=== PATIENT | male | born 1950 | race Caucasian/White ===

== ENCOUNTER → 2017-04-13 09:56 | Outpatient (RCR) | payer MEDICARE, SELFPAY | LOC: PT 09:56 | PROVIDERS: Visit Provider Physical Medicine & Rehabilitation | DX: S06.5X9A Traumatic subdural hemorrhage with loss of consciousness of unspecified duration, initial encounter (principal) ==

== ENCOUNTER 2017-07-02 12:56 | Emergency (ER) | payer MEDICARE, SELFPAY ==
[2017-07-02 13:03] VITALS: BP 144/87; PULSE 70; RESP 16; TEMP 36.6; O2SAT 96; BMI 21.1
--- NOTE | 2017-07-02 13:10 | CT_ITS ---
CT head/brain wo con Ordering Physician: Arnie Mcnally MD Patient Age: 67 years: Male HISTORY: ITS.REASON: FELL AND HIT HEAD ON ICE Hit on top of head. Headache previous brain bleed subdural hematoma TECHNIQUE: Axial CT head without contrast CT bone Windows centrally. COMPARISON : Previous CT head February 2017 FINDINGS On the previous February 2017 exam there is a large acute subdural hematoma overlying the right cerebral hemisphere. This is been surgically evacuated with 2 angelia hole evident at the right skull. The procedure evacuated majority of the subdural but there is a a small thin residual low-density subdural collection. 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 At the it is minimal measuring up to 6- 7-mm Becoming slightly more evident as we continue superiorly. There is no midline shift. No effacement of the right lateral ventricle. No mass effect. No hemorrhage. No acute findings otherwise seen. The posterior fossa appears normal. The ventricles appear satisfactory and basal cisterns clear. Mild atrophy is seen bilaterally. . Skull intact except to note the 2 angelia holes on right.. Mild opacification of a mid ethmoid air cell. Otherwise paranasal sinuses clear. Mastoid air cells middle ear IACs satisfactory. IMPRESSION======= No acute appearing intracranial findings The patient had a large acute subdural hematoma on February 2007 study which was surgically evacuated. The 2 angelia holes at the right skull reflects such. Today we see a small thin residual low-density subdural collection compatible with likely small residual chronic subdural hematoma or possibly residual subdural hygroma. There are no acute findings. No acute bleed. No remarkable mass effect or midline shift associated. However with the above residual findings I would encourage ongoing follow-up with neurosurgery as outpatient particular if any residual headache , to ensure stability
--- NOTE | 2017-07-02 13:23 | CT_ITS ---
CT cervical spine wo con Ordering Physician: Arnie Mcnally MD Patient Age: 67 years: Male HISTORY: ITS.REASON: fall with hit to head TECHNIQUE: Helical CT scanning performed through the cervical spine with sagittal and coronal reconstructions on CT workstation COMPARISON : February 2017 CT cervical spine FINDINGS No acute fracture nor subluxation of the cervical spine. No significant change is previous study the vertebral bodies appear intact and the disc spaces appear fairly well-maintained throughout. The facets intact with normal relationships. Spinous processes intact. Base of skull intact. Prevertebral soft tissues and alignment satisfactory. Nonspecific straightening could reflect muscle spasm or recent injury. But more likely positional. C1-C2 relationships appear normal. Apices the lungs appear clear. Upper normal thickness of proximal cervical esophagus. IMPRESSION: . 1.. No acute fracture nor subluxation C-spine. C-spine stable and intact.
--- NOTE | 2017-07-02 14:48 | HMH.EDFALL ---
ED Disposition Clinical Impression: Head contusion, Fall, History of subdural hematoma Disposition: Home, Self-Care Condition on Discharge: Fair Additional Instructions: 1- HOB 30 degree. 2- head inj instructions. 3- to retrun for any change to repeat the CT scan as we discussed. 4- follow up with the neurosurgeon on Tuesday. 5- always return if needed for any reason. Referrals: Shawn Araya MD [Primary Care Provider] - - Critical Care Critical Care Time: No Attestation: On 07/02/17, the high probability of a clinically significant, sudden or life threatening deterioration of the following system(s) required my full and direct attention, intervention and personal management. The time I documented below is in addition to time spent performing reported procedures but includes the following listed in this critical care notation. Medical Decision Making Vital Signs: 07/02/17 13:03 Temperature 98 F Temperature Source Oral Pulse Rate [Right Brachial] 70 Respiratory Rate 16 Blood Pressure [Right Arm] 144/87 Blood Pressure Mean [Right Arm] 106 Blood Pressure Source [Right Arm] Automatic Cuff Blood Pressure Position [Right Arm] Sitting 02 Sat by Pulse Oximetry 96 Oxygen Delivery Method Room Air - CT Data CT Scan: Head, C-Spine Time Received: 14:51 Preliminary Findings: Abnormal Findings Narrative: No new bleeding old blood from prior subdural hemorrhage. IMPRESSION======= No acute appearing intracranial findings The patient had a large acute subdural hematoma on February 2007 study which was surgically evacuated. The 2 angelia holes at the right skull reflects such. Today we see a small thin residual low-density subdural collection compatible with likely small residual chronic subdural hematoma or possibly residual subdural hygroma. There are no acute findings. No acute bleed. No remarkable mass effect or midline shift associated. However with the above residual findings I would encourage ongoing follow-up with neurosurgery as outpatient particular if any residual headache , to ensure stability IMPRESSION: . 1.. No acute fracture nor subluxation C-spine. C-spine stable and intact. - Negrito Inquiry Pt receiving controlled substance: No Negrito was queried for this patient: No Medical Decision Making Narrative: I discussed the CT scan with the patient I informed him that he will still need to be on the 24 hours observation. He was advised not to use any aspirin or nonsteroidal. to return to the ED for any change for repeat CT scan. He was given a copy of his CT scan for follow-up with his neurosurgeon at on Tuesday. Fall HPI - General Chief Complaint: Fall Stated Complaint: Fell on ice hit head Mode of Arrival: Ambulatory Limitations: No Limitations Description of Symptoms (Recalled from ER Triage Doc. by RN): ADVISES OF BRAIN SURGERY 03/20/17 AND FELL AND HIT HIS RT SIDE OF HIS HEAD ON ICE TODAY SO PT IS CONCERNED - History of Present Illness HPI Narrative: 67 years old white male with a history of subdural hemorrhage in 2017. He slipped and fell on ice and hit his head on the floor. No loss of consciousness no nausea novomiting, no neck pain . He wanted to have another CT scan to make sure everything is fine. MD complaint: fall Onset (ago): hour(s) (at noon 2 hours ago.) Fall witnessed: yes, by family Place fall occurred: home Loss of consciousness: none Prolonged down time: no Symptoms prior to fall: none Context: tripped/slipped Location of injury: head Severity: moderate Quality: dull Associated symptoms (after fall): denies - Related Data Allergies Allergy/AdvReac Type Severity Reaction Status Date / Time No Known Allergies Allergy Unverified 04/12/17 15:11 [facility] History I have reviewed the patient's past medical history: Yes Medical History: Denies:: Cancer, Diabetes Mellitus Type 1, Diabetes Mellitus Type 2, MRSA Amputation: No
--- NOTE | 2017-07-02 14:51 | ED_ITS ---
ED Disposition Clinical Impression: Head contusion, Fall, History of subdural hematoma Disposition: Home, Self-Care Condition on Discharge: Fair Additional Instructions: 1- HOB 30 degree. 2- head inj instructions. 3- to retrun for any change to repeat the CT scan as we discussed. 4- follow up with the neurosurgeon on Tuesday. 5- always return if needed for any reason. Referrals: Shawn Araya MD [Primary Care Provider] - - Critical Care Critical Care Time: No Attestation: On 07/02/17, the high probability of a clinically significant, sudden or life threatening deterioration of the following system(s) required my full and direct attention, intervention and personal management. The time I documented below is in addition to time spent performing reported procedures but includes the following listed in this critical care notation. Medical Decision Making Vital Signs: 07/02/17 13:03 Temperature 98 F Temperature Source Oral Pulse Rate [Right Brachial] 70 Respiratory Rate 16 Blood Pressure [Right Arm] 144/87 Blood Pressure Mean [Right Arm] 106 Blood Pressure Source [Right Arm] Automatic Cuff Blood Pressure Position [Right Arm] Sitting 02 Sat by Pulse Oximetry 96 Oxygen Delivery Method Room Air - CT Data CT Scan: Head, C-Spine Time Received: 14:51 Preliminary Findings: Abnormal Findings Narrative: No new bleeding old blood from prior subdural hemorrhage. IMPRESSION======= No acute appearing intracranial findings The patient had a large acute subdural hematoma on February 2007 study which was surgically evacuated. The 2 angelia holes at the right skull reflects such. Today we see a small thin residual low-density subdural collection compatible with likely small residual chronic subdural hematoma or possibly residual subdural hygroma. There are no acute findings. No acute bleed. No remarkable mass effect or midline shift associated. However with the above residual findings I would encourage ongoing follow-up with neurosurgery as outpatient particular if any residual headache , to ensure stability IMPRESSION: . 1.. No acute fracture nor subluxation C-spine. C-spine stable and intact. - Negrito Inquiry Pt receiving controlled substance: No Negrito was queried for this patient: No Medical Decision Making Narrative: I discussed the CT scan with the patient I informed him that he will still need to be on the 24 hours observation. He was advised not to use any aspirin or nonsteroidal. to return to the ED for any change for repeat CT scan. He was given a copy of his CT scan for follow-up with his neurosurgeon at on Tuesday. Fall HPI - General Chief Complaint: Fall Stated Complaint: Fell on ice hit head Mode of Arrival: Ambulatory Limitations: No Limitations Description of Symptoms (Recalled from ER Triage Doc. by RN): ADVISES OF BRAIN SURGERY 03/20/17 AND FELL AND HIT HIS RT SIDE OF HIS HEAD ON ICE TODAY SO PT IS CONCERNED - History of Present Illness HPI Narrative: 67 years old white male with a history of subdural hemorrhage in 2017. He slipped and fell on ice and hit his head on the floor. No loss of consciousness no nausea novomiting, no neck pain . He wanted to have another CT scan to make sure everything is fine. MD complaint: fall Onset (ago): hour(s) (at noon 2 hours ago.) Fall witnessed: yes, by family Place fall occurred
[2017-07-02 15:03] VITALS: BP 125/79; PULSE 81; RESP 16; TEMP 36.6; O2SAT 98
== END 2017-07-02 15:04 | disposition home or self-care (01) ==
PROVIDERS: Emergency Provider Emergency Medicine; Family Provider Internal Medicine Adolescent Medicine; PCP Internal Medicine Adolescent Medicine
DX: S00.93XA Contusion of unspecified part of head, initial encounter (principal); Z86.79 Personal history of other diseases of the circulatory system; W00.0XXA Fall on same level due to ice and snow, initial encounter; Y92.018 Other place in single-family (private) house as the place of occurrence of the external cause
CPT/HCPCS: 70450; 72125; 99282

== ENCOUNTER → 2018-09-15 09:49 | Outpatient (CLI) | payer MEDICARE, SELFPAY ==
[2018-09-15 10:35] LABS: Basophils # 0.1 K/mm3 (0-0.2); Basophils % 1.3 % (0.1-2.0); Eosinophils # 0.1 K/mm3 (0.0-0.4); Eosinophils % 1.4 % (0.1-12.0); Hematocrit 41.5 % (42.0-52.0); Hemoglobin 14.9 g/dL (14.1-18.0); Lymphocytes # 1.5 K/mm3 (0.7-4.5); Lymphocytes % 16.1 % (10-50); Mean Corpuscular HGB Conc 35.8 g/dL (31.8-35.4); Mean Corpuscular Hemoglobin 32.6 pg (27.0-31.2); Mean Platelet Volume 7.2 fl (7.4-10.4); Monocytes # 0.6 K/mm3 (0.1-1.0); Neutrophils # 6.8 K/mm3 (1.8-7.8); Neutrophils % 74.2 % (37.0-80.0); Platelet Count 348 K/mm3 (142-424); Red Blood Count 4.56 M/mm3 (4.60-6.20); Red Cell Distribution Width 13.1 % (11.5-17.5); White Blood Count 9.2 K/mm3 (4.8-10.8)
[2018-09-15 10:53] LABS: Alanine Aminotransferase 14 U/L (12-78); Albumin Level 3.5 gm/dL (3.4-5.0); Albumin/Globulin Ratio 1.2 (1.1-1.8); Alkaline Phosphatase 450 U/L (46-116); Anion Gap 14.8 mEq/L (5-15); Aspartate Amino Transferase 5 U/L (15-37); Bilirubin,Total 0.4 mg/dL (0.2-1.0); Blood Urea Nitrogen 16 mg/dL (7-18); Calcium 8.9 mg/dL (8.5-10.1); Carbon Dioxide 27 mmol/L (21.0-32.0); Chloride 106 mmol/L (98-107); Chol/HDL Ratio 6.3 (1-3.5); Cholesterol 176 mg/dL (140-200); Creatinine,Serum 1.32 mg/dL (0.70-1.30); Estimated Glomerular Filt Rate 54 ml/min (>60); GFR (African American) 65 ML/MIN (>60); Glucose 92 mg/dL (74-106); HDL Cholesterol 28 mg/dL (27-67); LDL Cholesterol 118 mg/dL (0-130); Potassium 4.8 mmoL/L (3.5-5.1); Sodium 143 mmol/L (136-145); Total Protein,Serum 6.5 gm/dL (6.4-8.2); Triglycerides 151 mg/dL (30-200); VLDL Cholesterol 30 mg/dL (0-40)
[2018-09-17 17:24] LABS: PSA, Free 0.18 ng/mL
== END ==
PROVIDERS: Visit Provider Internal Medicine Adolescent Medicine
DX: I10 Essential (primary) hypertension (principal)
CPT/HCPCS: 36415; 80053; 80061; 84153; 84154; 85025

== ENCOUNTER → 2019-04-02 16:21 | Outpatient (CLI) | payer MEDICARE, SELFPAY ==
--- NOTE | 2019-04-02 16:37 | ECG_ITS ---
APPROVED REPORT Exam: Resting ECG HR:56 bpm ECG Measurements Heart Rate 56 AXES IN 114 P 23 QRSd 80 QRS 24 QT 420 T 38 QTc 405 <Conclusion> Sinus bradycardia Otherwise normal ECG Electronically signed by : Kolby Solis, 04/03/2019 17:40:25
[2019-04-02 16:44] LABS: Basophils # 0.2 K/mm3 (0-0.2); Basophils % 1.7 % (0.1-2.0); Eosinophils # 0.3 K/mm3 (0.0-0.4); Eosinophils % 3.3 % (0.1-12.0); Hematocrit 47.9 % (42.0-52.0); Hemoglobin 15.8 g/dL (14.1-18.0); Lymphocytes # 2.2 K/mm3 (0.7-4.5); Lymphocytes % 22.4 % (10-50); Mean Corpuscular HGB Conc 32.9 g/dL (31.8-35.4); Mean Corpuscular Hemoglobin 31.1 pg (27.0-31.2); Mean Corpuscular Volume 94.5 fl (80-94); Mean Platelet Volume 7.5 fl (7.4-10.4); Monocytes # 0.7 K/mm3 (0.1-1.0); Monocytes % 6.7 % (1.7-9.3); Neutrophils # 6.5 K/mm3 (1.8-7.8); Neutrophils % 65.9 % (37.0-80.0); Platelet Count 390 K/mm3 (142-424); Red Blood Count 5.07 M/mm3 (4.60-6.20); Red Cell Distribution Width 13.3 % (11.5-17.5); White Blood Count 9.9 K/mm3 (4.8-10.8)
== END ==
PROVIDERS: Visit Provider Otolaryngology
DX: Z01.818 Encounter for other preprocedural examination (principal); C44.311 Basal cell carcinoma of skin of nose; J38.1 Polyp of vocal cord and larynx
CPT/HCPCS: 36415; 85025; 93005

== ENCOUNTER → 2023-01-06 23:42 | Outpatient (CLI) | payer MEDICARE, SELFPAY ==
[2023-01-06 18:47] LABS: Basophils # 0.1 K/mm3 (0-0.2); Basophils % 0.9 % (0.1-2.0); Eosinophils # 0.2 K/mm3 (0.0-0.4); Eosinophils % 2.4 % (0.1-12.0); Hematocrit 45.8 % (42.0-52.0); Hemoglobin 14.9 g/dL (14.1-18.0); Lymphocytes # 1.1 K/mm3 (0.7-4.5); Mean Corpuscular HGB Conc 32.6 g/dL (31.8-35.4); Mean Corpuscular Hemoglobin 30.7 pg (27.0-31.2); Mean Corpuscular Volume 94.3 fl (80-94); Monocytes # 0.7 K/mm3 (0.1-1.0); Monocytes % 8.1 % (1.7-9.3); Neutrophils # 6.1 K/mm3 (1.8-7.8); Neutrophils % 74.6 % (37.0-80.0); Platelet Count 314 K/mm3 (142-424); Red Blood Count 4.85 M/mm3 (4.60-6.20); Red Cell Distribution Width 13.8 % (11.5-17.5); White Blood Count 8.1 K/mm3 (4.8-10.8)
[2023-01-06 18:52] LABS: Alanine Aminotransferase 12 U/L (12-78); Albumin Level 4.1 g/dl (3.5-5.0); Albumin/Globulin Ratio 1.7 (1.1-1.8); Alkaline Phosphatase 498 U/L (38-126); Anion Gap 12.1 mEq/L (5-15); Aspartate Amino Transferase 20 U/L (17-59); Bilirubin,Total 0.8 mg/dl (0.2-1.3); Blood Urea Nitrogen 17 mg/dl (9-20); Calcium 9.2 mg/dl (8.4-10.2); Carbon Dioxide 29 mmol/L (22.0-30.0); Chloride 105 mmol/L (98-107); Chol/HDL Ratio 4.3 (1-3.5); Cholesterol 112 mg/dl (140-200); Estimated Glomerular Filt Rate 50 ml/min (>60); GFR (African American) 60 ML/MIN (>60); Globulin 2.4 g/dL (1.3-3.2); Glucose 107 mg/dl (74-100); HDL Cholesterol 26 mg/dl (40-60); Potassium 5.1 mmoL/L (3.5-5.1); Sodium 141 mmol/L (136-145); Total Protein,Serum 6.5 g/dl (6.3-8.2); Triglycerides 67 mg/dl (30-150); VLDL Cholesterol 13 mg/dL (0-40)
[2023-01-06 19:03] LABS: Direct LDL Cholesterol 73.82 mg/dL (100-129)
[2023-01-06 19:08] LABS: 25-OH Vitamin D, Total 28.9 ng/mL (30-100)
[2023-01-06 19:22] LABS: Thyroid Stimulating Hormone 0.53 uIU/mL (0.465-4.68)
== END ==
PROVIDERS: PCP Family Medicine; Visit Provider Student in an Organized Health Care Education/Training Program
DX: I10 Essential (primary) hypertension (principal); Z68.21 Body mass index [BMI] 21.0-21.9, adult; R51.9 Headache, unspecified; Z87.891 Personal history of nicotine dependence; Z86.79 Personal history of other diseases of the circulatory system; E55.9 Vitamin D deficiency, unspecified
CPT/HCPCS: 80053; 80061; 82306; 84443; 85025

== ENCOUNTER 2023-01-07 20:55 | Emergency (ER) | payer MEDICARE, SELFPAY ==
[2023-01-07 20:56] VITALS: BP 192/100; PULSE 67; RESP 18; TEMP 36.6; O2SAT 98; BMI 21.1
--- NOTE | 2023-01-07 21:01 | PC.NURSE ---
Family at bedside, pt denies any recent falls or blood thinners
--- NOTE | 2023-01-07 21:06 | ECG_ITS ---
APPROVED REPORT Exam: Resting ECG HR:63 bpm ECG Measurements Heart Rate 63 AXES GA 156 P 64 QRSd 77 QRS 54 QT 403 T 35 QTc 411 Conclusion SINUS RHYTHM NORMAL ECG UNCONFIRMED REPORT Electronically signed by : Shawn Araya MD 01/09/2023 15:07:50
--- NOTE | 2023-01-07 21:27 | CT_ITS ---
PROCEDURE INFORMATION: Exam: CT Head Without Contrast Exam date and time: 01/07/2023 9:54 PM Age: 72 years old Clinical indication: Stroke-like symptoms; RT upper extremity weakness; Additional info: R weakness x3days TECHNIQUE: Imaging protocol: Computed tomography of the head without contrast. Radiation optimization: All CT scans at this facility use at least one of these dose optimization techniques: automated exposure control; mA and/or kV adjustment per patient size (includes targeted exams where dose is matched to clinical indication); or iterative reconstruction. Other technique: STROKE PROTOCOL was implemented. REPORTING DATA: Count of CT and Cardiac NM exams in prior 12 months: This patient has received 0 known CTs and 0 known cardiac nuclear medicine studies in the 12 months prior to the current study. COMPARISON: [facility]WO CT head/brain wo con 07/02/2017 1:14 PM FINDINGS: Brain: Mild volume loss. There is left cerebral convexity mixed density subdural hemorrhage measuring up to 3.1 cm in thickness. Mass effect with midline shift to the right measuring 1.3 cm. There is subfalcine herniation. Cerebral ventricles: Partial effacement of the left lateral ventricle. No hydrocephalus. Paranasal sinuses: Visualized sinuses are unremarkable. No fluid levels. Mastoid air cells: Visualized mastoid air cells are well aerated. Bones/joints: Right-sided angelia holes. Soft tissues: Unremarkable. IMPRESSION: 1. Left cerebral convexity acute on chronic subdural hemorrhage measures up to 3.1 cm. 2. Mass effect with midline shift to the right measures 1.3 cm. ASSESSMENT: ASPECTS ([place] Stroke Program Early CT Score) is 10.
--- NOTE | 2023-01-07 21:27 | XR_ITS ---
PROCEDURE INFORMATION: Exam: XR Chest Exam date and time: 01/07/2023 10:03 PM Age: 72 years old Clinical indication: Other: Weakness TECHNIQUE: Imaging protocol: Radiologic exam of the chest. Views: 1 view. COM[facility] cervical spine wo con 07/02/2017 1:19 PM FINDINGS: Lungs: Unremarkable. No consolidation. Pleural spaces: Unremarkable. No pleural effusion. No pneumothorax. Heart/Mediastinum: Unremarkable. No cardiomegaly. Vasculature: Elongation of the thoracic aorta with calcification. Bones/joints: Osteopenia. IMPRESSION: No acute cardiopulmonary process.
[2023-01-07 21:31] VITALS: BP 135/76; PULSE 64; RESP 22; O2SAT 95
[2023-01-07 21:37] LABS: Chloride 106 mmol/L (98-107); Sodium 142 mmol/L (136-145)
[2023-01-07 21:38] LABS: Potassium 4.2 mmoL/L (3.5-5.1)
[2023-01-07 21:39] LABS: Basophils # 0.1 K/mm3 (0-0.2); Basophils % 0.9 % (0.1-2.0); Eosinophils # 0.2 K/mm3 (0.0-0.4); Eosinophils % 1.4 % (0.1-12.0); Hematocrit 45.1 % (42.0-52.0); Lymphocytes # 1.5 K/mm3 (0.7-4.5); Lymphocytes % 12.4 % (10-50); Mean Corpuscular HGB Conc 33.3 g/dL (31.8-35.4); Mean Corpuscular Hemoglobin 30.8 pg (27.0-31.2); Mean Corpuscular Volume 92.4 fl (80-94); Mean Platelet Volume 8.1 fl (7.4-10.4); Monocytes # 0.9 K/mm3 (0.1-1.0); Monocytes % 7.4 % (1.7-9.3); Neutrophils # 9.2 K/mm3 (1.8-7.8); Neutrophils % 77.9 % (37.0-80.0); Platelet Count 315 K/mm3 (142-424); Red Blood Count 4.88 M/mm3 (4.60-6.20); Red Cell Distribution Width 13.7 % (11.5-17.5); White Blood Count 11.8 K/mm3 (4.8-10.8)
[2023-01-07 21:40] LABS: Alanine Aminotransferase 15 U/L (12-78); Alkaline Phosphatase 474 U/L (38-126); Anion Gap 12.2 mEq/L (5-15); Aspartate Amino Transferase 23 U/L (17-59); Bilirubin,Total 0.8 mg/dl (0.2-1.3); Blood Urea Nitrogen 20 mg/dl (9-20); Carbon Dioxide 28 mmol/L (22.0-30.0); Creatinine Clearance Estimated 40 mL/min (50-200); Estimated Glomerular Filt Rate 50 ml/min (>60); GFR (African American) 60 ML/MIN (>60)
[2023-01-07 21:41] LABS: Albumin Level 3.9 g/dl (3.5-5.0); Albumin/Globulin Ratio 1.5 (1.1-1.8); Calcium 9.6 mg/dl (8.4-10.2); Globulin 2.6 g/dL (1.3-3.2); Glucose 125 mg/dl (74-100); Total Protein,Serum 6.5 g/dl (6.3-8.2)
[2023-01-07 21:44] LABS: Activated Partial Thrombo Time 28.8 seconds (22.8-30.6); INR 1.06 (0.9-1.1); Prothrombin Time 11.4 seconds (10.1-12.5)
--- NOTE | 2023-01-07 21:56 | HMH.EDGENADL ---
Discharge Plan Disposition Patient Disposition: Xfer Short-Term Hosp Condition: Fair Prescriptions Prescriptions: No Action amlodipine 5 mg tablet 5 mg PO DAILY Qty: 30 0RF cholecalciferol (vitamin D3) 50 mcg (2,000 unit) capsule 50 mcg PO DAILY Qty: 30 0RF lisinopril 20 MG tablet 20 mg PO BID Patient Comments: TAKE ONE TABLET BY MOUTH TWICE DAILY propranolol 20 MG tablet 20 mg PO BID Patient Comments: TAKE ONE TABLET BY MOUTH TWICE DAILY Referrals Follow up/Referrals: Jackelyn Kaur PA [Primary Care Provider] - See instructions Clinical Impressions Clinical Impression: Acute subdural hematoma, Midline shift of brain Stand Alone Forms Stand Alone Forms: Transfer Record - ED Discharge ED Provider: Daria Smallwood General Adult HPI General Chief complaint: Weakness Stated complaint: disoriented, RT hand numbness Time Seen by Provider: 01/07/23 21:19 Mode of Arrival: Wheelchair Source of Information: Patient and Relative Limitations: No Limitations Description of Symptoms (Recalled from ER Triage Doc. by RN): Pt presents with right sided weakness x 1 week associated with headache. Pt states he had a brain bleed 4 yrs ago. Pt is HTN at this time, states he was confused earlier and could not walk. History of Present Illness HPI narrative: This patient is a 72-year-old male with a history of frequent falls resulting in subdural hematomas (R) x2 in the past for which he had to have operative intervention hypertension, and renal insufficiency presenting to the emergency department for evaluation with concern for right-sided weakness, difficulty walking, and confusion that has been going on for at least 3 days but possibly a week. Patient reports that he has not felt normal for a while. He arrives today with family who brought him in because they state that he was unable to walk today. He does note that today, he feels very much worse than yesterday. He states that his right leg is extremely weak, and he has issues using his right hand and arm because he does not have good control over it. All of this is new, as he denies any retained neurologic deficits from his prior subdural hematomas. He denies any recent falls, traumas, fevers, cough, congestion, chest pain, shortness of breath, abdominal pain, nausea, vomiting, changes bowel movements, or other concerns. He is not on any anticoagulation. Related Data Home Medications Medication Instructions Recorded Confirmed lisinopril 20 mg tablet 20 mg PO BID Hypertension 03/13/19 01/06/23 propranolol 20 mg tablet 20 mg PO BID Hypertension 03/13/19 01/06/23 Previous Rx's Medication Instructions Recorded amlodipine 5 mg tablet 5 mg PO DAILY #30 tabs 01/06/23 cholecalciferol (vitamin D3) 50 50 mcg PO DAILY #30 caps 01/06/23 mcg (2,000 unit) capsule Allergies Allergy/AdvReac Type Severity Reaction Status Date / Time No Known Allergies Allergy Verified 01/06/23 09:30 [facility] Disclaimer: The information contained in this section may have been updated after the patient was seen, as this information can be updated by other users. Medical History Brain bleed Hypertension Surgical History No significant past surgical history Family History Other No significant family history Social History Smoking Status: Never smoker alcohol intake: never substance use type: denies use current occupational status: employed Travel in the last 8 weeks: Inside the [place] household members: none housing: house caffeine: Yes ROS Obtained: Yes All systems reviewed & no additional complaints except as documented Physical Exam General General appearance: alert and in no apparent distress Head Hea
--- NOTE | 2023-01-07 21:57 | PC.NURSE ---
[facility] calling [facility] about a transfer per Dr Smallwood. CR
[2023-01-07 21:58] VITALS: BP 218/109; PULSE 67; RESP 24; O2SAT 96
[2023-01-07 22:00] VITALS: BP 205/102; PULSE 63; RESP 22; O2SAT 97
--- NOTE | 2023-01-07 22:13 | PC.NURSE ---
on hold with [facility] at this time.
--- NOTE | 2023-01-07 22:20 | PC.NURSE ---
on hold for at this time.
--- NOTE | 2023-01-07 22:23 | PC.NURSE ---
o/p with at this time
--- NOTE | 2023-01-07 22:30 | PC.NURSE ---
accepted patient at this time.
--- NOTE | 2023-01-07 22:33 | PC.NURSE ---
o/p with [facility] at this time.
--- NOTE | 2023-01-07 22:38 | PC.NURSE ---
Contacted [facility]. Spoke to the call center. [facility] accepted the flight at [id number]. With a [address] Smallwood and ER staff notified. CR
--- NOTE | 2023-01-07 22:42 | PC.NURSE ---
Report called to [facility] ER given to Enrique ZAMORA
[2023-01-08 00:03] VITALS: BP 164/78; PULSE 88; RESP 20; TEMP 36.6; O2SAT 97
== END 2023-01-07 23:40 | disposition short-term general hospital (02) ==
PROVIDERS: Emergency Provider Emergency Medicine; PCP Student in an Organized Health Care Education/Training Program
DX: S06.5X0A Traumatic subdural hemorrhage without loss of consciousness, initial encounter (principal); R53.1 Weakness; R29.6 Repeated falls; I10 Essential (primary) hypertension; N28.9 Disorder of kidney and ureter, unspecified; W19.XXXA Unspecified fall, initial encounter
CPT/HCPCS: 70450; 71045; 80053; 85025; 85610; 85730; 93005; 96361; 96374; 99291

== ENCOUNTER → 2023-03-28 09:53 | Outpatient (CLI) | payer MEDICARE, SELFPAY ==
--- NOTE | 2023-03-28 09:58 | XR_ITS ---
FINAL REPORT CLINICAL HISTORY: cough, wheezing copd x smoker for 5 years now COMPARISON: 01/07/2023 FINDINGS: Two views of the chest were obtained. The heart size and pulmonary vascularity are within normal limits. The mediastinum is normal. Previously noted bibasilar opacities remain present, atelectasis versus scar. There is no pneumothorax. The bony thorax is intact. IMPRESSION: No active cardiopulmonary disease. Atelectasis versus scar lung bases, stable since the prior chest x-ray. Reviewed, Interpreted and Dictated by Jeffry Man III, MD Transcribed by Swetha Bhatti Authenticated and [facility]
== END ==
PROVIDERS: PCP Student in an Organized Health Care Education/Training Program; Visit Provider Student in an Organized Health Care Education/Training Program
DX: R05.9 Cough, unspecified (principal)
CPT/HCPCS: 71046; 87635

== ENCOUNTER → 2023-03-28 23:00 | Outpatient (CLI) | payer MEDICARE, SELFPAY | PROVIDERS: PCP Student in an Organized Health Care Education/Training Program; Visit Provider Student in an Organized Health Care Education/Training Program | DX: R05.9 Cough, unspecified (principal) ==

== ENCOUNTER 2023-05-10 18:55 | Outpatient (CLI) | payer MEDICARE, SELFPAY ==
[2023-05-10 19:01] LABS: Basophils # 0.1 K/mm3 (0-0.2); Basophils % 0.7 % (0.1-2.0); Eosinophils # 0.2 K/mm3 (0.0-0.4); Hematocrit 44.1 % (42.0-52.0); Hemoglobin 14.7 g/dL (14.1-18.0); Lymphocytes # 1.6 K/mm3 (0.7-4.5); Lymphocytes % 21.4 % (10-50); Mean Corpuscular HGB Conc 33.4 g/dL (31.8-35.4); Mean Corpuscular Volume 95.7 fl (80-94); Mean Platelet Volume 9.6 fl (7.4-10.4); Monocytes # 0.7 K/mm3 (0.1-1.0); Monocytes % 9.4 % (1.7-9.3); Neutrophils # 4.9 K/mm3 (1.8-7.8); Neutrophils % 66.4 % (37.0-80.0); Platelet Count 350 K/mm3 (142-424); Red Blood Count 4.61 M/mm3 (4.60-6.20); Red Cell Distribution Width 14.4 % (11.5-17.5); White Blood Count 7.4 K/mm3 (4.8-10.8)
[2023-05-10 19:08] LABS: Chloride 105 mmol/L (98-107); Potassium 4.6 mmoL/L (3.5-5.1); Sodium 142 mmol/L (136-145)
[2023-05-10 19:10] LABS: Blood Urea Nitrogen 19 mg/dl (9-20); Estimated Glomerular Filt Rate 49 ml/min (>60); GFR (African American) 60 ML/MIN (>60)
[2023-05-10 19:11] LABS: Alanine Aminotransferase 14 U/L (12-78); Albumin Level 4.2 g/dl (3.5-5.0); Albumin/Globulin Ratio 1.8 (1.1-1.8); Alkaline Phosphatase 450 U/L (38-126); Anion Gap 13.6 mEq/L (5-15); Aspartate Amino Transferase 22 U/L (17-59); Bilirubin,Total 0.7 mg/dl (0.2-1.3); Carbon Dioxide 28 mmol/L (22.0-30.0); Chol/HDL Ratio 7.4 (1-3.5); Cholesterol 193 mg/dl (140-200); Globulin 2.4 g/dL (1.3-3.2); Glucose 94 mg/dl (74-100); HDL Cholesterol 26 mg/dl (40-60); Total Protein,Serum 6.6 g/dl (6.3-8.2); Triglycerides 110 mg/dl (30-150); VLDL Cholesterol 22 mg/dL (0-40)
[2023-05-10 19:25] LABS: Direct LDL Cholesterol 137.31 mg/dL (100-129)
[2023-05-10 19:29] LABS: 25-OH Vitamin D, Total 30.6 ng/mL (30-100)
[2023-05-10 21:14] LABS: Hemoglobin A1C 5.2 % (4.0-6.0)
== END 2023-05-10 23:59 ==
LOC: LAB.DROPOF 18:55
PROVIDERS: PCP Student in an Organized Health Care Education/Training Program; Visit Provider Student in an Organized Health Care Education/Training Program
DX: I10 Essential (primary) hypertension (principal); R73.9 Hyperglycemia, unspecified; E55.9 Vitamin D deficiency, unspecified; Z68.21 Body mass index [BMI] 21.0-21.9, adult
CPT/HCPCS: 80053; 80061; 82306; 83036; 84443; 85025

== ENCOUNTER 2023-05-19 10:11 | Outpatient (CLI) | payer MEDICARE, SELFPAY ==
--- NOTE | 2023-05-19 10:11 | US_ITS ---
FINAL REPORT CLINICAL HISTORY: . COMPARISON: None FINDINGS: RENAL ULTRASOUND: The right kidney measures 7.8 cm in size. No evidence of hydronephrosis or perinephric fluid collections are seen. The left kidney measures 9.5 cm in length, and there is no evidence of hydronephrosis or perinephric fluid collections. IMPRESSION: Unremarkable renal ultrasound. Reviewed, Interpreted and Dictated by Darwin Ryan MD Transcribed by Swetha Bhatti Authenticated and [facility]
== END 2023-05-19 23:59 ==
LOC: RAD 10:11
PROVIDERS: PCP Student in an Organized Health Care Education/Training Program; Visit Provider Student in an Organized Health Care Education/Training Program
DX: R79.89 Other specified abnormal findings of blood chemistry (principal); I10 Essential (primary) hypertension
CPT/HCPCS: 76770

== ENCOUNTER 2024-08-06 10:57 | Outpatient (CLI) | payer MEDICARE, SELFPAY ==
[2024-08-06 18:24] LABS: Basophils # 0.1 K/mm3 (0-0.2); Basophils % 1.3 % (0.1-2.0); Eosinophils # 0.2 K/mm3 (0.0-0.4); Eosinophils % 2.2 % (0.1-12.0); Hematocrit 44.6 % (42.0-52.0); Hemoglobin 15.1 g/dL (14.1-18.0); Lymphocytes # 1.3 K/mm3 (0.7-4.5); Lymphocytes % 15.2 % (10-50); Mean Corpuscular HGB Conc 33.9 g/dL (31.8-35.4); Mean Corpuscular Hemoglobin 32.1 pg (27.0-31.2); Mean Corpuscular Volume 94.7 fl (80-94); Mean Platelet Volume 10.1 fl (7.4-10.4); Monocytes # 0.9 K/mm3 (0.1-1.0); Monocytes % 10.1 % (1.7-9.3); Neutrophils % 70.8 % (37.0-80.0); Nucleated Red Blood Cells # 0 10^3/uL; Nucleated Red Blood Cells % 0 %; Platelet Count 349 K/mm3 (142-424); Red Blood Count 4.71 M/mm3 (4.60-6.20); Red Cell Distribution Width 13.2 % (11.5-17.5); Red Cell Distribution Width-SD 45.9 fL; White Blood Count 8.5 K/mm3 (4.8-10.8)
[2024-08-06 19:48] LABS: Albumin Level 4.1 g/dl (3.5-5.0); Chloride 105 mmol/L (98-107); Sodium 140 mmol/L (136-145)
[2024-08-06 19:49] LABS: Potassium 5.2 mmoL/L (3.5-5.1)
[2024-08-06 19:51] LABS: Alanine Aminotransferase 10 U/L (12-78); Albumin/Globulin Ratio 1.5 (1.1-1.8); Alkaline Phosphatase 567 U/L (38-126); Anion Gap 15.2 mEq/L (5-15); Aspartate Amino Transferase 21 U/L (17-59); Bilirubin,Total 0.6 mg/dl (0.2-1.3); Blood Urea Nitrogen 18 mg/dl (9-20); Carbon Dioxide 25 mmol/L (22.0-30.0); Estimated Glomerular Filt Rate 59 ml/min (>60); GFR (African American) 71 ML/MIN (>60); Globulin 2.7 g/dL (1.3-3.2); Total Protein,Serum 6.8 g/dl (6.3-8.2)
[2024-08-06 19:52] LABS: Chol/HDL Ratio 6.3 (1-3.5); Cholesterol 169 mg/dl (140-200); Glucose 79 mg/dl (74-100); HDL Cholesterol 27 mg/dl (40-60); Triglycerides 112 mg/dl (30-150); VLDL Cholesterol 22 mg/dL (0-40)
[2024-08-06 20:03] LABS: Direct LDL Cholesterol 118.13 mg/dL (100-129)
[2024-08-06 20:14] LABS: 25-OH Vitamin D, Total 28.5 ng/mL (30-100)
== END 2024-08-06 23:59 | disposition home or self-care (01) ==
LOC: LAB.DROPOF 08-07 14:22
PROVIDERS: PCP Family Medicine; Visit Provider Family Medicine
DX: I10 Essential (primary) hypertension (principal); E55.9 Vitamin D deficiency, unspecified
CPT/HCPCS: 80053; 80061; 82306; 84443; 85025

== ENCOUNTER 2024-09-07 14:51 | Outpatient (CLI) | payer MEDICARE, SELFPAY ==
[2024-09-07 19:21] LABS: Alanine Aminotransferase 14 U/L (12-78); Albumin Level 4.2 g/dl (3.5-5.0); Albumin/Globulin Ratio 1.8 (1.1-1.8); Alkaline Phosphatase 521 U/L (38-126); Anion Gap 12.9 mEq/L (5-15); Aspartate Amino Transferase 19 U/L (17-59); Bilirubin,Total 0.6 mg/dl (0.2-1.3); Blood Urea Nitrogen 21 mg/dl (9-20); Calcium 9.2 mg/dl (8.4-10.2); Carbon Dioxide 25 mmol/L (22.0-30.0); Chloride 105 mmol/L (98-107); Estimated Glomerular Filt Rate 54 ml/min (>60); GFR (African American) 65 ML/MIN (>60); Globulin 2.3 g/dL (1.3-3.2); Glucose 81 mg/dl (74-100); Potassium 4.9 mmoL/L (3.5-5.1); Sodium 138 mmol/L (136-145); Total Protein,Serum 6.5 g/dl (6.3-8.2)
[2024-09-07 20:53] LABS: Triiodothryronine (T3) Uptake 35 % (23.5-40.5)
[2024-09-07 20:54] LABS: Free Thyroxine Index 2.8 ug/dL (5.93-13.13)
[2024-09-07 21:07] LABS: Thyroid Stimulating Hormone 0.32 uIU/mL (0.465-4.68)
[2024-09-10 14:55] LABS: Gamma Glutamyl Transpeptidase 21 U/L (15-73)
[2024-09-10 15:27] LABS: Prostate Specific Ag Screen 1.1 ng/ml (0.0-4.0)
== END 2024-09-07 23:59 | disposition home or self-care (01) ==
LOC: LAB.DROPOF 09-10 22:36
PROVIDERS: PCP Family Medicine; Visit Provider Family Medicine
DX: Z00.00 Encounter for general adult medical examination without abnormal findings (principal); Z12.5 Encounter for screening for malignant neoplasm of prostate; R79.0 Abnormal level of blood mineral; R79.89 Other specified abnormal findings of blood chemistry; R74.8 Abnormal levels of other serum enzymes
CPT/HCPCS: 80053; 82977; 84436; 84443; 84479; G0103

== ENCOUNTER 2024-10-08 10:13 | Outpatient (CLI) | payer MEDICARE, SELFPAY ==
--- OUTSIDE RECORDS SUMMARY | 2024-10-08 10:16 | XMS_ITS | Clinical Summary ---
Author Organization Healthcare Address [address] [place] [address] Care Team Providers Care Tattoo Technician Name Role Phone Jackelyn Kaur Primary Care Provider Unavailabl e Allergies No known active allergies Medications amLODIPine (Norvasc) 5 MG tablet Take 1 tablet (5 mg) by mouth 1 (one) time each day. 01/06/2023 Active atorvastatin (Lipitor) 40 MG tablet Take 1 tablet (40 mg) by mouth 1 (one) time each day. 01/04/2023 Active lisinopril 20 MG tablet Take 1 tablet (20 mg) by mouth 2 (two) times a day. 10/11/2022 Active propranolol (Inderal) 20 MG tablet Take 1 tablet (20 mg) by mouth 2 (two) times a day. 10/11/2022 Active levETIRAcetam (Keppra) 500 MG tablet Take 1 tablet (500 mg) by mouth 2 (two) times a day for 9 doses. 9 tablet 01/10/2023 Active Resolved Problems Problem Noted Date Diagnosed Date Resolved Date Subdural hematoma 01/08/2023 01/10/2023 Immunizations Immunization Administration Dates Next Due Influenza, high-dose, quadrivalent 03/01/2022, Influenza, injectable, MDCK, preservative free, quadrivalent 01/29/2020 Influenza, seasonal, injectable 02/18/2018 Moderna COVID-19 Vaccine (Re d Cap) 12+ years 03/23/2021,06/27/2020,05/30/2020 Pneumococcal Polysaccharide PPV23 11/21/2017 Family History Medical History Relation Name Comments Hypertension Other Relation Name Status Comments Other Social History Tobacco Use Types Packs/Day Years Used Date Smoking Tobacco: Former Cigarettes 1.5 50 1 2017 Smokeless Tobacco: Never Tobacco Cessation:Counseling Given: Not Answered Alcohol Use Standard Drinks/Week Comments Never 0 (1 standard drink = 0.6 oz pur e alcohol) Sex and Gender Information Value Date Recorded Sex Assigned at Male 01/08/2023 7:10 AM EDT Legal Sex Male 6:41 PM EDT Gender Identity Male 01/08/2023 7:10 AM EDT Sexual Orientation Not on file Last Filed Vital Signs Vital Sign Reading Time Taken Comments Blood Pressure 108/64 03/07/2023 8:03 AM EST Pulse 51 01/24/2023 10:09 AM EDT Temperature 36.6 C (97.9 F) 01/10/2023 11:09 AM EDT Respiratory Rate 16 01/10/2023 4:20 AM EDT Oxygen Saturation 94% 01/24/2023 10:09 AM EDT Inhaled Oxygen Concentration - - Weight 62.6 kg (138 lb) 03/07/2023 8:03 AM EST Height 170.2 cm (5' 7 ) 03/07/2023 8:03 AM EST Body Mass Index 21.61 03/07/2023 8:03 AM EST Plan of Treatment Health Maintenance Due Date Last Done Comments [facility]-Depression Screening 1950 [facility]-Medicare Annual Wellness (AWV) 1950 [facility]-/Child/Adol SDOH Screenings 1950 [facility]- SDOH Screenings 02/01/1966 [facility]-Adult SDOH Screenings 02/01/1966 [facility]-DTaP,Tdap,and Td Vaccines (1 - Tdap) 02/01/1967 [facility]-Lung Cancer Screening 02/01/1998 [facility]-Zoster Vaccines (1 of 2) 02/01/1998 [facility]-Pneumococcal Vaccine: 50+ Years (2 of 2 - PCV) 11/21/2018 11/21/2017 [facility]-RSV Vaccine: 60+ Years or (1 - 1-dose 75+ series) 02/01/2023 [id number] Vaccine ( - season) 2023 03/23/2021, 06/27/2020, 05/30/2020 [facility]-Influenza Vaccine (Season Ended) 2024 02/10/2023, 03/01/2022, 01/30/2021, Additional history exists [facility]-Hepatitis C Screening Completed 01/08/2023 HPV Vaccines Aged Out No longer eligi ble based on patient's age to complete this topic [facility]-HIB Vaccines Aged Out No longer e ligible based on patient's age to complete this topic [facility]-Hepatitis A Vaccines Aged Out No longer eligible based on patient's age to complete this topic [facility]-IPV Vaccines Aged Out No longer e ligible based on patient's age to complete this topic [facility]-Rotavirus Vaccines Aged Out No lo nger eligible based on patient's age to complete this topic Medical Devices Implanted Type Area Piledriver Carpenter Device Identifier Shelf Expiration Date Model / Serial / Lot [employer] 18 - [id number] Implanted:Qty: 1 on 01/09/2023 at [facility] [id number] 03/07/2025 105-71 00-06 0 / / [id number] Kal 18 - [id number] Implanted:Qty: 1 on 01/09/2023 at [facility] [id number] 03/07/2025 105-71 00-06 0 / / [id number] Procedures Procedure Name Priority Date/Time Associated Diagnosis Comments HEPATITIS C ANTIBODY - ED W/REFLEX TO HCV QUANT PCR STAT 01/08/2023 12:27 AM EDT from Last 3 Months or Most Recently Relevant to Health Maintenance Results * Hepatitis C Antibody - ED (01/08/2023 12:27 AM EDT) Hepatitis C Antibody Negative Negative 01/08/2023 1:44 AM EDT [facility] Blood Venous blood specimen / Unknown Venipuncture / Unknown 01/08/2023 12:27 AM EDT 01/08/2023 12:57 AM EDT us Efraín Vivar MD LAB BLOOD ORDERABLES Final Re sult [facility] [address] [place] [id number] from Last 3 Months or Most Recently Relevant to Health Maintenance Insurance MEDICARE Care Teams Tattoo Technician Relationship Specialty Start Date End Date Jackelyn Kaur PA [address] [place] [address] PCP - General 01/08/23
--- NOTE | 2024-10-08 10:30 | NM_ITS ---
FINAL REPORT CLINICAL HISTORY: elevated alkaline phospatase 10:20am 26.1 mci tc mdp COMPARISON: None FINDINGS: EXISTING RELEVANT IMAGING STUDIES: AP view of the pelvis TECHNIQUE: The patient was injected with 26.1 mCi of technetium 99-MDP. 3 hour delayed images were obtained. FINDINGS: There is marked increased activity in the right iliac wing, the right pubic rami, the sacrum, and the lower lumbar region. Plain film correlation suggests that this is compatible with Paget's disease. No other abnormal tracer activity is identified to suggest occult fracture or metastatic disease. IMPRESSION: Marked increased activity as described in the right side of the pelvis and the sacrum, with the overall appearance suggestive of Paget's disease. Reviewed, Interpreted and Dictated by Darwin Ryan MD Transcribed by Swetha Bhatti Authenticated and [facility]
[2024-10-08] MEDS: SODIUM CHLORIDE 0.9% 10ML SYR (RAD ONLY) 10 ML IV (11:07)
[2024-10-08] MEDS: ISOTOPE MDP (BONE);1 DOSE VIAL IV (11:07)
--- NOTE | 2024-10-08 13:57 | XR_ITS ---
FINAL REPORT CLINICAL HISTORY: ABN AREA SEEN ON NUC BONE SCAN, REQUESTED BY RADIOLOGIST COMPARISON: None FINDINGS: SINGLE VIEW PELVIS: A single view of the pelvis was obtained. There is extensive bony sclerosis in the right iliac wing and the pubic rami on the right side, with joint space narrowing of the right hip joint, typical of Paget's disease. This is significantly more prominent than the right than on the left. There is also involvement of the right side of the sacrum and the L5 vertebral body. IMPRESSION: Extensive bony sclerosis in the right iliac wing and the pubic rami on the right, as well as the right side of the sacrum and the L5 vertebral body. The overall findings are most typical of Paget's disease. Reviewed, Interpreted and Dictated by Darwin Ryan MD Transcribed by Swetha Bhatti Authenticated and [facility]
== END 2024-10-08 23:59 | disposition home or self-care (01) ==
LOC: RAD 10:14
PROVIDERS: PCP Family Medicine; Visit Provider Family Medicine
DX: M88.1 Osteitis deformans of vertebrae (principal); M88.88 Osteitis deformans of other bones; R74.8 Abnormal levels of other serum enzymes
CPT/HCPCS: 72170; 78306; A9503

== ENCOUNTER 2024-12-25 09:56 | Outpatient (CLI) | payer MEDICARE, SELFPAY ==
--- NOTE | 2024-12-25 10:00 | XR_ITS ---
FINAL REPORT TECHNIQUE: Chest PA & Lateral CLINICAL HISTORY: cough COMPARISON: 01/07/2023 FINDINGS: 2 views of the chest were performed. The heart size is normal. The mediastinum is within normal limits. There are 2 nodular opacities noted in the left lung. The first of these measures 2 cm in size and is in the left suprahilar region. The second nodule is in the lateral left mid thorax, also 2 cm in size. There are no pleural effusions. There is no pneumothorax. The bony thorax appears intact. IMPRESSION: 2 nodules are noted in the left lung field as described above, both measuring approximately 2 cm in size. These were not seen on the prior chest x-ray of 01/07/2023. Recommend contrast-enhanced CT of the chest for further evaluation. Reviewed, Interpreted and Dictated by Darwin Ryan MD Transcribed by Swetha Bhatti Authenticated and . [facility]
--- OUTSIDE RECORDS SUMMARY | 2024-12-25 10:29 | XMS_ITS | Clinical Summary ---
Author Organization Healthcare Address [address] [place] [address] Care Team Providers Care Stitch Bonding Machine Drawer In Name Role Phone Jackelyn Kaur Primary Care [...] or (1 - 1-dose 75+ series) 02/01/2023 [id number] Vaccine ( - season) 2023 03/23/2021, 06/27/2020, 05/30/2020 [facility]-Influenza Vaccine (#1) 12/24/202402/10, 03/01/2022, 01/30/2021, Additional history exists [facility]-Hepatitis C [...] this topic Medical Devices Implanted Type Area Biscuit Machine Operator Device Identifier Shelf Expiration Date Model / Serial / Lot [place] 18 - [id number] Implanted:Qty: 1 on 01/09/2023 at [facility] [id number] 03/07/2025 105-71 00-06 0 / / [id number] [place] 18 - [id number] Implanted:Qty: 1 on 01/09/2023 at [facility] [id number] 03/07/2025 105-71 00-06 0 / / [id number] Procedures Procedure Name Priority Date/Time Associated Diagnosis Comments HEPATITIS C ANTIBODY - ED W/REFLEX TO HCV QUANT PCR STAT 01/08/2023 12:27 AM EDT from Last 3 Months or Most Recently Relevant to Health Maintenance Results * Hepatitis C Antibody - ED (01/08/2023 12:27 AM EDT) Hepatitis C Antibody Negative Negative 01/08/2023 1:44 AM EDT [facility] Blood Venous blood specimen / Unknown Venipuncture / Unknown 01/08/2023 12:27 AM EDT 01/08/2023 12:57 AM EDT us Efraín Vivar MD LAB BLOOD ORDERABLES Final Re sult [facility] [address] [place] [phone] from Last 3 Months or Most Recently Relevant to Health Maintenance Insurance MEDICARE Care Teams Stitch Bonding Machine Drawer In Relationship Specialty Start Date End Date Jackelyn Kaur PA [address] [place] [address] PCP - General 01/08/23
[2024-12-25 10:34] LABS: Hematocrit 42.7 % (42.0-52.0); Hemoglobin 14.5 g/dL (14.1-18.0); Immature Granulocytes % 0.7 %; Mean Corpuscular HGB Conc 34.0 g/dL (31.8-35.4); Mean Corpuscular Hemoglobin 31.6 pg (27.0-31.2); Mean Corpuscular Volume 93.0 fl (80-94); Nucleated Red Blood Cells % 0 %; Platelet Count 360 K/mm3 (142-424); Red Blood Count 4.59 M/mm3 (4.60-6.20); Red Cell Distribution Width-SD 42.0 fL; White Blood Count 10.1 K/mm3 (4.8-10.8)
[2024-12-25 11:03] LABS: Albumin Level 4.3 g/dl (3.5-5.0); Chloride 105 mmol/L (98-107); Potassium 5.4 mmoL/L (3.5-5.1); Sodium 140 mmol/L (136-145)
[2024-12-25 11:05] LABS: Blood Urea Nitrogen 17 mg/dl (9-20); Creatinine,Serum 1.30 mg/dl (0.66-1.25); Estimated Glomerular Filt Rate 54 ml/min (>60); GFR (African American) 65 ML/MIN (>60)
[2024-12-25 11:06] LABS: Alanine Aminotransferase 11 U/L (12-78); Albumin/Globulin Ratio 1.7 (1.1-1.8); Alkaline Phosphatase 366 U/L (38-126); Anion Gap 12.4 mEq/L (5-15); Aspartate Amino Transferase 21 U/L (17-59); Bilirubin,Total 0.6 mg/dl (0.2-1.3); Calcium 9.5 mg/dl (8.4-10.2); Carbon Dioxide 28 mmol/L (22.0-30.0); Globulin 2.6 g/dL (1.3-3.2); Glucose 100 mg/dl (74-100); Total Protein,Serum 6.9 g/dl (6.3-8.2)
[2024-12-25 11:20] LABS: Troponin I < 0.01 ng/ml (0.00-0.034)
[2024-12-25 11:23] LABS: Free Thyroxine Index 2.8 ug/dL (5.93-13.13); T4 (Thyroxine) 8.5 ug/dl (5.53-11.0); Triiodothryronine (T3) Uptake 33 % (23.5-40.5)
[2024-12-25 11:37] LABS: Thyroid Stimulating Hormone 0.59 uIU/mL (0.465-4.68)
[2024-12-25 19:12] LABS: Coronavirus 19, PCR Not Detected (NotDetected); Influenza A, PCR Not Detected (NotDetected); Influenza B, PCR Not Detected (NotDetected)
== END 2024-12-25 23:59 | disposition home or self-care (01) ==
LOC: LAB 09:57
PROVIDERS: PCP Family Medicine; Visit Provider Family Medicine
DX: R91.8 Other nonspecific abnormal finding of lung field (principal); R05.9 Cough, unspecified; R07.89 Other chest pain; I10 Essential (primary) hypertension; R79.89 Other specified abnormal findings of blood chemistry; R50.9 Fever, unspecified
CPT/HCPCS: 36415; 71046; 80053; 84436; 84443; 84479; 84484; 85025; 87636

== ENCOUNTER 2025-01-02 09:32 | Outpatient (CLI) | payer MEDICARE, SELFPAY ==
--- NOTE | 2025-01-02 09:30 | CT_ITS ---
FINAL REPORT TECHNIQUE: Pre and postcontrast axial imaging of the chest was obtained. Reformatted images were also obtained and reviewed. This study was performed with techniques to keep radiation doses as low as reasonably achievable (ALARA). Individualized dose reduction techniques using automated exposure control or adjustment of mA and/or kV according to the patient's size were employed. CLINICAL HISTORY: dyspnea, coughing up blood, chest pain FINDINGS: There is no axillary lymphadenopathy. There is no mediastinal lymphadenopathy. There is a borderline right hilar lymph node measuring 14 mm. No pleural or pericardial effusion is seen. There is a spiculated, left upper lobe nodule measuring 25 mm on series 4, image 27. There is an adjacent, irregular opacity measuring 17 mm. A second, spiculated nodule is seen in the left lower lobe measuring 24 mm. A few patchy ground glass opacities are seen in the right upper lobe. There is underlying emphysema. Limited imaging of the upper abdomen demonstrates multiple subcentimeter hypodense liver lesions, favor cysts. No other acute abnormality is seen of the upper abdomen. No acute bony abnormality is identified. IMPRESSION: 1. Multiple spiculated and irregular left lung nodules concerning for malignancy. Recommend PET/CT for further evaluation. 2. Indeterminate, borderline right hilar lymph node. Reviewed, Interpreted and Dictated by Lizbeth Staton MD Transcribed by Arleen Nava Authenticated and [facility]
--- OUTSIDE RECORDS SUMMARY | 2025-01-02 09:42 | XMS_ITS | Clinical Summary ---
Author Organization Healthcare Address [address] [place] [address] Care Team Providers Care Parts Identification Technician Name Role Phone Jackelyn Kaur Primary [...] Screening 1950 [facility]-Medicare Annual Wellness (AWV) 1950 [facility]-Infant/Child/Adol SDOH Screenings 1950 [facility]- SDOH Screenings 02/01/1966 [facility]-Adult SDOH Screenings 02/01/1966 [facility]-DTaP,Tdap,and Td Vaccines (1 - Tdap) 02/01/1967 [facility]-Lung Cancer Screening 02/01/1998 [facility]-Zoster Vaccines (1 of 2) 02/01/1998 [facility]-Pneumococcal Vaccine: 50+ Years (2 of 2 - PCV) 11/21/2018 11/21/2017 [facility]-RSV Vaccine: 60+ Years or (1 - 1-dose 75+ series) 02/01/2023 [id number] Vaccine ( - season) 2024 03/23/2021, 06/27/2020, 05/30/2020 [facility]-Influenza Vaccine (#1) 12/24/202402/10, [...] this topic Medical Devices Implanted Type Area Lining Cutter Device Identifier Shelf Expiration Date Model / Serial / Lot [place] 18 - [id number] Implanted:Qty: 1 on 01/09/2023 at [facility] [id number] 03/07/2025 105-71 00-06 0 / / [id number] [place] 18 - [id number] Implanted:Qty: 1 on 01/09/2023 at [facility] [id number] 03/07/2025 105-71 00-06 0 / / [id number] Procedures Procedure Name Priority Date/Time Associated Diagnosis Comments HEPATITIS C ANTIBODY - ED W/REFLEX TO HCV QUANT PCR STAT 01/08/2023 12:27 AM EDT from Last 3 Months or Most Recently Relevant to Health Maintenance Results * Hepatitis C Antibody - ED (01/08/2023 12:27 AM EDT) Hepatitis C Antibody Negative Negative 01/08/2023 1:44 AM EDT [facility] Blood Venous blood specimen / Unknown Venipuncture / Unknown 01/08/2023 12:27 AM EDT 01/08/2023 12:57 AM EDT us Efraín Vivar MD LAB BLOOD ORDERABLES Final Re sult [facility] [address] [place] [phone] from Last 3 Months or Most Recently Relevant to Health Maintenance Insurance MEDICARE Care Teams Parts Identification Technician Relationship Specialty Start Date End Date Jackelyn Kaur PA [address] [place] [address] PCP - General 01/08/23
[2025-01-02 09:50] LABS: Hematocrit 45.2 % (42.0-52.0); Hemoglobin 15.4 g/dL (14.1-18.0); Immature Granulocytes % 5.7 %; Mean Corpuscular HGB Conc 34.1 g/dL (31.8-35.4); Mean Corpuscular Hemoglobin 31.8 pg (27.0-31.2); Mean Corpuscular Volume 93.2 fl (80-94); Nucleated Red Blood Cells % 0 %; Platelet Count 357 K/mm3 (142-424); Red Blood Count 4.85 M/mm3 (4.60-6.20); Red Cell Distribution Width-SD 44.3 fL; White Blood Count 22.0 K/mm3 (4.8-10.8)
[2025-01-02 10:02] LABS: Alanine Aminotransferase 40 U/L (12-78); Albumin Level 4.4 g/dl (3.5-5.0); Albumin/Globulin Ratio 1.6 (1.1-1.8); Alkaline Phosphatase 342 U/L (38-126); Anion Gap 13.3 mEq/L (5-15); Aspartate Amino Transferase 34 U/L (17-59); Bilirubin,Total 0.9 mg/dl (0.2-1.3); Blood Urea Nitrogen 22 mg/dl (9-20); Calcium 9.4 mg/dl (8.4-10.2); Carbon Dioxide 26 mmol/L (22.0-30.0); Chloride 103 mmol/L (98-107); Creatinine,Serum 1.30 mg/dl (0.66-1.25); Estimated Glomerular Filt Rate 54 ml/min (>60); GFR (African American) 65 ML/MIN (>60); Globulin 2.8 g/dL (1.3-3.2); Glucose 117 mg/dl (74-100); Potassium 5.3 mmoL/L (3.5-5.1); Sodium 137 mmol/L (136-145); Total Protein,Serum 7.2 g/dl (6.3-8.2)
[2025-01-02] MEDS: IOPAMIDOL-370 (76%);100ML BOTTLE 75 ML IV (10:30)
[2025-01-02] MEDS: SODIUM CHLORIDE 0.9% 10ML SYR (RAD ONLY) 10 ML IV (10:30)
--- NOTE | 2025-01-02 10:30 | ECG_ITS ---
APPROVED REPORT Exam: Resting ECG HR:82 bpm ECG Measurements Heart Rate 82 AXES IN 132 P 73 QRSd 77 QRS 70 QT 349 T 63 QTc 387 Conclusion SINUS RHYTHM NORMAL ECG UNCONFIRMED REPORT Electronically signed by : Shawn Araya MD 01/03/2025 09:09:37
[2025-01-02 10:54] LABS: RBC Morphology Normal; Total Cells Counted 100
== END 2025-01-02 23:59 | disposition home or self-care (01) ==
PROVIDERS: PCP Family Medicine; Visit Provider Family Medicine
DX: J44.0 Chronic obstructive pulmonary disease with (acute) lower respiratory infection (principal); J18.9 Pneumonia, unspecified organism; E87.5 Hyperkalemia; R91.8 Other nonspecific abnormal finding of lung field; R59.0 Localized enlarged lymph nodes
CPT/HCPCS: 36415; 71270; 80053; 83605; 85007; 85025; 93005; Q9967

== ENCOUNTER 2025-01-02 10:21 | Emergency (ER) | payer MEDICARE, SELFPAY ==
[2025-01-02] VITALS (8 sets, daily range): BP systolic 119–167; BP diastolic 68–83; PULSE 75–84; RESP 17–31; TEMP 36.8; O2SAT 93–95; BMI 20.1
--- NOTE | 2025-01-02 10:53 | HMH.EDGENADL ---
Discharge Plan Disposition Patient Disposition: Home, Self-Care Prescriptions Prescriptions: No Action amlodipine 5 mg tablet 5 mg PO DAILY Qty: 90 2RF propranolol 20 mg tablet 20 mg PO BID Qty: 180 2RF albuterol sulfate 90 mcg/actuation HFA aerosol inhaler inhalation Patient Comments: INHALE 1 PUFF BY MOUTH EVERY 4 TO 6 HOURS NEEDED FOR SHORTNESS OF BREATH levofloxacin 750 mg tablet 750 mg PO DAILY 10 Days Qty: 10 0RF lisinopril 20 mg tablet See Rx Instructions .ROUTE .COMPLEX Qty: 180 1RF Dose Instruction: TAKE ONE TABLET BY MOUTH TWICE DAILY FOR HIGH BLOOD PRESSURE Rx Instructions: TAKE ONE TABLET BY MOUTH TWICE DAILY FOR HIGH BLOOD PRESSURE ipratropium-albuterol 0.5 mg-3 mg(2.5 mg base)/3 mL solution for nebulization 3 ml inhalation Q8H 90 Days Qty: 540 3RF Referrals Follow up/Referrals: Kym Craig APRN [Primary Care Provider, Family Practice] - See instructions Sammi Mishra MD [Physician, Pulmonology] - See instructions Activity Restrictions/Add. Instructions Additional Instructions/Restrictions: You were found to left side could possibly be cancerous lesions. This likely explains your cough, shortness of breath and cough. Go to Dr. Mishra's clinic directly after discharge here for pulmonology follow up. Clinical Impressions Clinical Impression: Multiple lung nodules, Hemoptysis, Breath shortness Print Language Print Language: Puerto Rican Discharge ED Provider: Denzel Diop Adult HPI General Chief complaint: Shortness of Breath/Dyspnea Stated complaint: SOAb sent by Rafa Time Seen by Provider: 01/02/25 10:35 Mode of Arrival: Ambulatory Source of Information: Patient Description of Symptoms (Recalled from ER Triage Doc. by RN): Patient presents to ED from Kym Craig's office for cough, chest pain, and shortness of breath that has been going on for weeks . Patient reports one episode of coughing up blood that occurred night before last. Patient states pain is 5/10 at rest and 8/10 when coughing. History of Present Illness HPI narrative: Chad Tony is a 74, previous tobacco use, hypertension, previous hypertensive brain bleeds who presents to the emergency department for Kym Craig who has been following for concern for bronchitis. Patient states that he has had a cough over the last several months, starting in August. He states that recently has gotten worse. He states that his shortness of breath worsens when he lies down. He does report shortness of breath as chest, worsened with coughing. He states that he coughed up a blood clot yesterday. Patient was noted to have pulm nodules, x-ray and CT scan of the chest with and without contrast today for monitoring of this, however, given his significant shortness of breath and hemoptysis, wanted him evaluated here for possible pulmonary embolism. Patient states that he is not on any blood thinning medications he was told that he was to avoid blood thinning medications, aspirin or ibuprofen. Patient denies any abdominal pain, nausea, vomiting, diarrhea. Patient thinks he might have pneumonia. Patient does state that he received a short course of steroids that helped temporarily as well as antibiotics that did not seem to help. Related Data Home Medications ?Medication ?Instructions ?Recorded ?Confirmed albuterol sulfate 90 mcg/actuation inhalation 01/02/25 01/02/25 aerosol inhaler Previous Rx's ?Medication ?Instructions ?Recorded amlodipine 5 mg tablet 5 mg PO DAILY #90 tabs 08/06/24 propranolol 20 mg tablet 20 mg PO BID Hypertension #180 tabs 08/06/24 lisinopril 20 mg tablet See Rx Instructions .Route 09/26/24 .COMPLEX #180 tabs ipratropium 0.5 mg-albuterol 3 mg 3 ml inhalation Q8H 3 months #540 01/02/25 (2.5 mg base)/3 mL nebulization mL soln levofloxacin 750 mg tablet 750 mg PO DAILY 10 days #10 tabs 01/02/25 Allergies Allergy/AdvReac Type Severity Reaction Status Date / Time No Known Allergies Allergy Verified 01/02/25 13:29 [facility] Disclaimer: The information contained in this section may have been updated after the patient was seen, as this information can be updated by other users. Medical History (Updated 01/02/25 @ 14:40 by Sammi Mishra MD) Multiple lung nodules on CT Pulmonary emphysema History of smoking 30 or more pack years History of subdural hematoma Head contusion Acute subdural hematoma Fall Midline shift of brain Hypertensive urgency Brain bleed Hypertension Renal insufficiency Hypertension Surgical History No significant past surgical history Family History Other No significant family history Social History Smoking Status: Former smoker tobacco type: cigarettes how long ago did patient quit smokin years alcohol intake: never substance use type: denies use current occupational status: employed Travel in the last 8 weeks?: Inside the [place] household members: none housing: house caffeine: Yes Have you lived/traveled outside US in past 30 days?: No Contact w/someone who lives/traveled outside US past 30 days?: No Exposure to someone with infectious disease in past 14 days?: No Do you have a fever (greater than 100.4 F or 38 C)?: No Have you tested positive for COVID-19?: No Exposed to someone with COVID-19 in past 14 days?: No Do you have a sore throat?: No Do you have a cough?: No Do you have shortness of breath?: No Do you have a headache?: No Do you have any weakness?: No Are you experiencing any nausea/vomitting?: No Do you have any diarrhea?: No Are you experiencing any unusual bleeding?: No Do you have any muscle aches/pain?: No Do you have any abdominal pain?: No Are you experiencing loss of taste or smell?: No Other Medical History Have you received the Flu Vaccine for this season: Yes Have you received the Pneumonia Vaccine: Yes (is good for life time ) ROS Obtained: Yes Systems reviewed as appropriate & no additional complaints except as documented Physical Exam General General appearance: alert and in no apparent distress Head Head exam: atraumatic Eye Eye exam: Present normal appearance ENT ENT exam: Present normal external ear exam Neck Neck exam: Present full ROM Chest Chest inspection: Present symmetric chest wall rise Respiratory Respiratory exam: Present wheezes (end expiratory wheezing. Dry cough); Absent normal lung sounds bilaterally or respiratory distress Cardiovascular Cardiovascular exam: Present regular rate and normal rhythm Abdominal Exam Abdominal exam: Present soft; Absent tenderness or guarding exam: Present deferred Extremities Exam Extremities exam: Present normal inspection Back Exam Back exam: Present normal inspection Neurological Exam Neurological exam: Present alert and oriented X3 Psychiatric Psychiatric exam: Present normal affect Skin Skin exam: Present warm and dry Medical Decision Making Medical Records Screening: Per USPSTF and CDC recommendations, given the prevalence of disease in our region, it is our hospital?s policy to screen for HIV and viral Hepatitis for all patients aged 18 and over and those with ongoing risk factors. [place]grito Inquiry Pt receiving controlled substance: No Vital Signs: 01/02/25 10:30 01/02/25 10:30 01/02/25 10:31 Temperature 98.2 F 98.2 F Temperature Source Oral Pulse Rate 84 80 Pulse Rate [Right] 84 Respiratory Rate 22 22 17 Blood Pressure 167/83 H Blood Pressure [Right Arm] 167/83 H Blood Pressure Mean [Right Arm] 111 02 Sat by Pulse Oximetry 93 L 93 L 95 Oxygen Delivery Method Room Air 01/02/25 10:35 01/02/25 10:48 01/02/25 11:00 Temperature Temperature Source Pulse Rate 78 75 Pulse Rate [Right] Respiratory Rate 31 H Blood Pressure 119/68 119/68 Blood Pressure [Right Arm] Blood Pressure Mean [Right Arm] 02 Sat by Pulse Oximetry 94 L 93 L 94 L Oxygen Delivery Method Room Air Room Air 01/02/25 11:30 01/02/25 12:00 01/02/25 13:13 Temperature 98.2 F Temperature Source Pulse Rate 75 81 80 Pulse Rate [Right] Respiratory Rate 25 H 29 H 22 Blood Pressure 120/69 121/77 128/74 Blood Pressure [Right Arm] Blood Pressure Mean [Right Arm] 02 Sat by Pulse Oximetry 95 93 L Oxygen Delivery Method Room Air Room Air Lab Data Lab Results 01/02/25 10:57: SARS-CoV-2 (PCR) Not detected, Influenza A Untype (PCR) Not detected, Influenza Type B (PCR) Not detected 01/02/25 10:58: D-Dimer 1.06 H, Troponin I < 0.01, C-Reactive Protein 62.9 H, NT-Pro-B Natriuret Pep 117 Orders (Tests/Meds): ED MEDICATIONS Discontinued Medications Generic Name Dose Route Start Last Admin Trade Name Freq PRN Reason Stop Dose Admin Albuterol/Ipratropium 3 ml 01/02/25 11:19 01/02/25 11:29 Ipratropium/Albuterol 3 Ml Neb IH 01/02/25 11:20 3 ml ONCE ONE Administration ORDERS Category Date Time Status BNP [NT Pro Brain Natriuretic Pep.] Stat Lab 09/10/25 10:58 Completed CRP [C-Reactive Protein] Stat Lab 01/02/25 10:58 Completed D-Dimer Stat Lab 01/02/25 10:58 Completed Rapid PCR Covid and Flu A/B Stat Lab 01/02/25 10:57 Completed Troponin I Stat Lab 01/02/25 10:58 Completed ECG Data Tracing #1: I reviewed this ECG and interpreted as documented below: NSR. No ST elevation or depression. QTc normal at 387 Medical Decision Narrative: Chad Tony is a 74, previous tobacco use, hypertension, previous hypertensive brain bleeds who presents to the emergency department for Kym Craig who has been following for concern for bronchitis. Patient states that he has had a cough over the last several months, starting in August. He states that recently has gotten worse. He states that his shortness of breath worsens when he lies down. He does report shortness of breath as chest, worsened with coughing. He states that he coughed up a blood clot yesterday. Patient was noted to have pulm nodules, x-ray and CT scan of the chest with and without contrast today for monitoring of this, however, given his significant shortness of breath and hemoptysis, wanted him evaluated here for possible pulmonary embolism. Patient states that he is not on any blood thinning medications he was told that he was to avoid blood thinning medications, aspirin or ibuprofen. Patient denies any abdominal pain, nausea, vomiting, diarrhea. Patient thinks he might have pneumonia. Patient does state that he received a short course of steroids that helped temporarily as well as antibiotics that did not seem to help. On arrival, patient is hypertensive but HR within normal limits. Borderline hypoxic on room air at 93% SpO2. he has a dry cough but is not in any respriatory distress. He has end expiratory wheezing bilaterally but is moving good air. Cardiac exam is unremarkable. Differential diagnosis includes, but is not limited to: PE, cancer/metastatic disease, ACS, bronchitis, COPD exacerbation, viral respiratory illness, pneumonia, among others. The most morbid conditions were considered and workup was based on these. Patient had undergone CT of the chest with and without contrast this morning with radiology report pending. Patient also had a CBC and CMP completed that showed a leukocytosis of 22 without neutrophilia. CMP with mildly elevated K of 5.3 and Cr stable at 1.3. Will add D-dimer, CRP, BNP, troponin, EKG. EKG without evidence of ischemia. See interpretation above. CT imaging was interpreted by me personally prior to official radiology read. Contrast timing does not illuminate the pulmonary vessels well, but no obvious pulmonary embolism and no aortic dissection is appreciated. Patient does have two left lung nodules concerning for malignancy. Additional labs show mildly elevated D-dimer at 1.06, but when adjusted for age, low concern for VTE. Troponin is negative at <0.01. CRP elevated at 62.9. BNP normal at 117. Radiology report for CT imaging showed multiple spiculated and irregular left lung nodules concerning for malignancy. Recommend PET/CT for further evaluation. Indeterminate borderline right hilar lymph node. Given these findings, patient will need close follow up with dropper tank storage, Dr. Mishra. ED nursing staff called the pulmonology clinic to ensure close follow up, and they noted that they had a cancelation today and could get him into clinic as soon as he is discharged. I disucussed this with the patient and he is in agreement to go to the clinic as soon as he is discharged. I did explain that the findings are concerning for malignancy and answered all questions. He remained stable and was appropriate for admission at this time. Critical Care Critical Care Time Critical Care Time: No
--- OUTSIDE RECORDS SUMMARY | 2025-01-02 10:58 | XMS_ITS | Clinical Summary ---
Author Organization Healthcare Address [address] [place] [address] Care Team Prov[address] Care Court Operations Clerk Name Role Phone Jackelyn Kaur Primary Care [...] or (1 - 1-dose 75+ series) 02/01/2023 [id number] Vaccine ( - season) 2024 03/23/2021, 06/27/2020, [...] this topic Medical Devices Implanted Type Area Demographic Analyst Device Identifier Shelf Expiration Date Model / Serial / Lot [place] 18 - [id number] Implanted:Qty: 1 on 01/09/[address] [facility] [id number] 03/07/2025 105-71 00-06 0 / / [id number] [place] 18 - [id number] Implanted:Qty: 1 on 01/09/[address] [facility] [id number] 03/07/2025 105-71 00-06 0 / / [id number] Procedures Procedure Name Priority Date/Time Associated Diagnosis Comments HEPATITIS C ANTIBODY - ED W/REFLEX TO HCV QUANT PCR STAT 01/08/2023 12:27 AM EDT from Last 3 Months or Most Recently Relevant to Health Maintenance Results * Hepatitis C Antibody - ED (01/08/2023 12:27 AM EDT) Hepatitis C Antibody Negative Negative 01/08/2023 1:44 AM EDT [facility] Blood Venous blood specimen / Unknown Venipuncture / Unknown 01/08/2023 12:27 AM EDT 01/08/2023 12:57 AM EDT us Efraín Vivar MD LAB BLOOD ORDERABLES Final Re sult [facility] [address] [place] [phone] from Last 3 Months or Most Recently Relevant to Health Maintenance Insurance MEDICARE Care Teams Court Operations Clerk Relationship Specialty Start Date End Date Jackelyn Kaur PA [address] [place] [address] PCP - General 01/08/23
--- NOTE | 2025-01-02 10:59 | PC.NURSE ---
Covid/flu swab sent to lab
[2025-01-02 11:04] LABS: Coronavirus 19, PCR Not Detected (NotDetected); Influenza A, PCR Not Detected (NotDetected); Influenza B, PCR Not Detected (NotDetected)
[2025-01-02] MEDS: IPRATROPIUM/ALBUTEROL 3 ML NEB IH (11:29)
[2025-01-02 11:58] LABS: C-Reactive Protein 62.9 mg/L (0-4)
[2025-01-02 11:59] LABS: D-Dimer 1.06 ug/mL (0.0-0.5)
--- NOTE | 2025-01-02 12:01 | PC.NURSE ---
pt finished neb tx stated he can breathe deeper now and better.
[2025-01-02 12:06] LABS: NT Pro Brain Natriuretic Pep. 117 pg/mL (0-450)
[2025-01-02 12:09] LABS: Troponin I < 0.01 ng/ml (0.00-0.034)
== END 2025-01-02 13:20 | disposition home or self-care (01) ==
PROVIDERS: Emergency Provider Student in an Organized Health Care Education/Training Program; PCP Family Medicine
DX: R06.02 Shortness of breath (principal); R04.2 Hemoptysis; R91.8 Other nonspecific abnormal finding of lung field; Z87.891 Personal history of nicotine dependence; J44.0 Chronic obstructive pulmonary disease with (acute) lower respiratory infection; J18.9 Pneumonia, unspecified organism; E87.5 Hyperkalemia; R59.0 Localized enlarged lymph nodes
CPT/HCPCS: 83880; 84484; 85378; 86140; 87636; 99284; 99285

== ENCOUNTER 2025-01-11 14:53 | Inpatient (IN) | payer MEDICARE, SELFPAY ==
--- OUTSIDE RECORDS SUMMARY | 2025-01-06 21:16 | XMS_ITS | Encounter Summary ---
Author Organization [facility] Address [facility] [place] [id number] Care Team Providers Care Welfare Director Name Role Phone Jackelyn Kaur Primary Care Provider Unavailabl e Reason for Referral * Consultation (Urgent) - Authorized Specialty Diagnoses / Procedures Referred By Vaibhav dove Referred To Contact Medical Oncology / Hematology and Oncology Diagnoses Multiple nodules of lung Hepatic lesion Elevated alkaline phosphatase level Newton Deng APRN [address] [place] [address] Phone: tel: fax: [facility] [address] [facility], [address]nd [place] [address] Phone: tel: fax: Referral ID Status Reason Start Date Expiration Date Visits Requested Visits Authorized [id number] Authorized Specialty Services Required 01/07/2025 07/09/2026 1 1 Reason for Visit * Reason Comments Shortness of Breath Encounter Details Date Type Department Care Team ([facility] Contact Info) Description 01/06/2025 9:16 PM EDT - 01/07/2025 3:29 AM EDT Emergency PAV A Emergency Department [address] [place] [address] Gertrudis Levine MD [address] [place] [address] Efraín Vivar MD [address] [place] [address] Shortness of breath (Primary Dx); [...] this encounter Discharge Instructions * Discharge Instructions* Newton Deng, TILE LAYER DRAINAGE - 01/07/2025 3:[address] [...] here is available to you via the [employer] Internet portal. Please make sure that you [...] for 5 days. 15 tablet 01/07/2025 01/12/2025 propranolol (Inderal) 20 MG tablet Take 1 tablet (20 mg) by mouth 2 (two) times a day. 10/11/2022 documented as of this encounter Miscellaneous Notes * ED Triage Notes - Lynne Jarrett RN - 01/06/2025 8:44 PM EDT Presents with worsening SOA and cough, including hemoptysis. Has been seen at [facility] a few times since the beginning of December. Diagnosed with lung nodules, has bronchoscopy scheduled. SOA has been worsening and now with weakness and chest pain. Requesting CT PE. documented in this encounter Plan of Treatment Pending Results Name Type Priority Associated Diagnoses Date /Time Blood Culture (Aerobic/Anaerobet Set) Microbiology STAT 01/06/2025 10:01 PM EDT Blood Culture (Aerobic/Anaerobet Set) Microbiology STAT 01/06/2025 10:01 PM EDT Scheduled Orders Name Type Priority Associated Diagnoses Orde r Schedule Troponin T, High Sensitivity, 2 Hour, Plasma Lab Timed Once for 1 Occur rences starting 01/06/2025 until 01/06/2025 Scheduled Referrals Name Type Priority Associated Diagnoses [...] - 250 U/L 01/07/2025 3:46 AM EDT [facility] Blood Venous blood specimen / Unknown Venipuncture / Unknown 01/06/2025 11:21 PM EDT 01/06/2025 11:23 PM EDT us Newton Deng APRN LAB BLOOD ORDERABLES Fin al Result [facility] [address] [place] [address] * Troponin T, High Sensitivity, 0 Hour Plasma, Reflex to 2 Hour (01/06/2025 11:21 PM EDT) Troponin T, High Sensitivity, 0 Hour 7 <19 ng/L 01/06/2025 11:46 PM EDT [facility] Blood Venous blood specimen / Unknown Venipuncture / Unknown 01/06/2025 11:21 PM EDT 01/06/2025 11:23 PM EDT us Gertrudis Duarte LAB BLOOD ORDERABLES Final Resul t [facility] [address] [place] [address] * CT Angio Pulmonary Embolism (01/06/2025 11:06 [...] Shireen Carrillo MD on 01/07/2025 2:21 AM Alberta Bermudez MD IMG CT PROCEDURES Final Resul t * Type and screen (01/06/2025 10:01 PM EDT) ABO/Rh O Positive 01/06/2025 9:43 PM EDT BLO[facility] Antibody Screen Negative 01/06/2025 9:43 PM EDT BLO[facility] BANK Specimen Expiration 01/09/2025 23:59 01/06/2025 9:43 PM EDT BLOOD BANK Blood Venous blood specimen / Unknown Venipuncture / Unknown 01/06/2025 10:01 PM EDT 01/06/2025 10:09 PM EDT Newton Deng APRN LAB BLOOD BANK TEST ORDE RABLES Final Result Performing Organization Address City/[facility]/ZIP Co de Phone Number BLOOD BANK [address] [place] [address], * Nasopharyngeal Respiratory Panel (01/06/2025 10:01 PM EDT) [facility] Nasopharyngeal Respiratory PCR Interpretation Not Detected for all analytes Not Detected for all analytes 01/07/2025 12:15 AM EDT [facility] Swab Nasopharyngeal structure / Unknown Non-blood Collection / Unknown 01/06/2025 10:01 PM EDT 01/06/2025 10:27 PM EDT Narrative [facility] - 01/07/2025 12:15 AM EDT [...] Respiratory PCR Panel is performed using the [employer] ePlex instrument. This test is FDA approved for use with Nasopharyngeal swabs only. This test is used for clinical purposes. It should not be regarded as investigational or for research. The [facility] Clinical Microbiology Laboratory is certified under the Clinical Laboratory Improvement Amendments of 1988 (CLIA-88) as qualified to perform high complexity clinical laboratory testing. Newton Deng APRN LAB MICROBIOLOGY - GENER AL ORDERABLES Final Result Performing Organization Address City/[facility]/ZIP Co de Phone Number [facility] [address] [place] [address] * BNP (01/06/2025 9:15 PM EDT) [facility] N-Terminal, PROBNP, Plasma 203 0 - 1,799 pg/mL 01/06/2025 10:24 PM EDT [facility] Blood Venous blood specimen / Unknown Venipuncture / Unknown 01/06/2025 9:15 PM EDT 01/06/2025 9:54 PM EDT Newton Deng APRN LAB BLOOD ORDERABLES Fin al Result Performing Organization Address City/[facility]/ZIP Co de Phone Number [facility] [address] [place] [address] * ED HIV 1/2 Antibody/Antigen Screen w/Reflex to HIV 1/2 Differentiation (01/06/2025 9:15 PM EDT) [facility] HIV 1 & 2 Antibody/Antigen Screen Non Reactive Non Reactive 01/06/2025 10:15 PM EDT [facility] Comment:Screening for HIV 1 & 2 antibodies, and P24 antigen is NONREACTIVE. No confirmatory testing is required. Blood Venous blood specimen / Unknown Venipuncture / Unknown 01/06/2025 9:15 PM EDT 01/06/2025 9:21 PM EDT us Alberta Bermudez MD LAB BLOOD ORDERABLES Final Re sult Performing Organization Address [facility] Co de Phone Number [facility] [address] [place] [address] * Hepatitis C Antibody - ED (01/06/2025 9:15 PM EDT) [facility] Hepatitis C Antibody Negative Negative 01/06/2025 10:15 PM EDT [facility] Blood Venous blood specimen / Unknown Venipuncture / Unknown 01/06/2025 9:15 PM EDT 01/06/2025 9:21 PM EDT us Alberta Bermudez MD LAB BLOOD ORDERABLES Final Re sult Performing Organization Address City/[facility]/ZIP Co de Phone Number [facility] [address] [place] [address] * (ABNORMAL) Blood gas, venous (01/06/2025 9:15 PM EDT) pH, Venous 7.38 7.32 - 7.43 LAB HEMATOLOGY METHOD 01/06/2025 9:22 PM EDT [facility] pCO2, Venous 44 40 - 55 mmHg LAB HEMATOLOGY METHOD 01/06/2025 9:22 PM EDT [facility] pO2, Venous 20(L) 25 - 40 mmHg LAB HEMATOLOGY METHOD 01/06/2025 9:22 PM EDT [facility] SO2, Measured, Venous 26(L) 65 - 80 % LAB HEMATOLOGY METHOD 01/06/2025 9:22 PM EDT [facility] Base Excess, Venous 0.2 -2.0 - 3.0 mmol/L LAB HEMATOLOGY METHOD 01/06/2025 9:22 PM EDT [facility] Bicarbonate, Calculated, Venous 26 22 - 26 mmol/L LAB HEMATOLOGY METHOD 01/06/2025 9:22 PM EDT [facility] Hematocrit, Whole Blood 42.8 40.0 - 51.0 % LAB HEMATOLOGY METHOD 01/06/2025 9:22 PM EDT [facility] Sodium, Whole Blood 139 136 - 145 mmol/L LAB HEMATOLOGY METHOD 01/06/2025 9:22 PM EDT [facility] Potassium, Whole Blood 4.6 3.6 - 4.9 mmol/L LAB HEMATOLOGY METHOD 01/06/2025 9:22 PM EDT [facility] Chloride, Whole Blood 104 97 - 107 mmol/L LAB HEMATOLOGY METHOD 01/06/2025 9:22 PM EDT [facility] Glucose, Whole Blood 98 74 - 99 mg/dL LAB HEMATOLOGY METHOD 01/06/2025 9:22 PM EDT [facility] Lactate, Venous, Whole Blood 0.9 0.5 - 2.2 mmol/L LAB HEMATOLOGY METHOD 01/06/2025 9:22 PM EDT [facility] Ionized Calcium, Whole Blood 4.8 4.6 - 5.1 mg/dL LAB HEMATOLOGY METHOD 01/06/2025 9:22 PM EDT [facility] Blood Venous blood specimen / Unknown Venipuncture / Unknown 01/06/2025 9:15 PM EDT 01/06/2025 9:21 PM EDT Result Kahlil Bermudez MD LAB BLOOD ORDERABLES Final Re sult Performing Organization Address [facility] Co de Phone Number [facility] [address] [place] [address] * (ABNORMAL) Protime-INR (01/06/2025 9:15 PM EDT) Prothrombin Time 15.2(H) 12.0 - 14.3 sec 01/06/2025 9:38 PM EDT [facility] INR 1.2(H) 0.9 - 1.1 01/06/2025 9:38 PM EDT [facility] Blood Venous blood specimen / Unknown Venipuncture / Unknown 01/06/2025 9:15 PM EDT 01/06/2025 9:37 PM EDT Narrative [facility] - 01/06/2025 9:38 PM EDT OPTIMAL INR RANGES FOR PATIENT ON ORAL ANTICOAGULANT THERAPY Prevention of venous thromboembolism INR 2.0 to 3.0 In patients with heart disease: Atrial fibrillation INR 2.0 to 3.0 Valvular heart disease INR 2.0 to 3.0 Tissue heart valves INR 2.0 to 3.0 Mechanical prosthetic valves INR 2.5 to 3.5 Prevention of recurrent ID INR 2.5 to 3.5 Result Kahlil Bermudez MD LAB BLOOD ORDERABLES Final Re sult Performing Organization Address City/[facility] Co de Phone Number [facility] [address] [place] [address] * APTT (01/06/2025 9:15 PM EDT) aPTT 30 25 - 35 sec 01/06/2025 9:39 PM EDT [facility] Blood Venous blood specimen / Unknown Venipuncture / Unknown 01/06/2025 9:15 PM EDT 01/06/2025 9:37 PM EDT Result Kahlil Bermudez MD LAB BLOOD ORDERABLES Final Re sult [facility] [address] [place] [address] * Troponin T, High Sensitivity, 0 Hour Plasma, Reflex to 2 Hour (01/06/2025 9:15 PM EDT) Troponin T, High Sensitivity, 0 Hour 11 <19 ng/L 01/06/2025 9:54 PM EDT [facility] Blood Venous blood specimen / Unknown Venipuncture / Unknown 01/06/2025 9:15 PM EDT 01/06/2025 9:54 PM EDT us Alberta Bermudez MD LAB BLOOD ORDERABLES Final Re sult [facility] [address] [place] [address] * (ABNORMAL) CBC and Differential (01/06/2025 9:15 PM EDT) Pathologist [facility] WBC Count 16.65(H) 3.70 - 10.30 10*3/uL LAB HEMATOLOGY METHOD 01/06/2025 9:24 PM EDT [facility] RBC Count 4.22(L) 4.60 - 6.10 10*6/uL LAB HEMATOLOGY METHOD 01/06/2025 9:24 PM EDT [facility] HGB 13.3(L) 13.7 - 17.5 g/dL LAB HEMATOLOGY METHOD 01/06/2025 9:24 PM EDT [facility] HCT 38.7(L) 40.0 - 51.0 % LAB HEMATOLOGY METHOD 01/06/2025 9:24 PM EDT [facility] Platelet Count 292 155 - 369 10*3/uL LAB HEMATOLOGY METHOD 01/06/2025 9:24 PM EDT [facility] MCV 92 79 - 98 fL LAB HEMATOLOGY METHOD 01/06/2025 9:24 PM EDT [facility] MCH 31.5 26.0 - 32.0 pg LAB HEMATOLOGY METHOD 01/06/2025 9:24 PM EDT [facility] MCHC 34.4 30.7 - 35.5 g/dL LAB HEMATOLOGY METHOD 01/06/2025 9:24 PM EDT [facility] RDW 12.8 11.5 - 14.5 % LAB HEMATOLOGY METHOD 01/06/2025 9:24 PM EDT [facility] MPV 9.1 8.8 - 12.5 fL LAB HEMATOLOGY METHOD 01/06/2025 9:24 PM EDT [facility] nRBC 0.0 <=0.0 per 100 WBCs LAB HEMATOLOGY METHOD 01/06/2025 9:24 PM EDT [facility] Differential Type Automated LAB HEMATOLOGY METHOD 01/06/2025 9:24 PM EDT [facility] Neutrophils % 80 % LAB HEMATOLOGY METHOD 01/06/2025 9:24 PM EDT [facility] Lymphocytes % 7 % LAB HEMATOLOGY METHOD 01/06/2025 9:24 PM EDT [facility] Monocytes % 8 % LAB HEMATOLOGY METHOD 01/06/2025 9:24 PM EDT [facility] Eosinophils % 2 % LAB HEMATOLOGY METHOD 01/06/2025 9:24 PM EDT [facility] Basophils % 1 % LAB HEMATOLOGY METHOD 01/06/2025 9:24 PM EDT [facility] Immature Granulocytes % 2 % LAB HEMATOLOGY METHOD 01/06/2025 9:24 PM EDT [facility] Neutrophils Absolute 13.32(H) 1.60 - 6.10 10*3/uL LAB HEMATOLOGY METHOD 01/06/2025 9:24 PM EDT [facility] Lymphocytes Absolute 1.23 1.20 - 3.90 10*3/uL LAB HEMATOLOGY METHOD 01/06/2025 9:24 PM EDT [facility] Monocytes Absolute 1.34(H) 0.30 - 0.90 10*3/uL LAB HEMATOLOGY METHOD 01/06/2025 9:24 PM EDT [facility] Eosinophils Absolute 0.31 0.00 - 0.50 10*3/uL LAB HEMATOLOGY METHOD 01/06/2025 9:24 PM EDT [facility] Basophils Absolute 0.09 0.00 - 0.10 10*3/uL LAB HEMATOLOGY METHOD 01/06/2025 9:24 PM EDT [facility] Immature Granulocytes Absolute 0.36(H) 0.00 - 0.06 10*3/uL LAB HEMATOLOGY METHOD 01/06/2025 9:24 PM EDT [facility] Blood Venous blood specimen / Unknown Venipuncture / Unknown 01/06/2025 9:15 PM EDT 01/06/2025 9:24 PM EDT Narrative [facility] - 01/06/2025 9:24 PM EDT Therapeutic decision making should be based on absolute values, rather than percentages. us Alberta Bermuedz MD LAB BLOOD ORDERABLES Final Re sult [facility] [address] [place] [address] * (ABNORMAL) CMP (01/06/2025 9:15 PM EDT) Glucose, Plasma 101(H) 74 - 99 mg/dL 01/06/2025 9:54 PM EDT [facility] BUN, Plasma 25(H) 8 - 23 mg/dL 01/06/2025 9:54 PM EDT [facility] Creatinine, Plasma 1.71(H) 0.70 - 1.20 mg/dL 01/06/2025 9:54 PM EDT [facility] BUN/Creatinine Ratio 15 01/06/2025 9:54 PM EDT [facility] Sodium, Plasma 139 136 - 145 mmol/L 01/06/2025 9:54 PM EDT [facility] Potassium, Plasma 4.9 3.6 - 4.9 mmol/L 01/06/2025 9:54 PM EDT [facility] Chloride, Plasma 102 97 - 107 mmol/L 01/06/2025 9:54 PM EDT [facility] CO2, Plasma 22 22 - 29 mmol/L 01/06/2025 9:54 PM EDT [facility] Anion Gap 15 6 - 16 mmol/L 01/06/2025 9:54 PM EDT [facility] Total Calcium, Plasma 9.4 8.9 - 10.2 mg/dL 01/06/2025 9:54 PM EDT [facility] Total Protein 6.9 6.3 - 7.9 g/dL 01/06/2025 9:54 PM EDT [facility] Albumin, Plasma 3.5 3.5 - 5.2 g/dL 01/06/2025 9:54 PM EDT [facility] AST, Plasma 19 10 - 50 U/L 01/06/2025 9:54 PM EDT [facility] ALT, Plasma 23 10 - 50 U/L 01/06/2025 9:54 PM EDT [facility] Alkaline Phosphatase, Plasma 298(H) 40 - 115 U/L 01/06/2025 9:54 PM EDT [facility] Total Bilirubin, Plasma 0.4 0.2 - 1.1 mg/dL 01/06/2025 9:54 PM EDT [facility] eGFRcr 41.0 mL/min/1.7 3m*2 01/06/2025 9:54 PM EDT [facility] Comment:Reported eGFRcr in m L/min/1.73m2 is based the CKD-EPI 2020 equation that does not use a race coefficient. Blood Venous blood specimen / Unknown Venipuncture / Unknown 01/06/2025 9:15 PM EDT 01/06/2025 9:54 PM EDT us Alberta Bermudez MD LAB BLOOD ORDERABLES Final Re sult [facility] [address] [place] [address] * EKG now - STAT (adult) (01/06/2025 9:01 PM EDT) EKG DIAGNOSIS CLASS Normal MUSE ECG Ventricular Rate 79 BPM MUSE ECG Atrial Rate 79 BPM MUSE ECG AK Interval 112 ms MUSE ECG QRSD Interval 70 ms MUSE ECG QT Interval 362 ms MUSE ECG QTC Interval 415 ms MUSE ECG P Haines 61 degrees MUSE ECG R Haines 48 degrees MUSE ECG T Wave Haines 61 degrees MUSE ECG Diagnosis Normal sinus rhythm MUSE ECG Diagnosis Normal ECG MUSE ECG Diagnosis MUSE ECG Diagnosis Confirmed by Lalo Moreno ([id number]) on 01/06/2025 10:18:26 PM MUSE ECG 01/06/2025 9:01 PM EDT 01/06/2025 10:18 PM EDT us Gertrudis Reyes Julianna SWAIN ECG ORDERABLES Final Result MUSE ECG documented [...] dose, Starting on 01/06/25 at 2150, Until 01/06/25 at 2305, Routine, Imaging Protocol Orders Given [...] 1 dose, On 01/06/25 at 2215, Routine Given 01/06/2025 10:24 PM EDT 6 mL methylPREDNISolone sodium succinate (PF) (SOLU-Medrol) injection 125 mg 125 mg, Intravenous, Once, 1 dose, On 01/06/25 at 2215, STAT Given 01/06/2025 11:15 PM EDT 125 mg documented in this encounter Active and Recently Administered Medications Times are shown in EDT. Scheduled Medication Order 01/05/2025 01/06/2025 01/07/2025 iohexol (OMNIPaque) 350 MG/ML injection 100 mL (COMPLETED) 100 mL, Intravenous, Once in imaging, 1 dose, Starting on 01/06/25 at 2150, Until 01/06/25 at 2305, Routine, Imaging Protocol Orders 2305 [...] documented as of this encounter Care Teams Welfare Director Relationship Specialty Start Date End Date Jackelyn Kaur PA [address] [place] [address] PCP - General 01/08/23 documented as of this encounter
[2025-01-11] VITALS (28 sets, daily range): BP systolic 92–140; BP diastolic 52–70; PULSE 68–97; RESP 15–31; TEMP 36.3–36.7; O2SAT 92–99; BMI 20.1; BMI 21.4
--- OUTSIDE RECORDS SUMMARY | 2025-01-11 15:17 | XMS_ITS | Encounter Summary ---
Author Organization Healthcare Address [address] [place] [address] Care Team Providers Care Supply Chain Engineer Name Role Phone Jackelyn Kaur Primary Care Provider Unavailabl e Encounter Details Date Type Department Care Team (Latest Contact Info) Description 01/06/2025 Travel Social History Tobacco Use Types Packs/Day Years [...] on file documented as of this encounter Functional Status * Calculated C-SSRS [...] Adi Allred documented as of this encounter Plan of Treatment Not on file documented as of this encounter Visit Diagnoses Not on filedocumented in this encounter Additional Health Concerns Infection Onset Date Last Indicated Resolved Time Respiratory Rule-Out 01/06/2025 01/06/2025 025 12:15 AM EDT Assessment Noted Time A fall risk assessment has been complete d for the patient 03/07/2023 8:03 AM EST A Body Mass Index follow-up plan has been documented for the patient 03/08/2023 2:52 PM EST documented as of this encounter Care Teams Supply Chain Engineer Relationship Specialty Start Date End Date Jackelyn Kaur PA [address] [place] [id number] PCP - General 01/08/23 documented as of this encounter
--- OUTSIDE RECORDS SUMMARY | 2025-01-11 15:17 | XMS_ITS | Clinical Summary ---
Author Organization Healthcare Address [address] [place] [address] Care Team Providers Care Refrigeration Houseman Name Role Phone Jackelyn Kaur Primary Care [...] for 9 doses. 9 tablet 01/10/2023 Active predniSONE (Deltasone) 20 MG tablet Take 3 tablets by mouth daily for 5 days. 15 tablet 01/07/2025 5 Active Resolved Problems Problem Noted Date Diagnosed Date Resolved Date Subdural hematoma 01/08/2023 01/10/2023 Encounters Date Type Department Care Team Description 01/06/2025 9:16 PM EDT - 01/07/2025 3:29 AM EDT Emergency [facility] [address] [place] [address] Gertrudis Levine MD Prabhu, Efraín Jama MD Shortness of breath (Primary Dx); Multiple nodules of lung; Hepatic lesion; Hypoxia; Elevated alkaline phosphatase level; Leukocytosis, unspecified type; Elevated serum creatinine Discharge Disposition: Home or Self Care 01/06/2025 Travel from Last 3 Months Immunizations Immunization Administration Dates Next Due Influenza, [...] Smoking Tobacco: Former Cigarettes 1.5 50 1 [id number] Smokeless Tobacco: Never Tobacco Cessation:Counseling Given: Not [...] Mass Index 20.18 01/06/2025 8:52 PM EDT Plan of Treatment Health Maintenance Due Date Last Done Comments [facility]-Depression Screening 1950 [facility]-Medicare Annual Wellness (AWV) 1950 [facility]-Infant/Child/Adol SDOH Screenings 1950 [facility]- SDOH Screenings 02/01/1966 [facility]-Adult SDOH Screenings 02/01/1966 [facility]-Hepatitis A Vaccines (1 of 2 - Risk 2-dose series) 02/01/1967 [facility]-Zoster Vaccines (1 of 2) 02/01/1967 [facility]-Pneumococcal Vaccine: 50+ Years (2 of 2 - PCV) 11/21/2018 11/21/2017 [facility]-RSV Vaccine: 60+ Years or (1 - 1-dose 75+ series) 02/01/2023 [id number] Vaccine (4 - season) 2024 03/23/2021, 06/27/2020, 05/30/2020 [facility]-Influenza Vaccine (#1) 12/24/202402/08, 02/10/2023, 03/01/2022, Additional history exists [facility]-Lung Cancer Screening 01/06/2026 01/06/2025 [facility]-DTaP,Tdap,and Td Vaccines (2 - Td or Tdap) 02/08/2034 02/09/2024 [facility]-Hepatitis C Screening Completed 01/06/2025, HPV Vaccines Aged Out No longer eligi [...] this topic Medical Devices Implanted Type Area Machine Grainer Device Identifier Shelf Expiration Date Model / Serial / Lot Kal 18 - [id number] Implanted:Qty: 1 on 01/09/2023 at [facility] [id number] 03/07/2025- 00-06 0 / / [id number] [place] 18 - [id number] Implanted:Qty: 1 on 01/09/2023 at [facility] [id number] 03/07/2025- 00-06 0 / / [id number] Procedures Procedure Name Priority Date/Time Associated Diagnosis Comments LACTATE DEHYDROGENASE, PLASMA STAT Add-on 01/06/2025 11:21 PM EDT TROPONIN T, HIGH SENSITIVITY, 0 HOUR, PLASMA, REFLEX TO 2 HOUR STAT 01/06/2025 11:[address] ANGIO PULMONARY EMBOLISM STAT 01/06/2025 11:06 PM EDT TYPE AND SCREEN STAT 01/06/2025 10:01 PM EDT BLOOD CULTURE (AEROBIC/ANAEROBIC SET) STAT 01/06/2025 10:01 PM EDT BLOOD CULTURE (AEROBIC/ANAEROBIC SET) STAT 01/06/2025 10:01 PM EDT NASOPHARYNGEAL RESPIRATORY PANEL STAT 01/06/2025 10:01 PM EDT N-TERMINAL PROBNP, PLASMA STAT Add-on 01/06/2025 9:15 PM EDT ED HIV 1/2 ANTIBODY/ANTIGEN SCREEN WITH REFLEX TO HIV I/II DIFFERENTIATION STAT 01/06/2025 9:15 PM EDT ED PROTOCOL HIV 1/2 ANTIBODY/ANTIGEN SCREEN W/REFLEX TO HIV 1/2 ANTIBODY DIFFERENTIATION STAT 01/06/2025 9:15 PM EDT HEPATITIS C ANTIBODY - ED W/REFLEX TO HCV QUANT PCR STAT 01/06/2025 9:15 PM EDT BLOOD GAS PANEL, VENOUS STAT 01/07/20 9:15 PM EDT PROTHROMBIN TIME(PT) / INR STAT 01/06/2025 9:15 PM EDT APTT STAT 01/06/2025 9:15 PM EDT TROPONIN T, HIGH SENSITIVITY, 0 HOUR, PLASMA, REFLEX TO 2 HOUR STAT 01/06/2025 9:15 PM EDT CBC WITH AUTO DIFFERENTIAL STAT 01/06/2025 9:15 PM EDT COMPREHENSIVE METABOLIC PANEL, PLASMA STAT 01/06/2025 9:15 PM EDT ECG ADULT STAT 01/06/2025 9:01 PM EDT from Last 3 Months Results * Troponin T, High Sensitivity, 0 Hour Plasma, Reflex to 2 Hour (01/06/2025 11:21 PM EDT) Only the most recent of2 resultswithin the time period is included. Troponin T, High Sensitivity, 0 Hour 7 <19 ng/L 01/06/2025 11:46 PM EDT [facility] Blood Venous blood specimen / Unknown Venipuncture / Unknown 01/06/2025 11:21 PM EDT 01/06/2025 11:23 PM EDT us Gertrudis Duarte LAB BLOOD ORDERABLES Final Resul t Performing Organization Address City/[facility]/ZIP Co de Phone Number [facility] [address] [place] [address] * LDH, Lactate dehydrogenase (01/06/2025 11:21 PM EDT) LDH, Plasma 212 116 - 250 U/L 01/07/2025 3:46 AM EDT [facility] Blood Venous blood specimen / Unknown Venipuncture / Unknown 01/06/2025 11:21 PM EDT 01/06/2025 11:23 PM EDT us Newton Deng APRN LAB BLOOD ORDERABLES Fin al Result [facility] [address] [place] [address] * CT Angio Pulmonary Embolism (01/06/2025 11:06 [...] IMG CT PROCEDURES Final Resul t * Nasopharyngeal Respiratory Panel (01/06/2025 10:01 PM [...] Respiratory PCR Panel is performed using the [employer] e[employer] instrument. This test is FDA approved for use with Nasopharyngeal swabs only. This test is used for clinical purposes. It should not be regarded as investigational or for research. The [facility] is certified under the Clinical Laboratory Improvement Amendments of 1988 (CLIA-88) as qualified to perform high complexity clinical laboratory testing. us Newton Deng APRN LAB MICROBIOLOGY - GENER AL ORDERABLES Final Result [facility] [address] [place] [address] * Type and screen (01/06/2025 10:01 PM EDT) ABO/Rh O Positive 01/06/2025 9:43 PM EDT BLOOD BANK Antibody Screen Negative 01/06/2025 9:43 PM EDT BLOOD BANK Specimen Expiration 01/09/2025 23:59 01/06/2025 9:43 PM EDT BLOOD BANK Blood Venous blood specimen / Unknown Venipuncture / Unknown 01/06/2025 10:01 PM EDT 01/06/2025 10:09 PM EDT Newton Deng APRN LAB BLOOD BANK TEST ORDE JUAN Final Result Performing Organization Address [facility]/ZIP Co de Phone Number BLOOD BANK [address] [place] [address], * ED HIV 1/2 Antibody/Antigen Screen w/Reflex to HIV 1/2 Differentiation (01/06/2025 9:15 PM EDT) Pathologist [facility] HIV 1 & 2 Antibody/Antigen Screen Non Reactive Non Reactive 01/06/2025 10:15 PM EDT [facility] Comment:Screening for HIV 1 & 2 antibodies, and P24 antigen is NONREACTIVE. No confirmatory testing is required. Blood Venous blood specimen / Unknown Venipuncture / Unknown 01/06/2025 9:15 PM EDT 01/06/2025 9:21 PM EDT Alberta Bermudez MD LAB BLOOD ORDERABLES Final Re sult [facility] [address] [place] [address] * Hepatitis C Antibody - ED (01/06/2025 9:15 PM EDT) Pathologist [facility] Hepatitis C Antibody Negative Negative 01/06/2025 10:15 PM EDT [facility] Blood Venous blood specimen / Unknown Venipuncture / Unknown 01/06/2025 9:15 PM EDT 01/06/2025 9:21 PM EDT Alberta Bermudez MD LAB BLOOD ORDERABLES Final Re sult Performing Organization Address City/[facility]/ZIP Co de Phone Number [facility] [address] [place] [address] * BNP (01/06/2025 9:15 PM EDT) N-Terminal, PROBNP, Plasma 203 0 - 1,799 pg/mL 01/06/2025 10:24 PM EDT [facility] Blood Venous blood specimen / Unknown Venipuncture / Unknown 01/06/2025 9:15 PM EDT 01/06/2025 9:54 PM EDT Newton Deng APRN LAB BLOOD ORDERABLES Fin al Result Performing Organization Address City/[facility]/[place] [address] * APTT (01/06/2025 9:15 PM EDT) aPTT 30 25 - 35 sec 01/06/2025 9:39 PM EDT [facility] Blood Venous blood specimen / Unknown Venipuncture / Unknown 01/06/2025 9:15 PM EDT 01/06/2025 9:37 PM EDT Alberta Bermudez MD LAB BLOOD ORDERABLES Final Re sult Performing Organization Address City/[facility]/ZIP Co de Phone Number [facility] [address] [place] [address] * (ABNORMAL) Protime-INR (01/06/2025 9:15 PM EDT) [...] INR 2.5 to 3.5 Prevention of recurrent NC INR 2.5 to 3.5 us Alberta Bermudez MD LAB BLOOD ORDERABLES Final Re sult [facility] [address] [place] [address] * (ABNORMAL) CBC and Differential (01/06/2025 9:15 [...] absolute values, rather than percentages. us Alberta Bermudez MD LAB BLOOD ORDERABLES Final Re sult [facility] [address] [place] [address] * (ABNORMAL) Blood gas, venous (01/06/2025 9:15 [...] Re sult [facility] [address] [place] [address] * (ABNORMAL) CMP (01/06/2025 9:15 PM EDT) [...] Re sult [facility] [address] [place] [address] * EKG now - STAT (adult) (01/06/2025 9:01 PM EDT) EKG DIAGNOSIS CLASS Normal MUSE ECG Ventricular Rate 79 BPM MUSE ECG Atrial Rate 79 BPM MUSE ECG NC Interval 112 ms MUSE ECG QRSD Interval 70 ms MUSE ECG QT Interval 362 ms MUSE ECG QTC Interval 415 ms MUSE ECG P [place] 61 degrees MUSE ECG R [place] 48 degrees MUSE ECG T Wave [place] 61 degrees MUSE ECG Diagnosis Normal sinus rhythm MUSE ECG Diagnosis Normal ECG MUSE ECG Diagnosis MUSE ECG Diagnosis Confirmed by Lalo Moreno ([id number]) on 01/06/2025 10:18:26 PM MUSE ECG 01/06/2025 9:01 PM EDT 01/06/2025 10:18 PM EDT us Gertrudis Duarte ECG ORDERABLES Final Result MUSE ECG from Last 3 Months Insurance Care Teams Refrigeration Houseman Relationship Specialty Start Date End Date Jackelyn Kaur PA [address] [phone] PCP - General 01/08/23
--- NOTE | 2025-01-11 15:26 | ECG_ITS ---
APPROVED REPORT Exam: Resting ECG HR:76 bpm ECG Measurements Heart Rate 76 AXES OK 134 P 68 QRSd 75 QRS 73 QT 347 T 71 QTc 377 Conclusion SINUS RHYTHM NORMAL ECG UNCONFIRMED REPORT NSR. No ST elevation or depression Electronically signed by : MARTHA LOPEZ, 01/12/2025 15:47:23
[2025-01-11 15:35] LABS: Immature Granulocytes % 3.9 %; Mean Corpuscular HGB Conc 33.8 g/dL (31.8-35.4); Mean Corpuscular Hemoglobin 31.8 pg (27.0-31.2); Mean Corpuscular Volume 93.9 fl (80-94); Nucleated Red Blood Cells % 0 %; Platelet Count 302 K/mm3 (142-424); Red Blood Count 2.14 M/mm3 (4.60-6.20); Red Cell Distribution Width-SD 44.5 fL; White Blood Count 20.0 K/mm3 (4.8-10.8)
[2025-01-11 15:36] LABS: Hematocrit 20.1 % (42.0-52.0)
[2025-01-11 15:37] LABS: Hemoglobin 6.8 g/dL (14.1-18.0)
[2025-01-11 15:40] LABS: Albumin Level 2.5 g/dl (3.5-5.0); Chloride 104 mmol/L (98-107); Potassium 4.5 mmoL/L (3.5-5.1); Sodium 134 mmol/L (136-145)
[2025-01-11 15:43] LABS: Alanine Aminotransferase 16 U/L (12-78); Albumin/Globulin Ratio 1.2 (1.1-1.8); Alkaline Phosphatase 113 U/L (38-126); Anion Gap 12.5 mEq/L (5-15); Aspartate Amino Transferase 19 U/L (17-59); Bilirubin,Total 0.2 mg/dl (0.2-1.3); Blood Urea Nitrogen 63 mg/dl (9-20); Calcium 7.9 mg/dl (8.4-10.2); Carbon Dioxide 22 mmol/L (22.0-30.0); Creatinine Clearance Estimated 36 mL/min (50-200); Creatinine,Serum 1.40 mg/dl (0.66-1.25); Estimated Glomerular Filt Rate 49 ml/min (>60); GFR (African American) 60 ML/MIN (>60); Globulin 2.1 g/dL (1.3-3.2); Glucose 111 mg/dl (74-100); Lipase 44 U/L (23-300); Total Protein,Serum 4.6 g/dl (6.3-8.2)
[2025-01-11 15:44] LABS: Magnesium 1.9 mg/dl (1.6-2.3)
[2025-01-11 15:53] LABS: NT Pro Brain Natriuretic Pep. 183 pg/mL (0-450)
[2025-01-11 15:55] LABS: Troponin I < 0.01 ng/ml (0.00-0.034)
[2025-01-11] MEDS: IPRATROPIUM/ALBUTEROL 3 ML NEB 9 ML IH (16:00)
[2025-01-11] MEDS: MAGNESIUM SULFATE IN WATER 2 GM/50 ML PIGGYBACK IV (16:00)
[2025-01-11] MEDS: 0.9 % SODIUM CHLORIDE 1000ML 1,000 ML 999 ML IV (16:00)
[2025-01-11] MEDS: METHYLPREDNISOLONE SOD SUCC 125MG VIAL 125 MG IV (16:01)
[2025-01-11 16:04] LABS: Coronavirus 19, PCR Not Detected (NotDetected); Influenza A, PCR Not Detected (NotDetected); Influenza B, PCR Not Detected (NotDetected)
[2025-01-11 16:27] LABS: Occult Blood,Stool Positive (Negative)
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
--- NOTE | 2025-01-11 16:36 | P.HP_ITS ---
History of Present Illness *Admission Date: 01/11/25 *Reason for visit:: weakness, SOA, Black stools *History of present illness: Mr. Tony is a 74-year-old male with former history of tobacco use disorder, recently found to have multiple lung nodules. Undergoing evaluation by pulmono samreen. Has been having shortness of breath over the past few weeks. Was treated with a Medrol Dosepak by her PCP on 12/25. Was seen in our ER due to shortness of breath. Labs at that time showed hemoglobin level of 15 and hematocrit of 45 on 01/02. Was seen again this past weekend at due to persistent shortness of breath. Started on another course of prednisone. Also states in the past week he has taken 2 doses of Aleve. 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 Has history of COPD and hypertension. On arrival to the ER, complains of melenic stools, weakness, fatigue for the past 3 to 4 days. Also complaining of some mild chest discomfort. Workup in the ER with hemoglobin of 6.8, BUN 63 creatinine 1.4. Creatinine stable compared to labs 9 days ago but BUN has tripled. Findings most consistent with GI bleed. Fecal Hemoccult positive. Patient administered 1 L IV fluids. GI consulted who recommended admission and scope in the morning. Typed and crossed for 2 units of packed red blood cells. Medicine consulted for admission. On my evaluation, patient appears in mild distress. Vitals show improvement after IV fluid 1 L. Blood pressure stable at 117 systolic. Heart rate in the 80s. Still awaiting blood. Initiate on pantoprazole and sucralfate. [facility] Disclaimer: The information contained in this section may have been updated after the patient was seen, as this information can be updated by other users. Medical History Bloody sputum Hemoptysis Pneumonia Multiple lung nodules on CT Pulmonary emphysema History of smoking 30 or more pack years History of subdural hematoma Head contusion Acute subdural hematoma Fall Midline shift of brain Hypertensive urgency Brain bleed Hypertension Renal insufficiency Hypertension Surgical History No significant past surgical history Family History No significant family history Social History Smoking Status: Former smoker tobacco type: cigarettes how long ago did patient quit smokin years alcohol intake: never substance use type: denies use current occupational status: employed Travel in the last 8 weeks?: Inside the [place] household members: none housing: house caffeine: Yes Have you lived/traveled outside US in past 30 days?: No Contact w/someone who lives/traveled outside US past 30 days?: No Exposure to someone with infectious disease in past 14 days?: No Do you have a fever (greater than 100.4 F or 38 C)?: No Have you tested positive for COVID-19?: No Exposed to someone with COVID-19 in past 14 days?: No Do you have a sore throat?: No Do you have a cough?: No Do you have any weakness?: No Do you have any diarrhea?: No Are you experiencing any unusual bleeding?: No Do you have any muscle aches/pain?: No Do you have any abdominal pain?: No Are you experiencing loss of taste or smell?: No Other Medical History Have you received the Flu Vaccine for this season: Yes Have you received the Pneumonia Vaccine: Yes Review of Systems Review of Systems Review of systems (narrative): 14 point review of systems performed, pertinent positives and negatives as per HPI Meds Home Medications and Allergies Home Medications ?Medication ?Instructions ?Recorded ?Confirmed ?Type propranolol 20 mg tablet 20 mg PO BID Hypertension #1 80 tabs 08/06/24 01/09/25 Rx lisinopril 20 mg tablet See Rx Instructions .Route 0 09/26/24 01/09/25 Rx .COMPLEX #180 tabs albuterol sulfate 90 mcg/actuation inhalation 01/02/25 01/09/25 History aerosol inhaler ipratropium 0.5 mg-albuterol 3 mg 3 ml inhalation Q8H 3 months #540 01/02/25 01/09/25 Rx (2.5 mg base)/3 mL nebulization mL soln prednisone 20 mg tablet 20 mg PO 01/09/25 01/09/25 H istory New Prescriptions to Start Prescriptions: Allergies Allergy/AdvReac Type Severity Reaction Status Date / Time No Known Allergies Allergy Verified 01/09/25 14:32 Exam Data for Last 24 hours Vital signs and Labs for Last 24 Hours: Temp Pulse Resp BP Pulse Ox O2 Del Method O2 Flow Rate 97.9 F 83 24 96/63 L 97 Nasal Cannula 2 01/11/25 15:04 01/11/25 15:07 01/11/25 15:07 01/11/25 15:04 01/11/25 15:07 01/11/25 15:07 01/11/25 15:07 Laboratory Results - last 24 hr 01/11/25 15:04: WBC 20.0 H, RBC 2.14 L, Hgb 6.8 L*, Hct 20.1 L*, MCV 93.9, MCH 31.8 H, MCHC 33.8, RDW 13.0, Plt Count 302, MPV 9.4, Neut % (Auto) 82.9 H, Lymph % (Auto) 5.4 L, [place] % (Auto) 7.7, Eos % (Auto) 0.0 L, Baso % (Auto) 0.1, Neut # (Auto) 16.6 H, Lymph # (Auto) 1.1, [place] # (Auto) 1.6 H, Eos # (Auto) 0.0, Baso # (Auto) 0.0, Sodium 134 L, Potassium 4.5, Chloride 104, Carbon Dioxide 22, Anion Gap 12.5, BUN 63 H, Creatinine 1.40 H, Estimated Creat Clear 36, Estimated GFR 49 L, Est GFR ( Amer) 60, Glucose 111 H, Lactate 2.4 H, Calcium 7.9 L, Magnesium 1.9, Total Bilirubin 0.2, AST 19, ALT 16, Alkaline Phosphatase 113, Troponin I < 0.01, NT-Pro-B Natriuret Pep 183, Total Protein 4.6 L D, Albumin 2.5 L, Globulin 2.1, Albumin/Globulin Ratio 1.2, Lipase 44 01/11/25 15:55: Crossmatch ([facility]) See Detail 01/11/25 16:18: Stool Occult Blood Positive A I & O for Last 24 hours: Intake & Output 01/08/25 01/09/25 01/10/25 01/11/25 23:59 23:59 23:59 23:59 Weight 56.699 kg Constitutional Constitutional: mild distress, thin, chronically ill appearing and cooperative *Routine HEENT Exam Head: Present normocephalic Eye: Present EOMI and PERRL ENT: Present mucous membranes moist *Routine Neck Exam Neck: Present supple; Absent lymphadenopathy *Routine Respiratory Exam Respiratory: Present CTA bilaterally; Absent rhonchi *Routine Cardiovascular Exam Cardiovascular: Present RRR *Routine Abdominal Exam Abdominal: Present soft and normoactive bowel sounds; Absent tenderness *Routine Rectal Exam Rectal:: deferred *Routine Genitalia Exam Genitalia:: deferred *Routine Extremities Exam Extremities: Absent cyanosis, clubbing or edema *Routine Skin Exam Skin: Present pallor and warm; Absent rash *Routine Neurological Exam Neurological: Present alert, oriented X3 and moving all extremities; Absent altered mental status Assessment and Plan *Assessment and plan (1) Acute blood loss anemia: Status: Acute Category: Medical Code(s): D62 - Acute posthemorrhagic anemia (2) Acute upper GI bleed: Status: Acute Category: Medical Code(s): K92.2 - Gastrointestinal hemorrhage, unspecified (3) COPD (chronic obstructive pulmonary disease): Status: Acute Qualifiers: COPD type: emphysema Emphysema type: other Qualified Code(s): J43.8 - Other emphysema Category: Medical Code(s): J44.9 - Chronic obstructive pulmonary disease, unspecified (4) Leukocytosis: Status: Acute Category: Medical Code(s): D72.829 - Elevated white blood cell count, unspecified (5) CKD stage 3a, GFR 45-59 ml/min: Status: Chronic Category: Medical Code(s): N18.31 - Chronic kidney disease, stage 3a Plan 74-year-old male who presents with 3 to 4 days of melenic stool, weakness, fatigue. Found to have positive stool occult and severe anemia. Discussed case with ER, request admission for transfusion and EGD in the morning. I agreed to admit to stepdown for further care. Will initiate on Protonix and sucralfate. Transfusing 2 units. GI consulted to assist with care. Patient high risk for decompensation. Differential includes gastric cancer, peptic ulcer disease, gastritis, duodenal ulcer. Problems addressed as follows: Acute blood loss anemia secondary to upper GI bleed - Hemoglobin 6.8, down from 15 9 days ago. Iron levels low on evaluation. Platelets 302. White count of 20. - BUN 63, tripled in 9 days from 22 on 01/02. Creatinine stable at 1.4. - Iron level of 38, TIBC of 127, iron saturation 29%. - Type and cross for 2 units. Will transfuse 200 mg IV iron in the morning - GI consulted, plan for EGD in the morning - Patient NPO. Initiate 80 mg pantoprazole IV once. Continue 40 mg IV twice daily - Continue sucralfate every 6 hours p.o. 1 g - Holding steroids and NSAIDs. - If continues to have bleeding, will consider initiation of misoprostol - Repeat CBC, CMP, magnesium ordered for the morning. Lung lesions COPD - Given the spiculated nature, concerning for neoplastic process. Currently following with pulmonology. Defer management to pulmonology as an outpatient. Continue supplemental oxygen as needed for goal sats greater 90%. Currently on 2 L - Former smoker. Risk for lung cancer, gastric cancer, COPD - DuoNebs every 6 hours as needed - EKG obtained showing normal sinus rhythm. No ST elevations Per my review Blood pressure soft, hold lisinopril and propranolol at this time. Reevaluate tomorrow Full code Anticoagulation contraindicated due to bleeding. VTE with SCDs N.p.o.
[2025-01-11 16:47] LABS: Activated Partial Thrombo Time 23.0 seconds (22.8-30.6); INR 1.04 (0.9-1.1); Prothrombin Time 11.5 seconds (10.1-12.5)
[2025-01-11 17:01] LABS: Total Cells Counted 100
[2025-01-11 17:03] LABS: Polychromasia 1+
--- NOTE | 2025-01-11 17:12 | PC.NURSE ---
Patient report called to NOAH Rivera.
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
[2025-01-11 17:30] LABS: Iron 38 ug/dL (49-181)
--- NOTE | 2025-01-11 17:35 | ECG_ITS ---
APPROVED REPORT Exam: Resting ECG HR:90 bpm ECG Measurements Heart Rate 90 AXES AL 132 P 82 QRSd 80 QRS 83 QT 346 T 81 QTc 394 Conclusion SINUS RHYTHM NORMAL ECG UNCONFIRMED REPORT Electronically signed by : Shawn Araya MD 01/13/2025 20:23:35
[2025-01-11 17:40] LABS: Total Iron Binding Capacity 127 ug/dL (261-462)
[2025-01-11] MEDS: PANTOPRAZOLE SODIUM 80 MG in 0.9 % SODIUM CHLORIDE 100 ML 100 MG IV (17:43)
[2025-01-11 18:07] LABS: Ferritin 91.4 ng/ml (17.9-464)
--- NOTE | 2025-01-11 18:11 | PC.NURSE ---
PRBC unit one started at this time. Verified with NOAH Lea. Continuation of care plan.
[2025-01-11 18:33] LABS: Troponin I < 0.01 ng/ml (0.00-0.034)
--- NOTE | 2025-01-11 18:42 | PC.NURSE ---
Pt arrived from ER via stretcher [id number]
--- NOTE | 2025-01-11 19:30 | PC.NURSE ---
Primary RN passed along PRBC unit to night clerk RN going at this time. Continuation of care plan.
[2025-01-11 19:33] LABS: Reflex Lactic Add Lactic Reflex
[2025-01-11 20:24] LABS: Lactic Acid Follow Up (RFLX 1) 3.2 mmol/L (0.7-2.1)
[2025-01-11] MEDS: 0.9 % SODIUM CHLORIDE 250 ML 25 ML IV (21:22)
[2025-01-11] MEDS: PANTOPRAZOLE 40MG VIAL 40 MG IV (21:22)
[2025-01-11 22:00] LABS: Reflex Lactic (2 hrs) Add Lactic Reflex
--- NOTE | 2025-01-11 23:28 | PC.NURSE ---
Second unit of PRBC started at 2300, verified with Felicia Corral RN. No reactions noted at this time, VSS and afebrile, remains on 2L nc.
[2025-01-12] VITALS (71 sets, daily range): BP systolic 84–144; BP diastolic 45–86; PULSE 62–100; RESP 15–24; TEMP 36.3–36.6; O2SAT 90–100; BMI 21.2
--- NOTE | 2025-01-12 02:27 | PC.NURSE ---
2nd unit of PRBC completed, no reaction noted, patient tolerated well. VSS, afebrile and remains on 2L nc.
[2025-01-12 03:34] LABS: Hematocrit 28.2 % (42.0-52.0)
[2025-01-12 03:39] LABS: Hemoglobin 9.9 g/dL (14.1-18.0)
[2025-01-12 04:11] LABS: Lactic Acid Follow up (RFLX 2) 3.3 mmol/L (0.7-2.1)
[2025-01-12 04:16] LABS: Troponin I < 0.01 ng/ml (0.00-0.034)
[2025-01-12 07:20] LABS: Hematocrit 28.1 % (42.0-52.0); Hemoglobin 9.5 g/dL (14.1-18.0); Immature Granulocytes % 3.6 %; Mean Corpuscular HGB Conc 33.8 g/dL (31.8-35.4); Mean Corpuscular Hemoglobin 30.2 pg (27.0-31.2); Mean Corpuscular Volume 89.2 fl (80-94); Nucleated Red Blood Cells % 0.3 %; Platelet Count 232 K/mm3 (142-424); Red Blood Count 3.15 M/mm3 (4.60-6.20); Red Cell Distribution Width-SD 46.0 fL; White Blood Count 17.1 K/mm3 (4.8-10.8)
[2025-01-12 08:05] LABS: Albumin Level 2.6 g/dl (3.5-5.0); Chloride 107 mmol/L (98-107); Sodium 135 mmol/L (136-145)
[2025-01-12] MEDS: PANTOPRAZOLE 40MG VIAL 40 MG IV ×2 (08:05→20:03)
[2025-01-12 08:06] LABS: Potassium 4.8 mmoL/L (3.5-5.1)
[2025-01-12 08:08] LABS: Alanine Aminotransferase 18 U/L (12-78); Albumin/Globulin Ratio 1.3 (1.1-1.8); Alkaline Phosphatase 116 U/L (38-126); Anion Gap 13.8 mEq/L (5-15); Aspartate Amino Transferase 26 U/L (17-59); Bilirubin,Total 0.5 mg/dl (0.2-1.3); Blood Urea Nitrogen 59 mg/dl (9-20); Calcium 7.6 mg/dl (8.4-10.2); Carbon Dioxide 19 mmol/L (22.0-30.0); Creatinine Clearance Estimated 44 mL/min (50-200); Creatinine,Serum 1.20 mg/dl (0.66-1.25); Estimated Glomerular Filt Rate 59 ml/min (>60); GFR (African American) 71 ML/MIN (>60); Globulin 2.0 g/dL (1.3-3.2); Glucose 149 mg/dl (74-100); Magnesium 2.4 mg/dl (1.6-2.3); Total Protein,Serum 4.6 g/dl (6.3-8.2)
[2025-01-12 08:27] LABS: RBC Morphology Normal; Total Cells Counted 100
[2025-01-12] MEDS: IRON SUCROSE COMPLEX 200 MG in 0.9 % SODIUM CHLORIDE 100 ML 220 MG IV (08:27)
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
--- NOTE | 2025-01-12 09:50 | HMH.PHAINT1 ---
Pharmacy Intervention Comments: MEDICATION RECONCILIATION COMPLETED ON PATIENT USING EXTERNAL FILL HISTORY FROM PHARMACY AND LIST FROM PCP OFFICE. -NORAH KNAPP, MAYURID
--- NOTE | 2025-01-12 10:09 | PC.NURSE ---
Patient off unit to scheduled procedure.
--- NOTE | 2025-01-12 10:26 | P.PCN_ITS ---
[facility] Procedure Note Date: 01/12/25 Time: 10:44 Procedure Note:: Upper Endoscopy Procedure Report: Esophagogastroduodenoscopy with Endo Clip placement and cold biopsy Endoscopost: Myles Aburto II, MD Referring Physician: Jun Alvarez MD Date of Procedure: January 12, 2025 Equipment: Olympus GIF-1100 standard upper endoscope Sedation: MAC sedation Indications: Mr. Tony is a 74-year-old gentleman who is here this morning for diagnostic EGD. He presented to the ED with generalized weakness and malaise with black stools/melena. This has been going on for about 3 days. He had taken a couple of Aleve in the last week but has been told in the past not to take any aspirin or NSAIDs because of a prior cerebral hemorrhage. He is not on any anticoagulation but does take prednisone at home. He reports no abdominal pain but has had some nausea. He has noted hypotension by blood pressure check at home. The patient quit smoking tobacco 6 years ago. His hemoglobin hematocrit on arrival was 6.8 and 20.1. After transfusion this morning his hemoglobin and hematocrit were 9.5 and 28.1. Fecal Hemoccult was positive. The patient's baseline hemoglobin in June. On 01/02/2025 was 15.4 and 45.3. He was placed on pantoprazole IV and sucralfate. I was notified by the ED to assist with diagnostic EGD. Procedure: Prior to the procedure, a history and physical exam was performed, and patient's medications and allergies were reviewed. The risks, benefits and alternatives of the sedation and procedure were discussed with the patient. All questions were answered and informed consent was obtained. The patient was brought to the procedure room. Patient identification and proposed procedure were verified by the physician and the nurse. The patient was placed in a left lateral decubitus position and the scope was passed under direct vision. Throughout the proced ure, the patient's blood pressure, pulse, and oxygen saturations were monitored continuously. The upper GI endoscopy was accomplished without difficulty. The patient tolerated the procedure well. Findings: The scope was passed directly into the upper esophagus and advanced to the third portion of the duodenum. The 3rd and 2nd portion of the duodenum were normal. There was a normal ampulla. Within the first portion of the duodenum just distal to the duodenal bulb was a posterior lateral wall duodenal ulcer with a small visible vessel. A single Endo Clip was placed over the vessel and ulcer. Injection of epinephrine or forced coagulation was not performed. The duodenal bulb and pylorus were normal. The scope was withdrawn into the stomach. There was mild antral gastropathy but the body and fundus of the stomach were grossly normal. Upon retroflexion there was a small 2 cm hiatal hernia. Cold biopsies were taken from the antrum. The scope was then withdrawn into the esophagus. There was no evidence of reflux esophagitis and the remainder of the esophageal mucosa was normal. Impression: 1. Duodenal ulcer (first portion of duodenum (posterior lateral) with visible vessel status post Endo Clip placement Plan: I will follow-up the biopsy for H. pylori. The patient did take Aleve this past week and was on prednisone. I would add misoprostol and continue PPI therapy. If the patient does have any recurrent bleeding then I would consider vessel forced coagulation and/or Ovesco (over the scope bear claw ) clip placement.
--- NOTE | 2025-01-12 11:07 | PC.NURSE ---
Patient arrived back to ICU via bed with [facility] staff. Patients BP of 106/67(83), HR of 78, O2 94% on 1 L NC. Continuation of care plan.
--- NOTE | 2025-01-12 11:12 | SUR.PHASEII ---
1058- detailed report called to marc Sanford in ICU. Pt being transported to ICU at this time. 1105- Pt left in stable condition with marc sanford in pt room. VSS, family at bedside.
[2025-01-12] MEDS: SUCRALFATE 1GM/10ML SUSP UDC 1 GM PO ×3 (11:13→20:03)
--- NOTE | 2025-01-12 11:25 | EXP.ACUTE.PN ---
Subjective *Date: 01/12/25 *Time: 22:50 Interval history: No further melenic stools overnight. Hemodynamically stable. Continues with 2 L oxygen. Afebrile. Morning. Denies significant abdominal pain this morning Medical Exam Vital signs and Labs for Last 24 Hours: Vital Signs Temp Pulse Pulse Resp BP BP Pulse Ox 01/12/25 10:58 97.6 F 77 16 100/65 L 98 01/12/25 10:43 97.6 F 90 16 85/60 L 98 01/12/25 10:12 65 15 104/54 L 95 01/12/25 10:01 62 15 104/54 L 95 01/12/25 09:45 91 H 20 94 L 01/12/25 09:30 81 24 129/73 95 01/12/25 09:15 78 24 95 01/12/25 09:00 71 22 119/63 95 01/12/25 09:00 01/12/25 08:45 87 17 131/77 95 01/12/25 08:40 94 L 01/12/25 08:30 78 21 126/75 96 01/12/25 08:16 67 24 131/61 98 01/12/25 08:15 69 24 95 01/12/25 08:00 74 20 124/68 95 01/12/25 08:00 95 01/12/25 08:00 78 01/12/25 07:45 70 24 128/62 95 01/12/25 07:30 70 24 110/61 94 L 01/12/25 07:18 97.6 F 01/12/25 07:15 78 20 116/64 95 01/12/25 07:00 95 01/12/25 07:00 70 23 114/61 94 L 01/12/25 06:32 01/12/25 06:00 97.6 F 74 19 139/67 94 L 01/12/25 05:00 01/12/25 04:00 97.8 F 77 19 104/58 L 93 L 01/12/25 04:00 69 01/12/25 03:00 97.4 F L 63 18 102/63 L 95 01/12/25 02:47 01/12/25 02:30 65 112/62 92 L 01/12/25 02:00 97.4 F L 66 17 95/52 L 95 01/12/25 02:00 97.4 F L 66 17 95/52 L 95 01/12/25 01:15 85 100/54 L 96 01/12/25 01:00 01/12/25 01:00 97.4 F L 69 15 93/53 L 95 01/12/25 00:45 70 107/51 L 93 L 01/12/25 00:30 78 91/58 L 01/12/25 00:15 67 18 91/50 L 95 01/12/25 00:00 70 01/12/25 00:00 97.4 F L 71 16 84/45 L 95 01/11/25 23:45 97.4 F L 70 20 105/52 L 95 01/11/25 23:30 97.4 F L 75 20 100/70 L 95 01/11/25 23:15 97.4 F L 75 15 100/53 L 93 L 01/11/25 23:10 97.5 F L 75 16 92/57 L 92 L 01/11/25 23:05 97.5 F L 75 21 92 L 01/11/25 23:05 97.4 F L 76 22 92/54 L 92 L 01/11/25 23:00 01/11/25 23:00 97.4 F L 68 21 98/53 L 93 L 01/11/25 22:59 97.4 F L 75 19 96/54 L 94 L 01/11/25 22:30 97.5 F L 76 22 105/61 L 93 L 01/11/25 22:11 97.6 F 78 24 113/54 L 93 L 01/11/25 21:11 97.6 F 74 28 H 114/58 L 94 L 01/11/25 21:00 01/11/25 20:11 97.6 F 80 23 113/63 95 01/11/25 20:00 97.6 F 80 23 113/63 01/11/25 20:00 87 01/11/25 20:00 01/11/25 19:11 97.7 F 92 H 16 119/64 93 L 01/11/25 19:00 01/11/25 18:56 97.7 F 88 18 112/62 93 L 01/11/25 18:41 97.7 F 85 18 112/55 L 93 L 01/11/25 18:26 97.7 F 95 H 18 111/66 93 L 01/11/25 18:21 97.5 F L 97 H 18 140/70 93 L 01/11/25 18:16 97.7 F 92 H 18 122/61 93 L 01/11/25 18:11 97.5 F L 88 18 108/57 L 92 L 01/11/25 17:49 82 01/11/25 17:41 97.5 F L 82 18 111/59 L 99 01/11/25 17:41 97.5 F L 97 H 18 111/59 L 92 L 01/11/25 17:40 92 L 01/11/25 17:31 98.0 F 89 24 117/63 01/11/25 17:30 01/11/25 16:30 82 26 H 136/70 95 01/11/25 16:00 88 31 H 120/62 95 01/11/25 15:30 80 27 H 131/62 98 01/11/25 15:07 83 24 97 01/11/25 15:04 97.9 F 89 21 96/63 L 92 L O2 Del Method O2 Flow Rate 01/12/25 10:58 Room Air 01/12/25 10:43 Room Air 01/12/25 10:12 Nasal Cannula 1 01/12/25 10:01 Nasal Cannula 1 01/12/25 09:45 Nasal Cannula 1 01/12/25 09:30 Nasal Cannula 1 01/12/25 09:15 Nasal Cannula 1 01/12/25 09:00 Nasal Cannula 1 01/12/25 09:00 Nasal Cannula 1 01/12/25 08:45 Nasal Cannula 1 01/12/25 08:40 Nasal Cannula 1 01/12/25 08:30 Nasal Cannula 2 01/12/25 08:16 Nasal Cannula 2 01/12/25 08:15 Nasal Cannula 2 01/12/25 08:00 Nasal Cannula 2 01/12/25 08:00 Nasal Cannula 2 01/12/25 08:00 01/12/25 07:45 Nasal Cannula 2 01/12/25 07:30 Nasal Cannula 2 01/12/25 07:18 01/12/25 07:15 Nasal Cannula 2 01/12/25 07:00 Nasal Cannula 2 01/12/25 07:00 Nasal Cannula 2 01/12/25 06:32 Nasal Cannula 2 01/12/25 06:00 Room Air 2 01/12/25 05:00 Nasal Cannula 2 01/12/25 04:00 Nasal Cannula 2 01/12/25 04:00 01/12/25 03:00 01/12/25 02:47 Nasal Cannula 2 01/12/25 02:30 Nasal Cannula 2 01/12/25 02:00 Nasal Cannula 2 01/12/25 02:00 01/12/25 01:15 Nasal Cannula 2 01/12/25 01:00 Nasal Cannula 2 01/12/25 01:00 01/12/25 00:45 Nasal Cannula 01/12/25 00:30 01/12/25 00:15 Nasal Cannula 01/12/25 00:00 01/12/25 00:00 01/11/25 23:45 01/11/25 23:30 01/11/25 23:15 01/11/25 23:10 01/11/25 23:05 01/11/25 23:05 01/11/25 23:00 Nasal Cannula 2 01/11/25 23:00 01/11/25 22:59 01/11/25 22:30 01/11/25 22:11 01/11/25 21:11 01/11/25 21:00 Nasal Cannula 2 01/11/25 20:11 01/11/25 20:00 Nasal Cannula 2 01/11/25 20:00 01/11/25 20:00 Nasal Cannula 2 01/11/25 19:11 01/11/25 19:00 Nasal Cannula 2 01/11/25 18:56 01/11/25 18:41 01/11/25 18:26 01/11/25 18:21 01/11/25 18:16 01/11/25 18:11 01/11/25 17:49 01/11/25 17:41 Nasal Cannula 2 01/11/25 17:41 01/11/25 17:40 Nasal Cannula 2 01/11/25 17:31 Room Air 01/11/25 17:30 Nasal Cannula 2 01/11/25 16:30 01/11/25 16:00 01/11/25 15:30 01/11/25 15:07 Nasal Cannula 2 01/11/25 15:04 Room Air Intake and Output 01/11/25 01/12/25 01/12/25 23:59 07:59 15:59 Intake Total 1400 / 1450 419.583 / 519.583 100 / 519.583 Output Total 725 / 725 600 / 800 200 / 800 Balance 675 / 725 -180.417 / -280.417 -100 / -280.417 Intake: Intake, Total IV Amount 1150 / 1200 169.583 / 269.583 100 / 269.583 0.9 % Sodium Chloride 1000ML 1, 1000 / 1000 000 ml @ 999 mls/hr IV .Q1H1M ONE Rx#:[id number] 0.9 % Sodium Chloride 250 ml @ 169.583 / 169.583 25 mls/hr IV .Q10H JEF Rx#: [id number] Iron Sucrose Complex 200 mg In 100 / 100 0.9 % Sodium Chloride 100 ml @ 220 mls/hr IV ONCE ONE Rx#: [id number] Magnesium Sulfate in Water 2 gm 50 / 50 In 50 ml @ 50 mls/hr IV ONCE ONE Rx#:[id number] Pantoprazole Sodium 80 mg In 0. 100 / 100 9 % Sodium Chloride 100 ml @ 100 mls/hr IV ONCE ONE Rx#: [id number] Intake (Blood Product) Amt 250 / 250 250 / 250 Red Blood Cells Unit 250 / 250 [id number] Red Blood Cells Unit 0 / 0 250 / 250 [id number] Output: Output, Urine Amount 725 / 725 600 / 800 200 / 800 Other: Weight 60.328 kg 59.874 kg Patient Weight 01/12/25 23:59 Weight 59.874 kg Laboratory Results - last 24 hr 01/11/25 15:04: WBC 20.0 H, RBC 2.14 L, Hgb 6.8 L*, Hct 20.1 L*, MCV 93.9, MCH 31.8 H, MCHC 33.8, RDW 13.0, Plt Count 302, MPV 9.4, Neut % (Auto) 82.9 H, Lymph % (Auto) 5.4 L, Bureau % (Auto) 7.7, Eos % (Auto) 0.0 L, Baso % (Auto) 0.1, Neut # (Auto) 16.6 H, Lymph # (Auto) 1.1, Bureau # (Auto) 1.6 H, Eos # (Auto) 0.0, Baso # (Auto) 0.0, Total Counted 100, Neutrophils % (Manual) 88 H, Lymphocytes % (Manual) 11, Monocytes % (Manual) 1 L, Platelet Estimate Normal, Polychromasia 1+, PT 11.5, INR 1.04, APTT 23.0, Sodium 134 L, Potassium 4.5, Chloride 104, Carbon Dioxide 22, Anion Gap 12.5, BUN 63 H, Creatinine 1.40 H, Estimated Creat Clear 36, Estimated GFR 49 L, Est GFR ( Amer) 60, Glucose 111 H, Lactate 2.4 H, Calcium 7.9 L, Magnesium 1.9, Iron 38 L, TIBC 127 L, Iron Saturation 29.61215, Ferritin 91.4, Total Bilirubin 0.2, AST 19, ALT 16, Alkaline Phosphatase 113, Troponin I < 0.01, NT-Pro-B Natriuret Pep 183, Total Protein 4.6 L D, Albumin 2.5 L, Globulin 2.1, Albumin/Globulin Ratio 1.2, Lipase 44, Blood Type Confirm O Positive 01/11/25 15:55: Blood Type O Positive, Antibody Screen Negative, Crossmatch (AHG) See Detail 01/11/25 16:01: SARS-CoV-2 (PCR) Not detected, Influenza A Untype (PCR) Not detected, Influenza Type B (PCR) Not detected 01/11/25 16:18: Stool Occult Blood Positive A 01/11/25 17:45: Troponin I < 0.01 01/11/25 19:48: Lactate 3.2 H 01/12/25 03:16: Hgb 9.9 L D, Hct 28.2 L, Lactate 3.3 H, Troponin I < 0.01 01/12/25 06:40: WBC 17.1 H, RBC 3.15 L D, Hgb 9.5 L, Hct 28.1 L, MCV 89.2, MCH 30.2, MCHC 33.8, RDW 14.3, Plt Count 232, MPV 9.2, Neut % (Auto) 89.3 H, Lymph % (Auto) 3.9 L, Bureau % (Auto) 3.1, Eos % (Auto) 0.0 L, Baso % (Auto) 0.1, Neut # (Auto) 15.3 H, Lymph # (Auto) 0.7, Bureau # (Auto) 0.5, Eos # (Auto) 0.0, Baso # (Auto) 0.0, Total Counted 100, Neutrophils % (Manual) 90 H, Lymphocytes % (Manual) 6 L, Monocytes % (Manual) 4, Platelet Estimate Normal, RBC Morphology Normal, Sodium 135 L, Potassium 4.8, Chloride 107, Carbon Dioxide 19 L, Anion Gap 13.8, BUN 59 H, Creatinine 1.20, Estimated Creat Clear 44, Estimated GFR 59, Est GFR ( Amer) 71, Glucose 149 H D, Calcium 7.6 L, Magnesium 2.4 H D, Total Bilirubin 0.5, AST 26 D, ALT 18, Alkaline Phosphatase 116, Total Protein 4.6 L, Albumin 2.6 L, Globulin 2.0, Albumin/Globulin Ratio 1.3 I & O for Labs for Last 24 Hours: Intake & Output 01/09/25 01/10/25 01/11/25 01/12/25 23:59 23:59 23:59 23:59 Intake Total 1400 / 1450 519.583 / 519.583 Output Total 725 / 725 800 / 800 Balance 675 / 725 -280.417 / -280.417 Weight 60.328 kg 59.874 kg Constitutional: Present mild distress, thin, chronically ill appearing and cooperative Head: Present atraumatic ENT: Present normal exam Respiratory: Present normal respiratory effort; Absent rhonchi, wheezes or crackles Cardiac: Present Reg Rate and Rhythm GI: Present soft, tenderness (Mild epigastric) and normal bowel sounds; Absent distention Extremities: Present normal inspection and full ROM Skin: Present intact; Absent erythema Neuro: Present Grossly Intact, alert, awake, oriented x 3 and moves all extremities Assessment and Plan *Assessment and plan (1) Bleeding duodenal ulcer: Status: Acute Category: Medical Code(s): K26.4 - Chronic or unspecified duodenal ulcer with hemorrhage (2) Acute blood loss anemia: Status: Acute Category: Medical Code(s): D62 - Acute posthemorrhagic anemia (3) Acute upper GI bleed: Status: Acute Category: Medical Code(s): K92.2 - Gastrointestinal hemorrhage, unspecified (4) COPD (chronic obstructive pulmonary disease): Status: Acute Qualifiers: COPD type: emphysema Emphysema type: other Qualified Code(s): J43.8 - Other emphysema Category: Medical Code(s): J44.9 - Chronic obstructive pulmonary disease, unspecified (5) Leukocytosis: Status: Acute Category: Medical Code(s): D72.829 - Elevated white blood cell count, unspecified (6) CKD stage 3a, GFR 45-59 ml/min: Status: Chronic Category: Medical Code(s): N18.31 - Chronic kidney disease, stage 3a Plan 74-year-old male who presents with 3 to 4 days of melenic stool, weakness, fatigue. Found to have positive stool occult and severe anemia. Discussed case with ER, request admission for transfusion and EGD in the morning. I agreed to admit to stepdown for further care. Will initiate on Protonix and sucralfate. Transfusing 2 units. GI consulted to assist with care. Patient high risk for decompensation. Taken for EGD today. Found to have duodenal ulcer. Female Newton low but stable. Continues to require patient management. Problems addressed as follows: Acute blood loss anemia secondary to upper GI bleed Duodenal ulcer with visible vessel - Hemoglobin 6.8 on admission, down from 15 9 days ago. Hemoglobin improved to 9.8 after transfusion. 9.9 this morning. White count down to 17. Platelets 232. - BUN down to 59. Creatinine 1.2. Potassium 4.8 with magnesium 2.4. - Repeat H&H ordered for this evening, repeat CBC, CMP, magnesium ordered for the morning - Case discussed with GI, taken for scope. Found to have duodenal ulcer with vessel. Clip placed. Will monitor for 24 to 48 hours for further bleeding -Advance to clear liquid diet -Continue pantoprazole 40 mg IV twice daily. Initiate misoprostol 200 mg every 6 hours, continue sucralfate 1 g every 6 hours - Transfusion threshold hemoglobin less than 7. Lung lesions COPD - Given the spiculated nature, concerning for neoplastic process. Currently following with pulmonology. Defer management to pulmonology as an outpatient. Continue supplemental oxygen as needed for goal sats greater 90%. Currently on 2 L - Former smoker. Risk for lung cancer, gastric cancer, COPD - DuoNebs every 6 hours as needed - EKG obtained showing normal sinus rhythm. No ST elevations Per my review Blood pressure soft, hold lisinopril and propranolol at this time. Reevaluate tomorrow Full code Anticoagulation contraindicated due to bleeding. VTE with SCDs clear liquid diet
[2025-01-12] MEDS: IPRATROPIUM/ALBUTEROL 3 ML NEB IH ×2 (12:23→18:35)
--- NOTE | 2025-01-12 12:23 | PC.NURSE ---
Patient complains of being short of breath after ambulating with PT. Patients oxygen saturation of 89% on 1 L NC. Patients oxygen increased to 2 L NC at this time. Patients oxygen saturation of 95% on 2 L NC. Respiratory therapist called for PRN Albuterol treatment as ordered on JUN. Continuation of care plan.
--- NOTE | 2025-01-12 12:54 | HMH.PTEV ---
Physical Therapy Evaluation Rehab PT IP Evaluation Start: 01/11/25 18:56 Freq: ONCE Status: Active Protocol: Document 01/12/25 12:51 TOMAS (Rec: 01/12/25 12:54 [email or web address] [id number]) Subjective/History History History 74-year-old male with former history of tobacco use disorder, recently found to have multiple lung nodules. Undergoing evaluation by pulmonology. Has been having shortness of breath over the past few weeks. Was treated with a Medrol Dosepak by her PCP on 12/25. Was seen in our ER due to shortness of breath. Labs at that time showed hemoglobin level of 15 and hematocrit of 45 on 01/02. Was seen again this past weekend at due to persistent shortness of breath. Started on another course of prednisone. Also states in the past week he has taken 2 doses of Aleve. 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 Has history of COPD and hypertension. On arrival to the ER, complains of melenic stools, weakness, fatigue for the past 3 to 4 days. Also complaining of some mild chest discomfort. Workup in the ER with hemoglobin of 6.8, BUN 63 creatinine 1.4. Creatinine stable compared to labs 9 days ago but BUN has tripled. Findings most consistent with GI bleed. Fecal Hemoccult positive. Patient administered 1 L IV fluids. GI consulted who recommended admission and scope in the morning. Typed and crossed for 2 units of packed red blood cells. Medicine consulted for admission. Subjective Subjective Pt reports he feels better at this time even though he just returned from scope procedure. He reports he lives alone, no EARLINE the home, and he is generally independent without an AD with all mobility. [facility] How much help from another person do you currently need... Turning from your None back to your side while in a flat bed without using bedrails? Moving from lying on None back to sitting on the side of a flat bed without using bedrails? Moving to and from a None bed to a chair ( including a wheelchair)? Standing up from a None chair using your arms? (e.g., wheelchair, bedside chair) Walking in hospital None room? Climbing 3-5 steps None with a railing? Mobility Score 24 Mobility Level [facility] Mobility 8 Walk 250 feet or more Mobility Calculator Rehab PT IP Eval Objective Appearance Patient Behavior Appropriate Patient Orientation Person,Place,Time Speech Pattern Clear Ambulation Patient Able to Yes Ambulate Ambulation Observation IP General Gait No Deviations/Normal Pattern Observation Ambulation Distance 20 (feet) Ambulation Assistive None Device Ambulation Ability Independent Balance Ability to Arise Able, uses arms to help Sitting Balance Steady, safe Standing Balance Steady, wide stance Dynamic Sitting Good Balance Ability Dynamic Standing Good Balance Ability Transfers Bed Transfer Ability Independent Chair Transfer Independent Ability Sit to Stand Bed Independent Transfer Ability Sit to Stand Chair Independent Transfer Ability Rehab PT IP prob,goals,plan Problems Date of Evaluation: 01/12/25 Discharge Plan PT Discharge Plan Pt is currently appropriate to return home once medically stable for d/c. No current acute therapy needs. Recommend home health therapy after d/c to home as warranted. Eval Complexity Eval Charge Codes 82028 - High Complexity PHYSICIAN CERTIFICATION: I certify the specified therapy services for Chad Tony are required, authorized, and reviewed every 30 days.
[2025-01-12] MEDS: FLUTICASONE PROP 50MCG NASAL SPRAY 16GM 1 SPRAY NS (16:59)
[2025-01-12 18:13] LABS: Hematocrit 29.3 % (42.0-52.0); Hemoglobin 9.8 g/dL (14.1-18.0)
--- NOTE | 2025-01-12 18:35 | PC.NURSE ---
Patient standing up at bedside with Primary RN to use urinal. Patient states he is short of breath. Patients oxygen saturation of 90% on 2 L NC. Patient medicated per MAR. Continuation of care plan.
[2025-01-13] VITALS (40 sets, daily range): BP systolic 90–128; BP diastolic 44–75; PULSE 63–113; RESP 13–30; TEMP 36.7–37.2; O2SAT 89–98; BMI 21.9
[2025-01-13] MEDS: IPRATROPIUM/ALBUTEROL 3 ML NEB IH ×5 (04:59→23:55)
[2025-01-13] MEDS: SUCRALFATE 1GM/10ML SUSP UDC 1 GM PO ×4 (05:38→22:01)
[2025-01-13] MEDS: FLUTICASONE PROP 50MCG NASAL SPRAY 16GM 1 SPRAY NS ×3 (05:41→16:29)
[2025-01-13 05:57] LABS: Hematocrit 25.9 % (42.0-52.0); Immature Granulocytes % 4.1 %; Mean Corpuscular HGB Conc 34.0 g/dL (31.8-35.4); Mean Corpuscular Hemoglobin 30.6 pg (27.0-31.2); Mean Corpuscular Volume 89.9 fl (80-94); Nucleated Red Blood Cells % 0.3 %; Platelet Count 243 K/mm3 (142-424); Red Blood Count 2.88 M/mm3 (4.60-6.20); Red Cell Distribution Width-SD 46.3 fL; White Blood Count 19.0 K/mm3 (4.8-10.8)
[2025-01-13 05:58] LABS: Hemoglobin 8.9 g/dL (14.1-18.0)
[2025-01-13 06:00] LABS: Albumin Level 2.5 g/dl (3.5-5.0); Chloride 102 mmol/L (98-107); Potassium 4.5 mmoL/L (3.5-5.1); Sodium 129 mmol/L (136-145)
[2025-01-13 06:02] LABS: Anion Gap 8.5 mEq/L (5-15); Blood Urea Nitrogen 43 mg/dl (9-20); Carbon Dioxide 23 mmol/L (22.0-30.0); Creatinine Clearance Estimated 46 mL/min (50-200); Creatinine,Serum 1.20 mg/dl (0.66-1.25); Estimated Glomerular Filt Rate 59 ml/min (>60); GFR (African American) 71 ML/MIN (>60)
[2025-01-13 06:03] LABS: Alanine Aminotransferase 12 U/L (12-78); Albumin/Globulin Ratio 1.3 (1.1-1.8); Alkaline Phosphatase 115 U/L (38-126); Aspartate Amino Transferase 17 U/L (17-59); Bilirubin,Total 0.6 mg/dl (0.2-1.3); Calcium 7.5 mg/dl (8.4-10.2); Globulin 2.0 g/dL (1.3-3.2); Glucose 94 mg/dl (74-100); Magnesium 2.2 mg/dl (1.6-2.3); Total Protein,Serum 4.5 g/dl (6.3-8.2)
[2025-01-13 06:18] LABS: Total Cells Counted 100
[2025-01-13] MEDS: PANTOPRAZOLE 40MG VIAL 40 MG IV ×2 (09:05→22:01)
--- NOTE | 2025-01-13 10:12 | P.PN_ITS ---
Subjective *Date: 01/13/25 *Time: 16:10 Interval history: Patient has been stable overnight. No other signs of bleeding or melenic stools. Wearing 2 L oxygen. States he normally does not wear oxygen at home. Denies significant dyspnea. Afebrile. Tolerating clear liquid diet Medical Exam Vital signs and Labs for Last 24 Hours: Vital Signs Temp Pulse Pulse Resp BP BP Pulse Ox 01/13/25 10:00 77 22 125/75 90 L 01/13/25 09:00 90 L 01/13/25 09:00 01/13/25 08:10 94 L 01/13/25 08:03 88 01/13/25 08:00 98.9 F 76 13 105/59 L 91 L 01/13/25 06:53 01/13/25 06:01 78 24 115/56 L 90 L 01/13/25 05:30 76 15 102/54 L 89 L 01/13/25 05:01 73 21 102/52 L 96 01/13/25 05:00 01/13/25 05:00 75 01/13/25 05:00 80 01/13/25 05:00 93 L 01/13/25 04:30 70 23 112/59 L 93 L 01/13/25 04:00 70 01/13/25 04:00 69 24 119/57 L 93 L 01/13/25 03:30 82 20 91 L 01/13/25 03:30 99/61 L 01/13/25 03:00 69 21 94/52 L 92 L 01/13/25 03:00 01/13/25 02:30 72 20 90/51 L 91 L 01/13/25 02:00 75 26 H 113/60 93 L 01/13/25 01:00 120/57 L 01/13/25 01:00 01/13/25 00:31 66 21 95 01/13/25 00:31 90/44 L 01/13/25 00:00 98.6 F 63 18 93/48 L 93 L 01/13/25 00:00 70 01/12/25 22:58 01/12/25 22:00 77 18 117/70 94 L 01/12/25 21:00 01/12/25 20:00 70 01/12/25 20:00 81 94 L 01/12/25 20:00 97.9 F 72 21 117/65 92 L 01/12/25 18:53 01/12/25 18:45 71 24 95 01/12/25 18:34 72 22 136/68 98 01/12/25 18:30 100 H 24 90 L 01/12/25 18:15 72 24 94 L 01/12/25 18:06 95 01/12/25 18:00 73 22 117/60 94 L 01/12/25 17:45 75 24 94 L 01/12/25 17:30 77 22 125/64 94 L 01/12/25 17:15 72 24 93 L 01/12/25 17:01 77 22 144/64 H 95 01/12/25 17:00 84 17 93 L 01/12/25 17:00 01/12/25 16:45 79 24 93 L 01/12/25 16:30 80 22 121/65 92 L 01/12/25 16:07 93 L 01/12/25 16:00 84 01/12/25 16:00 85 16 122/80 93 L 01/12/25 15:45 86 21 93 L 01/12/25 15:30 69 16 99/48 L 93 L 01/12/25 15:15 70 17 93 L 01/12/25 15:00 86 21 115/60 94 L 01/12/25 15:00 01/12/25 14:45 73 17 93 L 01/12/25 14:30 75 16 116/61 93 L 01/12/25 14:15 74 16 95 01/12/25 14:00 70 22 134/60 97 01/12/25 13:45 86 15 96 01/12/25 13:30 67 16 116/59 L 96 01/12/25 13:30 97.7 F 01/12/25 13:15 70 18 95 01/12/25 13:00 80 24 131/65 93 L 01/12/25 13:00 01/12/25 13:00 94 L 01/12/25 12:45 98 H 21 115/86 90 L 01/12/25 12:30 75 21 121/67 94 L 01/12/25 12:24 74 01/12/25 12:24 75 01/12/25 12:24 95 01/12/25 12:15 89 22 125/83 94 L 01/12/25 12:01 82 22 136/66 94 L 01/12/25 12:00 83 01/12/25 11:46 97.5 F L 87 21 124/78 92 L 01/12/25 11:31 74 22 118/67 95 01/12/25 11:30 19 100 01/12/25 11:19 01/12/25 11:15 70 19 110/65 95 01/12/25 11:07 97.5 F L 77 15 106/67 L 94 L 01/12/25 11:06 70 18 93 L 01/12/25 10:58 97.6 F 77 16 100/65 L 98 01/12/25 10:43 97.6 F 90 16 85/60 L 98 O2 Del Method O2 Flow Rate 01/13/25 10:00 01/13/25 09:00 Room Air 01/13/25 09:00 Room Air 01/13/25 08:10 Nasal Cannula 2 01/13/25 08:03 01/13/25 08:00 Nasal Cannula 2 01/13/25 06:53 Nasal Cannula 2 01/13/25 06:01 01/13/25 05:30 01/13/25 05:01 01/13/25 05:00 Nasal Cannula 2 01/13/25 05:00 01/13/25 05:00 01/13/25 05:00 Nasal Cannula 1 01/13/25 04:30 01/13/25 04:00 01/13/25 04:00 01/13/25 03:30 01/13/25 03:30 01/13/25 03:00 01/13/25 03:00 Nasal Cannula 2 01/13/25 02:30 01/13/25 02:00 01/13/25 01:00 01/13/25 01:00 Nasal Cannula 2 01/13/25 00:31 01/13/25 00:31 01/13/25 00:00 Nasal Cannula 2 01/13/25 00:00 01/12/25 22:58 Nasal Cannula 2 01/12/25 22:00 Nasal Cannula 2 01/12/25 21:00 Nasal Cannula 2 01/12/25 20:00 01/12/25 20:00 Nasal Cannula 2 01/12/25 20:00 Nasal Cannula 2 01/12/25 18:53 Nasal Cannula 2 01/12/25 18:45 Nasal Cannula 2 01/12/25 18:34 Nasal Cannula 2 01/12/25 18:30 Nasal Cannula 2 01/12/25 18:15 Nasal Cannula 2 01/12/25 18:06 Nasal Cannula 1 01/12/25 18:00 Nasal Cannula 2 01/12/25 17:45 Nasal Cannula 2 01/12/25 17:30 Nasal Cannula 2 01/12/25 17:15 Nasal Cannula 2 01/12/25 17:01 Nasal Cannula 2 01/12/25 17:00 Nasal Cannula 2 01/12/25 17:00 Nasal Cannula 2 01/12/25 16:45 Nasal Cannula 2 01/12/25 16:30 Nasal Cannula 2 01/12/25 16:07 Nasal Cannula 2 01/12/25 16:00 01/12/25 16:00 Nasal Cannula 2 01/12/25 15:45 Nasal Cannula 2 01/12/25 15:30 Nasal Cannula 2 01/12/25 15:15 Nasal Cannula 2 01/12/25 15:00 Nasal Cannula 2 01/12/25 15:00 Nasal Cannula 2 01/12/25 14:45 Non-Rebreather 2 01/12/25 14:30 Nasal Cannula 2 01/12/25 14:15 Nasal Cannula 2 01/12/25 14:00 Nasal Cannula 2 01/12/25 13:45 Nasal Cannula 2 01/12/25 13:30 Nasal Cannula 2 01/12/25 13:30 01/12/25 13:15 Nasal Cannula 2 01/12/25 13:00 Nasal Cannula 2 01/12/25 13:00 Nasal Cannula 2 01/12/25 13:00 Nasal Cannula 2 01/12/25 12:45 Nasal Cannula 2 01/12/25 12:30 Nasal Cannula 2 01/12/25 12:24 01/12/25 12:24 01/12/25 12:24 Nasal Cannula 2 01/12/25 12:15 Nasal Cannula 1 01/12/25 12:01 Nasal Cannula 1 01/12/25 12:00 01/12/25 11:46 Nasal Cannula 1 01/12/25 11:31 Nasal Cannula 1 01/12/25 11:30 Nasal Cannula 1 01/12/25 11:19 Nasal Cannula 1 01/12/25 11:15 Nasal Cannula 1 01/12/25 11:07 Nasal Cannula 1 01/12/25 11:06 Nasal Cannula 1 01/12/25 10:58 Room Air 01/12/25 10:43 Room Air Intake and Output 01/12/25 01/13/25 01/13/25 23:59 07:59 15:59 Intake Total 540 / 1479.583 880 / 880 Output Total 525 / 1775 800 / 1000 200 / 1000 Balance 15 / -295.417 -800 / -120 680 / -120 Intake: Intake, Oral Amount 540 / 960 880 / 880 Output: Output, Urine Amount 525 / 1775 800 / 1000 200 / 1000 Other: Number of Unmeasured Voids 0 Weight 61.825 kg Patient Weight 01/13/25 23:59 Weight 61.825 kg Laboratory Results - last 24 hr 01/12/25 17:50: Hgb 9.8 L, Hct 29.3 L 01/13/25 05:45: WBC 19.0 H, RBC 2.88 L, Hgb 8.9 L, Hct 25.9 L, MCV 89.9, MCH 30.6, MCHC 34.0, RDW 14.5, Plt Count 243, MPV 9.2, Neut % (Auto) 80.3 H, Lymph % (Auto) 7.9 L, [place] % (Auto) 7.3, Eos % (Auto) 0.2, Baso % (Auto) 0.2, Neut # (Auto) 15.3 H, Lymph # (Auto) 1.5, [place] # (Auto) 1.4 H, Eos # (Auto) 0.0, Baso # (Auto) 0.0, Total Counted 100, Neutrophils % (Manual) 84 H, Lymphocytes % (Manual) 8 L, Monocytes % (Manual) 8, Platelet Estimate Not Reportable, RBC Morphology Not Reportable, Sodium 129 L, Potassium 4.5, Chloride 102, Carbon Dioxide 23, Anion Gap 8.5, BUN 43 H D, Creatinine 1.20, Estimated Creat Clear 46, Estimated GFR 59, Est GFR ( Amer) 71, Glucose 94 D, Calcium 7.5 L, Magnesium 2.2, Total Bilirubin 0.6, AST 17 D, ALT 12 D, Alkaline Phosphatase 115, Total Protein 4.5 L, Albumin 2.5 L, Globulin 2.0, Albumin/Globulin Ratio 1.3 I & O for Labs for Last 24 Hours: Intake & Output 01/10/25 01/11/25 01/12/25 01/13/25 23:59 23:59 23:59 23:59 Intake Total 1400 / 1450 1479.583 / 1479.583 880 / 880 Output Total 725 / 725 1775 / 1775 1000 / 1000 Balance 675 / 725 -295.417 / -295.417 -120 / -120 Weight 60.328 kg 59.874 kg 61.825 kg Constitutional: Present no acute distress, thin, chronically ill appearing and cooperative Head: Present atraumatic ENT: Present normal exam Respiratory: Present normal respiratory effort; Absent rhonchi, wheezes or crackles Cardiac: Present Reg Rate and Rhythm GI: Present soft and normal bowel sounds; Absent distention or tenderness Extremities: Present normal inspection and full ROM Skin: Present intact; Absent erythema Neuro: Present Grossly Intact, alert, awake, oriented x 3 and moves all extremities Assessment and Plan *Assessment and plan (1) Bleeding duodenal ulcer: Status: Acute Category: Medical Code(s): K26.4 - Chronic or unspecified duodenal ulcer with hemorrhage (2) Acute blood loss anemia: Status: Acute Category: Medical Code(s): D62 - Acute posthemorrhagic anemia (3) Acute upper GI bleed: Status: Acute Category: Medical Code(s): K92.2 - Gastrointestinal hemorrhage, unspecified (4) COPD (chronic obstructive pulmonary disease): Status: Acute Qualifiers: COPD type: emphysema Emphysema type: other Qualified Code(s): J43.8 - Other emphysema Category: Medical Code(s): J44.9 - Chronic obstructive pulmonary disease, unspecified (5) Leukocytosis: Status: Acute Category: Medical Code(s): D72.829 - Elevated white blood cell count, unspecified (6) CKD stage 3a, GFR 45-59 ml/min: Status: Chronic Category: Medical Code(s): N18.31 - Chronic kidney disease, stage 3a Plan 74-year-old male who presents with 3 to 4 days of melenic stool, weakness, fatigue. Found to have positive stool occult and severe anemia. Discussed case with ER, request admission for transfusion and EGD in the morning. I agreed to admit to stepdown for further care. Will initiate on Protonix and sucralfate. Transfusing 2 units. GI consulted to assist with care. Patient high risk for decompensation. Taken for EGD today. Found to have duodenal ulcer. Hemoglobin dropped by 1 point this morning. Will continue to monitor serial H&H. No overt signs of bleeding however with no further black stools, continues to require patient management. Problems addressed as follows: Acute blood loss anemia secondary to upper GI bleed Duodenal ulcer with visible vessel - Hemoglobin 6.8 on admission, down from 15 9 days ago. Hemoglobin 8.9 this morning, down from 9.9 yesterday. White count 19. Platelets 243. - Repeat chest x-ray obtained today showing no focal consolidation. Does have spiculated lesions that appear stable. - BUN improved to 43, creatinine 1.2. - Repeat H&H ordered for this evening, repeat CBC, CMP, magnesium ordered for the morning - Advance to regular diet -Continue pantoprazole 40 mg IV twice daily and misoprostol 200 mg every 6 hours, continue sucralfate 1 g every 6 hours - Transfusion threshold hemoglobin less than 7. Lung lesions COPD - Given the spiculated nature, concerning for neoplastic process. Currently following with pulmonology. Defer management to pulmonology as an outpatient. Continue supplemental oxygen as needed for goal sats greater 90%. Currently on 2 L - Former smoker. Risk for lung cancer, gastric cancer, COPD - DuoNebs every 6 hours as needed - EKG obtained showing normal sinus rhythm. No ST elevations Per my review Blood pressure soft, hold lisinopril and propranolol at this time. Reevaluate tomorrow Full code Anticoagulation contraindicated due to bleeding. VTE with SCDs Regular diet
--- NOTE | 2025-01-13 11:21 | PC.NURSE ---
Patient ambulated to chair at this time. Patients oxygen saturation dropped to 86% on room air. Patient placed on 2 L NC. Patients oxygen saturation of 93% on 2 L NC. notified. Continuation of care plan.
--- NOTE | 2025-01-13 11:25 | XR_ITS ---
PROCEDURE INFORMATION: Exam: XR Chest Exam date and time: 01/13/2025 11:46 AM Age: 74 years old Clinical indication: Other: New oxygen requirement TECHNIQUE: Imaging protocol: Radiologic exam of the chest. Views: 1 view. COMPARISON: CT CHEST WO/W CON 01/02/2025 10:06 AM and chest x-ray dated 12/25/2024. FINDINGS: Lungs: Previously-described small nodular densities within the left lung are not dramatically changed. These have been more optimally evaluated on recent CT chest dated 01/02/2025. Please reference that report for additional information. No focal areas of consolidation. Pleural spaces: No pleural effusions. Negative for pneumothorax. Heart/Mediastinum: Cardiac silhouette and pulmonary vasculature are within range of normal. Bones/joints: There is no evidence of acute fracture. IMPRESSION: Several unchanged nodules within the left lung which have been more optimally evaluated on recent CT chest dated 01/02/2025. Please reference that report for additional information. Malignancy should be excluded. No new findings.
--- NOTE | 2025-01-13 13:30 | PC.NURSE ---
Patient ambulated with standby assistance and walker to ICU doors and back to patients room. Patient tolerated well. Continuation of care plan.
--- NOTE | 2025-01-13 13:32 | PC.NURSE ---
Patient moved to edge of chair with standby assistance to urinate in urinal. Patients heart rate in 120's at this time. notified. New orders received. Continuation of care plan.
--- NOTE | 2025-01-13 13:32 | PC.NURSE ---
Patient moved to edge of chair with standby assistance to urinate in urinal. Patients heart rate in 120's at this time. notified. states he will add patients home medication to MAR. Continuation of care plan.
--- NOTE | 2025-01-13 13:35 | PC.NURSE ---
Patient ambulated with standby assistance and walker to ICU doors and back to patients room. Patient tolerated well. Continuation of care plan.
[2025-01-13 17:09] LABS: Hematocrit 30.0 % (42.0-52.0)
[2025-01-13 17:43] LABS: Hemoglobin 10.4 g/dL (14.1-18.0)
[2025-01-13 23:03] LABS: Microscopic, Urine URINE MICROSCOPIC (MICROSCOPIC)
[2025-01-13 23:08] LABS: Bilirubin,Urine Negative (Negative); Color,Urine YELLOW (Yellow); Glucose,Urine (UA) Negative (Negative); Ketones,Urine Negative (Negative); Leukocyte Esterase,Urine Negative (Negative); PH,Urine 6.0 (5.0-8.5); Protein,Urine Negative (Negative); Specific Gravity, Urine 1.015 (1.005-1.030); Urobilinogen,Urine 0.2 EU/dl (0.2)
[2025-01-13 23:14] LABS: RBC,Urine Occasional #/hpf (0-3); Squamous Epithelial Cell,Urine Occasional #/hpf (0-5)
[2025-01-14] VITALS (7 sets, daily range): BP systolic 95–106; BP diastolic 50–58; PULSE 75–92; RESP 18–29; TEMP 36.6–36.7; O2SAT 88–98
[2025-01-14] MEDS: SUCRALFATE 1GM/10ML SUSP UDC 1 GM PO ×2 (05:42→10:46)
[2025-01-14 05:59] LABS: Albumin Level 2.5 g/dl (3.5-5.0); Chloride 99 mmol/L (98-107); Sodium 128 mmol/L (136-145)
[2025-01-14 06:00] LABS: Hematocrit 23.5 % (42.0-52.0); Immature Granulocytes % 6.5 %; Mean Corpuscular HGB Conc 34.0 g/dL (31.8-35.4); Mean Corpuscular Hemoglobin 31.0 pg (27.0-31.2); Mean Corpuscular Volume 91.1 fl (80-94); Nucleated Red Blood Cells % 0.1 %; Platelet Count 227 K/mm3 (142-424); Potassium 4.2 mmoL/L (3.5-5.1); Red Blood Count 2.58 M/mm3 (4.60-6.20); Red Cell Distribution Width-SD 45.1 fL; White Blood Count 16.4 K/mm3 (4.8-10.8)
[2025-01-14 06:02] LABS: Alanine Aminotransferase 14 U/L (12-78); Anion Gap 8.2 mEq/L (5-15); Aspartate Amino Transferase 20 U/L (17-59); Blood Urea Nitrogen 32 mg/dl (9-20); Carbon Dioxide 25 mmol/L (22.0-30.0); Creatinine Clearance Estimated 39 mL/min (50-200); Creatinine,Serum 1.30 mg/dl (0.66-1.25); Estimated Glomerular Filt Rate 54 ml/min (>60); GFR (African American) 65 ML/MIN (>60)
[2025-01-14 06:03] LABS: Albumin/Globulin Ratio 1.3 (1.1-1.8); Alkaline Phosphatase 111 U/L (38-126); Bilirubin,Total 0.5 mg/dl (0.2-1.3); Calcium 7.4 mg/dl (8.4-10.2); Globulin 1.9 g/dL (1.3-3.2); Glucose 105 mg/dl (74-100); Total Protein,Serum 4.4 g/dl (6.3-8.2)
[2025-01-14 06:15] LABS: Hemoglobin 8.0 g/dL (14.1-18.0)
[2025-01-14 06:25] LABS: Total Cells Counted 100
[2025-01-14] MEDS: IPRATROPIUM/ALBUTEROL 3 ML NEB IH ×2 (06:32→12:03)
[2025-01-14] MEDS: PANTOPRAZOLE 40MG VIAL 40 MG IV (08:20)
--- NOTE | 2025-01-14 09:04 | PC.NURSE ---
Patient was taken off of O2, for trail of room air. Patients sat dropped to around 86% for around 2 minutes. Placed O2 back on patient 2/Liters.
[2025-01-14 11:01] LABS: Hematocrit 26.8 % (42.0-52.0)
[2025-01-14] MEDS: OXYMETAZOLINE NASAL SPRAY 0.05% 15ML NS (11:02)
[2025-01-14 11:19] LABS: Hemoglobin 9.0 g/dL (14.1-18.0)
--- NOTE | 2025-01-14 11:34 | P.DS_ITS ---
General Admission date:: 01/11/25 Discharge date: 01/14/25 HPI HPI HPI: Mr. Tony is a 74-year-old gentleman who presented to the ED with generalized weakness and malaise with black stools/melena. This has been going on for about 3 days. He had taken a couple of Aleve in the last week but has been told in the past not to take any aspirin or NSAIDs because of a prior cerebral hemorrhage. He is not on any anticoagulation but does take prednisone at home. He reports no abdominal pain but has had some nausea. He has noted hypotension by blood pressure check at home. The patient quit smoking tobacco 6 years ago. His hemoglobin hematocrit on arrival was 6.8 and 20.1. After transfusion this morning his hemoglobin and hematocrit were 9.5 and 28.1. Fecal Hemoccult was positive. The patient's baseline hemoglobin in June. On 01/02/2025 was 15.4 and 45.3. He was placed on pantoprazole IV and sucralfate. I was notified by the ED to assist with diagnostic EGD. Hospital Course Hospital Course Hospital Course: 74-year-old male who presents with 3 to 4 days of melenic stool, weakness, fatigue. Found to have positive stool occult and severe anemia. Discussed case with ER, request admission for transfusion and EGD in the morning. I agreed to admit to stepdown for further care. Will initiate on Protonix and sucralfate. Transfusing 2 units. GI consulted to assist with care. Patient high risk for decompensation. Taken for EGD today. Found to have duodenal ulcer. Hemoglobin dropped by 1 point this morning. Hemoglobin remained stable. Able to advance diet. No further signs of bleeding. Stable to discharge home with outpatient follow-up with GI. Problems addressed as follows: Acute blood loss anemia secondary to upper GI bleed Duodenal ulcer with visible vessel - Hemoglobin 6.8 on admission, down from 15 9 days ago. Hemoglobin 8.9 after transfusion. Fluctuated between 9 and 10 in the remainder of admission. Treated empirically for 48 hours with antibiotics due to unexplained leukocytosis but no overt signs of infection. Discontinued antibiotics at discharge. Chest imaging was negative for pneumonia. BUN showed improvement during admission. Down to 32 with creatinine 1.3 during admission. Continue pantoprazole 40 mg twice daily. Will continue misoprostol at 100 mg 4 times a day for 5 more days. Tolerating advancement of diet to regular diet. See EGD report for full details of scope findings. Found to have duodenal ulcer with visible vessel. Ulcer clipped. Follow-up with GI in 1 to 2 weeks for reevaluation. Lung lesions COPD - Given the spiculated nature, concerning for neoplastic process. Currently following with pulmonology. Defer management to pulmonology as an outpatient. Continue supplemental oxygen as needed for goal sats greater 90%. Currently on 2 L Former smoker. DuoNebs every 6 hours as needed. EKG obtained showing normal sinus rhythm. No ST elevations Per my review - Recently initiated on oxygen as an outpatient. During admission, required 2 L continuous. On day of discharge, patient's O2 sats dropped to 86% at rest on room air. Necessitates concentrator and portable oxygen at home. Blood pressure soft, hold lisinopril and propranolol at this time. Re-evaluate at follow-up with PCP Total time spent on discharge 32 minutes in counseling, documentation, chart review, and direct care with patient. Exam Data for Last 24 hours Vital signs and Labs for Last 24 Hours: Temp Pulse Resp BP Pulse Ox O2 Del Method O2 Flow Rate 97.8 F 89 29 H 100/50 L 88 L Nasal Cannula 2 01/14/25 08:00 01/14/25 08:00 01/14/25 08:00 01/14/25 08:00 01/14/25 08:00 01/14/25 10:50 01/14/25 10:50 FiO2 28 01/13/25 19:20 Laboratory Results - last 24 hr 01/13/25 17:00: Hgb 10.4 L D, Hct 30.0 L 01/13/25 20:28: Lactate 1.9 01/13/25 22:52: Urine Color Yellow, Urine Appearance Clear, Urine pH 6.0, Ur Specific [place] 1.015, Urine Protein Negative, Urine Glucose (UA) Negative, Urine Ketones Negative, Urine Blood Negative, Urine Nitrate Negative, Urine Bilirubin Negative, Urine Urobilinogen 0.2, Ur Leukocyte Esterase Negative, Urine RBC Occasional, Ur Squamous Epith Cells Occasional 01/14/25 05:40: WBC 16.4 H, RBC 2.58 L, Hgb 8.0 L D, Hct 23.5 L, MCV 91.1, MCH 31.0, MCHC 34.0, RDW 14.6, Plt Count 227, MPV 9.3, Neut % (Auto) 77.8, Lymph % (Auto) 7.5 L, [place] % (Auto) 7.5, Eos % (Auto) 0.5, Baso % (Auto) 0.2, Neut # (Auto) 12.7 H, Lymph # (Auto) 1.2, [place] # (Auto) 1.2 H, Eos # (Auto) 0.1, Baso # (Auto) 0.0, Total Counted 100, Neutrophils % (Manual) 77 H, Lymphocytes % (Manual) 15, Atypical Lymphs % 8, Platelet Estimate Not Reportable, RBC Morphology Not Reportable, Sodium 128 L, Potassium 4.2, Chloride 99, Carbon Dioxide 25, Anion Gap 8.2, BUN 32 H D, Creatinine 1.30 H, Estimated Creat Clear 39, Estimated GFR 54 L, Est GFR ( Amer) 65, Glucose 105 H, Calcium 7.4 L, Total Bilirubin 0.5, AST 20, ALT 14, Alkaline Phosphatase 111, Total Protein 4.4 L, Albumin 2.5 L, Globulin 1.9, Albumin/Globulin Ratio 1.3 01/14/25 10:55: Hgb 9.0 L D, Hct 26.8 L I & O for Last 24 hours: Intake & Output 01/11/25 01/12/25 01/13/25 01/14/25 23:59 23:59 23:59 23:59 Intake Total 1400 / 1450 1479.583 / 4281.591 1426 / 2001 0 / 0 Output Total 725 / 725 1775 / 1775 2150 / 2150 900 / 900 Balance 675 / 725 -295.417 / -295.417 -149 / -149 -900 / -900 Weight 60.328 kg 59.874 kg 61.825 kg 56.699 kg Constitutional Constitutional: no acute distress, thin and chronically ill appearing *Routine HEENT Exam Head: Present normocephalic Eye: Present EOMI and PERRL ENT: Present mucous membranes moist *Routine Neck Exam Neck: Present supple; Absent lymphadenopathy *Routine Respiratory Exam Respiratory: Present CTA bilaterally and prolonged expiratory phase; Absent rhonchi, wheezes or crackles *Routine Cardiovascular Exam Cardiovascular: Present RRR *Routine Abdominal Exam Abdominal: Present soft and normoactive bowel sounds; Absent tenderness *Routine Rectal Exam Patient deferred: visual exam *Routine Exam Patient deferred: penile exam *Routine Extremities Exam Extremities: Absent cyanosis, clubbing or edema *Routine Skin Exam Skin: Present pallor and warm; Absent rash *Routine Neurological Exam Neurological: Present alert, oriented X3 and moving all extremities; Absent altered mental status Results Data Completed and Pending Labs on day of discharge: Labs from last 24 hours 01/14/25 01/14/25 01/13/25 10:55 05:40 22:52 WBC 16.4 H RBC 2.58 L Hgb 9.0 L D 8.0 L D Hct 26.8 L 23.5 L MCV 91.1 MCH 31.0 MCHC 34.0 RDW 14.6 Plt Count 227 MPV 9.3 Neut % (Auto) 77.8 Lymph % (Auto) 7.5 L [place] % (Auto) 7.5 Eos % (Auto) 0.5 Baso % (Auto) 0.2 Neut # (Auto) 12.7 H Lymph # (Auto) 1.2 [place] # (Auto) 1.2 H Eos # (Auto) 0.1 Baso # (Auto) 0.0 Total Counted 100 Neutrophils % (Manual) 77 H Lymphocytes % (Manual) 15 Atypical Lymphs % 8 Platelet Estimate Not Reportable RBC Morphology Not Reportable Sodium 128 L Potassium 4.2 Chloride 99 Carbon Dioxide 25 Anion Gap 8.2 BUN 32 H D Creatinine 1.30 H Estimated Creat Clear 39 Estimated GFR 54 L Est GFR ( Amer) 65 Glucose 105 H Lactate Calcium 7.4 L Total Bilirubin 0.5 AST 20 ALT 14 Alkaline Phosphatase 111 Total Protein 4.4 L Albumin 2.5 L Globulin 1.9 Albumin/Globulin Ratio 1.3 Urine Color Yellow Urine Appearance Clear Urine pH 6.0 Ur Specific [place] 1.015 Urine Protein Negative Urine Glucose (UA) Negative Urine Ketones Negative Urine Blood Negative Urine Nitrate Negative Urine Bilirubin Negative Urine Urobilinogen 0.2 Ur Leukocyte Esterase Negative Urine RBC Occasional Ur Squamous Epith Cells Occasional 01/13/25 01/13/25 20:28 17:00 WBC RBC Hgb 10.4 L D Hct 30.0 L MCV MCH MCHC RDW Plt Count MPV Neut % (Auto) Lymph % (Auto) [place] % (Auto) Eos % (Auto) Baso % (Auto) Neut # (Auto) Lymph # (Auto) [place] # (Auto) Eos # (Auto) Baso # (Auto) Total Counted Neutrophils % (Manual) Lymphocytes % (Manual) Atypical Lymphs % Platelet Estimate RBC Morphology Sodium Potassium Chloride Carbon Dioxide Anion Gap BUN Creatinine Estimated Creat Clear Estimated GFR Est GFR ( Amer) Glucose Lactate 1.9 Calcium Total Bilirubin AST ALT Alkaline Phosphatase Total Protein Albumin Globulin Albumin/Globulin Ratio Urine Color Urine Appearance Urine pH Ur Specific [place] Urine Protein Urine Glucose (UA) Urine Ketones Urine Blood Urine Nitrate Urine Bilirubin Urine Urobilinogen Ur Leukocyte Esterase Urine RBC Ur Squamous Epith Cells DS: Diagnosis Discharge Diagnosis (1) Bleeding duodenal ulcer: Status: Acute Code(s): K26.4 - Chronic or unspecified duodenal ulcer with hemorrhage (2) Acute blood loss anemia: Status: Acute Code(s): D62 - Acute posthemorrhagic anemia (3) Acute upper GI bleed: Status: Acute Code(s): K92.2 - Gastrointestinal hemorrhage, unspecified (4) COPD (chronic obstructive pulmonary disease): Status: Acute Code(s): J44.9 - Chronic obstructive pulmonary disease, unspecified Qualifiers: COPD type: emphysema Emphysema type: other Qualified Code(s): J43.8 - Other emphysema (5) Leukocytosis: Status: Acute Code(s): D72.829 - Elevated white blood cell count, unspecified (6) CKD stage 3a, GFR 45-59 ml/min: Status: Chronic Code(s): N18.31 - Chronic kidney disease, stage 3a Meds Home Medications and Allergies Home Medications ?Medication ?Instructions ?Recorded ?Confirmed ?Type propranolol 20 mg tablet 20 mg PO BID Hypertension #1 80 tabs 08/06/24 01/12/25 Rx Held on 01/14/25. Instructions: pending follow-up with PCP and re-evaluation of BP albuterol sulfate 90 mcg/actuation 1 puff inhalation Q 4HP PRN 01/02/25 01/12/25 History aerosol inhaler Shortness Of Breath ipratropium 0.5 mg-albuterol 3 mg 3 ml inhalation Q8H 3 months #540 01/02/25 01/12/25 Rx (2.5 mg base)/3 mL nebulization mL soln lisinopril 20 mg tablet 20 mg PO BID 01/12/25 History Held on 01/14/25. Instructions: pending follow-up with PCP and re-evaluation of BP misoprostol 100 mcg tablet 100 mcg PO QID 5 days #20 t abs 01/14/25 Rx (Cytotec) pantoprazole 40 mg tablet,delayed 40 mg PO BID 30 days #60 tabs 01/14/25 Rx release New Prescriptions to Start Prescriptions: misoprostol [Cytotec] Jun Alvarez pantoprazole Jun Alvarez Allergies Allergy/AdvReac Type Severity Reaction Status Date / Time No Known Allergies Allergy Verified 01/09/25 14:32 Discharge Plan Disposition Patient Disposition: Home Health Service Condition: Fair Discharge Order Discharge Orders: Discharge Order (Routine); Ordered 01/14/25 Ordered By: Jun Alvarez Follow up Plan Follow up with: Kym Craig APRN [Nurse Practitioner, Family Practice] - 01/23/25 10:20 am Myles Abruto II, MD [Staff Physician, Gastroenterology] - 01/21/25 9:30 am Prescriptions/Medication Reconciliation: New pantoprazole 40 mg tablet,delayed release (DR/EC) 40 mg PO BID 30 Days Qty: 60 0RF misoprostol [Cytotec] 100 mcg tablet 100 mcg PO QID 5 Days Qty: 20 0RF Continued albuterol sulfate 90 mcg/actuation HFA aerosol inhaler 1 puff inhalation Q4HP PRN (Reason: Shortness Of Breath) Patient Comments: INHALE 1 PUFF BY MOUTH EVERY 4 TO 6 HOURS NEEDED FOR SHORTNESS OF BREATH ipratropium-albuterol 0.5 mg-3 mg(2.5 mg base)/3 mL solution for nebulization 3 ml inhalation Q8H 90 Days Qty: 540 3RF Held propranolol 20 mg tablet 20 mg PO BID Qty: 180 2RF Hold Instructions: pending follow-up with PCP and re-evaluation of BP lisinopril 20 mg tablet 20 mg PO BID Hold Instructions: pending follow-up with PCP and re-evaluation of BP Patient Comments: TAKE ONE TABLET BY MOUTH TWICE DAILY FOR HIGH BLOOD PRESSURE Problem Reconciliation Problems Reviewed?: Yes Patient Discharge Instructions ACTIVITY: Continue current activity DIET: continue same diet Print Language: Maltese Providers Primary Care Provider: Provider,Referral Admit Provider: Jun Alvarez Attending Provider: Jun Alvarez
--- NOTE | 2025-01-14 11:51 | SW/DCPLANNER ---
Addendum entered by Bella John 01/14/25 12:40: [facility] is able to accept patient. Cely Turpin Original Note: Spoke with patient regarding home health services once he is medically stable and ready for discharge. Patient stated that he is interested and that he does not have a preference in what agency i send his information to. I faxed patient's information to [facility] and will update once i hear back if they can accept patient or not. Cely Turpin
--- NOTE | 2025-01-14 12:33 | PC.NURSE ---
Patient denied going home on portable O2, states he [place] 5-10 minutes from the hospital and would be fine until he got home on his home O2. Patient was d/c with no portable O2.
--- NOTE | 2025-01-15 10:31 | SW/DCPLANNER ---
Spoke with patient on the phone. Patient stated that he is really weak. Patient stated that he is aware of his upcoming appointments. Patient stated that he was able to get his new medicine picked up from [facility]. Patient stated that he has no concerns or questions. Patient stated that home health is coming at 1:30 today. Cely Turpin
== END 2025-01-14 12:38 | disposition home health service (06) | DRG 378 ==
LOC: ER 16:28 → ICU 16:48
PROVIDERS: Internal Medicine; Internal Medicine Gastroenterology; Nurse Practitioner; Admitting Provider Internal Medicine Adolescent Medicine; Emergency Provider Student in an Organized Health Care Education/Training Program; Visit Provider Internal Medicine Adolescent Medicine
PROC: 0DJ08ZZ Inspection of Upper Intestinal Tract, Via Natural or Artificial Opening Endoscopic (ICD-10-PCS; principal; 2025-01-12 10:00)
DX: K26.4 Chronic or unspecified duodenal ulcer with hemorrhage (principal); D62 Acute posthemorrhagic anemia; I95.9 Hypotension, unspecified; I12.9 Hypertensive chronic kidney disease with stage 1 through stage 4 chronic kidney disease, or unspecified chronic kidney disease; J43.8 Other emphysema; N18.31 Chronic kidney disease, stage 3a; D72.829 Elevated white blood cell count, unspecified; R91.8 Other nonspecific abnormal finding of lung field; Z87.891 Personal history of nicotine dependence; Z79.52 Long term (current) use of systemic steroids; Z79.899 Other long term (current) drug therapy
CPT/HCPCS: 36415; 36430; 71045; 80053; 81001; 82272; 82728; 83540; 83550; 83605; 83690; 83735; 83880; 84484; 85007; 85014; 85018; 85025; 85610; 85730; 86850; 87040; 87636; 88305; 93005; 94640; 97163; 99285; G0328; J0696; J1756; J2003; J2470; J2704; J2919; J3475; J7030; J7050; P9016

== ENCOUNTER 2025-01-17 03:06 | Inpatient (IN) | payer MEDICARE, SELFPAY ==
--- OUTSIDE RECORDS SUMMARY | 2025-01-06 21:16 | XMS_ITS | Encounter Summary ---
Author Organization [facility] Address [facility] [place] [id number] Care Team Providers Care Weaving Machine Operator Name Role Phone Jackelyn Kaur Primary Care Provider Unavailabl e Reason for Referral * Consultation (Urgent) - Authorized Specialty Diagnoses / Procedures Referred By Vaibhav dove Referred To Contact Medical Oncology / Hematology and Oncology Diagnoses Multiple nodules of lung Hepatic lesion Elevated alkaline phosphatase level Ginny Olivier APRN [address] [place] [address] Phone: tel: fax: [facility] [address] [facility], [address] [place] [address] Phone: tel: fax: Referral ID Status Reason Start Date Expiration Date Visits Requested Visits Authorized [id number] Authorized Specialty Services Required 01/07/2025 07/09/2026 1 1 Reason for Visit * Reason Comments Shortness of Breath Encounter Details Date Type Department Care Team ([facility] Contact Info) Description 01/06/2025 9:16 PM EDT - 01/07/2025 3:29 AM EDT Emergency [facility] Emergency Department [address] [place] [address] Carlos Bhkata MD [address] [place] [address] Efraín Vivar MD [address] [place] [address] Shortness of breath (Primary Dx); Multiple nodules of lung; Hepatic lesion; Hypoxia; Elevated alkaline phosphatase level; Leukocytosis, unspecified type; Elevated serum creatinine Discharge Disposition: Home or Self Care Social History Tobacco Use Types Packs/Day Years Used Date Smoking Tobacco: Former Cigarettes 1.5 50 1 2017 Smokeless Tobacco: Never Alcohol Use Standard Drinks/Week Comments Never 0 (1 standard drink = 0.6 oz pur e alcohol) Sex and Gender Information Value Date Recorded Sex Assigned at Male 01/08/2023 7:10 AM EDT Legal Sex Male 6:41 PM EDT Gender Identity Male 01/08/2023 7:10 AM EDT Sexual Orientation Not on file documented as of this encounter Last Filed Vital Signs Vital Sign Reading Time Taken Comments Blood Pressure 103/63 01/07/2025 1:16 AM EDT Pulse 81 01/07/2025 3:26 AM EDT Temperature 36.4 C (97.5 F) 01/07/2025 3:26 AM EDT Respiratory Rate 26 01/07/2025 3:26 AM EDT Oxygen Saturation 93% 01/07/2025 3:26 AM EDT Inhaled Oxygen Concentration - - Weight 56.7 kg (125 lb) 01/06/2025 8:52 PM EDT Height 167.6 cm (5' 6 ) 01/06/2025 8:52 PM EDT Body Mass Index 20.18 01/06/2025 8:52 PM EDT documented in this encounter Functional Status * Calculated C-SSRS Risk Score (Lifetime/Recent) Answer Date of Assessment Author No Risk Indicated 01/06/2025 9:27 PM EDT Adi Allred * Question Answer Date of Assessment Author 1. Wish to be (Past 1 Month) No 025 9:27 PM EDT Adi Allred 2. Non-Specific Active Suici calos Thoughts (Past 1 Month) No 01/06/2025 9:27 PM EDT Lucinda Allred 6. Suicidal Behavior (Lifetime) No 9:27 PM EDT Adi Allred documented as of this encounter Discharge Instructions * Discharge Instructions* Ginny Olivier, BOARDING MOTHER - 01/07/2025 3:[address] study tonight was concerning for lung nodules and liver lesions. We do recommend further workup with CT/MRI to evaluate your head, abdomen, and pelvis regions. Please follow-up with your established pulmonary team at home to discuss further workup of your lung nodules as well as obtaining home oxygen therapy. Please increase your water intake. We have placed a referral to our Medical Oncology group, who may be able to assist you with furtheroutpatient workup. Please continue all other medications and treatments as currently prescribed to you. Of course, you may return to the emergency department any time for new or concerning symptoms. We are always open and available to you. All of your medical information here is available to you via the [employer] Internet portal. Please make sure that you are registered for access to this. documented in this encounter Medications at Time of Discharge amLODIPine (Norvasc) 5 MG tablet Take 1 tablet (5 mg) by mouth 1 (one) time each day. 01/06/2023 atorvastatin (Lipitor) 40 MG tablet Take 1 tablet (40 mg) by mouth 1 (one) time each day. 01/04/2023 lisinopril 20 MG tablet Take 1 tablet (20 mg) by mouth 2 (two) times a day. 10/11/2022 propranolol (Inderal) 20 MG tablet Take 1 tablet (20 mg) by mouth 2 (two) times a day. 10/11/2022 predniSONE (Deltasone) 20 MG tablet Take 3 tablets by mouth daily for 5 days. 15 tablet 01/07/2025 01/12/2025 documented as of this encounter Miscellaneous Notes * ED Provider Notes - Ginny Olivier APRN - 01/06/2025 8:44 PM EDT Images from the original note were not included. - HPI Chief Complaint Patient presents with Shortness of Breath PIT NOTE Chad Tony is a 74 y.o. male with a h/o COPD and HTN who presents to the ED with SOA. Pt c/o worsening SOA over the past few weeks. Pt c/o cough. Pt c/o coughing up blood for the past week. Pt reports visiting clinic Dec. with chest x-ray and rx abx for pneumonia. Pt states symptoms did not improve, so he visited OSH and dx leg nodules. Pt reports bronch scheduled in January. Pt rep orts symptoms have continued to worsen, prompting visit to ED. Pt c/o leg swelling. Pt denies fever. Pt denies chest pain, abdominal pain, nausea, vomiting, and diarrhea. Pt denies any other complaints at this time. Patient's HPI was personally reviewed and confirmed with the patient. This patient was further seenand evaluated in the ED in conjunction with Dr. Bhakta. History provided by: Patient vp lab used: No Patient History Past Medical History[1] Surgical History[2] Family History[3] Social History[4] Allergies: Allergies[5] Physical Exam ED Triage Vitals [01/06/252051] Temp Heart Rate Resp BP 36.4 ??C (97.6 ??F) 91 24 122/70 SpO2 Temp Source Heart Rate Source Patient Position 91 % Oral -- Sitting BP Location FiO2 (%) Right arm -- Physical Exam Constitutional: General: He is not in acute distress. HENT: Head: Normocephalic. Comments: No facial swelling Mouth/Throat: Mouth: Mucous membranes are moist. Pharynx: Oropharynx is clear. Cardiovascular: Rate and Rhythm: Normal rate and regular rhythm. Pulmonary: Effort: Pulmonary effort is normal. No respiratory distress. Breath sounds: Normal air entry. Examination of the right-upper field reveals wheezing and rhonchi.Examination of the left-upper field reveals wheezing. Examination of the right-middle field revealswheezing and rhonchi. Examination of the left-middle field reveals wheezing. Wheezing and rhonchi present. Comments: Speaking full sentences. Symmetric chest rise Abdominal: General: Bowel sounds are normal. There is no distension. Palpations: Abdomen is soft. Musculoskeletal: General: No deformity. Normal range of motion. Cervical back: Normal range of motion. Comments: Atraumatic, moves all extremities spontaneously Skin: General: Skin is warm and dry. Capillary Refill: Capillary refill takes less than 2 seconds. Neurological: General: No focal deficit present. Mental Status: He is alert and oriented to person, place, and time. Mental status is at baseline. Comments: Awake Psychiatric: Mood and Affect: Mood normal. Behavior: Behavior normal. EASI ?? Total Score: 0 No data recorded Mini Nutritional Screening Score : 12 TRST Assessment Total: 1 ED Course & MDM Date/Time: 01/06/2025/9:09 PM Scribe Attestation: This note was dictated to me, Lety Hackett, acting as a scribe for Dr. Alberta Schmidt MD. Attending Attestation: The documentation was recorded by Lety Hackett acting as scribe in my presence at the time of the encounter and accurately reflects the service I personally performed. - Differential Diagnosis: Can include, but is not limited to PE, neoplastic process, ACS/AMI, complication with COPD. In order to fully explore the differential diagnosis the following treatments and tests were ordered: A 12 lead EKG was conducted and reviewed by myself as well as by the ED attending. By my interpretation this EKG demonstrates a sinus rhythm with a ventricular rate of 79 beats per minute and QRS duration of 70 milliseconds. The axis does appear normal. There are no overt ST elevations or T-wave inversions which would be concerning for active ACS or acute GA. Complete laboratory workup as below was ordered reviewed by me. Of note, the CBC demonstrated a leukocytosis at 16.6k and chemistry profile reveals mild ETHAN with BUN at 25 in creatinine at 1.71. Alk Phos is elevated at 298. The patient is hypoxic on room air at 88-89%. Multiple DuoNebs were ordered and he was dosed with Solu-Medrol here in the ED. Given his chest pain, tachycardia, and reports of hemoptysis, we did order a CT PE study. These images were reviewed by the on-call radiologist, with findings as noted per their report. The patient was allowed to rest and recover in the ED for an extended period of time. He was given multiple DuoNebs while here. He remained slightly hypoxic on room air with SpO2 ranging from 87% to 90%. The patient's entire ED workup was reviewed with the patient and family member at bedside. CT images were pulled up and shown to the patient and family at bedside. Recommendations for admission to the hospital for further neoplastic workup were conveyed to the patient and family at bedside. The patient and family member were allowed privacy to discuss this. Ultimately, the patient indicated a desire for discharge home and would prefer to follow-up as an outpatient with his established Pulmonary team in [place], [place] at [facility]. The patient indicates that he has a nebulizer machine with ample supply of albuterol as well as an albuterol MDI athome. We did offer a short course prescription for prednisone, and this was sent to his preferred pharmacy in [place], [place]. We did also offer an Ambulatory Discharge referral to the Medical Oncology clinic for further outpatient evaluation and treatment recommendations. Of course, the patient may return to the emergency department any time for new or concerning symptoms. The patient and family both verbalized understanding and agreement with this plan at this time. 74 y.o. male presents to ED with complaint of SOB with Chest Pain. It should be noted that the chronic conditions likely includes undiagnosed COPD, which currently is not at goal therapy. This complicates the clinical picture because it Comorbidities: may be exacerbating symptoms, increases the amount and complexity of data to be reviewed, complicates the clinical workup, and increases the risk for morbidity ED Medication Administration from 01/06/20254 to 01/07/2025 0417 Date/Time Order Dose Route Action 01/06/20250 EDT ipratropium-albuterol (Duo-Neb) 0.5-2.5 mg/3 mL nebulizer solution 3 mL 3 mL Nebulization Given 01/06/20254 EDT ipratropium-albuterol (Duo-Neb) 0.5-2.5 mg/3 mL nebulizer solution 6 mL 6 mL Nebulization Given 01/06/2025 2305 EDT iohexol (OMNIPaque) 350 MG/ML injection 100 mL 80 mL Intravenous Given 01/06/2025 2315 EDT methylPREDNISolone sodium succinate (PF) (SOLU-Medrol) injection 125 mg 125 mg Intravenous Given 01/07/2025 0248 EDT ipratropium-albuterol (Duo-Neb) 0.5-2.5 mg/3 mL nebulizer solution 3 mL 3 mL Nebulization Given All Other Orders Ordered Status Ordering Provider 01/06/25 2143 Oxygen Therapy - Device: Nasal Cannula Continuous Order ID Start Status Ordering Provider [id number] 01/07/25 0800 Acknowledged GINNY OLIVIER [id number] 01/07/251999 Acknowledged CHARLINE, GINNY P 01/08/25 0800 Scheduled CHARLINE, GINNY P 01/08/251999 Scheduled CHARLINE, GINNY P 01/09/25 0800 Scheduled CHARLINE, GINNY P 01/09/251999 Scheduled CHARLINE, GINNY P 01/10/25 0800 Scheduled CHARLINE, GINNY P 01/10/251999 Scheduled CHARLINE, GINNY P 01/11/25 0800 Scheduled CHARLINE, GINNY P 01/11/251999 Scheduled CHARLINE, GINNY P Acknowledged CHARLINE, GINNY P 01/07/25 0314 LDH, Lactate dehydrogenase STAT Final result CHARLINEÁLVAROGINNY P 01/06/25 2346 Troponin T, High Sensitivity, 2 Hour, Plasma PROCEDURE ONCE Ordered THE, CARLOS S 01/07/25 0314 Discharge Ambulatory referral to Hematology/Medical Oncology Ordered CHARLINE, GINNY P 01/06/25 2233 Troponin T, High Sensitivity, 0 Hour Plasma, Reflex to 2 Hour STAT Final result THE, CARLOS S 01/06/25 2154 Troponin T, High Sensitivity, 2 Hour, Plasma PROCEDURE ONCE Collected ALBERTA SCHMIDT 01/06/252235 Initiate contact isolation Continuous Comments: Added via Instant Order OPA Acknowledged BPA, INSTANT ORDERS 01/06/252235 Initiate droplet isolation Continuous Comments: Added via Instant Order OPA Acknowledged BPA, INSTANT ORDERS 01/06/252142 cardiac monitor Until discontinued Acknowledged CHARLINEÁLVAROGINNY P 01/06/25 214 Continuous pulse oximetry Until discontinued Acknowledged CHARLINE, GINNY P 01/06/25 214 Blood Culture (Aerobic/Anaerobet Set) STAT Preliminary result CHARLINE, GINNY P 01/06/25 214 Blood Culture (Aerobic/Anaerobet Set) STAT Preliminary result CHARLINE, GINNY P 01/06/25 214 BNP STAT Final result CHARLINE, GINNY P 01/06/25 214 Nasopharyngeal Respiratory Panel Once Final result CHARLINEÁLVAROGINNY P 01/06/25 214 Type and screen Start now Final result CHARLINEÁLVAROGINNY P 01/06/25 2108 Blood gas, venous STAT Final result ALBERTA SCHMIDT 01/06/252107 Hepatitis C Antibody - ED Once Final result ALBERTA SCHMIDT 01/06/252107 ED Protocol - HIV 1/2 Antibody/Antigen Screen Once Final result ALBERTA SCHMIDT 01/06/252107 ED HIV 1/2 Antibody/Antigen Screen w/Reflex to HIV 1/2 Differentiation PROCEDURE ONCE Final result ALBERTA SCHMIDT 01/06/252107 CT Angio Pulmonary Embolism Once Final result ALBERTA SCHMIDT 01/06/252107 Troponin T, High Sensitivity, 0 Hour Plasma, Reflex to 2 Hour STAT Final result ALBERTA SCHMIDT 01/06/252107 APTT STAT Final result ALBERTA SCHMIDT 01/06/252107 Protime-INR Once Final result ALBERTA SCHMIDT 01/06/252107 CMP STAT Final result ALBERTA SCHMIDT 01/06/252107 CBC and Differential STAT Final result ALBERTA SCHMIDT 01/06/252107 Saline lock IV Continuous Acknowledged ALBERTA SCHMIDT 01/06/252053 EKG now - STAT (adult) Once Final result CARLOS BHAKTA Assessment: Clinical Impressions as of 01/07/25 0417 Shortness of breath Multiple nodules of lung Hepatic lesion Hypoxia Elevated alkaline phosphatase level Leukocytosis, unspecified type Elevated serum creatinine Social Determinates of Health Risks (including Economic Stability, Education and level of understanding, Healthcare access and quality and concerning social factors): Poor health literacy, Chronic tobacco use, and Lives far away Ultimately, this patient was Was discharged Home (Discharge) The primary encounter diagnosis was Shortness of breath. Diagnoses of Multiple nodules of lung, Hepatic lesion, Hypoxia, Elevated alkaline phosphatase level, Leukocytosis, unspecified type, and Elevated serum creatinine were also pertinent to this visit. . Patient was counseled on the diagnoses. Discharge medications if any are listed below. Listed medications are thought be either curative for listed diagnoses or will help control ongoing symptoms. Patient is requested to follow upwith Patient's Primary Care Provider and Hematology/Oncology in order to obtain routine follow-up and specialty care. Instructions on follow up as well as precautions to return to the ER provided verbally by the EM provider, as well as written in patients discharge education packet. ED Prescriptions Medication Sig Dispense Start Date End Date Auth. Provider predniSONE (Deltasone) 20 MG tablet Take 3 tablets by mouth daily for 5 days. 15 tablet 01/07/2025 01/12/2025 Ginny Olivier APRN Discharge Instructions Your CT study tonight was concerning for lung nodules and liver lesions. We do recommend further workup with CT/MRI to evaluate your head, abdomen, and pelvis regions. Please follow-up with your established pulmonary team at home to discuss further workup of your lung nodules as well as obtaining home oxygen therapy. Please increase your water intake. We have placed a referral to our Medical Oncology group, who may be able to assist you with furtheroutpatient workup. Please continue all other medications and treatments as currently prescribed to you. Of course, you may return to the emergency department any time for new or concerning symptoms. We are always open and available to you. All of your medical information here is available to you via the [employer] Internet portal. Please make sure that you are registered for access to this. Disposition Discharge AVS (Yoruba Snapshot) - Printed 01/07/2025 Follow-Ups: Follow up with [facility] (Hematology and Oncology) Discharge Orders Discharge Ambulatory referral to Hematology/Medical Oncology Authorized - [1] Past Medical History: Diagnosis Date COPD (chronic obstructive pulmonary disease) (CMS/HCC) Hypertension [2] Past Surgical History: Procedure Laterality Date BRAIN SURGERY Right 03/20/[address] Shawn Boyer at [facility] Left 01/08/2023 angelia holes for SDH by Dr. Mathis at [facility] Vocal Cordectomy [3] Family History Problem Relation Name Age of Onset Hypertension Other [4] Tobacco Use Smoking status: Former Current packs/day: 0.00 Average packs/day: 1.5 packs/day for 50.0 years (75.0 ttl pk-yrs) Types: Cigarettes Start date: 1967 Quit date: 2018 Years since quittin.7 Smokeless tobacco: Never Substance Use Topics Alcohol use: Never Drug use: Never [5] No Known Allergies Ginny Olivier APRN 01/07/25 0417 Cosigned by The, Carlos Reyes MD at 01/11/2025 9:56 PM EDT Associated attestation - Julianna, Carols Reyes MD - 01/11/2025 9:56 PM EDT I attest to being involved in providing substantive part of the medical decision making in patient care. * ED Triage Notes - Lynne Jarrett RN - 01/06/2025 8:44 PM EDT Presents with worsening SOA and cough, including hemoptysis. Has been seen at [facility] a few times since the beginning of December. Diagnosed with lung nodules, has bronchoscopy scheduled. SOA has been worsening and now with weakness and chest pain. Requesting CT PE. documented in this encounter Plan of Treatment Scheduled Referrals Name Type Priority Associated Diagnoses Orde r Schedule Discharge Ambulatory referral to Hematology/Medical Oncology Outpatient Referral Routine Multiple nodules of lung Hepatic lesion Elevated alkaline phosphatase level Expected: 01/07/2025 (Approximate), Expires: 07/11/2026 documented as of this encounter Procedures Procedure Name Priority Date/Time Associated Diagnosis Comments TROPONIN T, HIGH SENSITIVITY, 0 HOUR, PLASMA, REFLEX TO 2 HOUR STAT 01/06/2025 11:21 PM EDT LACTATE DEHYDROGENASE, PLASMA STAT Add-on 01/06/2025 11:[address] ANGIO PULMONARY EMBOLISM STAT 01/06/2025 11:06 PM EDT NASOPHARYNGEAL RESPIRATORY PANEL STAT 01/06/2025 10:01 PM EDT BLOOD CULTURE (AEROBIC/ANAEROBIC SET) STAT 01/06/2025 10:01 PM EDT BLOOD CULTURE (AEROBIC/ANAEROBIC SET) STAT 01/06/2025 10:01 PM EDT TYPE AND SCREEN STAT 01/06/2025 10:01 PM EDT ED HIV 1/2 ANTIBODY/ANTIGEN SCREEN WITH REFLEX TO HIV I/II DIFFERENTIATION STAT 01/06/2025 9:15 PM EDT ED PROTOCOL HIV 1/2 ANTIBODY/ANTIGEN SCREEN W/REFLEX TO HIV 1/2 ANTIBODY DIFFERENTIATION STAT 01/06/2025 9:15 PM EDT TROPONIN T, HIGH SENSITIVITY, 0 HOUR, PLASMA, REFLEX TO 2 HOUR STAT 01/06/2025 9:15 PM EDT HEPATITIS C ANTIBODY - ED W/REFLEX TO HCV QUANT PCR STAT 01/06/2025 9:15 PM EDT N-TERMINAL PROBNP, PLASMA STAT Add-on 01/06/2025 9:15 PM EDT APTT STAT 01/06/2025 9:15 PM EDT PROTHROMBIN TIME(PT) / INR STAT 01/06/2025 9:15 PM EDT CBC WITH AUTO DIFFERENTIAL STAT 01/06/2025 9:15 PM EDT BLOOD GAS PANEL, VENOUS STAT 01/07/20 9:15 PM EDT COMPREHENSIVE METABOLIC PANEL, PLASMA STAT 01/06/2025 9:15 PM EDT ECG ADULT STAT 01/06/2025 9:01 PM EDT documented in this encounter Results * LDH, Lactate dehydrogenase (01/06/2025 11:21 PM EDT) LDH, Plasma 212 116 - 250 U/L 01/07/2025 3:46 AM EDT [facility] Blood Venous blood specimen / Unknown Venipuncture / Unknown 01/06/2025 11:21 PM EDT 01/06/2025 11:23 PM EDT us Ginny Olivier APRN LAB BLOOD ORDERABLES Fin al Result Performing Organization Address City/[facility]/ZIP Co de Phone Number [facility] [address] [place] [address] * Troponin T, High Sensitivity, 0 Hour Plasma, Reflex to 2 Hour (01/06/2025 11:21 PM EDT) Troponin T, High Sensitivity, 0 Hour 7 <19 ng/L 01/06/2025 11:46 PM EDT [facility] Blood Venous blood specimen / Unknown Venipuncture / Unknown 01/06/2025 11:21 PM EDT 01/06/2025 11:23 PM EDT us Carlos Duarte LAB BLOOD ORDERABLES Final Resul t Performing Organization Address [facility] Co de Phone Number [facility] [address] [place] [address] * CT Angio Pulmonary Embolism (01/06/2025 11:06 PM EDT) Anatomical Region Laterality Modality Chest Computed Tomogra phy Impressions 01/07/2025 2:21 AM EDT No pulmonary embolism. There are at least 3 spiculated masses within the left upper and lower lobes with the largest measuring 2.1 x 1.6 cm as described above. In addition, there are innumerable hypodensities within the incompletely visualized liver. These findings are concerning for metastatic disease. There is debris within the left mainstem bronchus as well as multifocal groundglass opacities. In addition, there is endobronchial debris within the right lower lobe. These findings may suggest aspiration pneumonitis. The bronchus intermedius there is a near complete opacification with severe stenosis and opacification of several areas more distal to this presence may represent mucous plugging. [ Rounded nodular focus in the right lower lobe adjacent to the right lower lobe bronchus image #377 series 6 is masslike and could represent neoplasm there is somewhat peripheral fingerlike protrusions which could be mucous plugging. For example image 76 series 7 and image 73 series 7. Additional nodularity posterior right hilum image 277 series 6. Numerous tiny low-attenuation lesions in the liver. Further evaluation of MRI. CRITICAL RESULT: No. COMMUNICATION: Per this written report. Preliminary report signed by Bernardo Sotelo MD on 01/07/2025 2:08 AM By electronically signing this report, I, the attending physician, attest that I have personally reviewed the images/data for the above examination(s) and agree with the final edited report. Drafted by Bernardo oStelo MD on 01/07/2025 1:53 AM Final report signed by Shireen Carrillo MD on 01/07/2025 2:21 AM Narrative 01/07/2025 2:21 AM EDT CLINICAL INDICATION: Pulmonary embolism (PE) suspected, high prob TECHNIQUE: Imaging of the chest was performed from thoracic inlet through upper abdomen, using spiral technique, following administration of IV contrast, Omnipaque 350, 80 mL per the pulmonary angiogram protocol. In addition, 3D images were created and reviewed. TOTAL DLP (Dose-Length Product): 231.08 mGy.cm. Please note: The reported value represents the total of one or more individual components during the CT acquisition on this date and at this time, and as such, the same value may appear in more than one CT report depending on the interpreting/reporting physicians. COMPARISON: None. FINDINGS: Pulmonary Arteries/Vessels: No pulmonary embolism. Mild calcification of the aortic arch. Moderate multivessel coronary artery calcification. Separate origin of the splenic artery from the aorta. Right Heart Strain: No evidence of right heart strain. Pleural/Pericardial space: No pneumothorax. No pleural effusions. No pericardial effusion. Lymph Nodes: No lymphadenopathy within the chest. Lungs: Small amount of debris within the left mainstem bronchus. There is a focal soft tissue density within the bronchus intermedius (series 6 image 383) with near complete stenosis. There is distal this are opacified. This may represent mucous plugging or mass. Multifocal groundglass opacities at the bilateral lungs. There is mild centrilobular emphysema changes. There is a 1.9 x 1.5 cm spiculated mass within the left upper lobe (series 6 image 204). Additional mass within the left lower lobe measuring 2.1 x 1.6 cm (series 6 image 327). Additional smaller masses noted adjacent to the larger mass in the left upper lobe. Bibasilar atelectasis. Bronchial wall thickening. Mild patchy opacities in both lungs, somewhat groundglass opacities, nonspecific. Mediastinum: Otherwise unremarkable. Chest wall: No chest wall hematoma or contusion. Bones: No acute osseous abnormality. Mild degenerative changes of the thoracic spine. Upper Abdomen: Innumerable too small to characterize hypodensity throughout the liver. Mild gastric wall thickening may be secondary to proton pump inhibitors. Smaller punctate left renal calculi. Procedure Note Shireen Carrillo MD - 01/07/2025 CLINICAL INDICATION: Pulmonary embolism (PE) suspected, high prob TECHNIQUE: Imaging of the chest was performed from thoracic inlet through upperabdomen, using spiral technique, following administration of IV contrast,Omnipaque 350, 80 mL per the pulmonary angiogram protocol. In addition, 3Dimages were created and reviewed. TOTAL DLP (Dose-Length Product): 231.08 mGy.cm. Please note: The reportedvalue represents the total of one or more individual components during theCT acquisition on this date and at this time, and as such, the same valuemay appear in more than one CT report depending on theinterpreting/reporting physicians. COMPARISON: None. FINDINGS: Pulmonary Arteries/Vessels: No pulmonary embolism. Mild calcification ofthe aortic arch. Moderate multivessel coronary artery calcification.Separate origin of the splenic artery from the aorta. Right Heart Strain: No evidence of right heart strain. Pleural/Pericardial space: No pneumothorax. No pleural effusions. Nopericardial effusion. Lymph Nodes: No lymphadenopathy within the chest. Lungs: Small amount of debris within the left mainstem bronchus. There patel focal soft tissue density within the bronchus intermedius (series 6image 383) with near complete stenosis. There is distal this areopacified. This may represent mucous plugging or mass. Multifocalgroundglass opacities at the bilateral lungs. There is mild centrilobularemphysema changes. There is a 1.9 x 1.5 cm spiculated mass within the leftupper lobe (series 6 image 204). Additional mass within the left lowerlobe measuring 2.1 x 1.6 cm (series 6 image 327). Additional smallermasses noted adjacent to the larger mass in the left upper lobe. Bibasilaratelectasis. Bronchial wall thickening. Mild patchy opacities in bothlungs, somewhat groundglass opacities, nonspecific. Mediastinum: Otherwise unremarkable. Chest wall: No chest wall hematoma or contusion. Bones: No acute osseous abnormality. Mild degenerative changes of thethoracic spine. Upper Abdomen: Innumerable too small to characterize hypodensitythroughout the liver. Mild gastric wall thickening may be secondary toproton pump inhibitors. Smaller punctate left renal calculi. IMPRESSION: No pulmonary embolism. There are at least 3 spiculated masses within the left upper and lowerlobes with the largest measuring 2.1 x 1.6 cm as described above. Inaddition, there are innumerable hypodensities within the incompletelyvisualized liver. These findings are concerning for metastatic disease. There is debris within the left mainstem bronchus as well as multifocalgroundglass opacities. In addition, there is endobronchial debris withinthe right lower lobe. These findings may suggest aspiration pneumonitis. The bronchus intermedius there is a near complete opacification withsevere stenosis and opacification of several areas more distal to thispresence may represent mucous plugging. [ Rounded nodular focus in the right lower lobe adjacent to the right lowerlobe bronchus image #377 series 6 is masslike and could represent neoplasmthere is somewhat peripheral fingerlike protrusions which could be mucousplugging. For example image 76 series 7 and image 73 series 7. Additional nodularity posterior right hilum image 277 series 6. Numerous tiny low-attenuation lesions in the liver. Further evaluation ofMRI. CRITICAL RESULT: No. COMMUNICATION: Per this written report. Preliminary report signed by Bernardo Sotelo MD on 01/07/2025 2:08 AM By electronically signing this report, I, the attending physician, attestthat I have personally reviewed the images/data for the aboveexamination(s) and agree with the final edited report. Drafted by Bernardo Sotelo MD on 01/07/2025 1:53 AM Final report signed by Shireen Carrillo MD on 01/07/2025 2:21 AM us Alberta Schmidt MD IMG CT PROCEDURES Final Resul t * Blood Culture (Aerobic/Anaerobet Set) (01/06/2025 10:01 PM EDT) Culture No growth at day 5 01/11/2025 11:01 PM EDT [facility] Blood Venous blood specimen / Unknown Venipuncture / Unknown 01/06/2025 10:01 PM EDT 01/06/2025 10:28 PM EDT [facility] - 01/11/2025 11:01 PM EDT Low blood volume submitted, results may be compromised [facility] - GENER AL ORDERABLES Final Result Performing Organization Address City/[facility]/[place] [address] * Blood Culture (Aerobic/Anaerobet Set) (01/06/2025 10:01 PM EDT) Culture No growth at day 5 01/11/2025 11:01 PM EDT [facility] Blood Venous blood specimen / Unknown Venipuncture / Unknown 01/06/2025 10:01 PM EDT 01/06/2025 10:29 PM EDT [facility] - 01/11/2025 11:01 PM EDT Low blood volume submitted, results may be compromised [facility] - GENER AL ORDERABLES Final Result Performing Organization Address City/[facility]/[place] [address] * Type and screen (01/06/2025 10:01 PM EDT) ABO/Rh O Positive 01/06/2025 9:43 PM EDT [facility] Antibody Screen Negative 01/06/2025 9:43 PM EDT [facility] Specimen Expiration 01/09/2025 23:59 01/06/2025 9:43 PM EDT [facility] Blood Venous blood specimen / Unknown Venipuncture / Unknown 01/06/2025 10:01 PM EDT 01/06/2025 10:09 PM EDT Ginny Olivier APRN LAB BLOOD BANK TEST ORDE RABLES Final Result BLOOD BANK [address] [place] [address], * Nasopharyngeal Respiratory Panel (01/06/2025 10:01 PM EDT) Nasopharyngeal Respiratory PCR Interpretation Not Detected for all analytes Not Detected for all analytes 01/07/2025 12:15 AM EDT [facility] Swab Nasopharyngeal structure / Unknown Non-blood Collection / Unknown 01/06/2025 10:01 PM EDT 01/06/2025 10:27 PM EDT Narrative [facility] - 01/07/2025 12:15 AM EDT This assay can detect Adenovirus, Coronavirus, Human Metapneumovirus, Human Rhino/Enterovirus, Influenza A, Influenza A H1, Influenza A H1 2009, Influenza A H3, Influenza B, Parainfluenza Virus 1, Parainfluenza Virus 2, Parainfluenza Virus 3, Parainfluenza Virus 4, Respiratory Syncytial Virus A, Respiratory Syncytial Virus B, Chlamydia pneumoniae, and Mycoplasma pneumoniae. Note: This assay does NOT detect SARS/CoV, novel Coronavirus 2019-nCoV, Bordetella pertussis or Bordetella parapertussis. Nasopharyngeal Respiratory PCR Panel is performed using the [employer] ePlex instrument. This test is FDA approved for use with Nasopharyngeal swabs only. This test is used for clinical purposes. It should not be regarded as investigational or for research. The [facility] Clinical Microbiology Laboratory is certified under the Clinical Laboratory Improvement Amendments of 1988 (CLIA-88) as qualified to perform high complexity clinical laboratory testing. Ginny Olivier APRN LAB MICROBIOLOGY - GENER AL ORDERABLES Final Result Performing Organization Address City/[facility]/ZIP Co de Phone Number [facility] [address] [place] [address] * BNP (01/06/2025 9:15 PM EDT) N-Terminal, PROBNP, Plasma 203 0 - 1,799 pg/mL 01/06/2025 10:24 PM EDT [facility] Blood Venous blood specimen / Unknown Venipuncture / Unknown 01/06/2025 9:15 PM EDT 01/06/2025 9:54 PM EDT Ginny Olivier APRN LAB BLOOD ORDERABLES Fin al Result Performing Organization Address City/[facility]/ZIP Co de Phone Number [facility] [address] [place] [address] * ED HIV 1/2 Antibody/Antigen Screen w/Reflex to HIV 1/2 Differentiation (01/06/2025 9:15 PM EDT) [facility] HIV 1 & 2 Antibody/Antigen Screen Non Reactive Non Reactive 01/06/2025 10:15 PM EDT [facility] Comment:Screening for HIV 1 & 2 antibodies, and P24 antigen is NONREACTIVE. No confirmatory testing is required. Blood Venous blood specimen / Unknown Venipuncture / Unknown 01/06/2025 9:15 PM EDT 01/06/2025 9:21 PM EDT Alberta Schmidt MD LAB BLOOD ORDERABLES Final Re sult Performing Organization Address [facility] Co de Phone Number [facility] [address] [place] [address] * Hepatitis C Antibody - ED (01/06/2025 9:15 PM EDT) [facility] Hepatitis C Antibody Negative Negative 01/06/2025 10:15 PM EDT [facility] Blood Venous blood specimen / Unknown Venipuncture / Unknown 01/06/2025 9:15 PM EDT 01/06/2025 9:21 PM EDT us Alberta Schmidt MD LAB BLOOD ORDERABLES Final Re sult Performing Organization Address City/[facility]/ZIP Co de Phone Number [facility] [address] [place] [address] * (ABNORMAL) Blood gas, venous (01/06/2025 9:15 PM EDT) pH, Venous 7.38 7.32 - 7.43 LAB HEMATOLOGY METHOD 01/06/2025 9:22 PM EDT [facility] pCO2, Venous 44 40 - 55 mmHg LAB HEMATOLOGY METHOD 01/06/2025 9:22 PM EDT [facility] pO2, Venous 20(L) 25 - 40 mmHg LAB HEMATOLOGY METHOD 01/06/2025 9:22 PM EDT [facility] SO2, Measured, Venous 26(L) 65 - 80 % LAB HEMATOLOGY METHOD 01/06/2025 9:22 PM EDT [facility] Base Excess, Venous 0.2 -2.0 - 3.0 mmol/L LAB HEMATOLOGY METHOD 01/06/2025 9:22 PM EDT [facility] Bicarbonate, Calculated, Venous 26 22 - 26 mmol/L LAB HEMATOLOGY METHOD 01/06/2025 9:22 PM EDT [facility] Hematocrit, Whole Blood 42.8 40.0 - 51.0 % LAB HEMATOLOGY METHOD 01/06/2025 9:22 PM EDT [facility] Sodium, Whole Blood 139 136 - 145 mmol/L LAB HEMATOLOGY METHOD 01/06/2025 9:22 PM EDT [facility] Potassium, Whole Blood 4.6 3.6 - 4.9 mmol/L LAB HEMATOLOGY METHOD 01/06/2025 9:22 PM EDT [facility] Chloride, Whole Blood 104 97 - 107 mmol/L LAB HEMATOLOGY METHOD 01/06/2025 9:22 PM EDT [facility] Glucose, Whole Blood 98 74 - 99 mg/dL LAB HEMATOLOGY METHOD 01/06/2025 9:22 PM EDT [facility] Lactate, Venous, Whole Blood 0.9 0.5 - 2.2 mmol/L LAB HEMATOLOGY METHOD 01/06/2025 9:22 PM EDT [facility] Ionized Calcium, Whole Blood 4.8 4.6 - 5.1 mg/dL LAB HEMATOLOGY METHOD 01/06/2025 9:22 PM EDT [facility] Blood Venous blood specimen / Unknown Venipuncture / Unknown 01/06/2025 9:15 PM EDT 01/06/2025 9:21 PM EDT us Alberta Schmidt MD LAB BLOOD ORDERABLES Final Re sult Performing Organization Address City/[facility]/ZIP Co de Phone Number [facility] [address] [place] [address] * (ABNORMAL) Protime-INR (01/06/2025 9:15 PM EDT) Prothrombin Time 15.2(H) 12.0 - 14.3 sec 01/06/2025 9:38 PM EDT [facility] INR 1.2(H) 0.9 - 1.1 01/06/2025 9:38 PM EDT [facility] Blood Venous blood specimen / Unknown Venipuncture / Unknown 01/06/2025 9:15 PM EDT 01/06/2025 9:37 PM EDT Narrative [facility] - 01/06/2025 9:38 PM EDT OPTIMAL INR RANGES FOR PATIENT ON ORAL ANTICOAGULANT THERAPY Prevention of venous thromboembolism INR 2.0 to 3.0 In patients with heart disease: Atrial fibrillation INR 2.0 to 3.0 Valvular heart disease INR 2.0 to 3.0 Tissue heart valves INR 2.0 to 3.0 Mechanical prosthetic valves INR 2.5 to 3.5 Prevention of recurrent GA INR 2.5 to 3.5 Result Kahlil Schmidt MD LAB BLOOD ORDERABLES Final Re sult Performing Organization Address City/[facility]/ZIP Co de Phone Number [facility] [address] [place] [address] * APTT (01/06/2025 9:15 PM EDT) aPTT 30 25 - 35 sec 01/06/2025 9:39 PM EDT [facility] Blood Venous blood specimen / Unknown Venipuncture / Unknown 01/06/2025 9:15 PM EDT 01/06/2025 9:37 PM EDT Result Kahlil Schmidt MD LAB BLOOD ORDERABLES Final Re sult [facility] [address] [place] [address] * Troponin T, High Sensitivity, 0 Hour Plasma, Reflex to 2 Hour (01/06/2025 9:15 PM EDT) Troponin T, High Sensitivity, 0 Hour 11 <19 ng/L 01/06/2025 9:54 PM EDT [facility] Blood Venous blood specimen / Unknown Venipuncture / Unknown 01/06/2025 9:15 PM EDT 01/06/2025 9:54 PM EDT us Alberta Schmidt MD LAB BLOOD ORDERABLES Final Re sult [facility] [address] [place] [address] * (ABNORMAL) CBC and Differential (01/06/2025 9:15 PM EDT) WBC Count 16.65(H) 3.70 - 10.30 10*3/uL LAB HEMATOLOGY METHOD 01/06/2025 9:24 PM EDT [facility] RBC Count 4.22(L) 4.60 - 6.10 10*6/uL LAB HEMATOLOGY METHOD 01/06/2025 9:24 PM EDT [facility] HGB 13.3(L) 13.7 - 17.5 g/dL LAB HEMATOLOGY METHOD 01/06/2025 9:24 PM EDT [facility] HCT 38.7(L) 40.0 - 51.0 % LAB HEMATOLOGY METHOD 01/06/2025 9:24 PM EDT [facility] Platelet Count 292 155 - 369 10*3/uL LAB HEMATOLOGY METHOD 01/06/2025 9:24 PM EDT [facility] MCV 92 79 - 98 fL LAB HEMATOLOGY METHOD 01/06/2025 9:24 PM EDT [facility] MCH 31.5 26.0 - 32.0 pg LAB HEMATOLOGY METHOD 01/06/2025 9:24 PM EDT [facility] MCHC 34.4 30.7 - 35.5 g/dL LAB HEMATOLOGY METHOD 01/06/2025 9:24 PM EDT [facility] RDW 12.8 11.5 - 14.5 % LAB HEMATOLOGY METHOD 01/06/2025 9:24 PM EDT [facility] MPV 9.1 8.8 - 12.5 fL LAB HEMATOLOGY METHOD 01/06/2025 9:24 PM EDT [facility] nRBC 0.0 <=0.0 per 100 WBCs LAB HEMATOLOGY METHOD 01/06/2025 9:24 PM EDT [facility] Differential Type Automated LAB HEMATOLOGY METHOD 01/06/2025 9:24 PM EDT [facility] Neutrophils % 80 % LAB HEMATOLOGY METHOD 01/06/2025 9:24 PM EDT [facility] Lymphocytes % 7 % LAB HEMATOLOGY METHOD 01/06/2025 9:24 PM EDT [facility] Monocytes % 8 % LAB HEMATOLOGY METHOD 01/06/2025 9:24 PM EDT [facility] Eosinophils % 2 % LAB HEMATOLOGY METHOD 01/06/2025 9:24 PM EDT [facility] Basophils % 1 % LAB HEMATOLOGY METHOD 01/06/2025 9:24 PM EDT [facility] Immature Granulocytes % 2 % LAB HEMATOLOGY METHOD 01/06/2025 9:24 PM EDT [facility] Neutrophils Absolute 13.32(H) 1.60 - 6.10 10*3/uL LAB HEMATOLOGY METHOD 01/06/2025 9:24 PM EDT [facility] Lymphocytes Absolute 1.23 1.20 - 3.90 10*3/uL LAB HEMATOLOGY METHOD 01/06/2025 9:24 PM EDT [facility] Monocytes Absolute 1.34(H) 0.30 - 0.90 10*3/uL LAB HEMATOLOGY METHOD 01/06/2025 9:24 PM EDT [facility] Eosinophils Absolute 0.31 0.00 - 0.50 10*3/uL LAB HEMATOLOGY METHOD 01/06/2025 9:24 PM EDT [facility] Basophils Absolute 0.09 0.00 - 0.10 10*3/uL LAB HEMATOLOGY METHOD 01/06/2025 9:24 PM EDT [facility] Immature Granulocytes Absolute 0.36(H) 0.00 - 0.06 10*3/uL LAB HEMATOLOGY METHOD 01/06/2025 9:24 PM EDT [facility] Blood Venous blood specimen / Unknown Venipuncture / Unknown 01/06/2025 9:15 PM EDT 01/06/2025 9:24 PM EDT Narrative [facility] - 01/06/2025 9:24 PM EDT Therapeutic decision making should be based on absolute values, rather than percentages. us Alberta Schmidt MD LAB BLOOD ORDERABLES Final Re sult [facility] [address] [place] [address] * (ABNORMAL) CMP (01/06/2025 9:15 PM EDT) Glucose, Plasma 101(H) 74 - 99 mg/dL 01/06/2025 9:54 PM EDT [facility] BUN, Plasma 25(H) 8 - 23 mg/dL 01/06/2025 9:54 PM EDT [facility] Creatinine, Plasma 1.71(H) 0.70 - 1.20 mg/dL 01/06/2025 9:54 PM EDT [facility] BUN/Creatinine Ratio 15 01/06/2025 9:54 PM EDT [facility] Sodium, Plasma 139 136 - 145 mmol/L 01/06/2025 9:54 PM EDT [facility] Potassium, Plasma 4.9 3.6 - 4.9 mmol/L 01/06/2025 9:54 PM EDT [facility] Chloride, Plasma 102 97 - 107 mmol/L 01/06/2025 9:54 PM EDT [facility] CO2, Plasma 22 22 - 29 mmol/L 01/06/2025 9:54 PM EDT [facility] Anion Gap 15 6 - 16 mmol/L 01/06/2025 9:54 PM EDT [facility] Total Calcium, Plasma 9.4 8.9 - 10.2 mg/dL 01/06/2025 9:54 PM EDT [facility] Total Protein 6.9 6.3 - 7.9 g/dL 01/06/2025 9:54 PM EDT [facility] Albumin, Plasma 3.5 3.5 - 5.2 g/dL 01/06/2025 9:54 PM EDT [facility] AST, Plasma 19 10 - 50 U/L 01/06/2025 9:54 PM EDT [facility] ALT, Plasma 23 10 - 50 U/L 01/06/2025 9:54 PM EDT [facility] Alkaline Phosphatase, Plasma 298(H) 40 - 115 U/L 01/06/2025 9:54 PM EDT [facility] Total Bilirubin, Plasma 0.4 0.2 - 1.1 mg/dL 01/06/2025 9:54 PM EDT [facility] eGFRcr 41.0 mL/min/1.7 3m*2 01/06/2025 9:54 PM EDT [facility] Comment:Reported eGFRcr in m L/min/1.73m2 is based the CKD-EPI 2020 equation that does not use a race coefficient. Blood Venous blood specimen / Unknown Venipuncture / Unknown 01/06/2025 9:15 PM EDT 01/06/2025 9:54 PM EDT us Alberta Schmidt MD LAB BLOOD ORDERABLES Final Re sult [facility] [address] [place] [address] * EKG now - STAT (adult) (01/06/2025 9:01 PM EDT) EKG DIAGNOSIS CLASS Normal MUSE ECG Ventricular Rate 79 BPM MUSE ECG Atrial Rate 79 BPM MUSE ECG MT Interval 112 ms MUSE ECG QRSD Interval 70 ms MUSE ECG QT Interval 362 ms MUSE ECG QTC Interval 415 ms MUSE ECG P Newton 61 degrees MUSE ECG R Newton 48 degrees MUSE ECG T Wave Newton 61 degrees MUSE ECG Diagnosis Normal sinus rhythm MUSE ECG Diagnosis Normal ECG MUSE ECG Diagnosis MUSE ECG Diagnosis Confirmed by Lalo Moreno ([id number]) on 01/06/2025 10:18:26 PM MUSE ECG 01/06/2025 9:01 PM EDT 01/06/2025 10:18 PM EDT us Carlos Duarte ECG ORDERABLES Final Result MUSE ECG documented in this encounter Visit Diagnoses Diagnosis Shortness of breath- Primary Multiple nodules of lung Hepatic lesion Hypoxia Hypoxemia Elevated alkaline phosphatase level Leukocytosis, unspecified type Elevated serum creatinine Other nonspecific findings on examination of blood documented in this encounter Administered Medications Inactive Administered Medications - up to 3 most recent administrations Medication Order MAR Action Action Date Dose Rate Site iohexol (OMNIPaque) 350 MG/ML injection 100 mL 100 mL, Intravenous, Once in imaging, 1 dose, Starting on 01/06/25 at 2150, Until Tue01/06/25 at 2305, Routine, Imaging Protocol Orders Given 01/06/2025 11:05 PM EDT 80 mL ipratropium-albuterol (Duo-Neb) 0.5-2.5 mg/3 mL nebulizer solution 3 mL 3 mL, Nebulization, Once, 1 dose, On 01/06/25 at 2110, STAT Given 01/06/2025 9:20 PM EDT 3 mL ipratropium-albuterol (Duo-Neb) 0.5-2.5 mg/3 mL nebulizer solution 3 mL 3 mL, Nebulization, Once, 1 dose, On 01/07/25 at 0245, STAT Given 01/07/2025 2:48 AM EDT 3 mL ipratropium-albuterol (Duo-Neb) 0.5-2.5 mg/3 mL nebulizer solution 6 mL 6 mL, Nebulization, Once, 1 dose, On Tue01/06/25 at 2215, Routine Given 01/06/2025 10:24 PM EDT 6 mL methylPREDNISolone sodium succinate (PF) (SOLU-Medrol) injection 125 mg 125 mg, Intravenous, Once, 1 dose, On Tue01/06/25 at 2215, STAT Given 01/06/2025 11:15 PM EDT 125 mg documented in this encounter Active and Recently Administered Medications Times are shown in EDT. Scheduled Medication Order 01/05/2025 01/06/2025 01/07/2025 iohexol (OMNIPaque) 350 MG/ML injection 100 mL (COMPLETED) 100 mL, Intravenous, Once in imaging, 1 dose, Starting on Tue01/06/25 at 2150, Until Tue01/06/25 at 2305, Routine, Imaging Protocol Orders 2305 (Given - Provider: Alyson Cevallos) ipratropium-albuterol (Duo-Neb) 0.5-2.5 mg/3 mL nebulizer solution 3 mL (COMPLETED) 3 mL, Nebulization, Once, 1 dose, On 01/06/25 at 2110, STAT 2120 (Given - Provider: Sahara Ayoub) ipratropium-albuterol (Duo-Neb) 0.5-2.5 mg/3 mL nebulizer solution 3 mL (COMPLETED) 3 mL, Nebulization, Once, 1 dose, On 01/07/25 at 0245, STAT 0248 (Given - Provid er: Lety Deluca) ipratropium-albuterol (Duo-Neb) 0.5-2.5 mg/3 mL nebulizer solution 6 mL (COMPLETED) 6 mL, Nebulization, Once, 1 dose, On 01/06/25 at 2215, Routine 2224 (Given - Provider: Lety Deluca) methylPREDNISolone sodium succinate (PF) (SOLU-Medrol) injection 125 mg (COMPLETED) 125 mg, Intravenous, Once, 1 dose, On 01/06/25 at 2215, STAT 2315 (Given - Provider: Adi Allred - Comment: in CT) documented in this encounter Additional Health Concerns Infection Onset Date Last Indicated Resolved Time Respiratory Rule-Out 01/06/2025 01/06/2025 025 12:15 AM EDT Assessment Noted Time A fall risk assessment has been complete d for the patient 03/07/2023 8:03 AM EST A Body Mass Index follow-up plan has been documented for the patient 03/08/2023 2:52 PM EST documented as of this encounter 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
--- OUTSIDE RECORDS SUMMARY | 2025-01-06 21:16 | XMS_ITS | Encounter Summary ---
Author Organization [facility] Address [facility] [place] [id number] Care Team Providers Care Labour Market Economist Name Role Phone Jackelyn Kaur Primary Care Provider Unavailabl e Reason for Referral * Consultation (Urgent) - Authorized Specialty Diagnoses / Procedures Referred By Vaibhav dove Referred To Contact Medical Oncology / Hematology and Oncology Diagnoses Multiple nodules of lung Hepatic lesion Elevated alkaline phosphatase level Ginny Olivier APRN [address] [place] [address] Phone: tel: fax: [facility] [address] [facility], [address] [place] [address] Phone: tel: fax: Referral ID Status Reason Start Date Expiration Date Visits Requested Visits Authorized [id number] Authorized Specialty Services Required 01/07/2025 07/09/2026 1 1 Reason for Visit * Reason Comments Shortness of Breath Encounter Details Date Type Department Care Team ([facility] Contact Info) Description 01/06/2025 9:16 PM EDT - 01/07/2025 3:29 AM EDT Emergency [facility] Emergency Department [address] [place] [address] Carlos Bhakta MD [address] [place] [address] Erfaín Vivar MD [address] [place] [address] Shortness of breath (Primary Dx); [...] Discharge Instructions * Discharge Instructions* Ginny Olivier, PC TECHNICIAN - 01/07/2025 3:[address] [...] here is available to you via the [employer] Internet portal. Please make sure that you [...] with Dr. Bhakta. 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 Complete laboratory workup as below was ordered [...] outpatient with his established Pulmonary team in [place], [place] at [facility]. The patient indicates that he has a nebulizer machine with ample supply of albuterol as well as an albuterol MDI athome. We did offer a short course prescription for prednisone, and this was sent to his preferred pharmacy in [place], [place]. 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 Please make sure that you are registered for access to this. Disposition Discharge AVS (Slovak Snapshot) - Printed 01/07/2025 Follow-Ups: Follow up with [facility] (Hematology and Oncology) Discharge Orders Discharge Ambulatory referral to Hematology/Medical Oncology Authorized - [1] Past Medical History: Diagnosis Date COPD (chronic obstructive pulmonary disease) (CMS/HCC) Hypertension [2] Past Surgical History: Procedure Laterality Date BRAIN SURGERY Right 03/20/2017 [place] [address] Shawn Boyer at [facility] [...] 9:56 PM EDT Associated attestation - Julianna, Carlos Reyes MD - 01/11/2025 9:56 PM EDT I attest to being involved in providing substantive part of the medical decision making in patient care. * ED Triage Notes - Lynne Jarrett RN - 01/06/2025 8:44 PM EDT Presents with worsening SOA and cough, including hemoptysis. Has been seen at [facility] a few times since the [...] - 250 U/L 01/07/2025 3:46 AM EDT [facility] Blood Venous blood specimen / Unknown Venipuncture / Unknown 01/06/2025 11:21 PM EDT 01/06/2025 11:23 PM EDT us Ginny Olivier APRN LAB BLOOD ORDERABLES Fin al Result Performing Organization Address City/[facility]/ZIP Co de Phone Number [facility] [address] [place] [address] * Troponin T, High Sensitivity, 0 Hour Plasma, Reflex to 2 Hour (01/06/2025 11:21 PM EDT) Troponin T, High Sensitivity, 0 Hour 7 <19 ng/L 01/06/2025 11:46 PM EDT [facility] Blood Venous blood specimen / Unknown Venipuncture / Unknown 01/06/2025 11:21 PM EDT 01/06/2025 11:23 PM EDT us Carlos Duarte LAB BLOOD ORDERABLES Final Resul t Performing Organization Address [facility] Co de Phone Number [facility] [address] [place] [address] * CT Angio Pulmonary Embolism (01/06/2025 11:06 [...] at day 5 01/11/2025 11:01 PM EDT [facility] Blood Venous blood specimen / Unknown Venipuncture / Unknown 01/06/2025 10:01 PM EDT 01/06/2025 10:[address] [facility] - 01/11/2025 11:01 PM EDT Low blood volume submitted, results may be compromised [facility] MICROBIOLOGY - GENER AL ORDERABLES Final Result Performing Organization Address City/[facility]/[place] [address] * Blood Culture (Aerobic/Anaerobet Set) (01/06/2025 10:01 PM EDT) Culture No growth at day 5 01/11/2025 11:01 PM EDT [facility] Blood Venous blood specimen / Unknown Venipuncture / Unknown 01/06/2025 10:01 PM EDT 01/06/2025 10:[address] [facility] - 01/11/2025 11:01 PM EDT Low blood volume submitted, results may be compromised [facility] LAB MICROBIOLOGY - GENER AL ORDERABLES Final Result Performing Organization Address City/[facility]/[place] [address] * Type and screen (01/06/2025 10:01 PM [...] ORDE RABLES Final Result BLOOD BANK [address] [place] [address], * Nasopharyngeal Respiratory Panel (01/06/2025 10:01 PM EDT) Nasopharyngeal Respiratory PCR Interpretation Not Detected for all analytes Not Detected for all analytes 01/07/2025 12:15 AM EDT [facility] Swab Nasopharyngeal structure / Unknown Non-blood Collection / Unknown 01/06/2025 10:01 PM EDT 01/06/2025 10:27 PM EDT Narrative [facility] - 01/07/2025 12:15 AM EDT [...] Respiratory PCR Panel is performed using the [facility] ePlex instrument. This test is FDA approved for use with Nasopharyngeal swabs only. This test is used for clinical purposes. It should not be regarded as investigational or for research. [facility] Clinical Microbiology Laboratory is certified under the Clinical Laboratory Improvement Amendments of 1988 (CLIA-88) as qualified to perform high complexity clinical laboratory testing. Ginny Olivier APRN LAB MICROBIOLOGY - GENER AL ORDERABLES Final Result Performing Organization Address City/[facility]/ZIP Co de Phone Number [facility] [address] [place] [address] * BNP (01/06/2025 9:15 PM EDT) N-Terminal, PROBNP, Plasma 203 0 - 1,799 pg/mL 01/06/2025 10:24 PM EDT [facility] Blood Venous blood specimen / Unknown Venipuncture / Unknown 01/06/2025 9:15 PM EDT 01/06/2025 9:54 PM EDT Ginny Olivier APRN LAB BLOOD ORDERABLES Fin al Result Performing Organization Address City/[facility]/ZIP Co de Phone Number [facility] [address] [place] [address] * ED HIV 1/2 Antibody/Antigen Screen w/Reflex to HIV 1/2 Differentiation (01/06/2025 9:15 PM EDT) [facility] HIV 1 & 2 Antibody/Antigen Screen Non Reactive Non Reactive 01/06/2025 10:15 PM EDT [facility] Comment:Screening for HIV 1 & 2 antibodies, and P24 antigen is NONREACTIVE. No confirmatory testing is required. Blood Venous blood specimen / Unknown Venipuncture / Unknown 01/06/2025 9:15 PM EDT 01/06/2025 9:21 PM EDT Alberta Schmidt MD LAB BLOOD ORDERABLES Final Re sult Performing Organization Address [facility] Co de Phone Number [facility] [address] [place] [address] * Hepatitis C Antibody - ED (01/06/2025 9:15 PM EDT) [facility] Hepatitis C Antibody Negative Negative 01/06/2025 10:15 PM EDT [facility] Blood Venous blood specimen / Unknown Venipuncture / Unknown 01/06/2025 9:15 PM EDT 01/06/2025 9:21 PM EDT us Alberta Schmidt MD LAB BLOOD ORDERABLES Final Re sult Performing Organization Address City/[facility]/ZIP Co de Phone Number [facility] [address] [place] [address] * (ABNORMAL) Blood gas, venous (01/06/2025 9:15 PM EDT) pH, Venous 7.38 7.32 - 7.43 LAB HEMATOLOGY METHOD 01/06/2025 9:22 PM EDT [facility] pCO2, Venous 44 40 - 55 mmHg LAB HEMATOLOGY METHOD 01/06/2025 9:22 PM EDT [facility] pO2, Venous 20(L) 25 - 40 mmHg LAB HEMATOLOGY METHOD 01/06/2025 9:22 PM EDT [facility] SO2, Measured, Venous 26(L) 65 - 80 % LAB HEMATOLOGY METHOD 01/06/2025 9:22 PM EDT [facility] Base Excess, Venous 0.2 -2.0 - 3.0 mmol/L LAB HEMATOLOGY METHOD 01/06/2025 9:22 PM EDT [facility] Bicarbonate, Calculated, Venous 26 22 - 26 mmol/L LAB HEMATOLOGY METHOD 01/06/2025 9:22 PM EDT [facility] Hematocrit, Whole Blood 42.8 40.0 - 51.0 % LAB HEMATOLOGY METHOD 01/06/2025 9:22 PM EDT [facility] Sodium, Whole Blood 139 136 - 145 mmol/L LAB HEMATOLOGY METHOD 01/06/2025 9:22 PM EDT [facility] Potassium, Whole Blood 4.6 3.6 - 4.9 mmol/L LAB HEMATOLOGY METHOD 01/06/2025 9:22 PM EDT [facility] Chloride, Whole Blood 104 97 - 107 mmol/L LAB HEMATOLOGY METHOD 01/06/2025 9:22 PM EDT [facility] Glucose, Whole Blood 98 74 - 99 mg/dL LAB HEMATOLOGY METHOD 01/06/2025 9:22 PM EDT [facility] Lactate, Venous, Whole Blood 0.9 0.5 - 2.2 mmol/L LAB HEMATOLOGY METHOD 01/06/2025 9:22 PM EDT [facility] Ionized Calcium, Whole Blood 4.8 4.6 - 5.1 mg/dL LAB HEMATOLOGY METHOD 01/06/2025 9:22 PM EDT [facility] Blood Venous blood specimen / Unknown Venipuncture / Unknown 01/06/2025 9:15 PM EDT 01/06/2025 9:21 PM EDT us Alberta Schmidt MD LAB BLOOD ORDERABLES Final Re sult Performing Organization Address City/[facility]/ZIP Co de Phone Number [facility] [address] [place] [address] * (ABNORMAL) Protime-INR (01/06/2025 9:15 PM EDT) Prothrombin Time 15.2(H) 12.0 - 14.3 sec 01/06/2025 9:38 PM EDT [facility] INR 1.2(H) 0.9 - 1.1 01/06/2025 9:38 PM EDT [facility] Blood Venous blood specimen / Unknown Venipuncture / Unknown 01/06/2025 9:15 PM EDT 01/06/2025 9:37 PM EDT Narrative [facility] - 01/06/2025 9:38 PM EDT OPTIMAL INR RANGES FOR PATIENT ON ORAL ANTICOAGULANT THERAPY Prevention of venous thromboembolism INR 2.0 to 3.0 In patients with heart disease: Atrial fibrillation INR 2.0 to 3.0 Valvular heart disease INR 2.0 to 3.0 Tissue heart valves INR 2.0 to 3.0 Mechanical prosthetic valves INR 2.5 to 3.5 Prevention of recurrent WI INR 2.5 to 3.5 Result Kahlil Schmidt MD LAB BLOOD ORDERABLES Final Re sult Performing Organization Address City/[facility]/ZIP Co de Phone Number [facility] [address] [place] [address] * APTT (01/06/2025 9:15 PM EDT) aPTT 30 25 - 35 sec 01/06/2025 9:39 PM EDT [facility] Blood Venous blood specimen / Unknown Venipuncture / Unknown 01/06/2025 9:15 PM EDT 01/06/2025 9:37 PM EDT Result Kahlil Schmidt MD LAB BLOOD ORDERABLES Final Re sult [facility] [address] [place] [address] * Troponin T, High Sensitivity, 0 Hour Plasma, Reflex to 2 Hour (01/06/2025 9:15 PM EDT) Troponin T, High Sensitivity, 0 Hour 11 <19 ng/L 01/06/2025 9:54 PM EDT [facility] Blood Venous blood specimen / Unknown Venipuncture / Unknown 01/06/2025 9:15 PM EDT 01/06/2025 9:54 PM EDT us Alberta Schmidt MD LAB BLOOD ORDERABLES Final Re sult [facility] [address] [place] [address] * (ABNORMAL) CBC and Differential (01/06/2025 9:15 PM EDT) WBC Count 16.65(H) 3.70 - 10.30 10*3/uL LAB HEMATOLOGY METHOD 01/06/2025 9:24 PM EDT [facility] RBC Count 4.22(L) 4.60 - 6.10 10*6/uL LAB HEMATOLOGY METHOD 01/06/2025 9:24 PM EDT [facility] HGB 13.3(L) 13.7 - 17.5 g/dL LAB HEMATOLOGY METHOD 01/06/2025 9:24 PM EDT [facility] HCT 38.7(L) 40.0 - 51.0 % LAB HEMATOLOGY METHOD 01/06/2025 9:24 PM EDT [facility] Platelet Count 292 155 - 369 10*3/uL LAB HEMATOLOGY METHOD 01/06/2025 9:24 PM EDT [facility] MCV 92 79 - 98 fL LAB HEMATOLOGY METHOD 01/06/2025 9:24 PM EDT [facility] MCH 31.5 26.0 - 32.0 pg LAB HEMATOLOGY METHOD 01/06/2025 9:24 PM EDT [facility] MCHC 34.4 30.7 - 35.5 g/dL LAB HEMATOLOGY METHOD 01/06/2025 9:24 PM EDT [facility] RDW 12.8 11.5 - 14.5 % LAB HEMATOLOGY METHOD 01/06/2025 9:24 PM EDT [facility] MPV 9.1 8.8 - 12.5 fL LAB HEMATOLOGY METHOD 01/06/2025 9:24 PM EDT [facility] nRBC 0.0 <=0.0 per 100 WBCs LAB HEMATOLOGY METHOD 01/06/2025 9:24 PM EDT [facility] Differential Type Automated LAB HEMATOLOGY METHOD 01/06/2025 9:24 PM EDT [facility] Neutrophils % 80 % LAB HEMATOLOGY METHOD 01/06/2025 9:24 PM EDT [facility] Lymphocytes % 7 % LAB HEMATOLOGY METHOD 01/06/2025 9:24 PM EDT [facility] Monocytes % 8 % LAB HEMATOLOGY METHOD 01/06/2025 9:24 PM EDT [facility] Eosinophils % 2 % LAB HEMATOLOGY METHOD 01/06/2025 9:24 PM EDT [facility] Basophils % 1 % LAB HEMATOLOGY METHOD 01/06/2025 9:24 PM EDT [facility] Immature Granulocytes % 2 % LAB HEMATOLOGY METHOD 01/06/2025 9:24 PM EDT [facility] Neutrophils Absolute 13.32(H) 1.60 - 6.10 10*3/uL LAB HEMATOLOGY METHOD 01/06/2025 9:24 PM EDT [facility] Lymphocytes Absolute 1.23 1.20 - 3.90 10*3/uL LAB HEMATOLOGY METHOD 01/06/2025 9:24 PM EDT [facility] Monocytes Absolute 1.34(H) 0.30 - 0.90 10*3/uL LAB HEMATOLOGY METHOD 01/06/2025 9:24 PM EDT [facility] Eosinophils Absolute 0.31 0.00 - 0.50 10*3/uL LAB HEMATOLOGY METHOD 01/06/2025 9:24 PM EDT [facility] Basophils Absolute 0.09 0.00 - 0.10 10*3/uL LAB HEMATOLOGY METHOD 01/06/2025 9:24 PM EDT [facility] Immature Granulocytes Absolute 0.36(H) 0.00 - 0.06 10*3/uL LAB HEMATOLOGY METHOD 01/06/2025 9:24 PM EDT [facility] Blood Venous blood specimen / Unknown Venipuncture / Unknown 01/06/2025 9:15 PM EDT 01/06/2025 9:24 PM EDT Narrative [facility] - 01/06/2025 9:24 PM EDT Therapeutic decision making should be based on absolute values, rather than percentages. us Alberta Schmidt MD LAB BLOOD ORDERABLES Final Re sult [facility] [address] [place] [address] * (ABNORMAL) CMP (01/06/2025 9:15 PM EDT) Glucose, Plasma 101(H) 74 - 99 mg/dL 01/06/2025 9:54 PM EDT [facility] BUN, Plasma 25(H) 8 - 23 mg/dL 01/06/2025 9:54 PM EDT [facility] Creatinine, Plasma 1.71(H) 0.70 - 1.20 mg/dL 01/06/2025 9:54 PM EDT [facility] BUN/Creatinine Ratio 15 01/06/2025 9:54 PM EDT [facility] Sodium, Plasma 139 136 - 145 mmol/L 01/06/2025 9:54 PM EDT [facility] Potassium, Plasma 4.9 3.6 - 4.9 mmol/L 01/06/2025 9:54 PM EDT [facility] Chloride, Plasma 102 97 - 107 mmol/L 01/06/2025 9:54 PM EDT [facility] CO2, Plasma 22 22 - 29 mmol/L 01/06/2025 9:54 PM EDT [facility] Anion Gap 15 6 - 16 mmol/L 01/06/2025 9:54 PM EDT [facility] Total Calcium, Plasma 9.4 8.9 - 10.2 mg/dL 01/06/2025 9:54 PM EDT [facility] Total Protein 6.9 6.3 - 7.9 g/dL 01/06/2025 9:54 PM EDT [facility] Albumin, Plasma 3.5 3.5 - 5.2 g/dL 01/06/2025 9:54 PM EDT [facility] AST, Plasma 19 10 - 50 U/L 01/06/2025 9:54 PM EDT [facility] ALT, Plasma 23 10 - 50 U/L 01/06/2025 9:54 PM EDT [facility] Alkaline Phosphatase, Plasma 298(H) 40 - 115 U/L 01/06/2025 9:54 PM EDT [facility] Total Bilirubin, Plasma 0.4 0.2 - 1.1 mg/dL 01/06/2025 9:54 PM EDT [facility] eGFRcr 41.0 mL/min/1.7 3m*2 01/06/2025 9:54 PM EDT [facility] Comment:Reported eGFRcr in m L/min/1.73m2 is based the CKD-EPI 2020 equation that does not use a race coefficient. Blood Venous blood specimen / Unknown Venipuncture / Unknown 01/06/2025 9:15 PM EDT 01/06/2025 9:54 PM EDT us Alberta Schmidt MD LAB BLOOD ORDERABLES Final Re sult [facility] [address] [place] [address] * EKG now - STAT (adult) (01/06/2025 9:01 PM EDT) EKG DIAGNOSIS CLASS Normal MUSE ECG Ventricular Rate 79 BPM MUSE ECG Atrial Rate 79 BPM MUSE ECG IL Interval 112 ms MUSE ECG QRSD Interval 70 ms MUSE ECG QT Interval 362 ms MUSE ECG QTC Interval 415 ms MUSE ECG P [place] 61 degrees MUSE ECG R [place] 48 degrees MUSE ECG T Wave [place] 61 degrees MUSE ECG Diagnosis Normal sinus rhythm MUSE ECG Diagnosis Normal ECG MUSE ECG Diagnosis MUSE ECG Diagnosis Confirmed by Lalo Moreno ([id number]) on 01/06/2025 10:18:26 PM MUSE ECG 01/06/2025 [...] documented as of this encounter Care Teams Labour Market Economist Relationship Specialty Start Date End Date Jackelyn Kaur PA [address] [place] [address] PCP - General 01/08/23 documented as of this encounter
[2025-01-17] VITALS (67 sets, daily range): BP systolic 80–126; BP diastolic 38–67; PULSE 15–106; RESP 14–99; TEMP 36.1–37.4; O2SAT 8–99; BMI 20.1
[2025-01-17] MEDS: PANTOPRAZOLE SODIUM 80 MG in 0.9 % SODIUM CHLORIDE 100 ML 100 MG IV (03:19)
[2025-01-17] MEDS: ONDANSETRON 4MG/2ML VIAL 4 MG IV (03:20)
[2025-01-17 03:38] LABS: Immature Granulocytes % 5.4 %; Mean Corpuscular HGB Conc 32.5 g/dL (31.8-35.4); Mean Corpuscular Hemoglobin 31.1 pg (27.0-31.2); Mean Corpuscular Volume 95.6 fl (80-94); Nucleated Red Blood Cells % 0 %; Platelet Count 330 K/mm3 (142-424); Red Blood Count 2.06 M/mm3 (4.60-6.20); Red Cell Distribution Width-SD 49.4 fL; White Blood Count 24.2 K/mm3 (4.8-10.8)
[2025-01-17 03:40] LABS: Hematocrit 19.7 % (42.0-52.0); Hemoglobin 6.4 g/dL (14.1-18.0)
--- NOTE | 2025-01-17 03:40 | PC.NURSE ---
critical called from lab. notified
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
[2025-01-17 03:46] LABS: Albumin Level 2.6 g/dl (3.5-5.0); Chloride 97 mmol/L (98-107); Potassium 4.7 mmoL/L (3.5-5.1); Sodium 127 mmol/L (136-145)
[2025-01-17 03:49] LABS: Alanine Aminotransferase 15 U/L (12-78); Albumin/Globulin Ratio 1.1 (1.1-1.8); Alkaline Phosphatase 118 U/L (38-126); Anion Gap 12.7 mEq/L (5-15); Aspartate Amino Transferase 22 U/L (17-59); Bilirubin,Total 0.6 mg/dl (0.2-1.3); Blood Urea Nitrogen 26 mg/dl (9-20); Carbon Dioxide 22 mmol/L (22.0-30.0); Creatinine Clearance Estimated 36 mL/min (50-200); Creatinine,Serum 1.40 mg/dl (0.66-1.25); Estimated Glomerular Filt Rate 49 ml/min (>60); GFR (African American) 60 ML/MIN (>60); Globulin 2.4 g/dL (1.3-3.2); Total Protein,Serum 5.0 g/dl (6.3-8.2)
[2025-01-17 03:50] LABS: Calcium 7.8 mg/dl (8.4-10.2); Glucose 162 mg/dl (74-100); Magnesium 1.8 mg/dl (1.6-2.3); Phosphorous 3.7 mg/dl (2.5-4.5)
[2025-01-17 03:51] LABS: INR 1.07 (0.9-1.1); Prothrombin Time 11.8 seconds (10.1-12.5)
--- OUTSIDE RECORDS SUMMARY | 2025-01-17 03:56 | XMS_ITS | Clinical Summary ---
Author Organization Healthcare Address [address] [place] [address] Care Team Providers Care Bowl Attendant Name Role Phone Jackelyn Kaur Primary Care [...] daily for 5 days. 15 tablet 01/07/2025 01/13/20 25 Resolved Problems Problem Noted Date Diagnosed Date Resolved Date Subdural hematoma 01/08/2023 01/10/2023 Encounters Date Type Department Care Team Description 01/06/2025 9:16 PM EDT - 01/07/2025 3:29 AM EDT Emergency [facility] Emergency Department [address] [place] [address] Gertrudis Levine MD Prabhu, Efraín Jama MD [...] series) 02/01/1967 [facility]-Zoster Vaccines (1 of 2) 02/01/1998 [facility]-Pneumococcal Vaccine: 50+ Years (2 of 2 - PCV) 11/21/2018 11/21/2017 [facility]Y-RSV Vaccine: 60+ Years or (1 - 1-dose 75+ series) 02/01/2023 [id number] Vaccine (4 - season) 2024 03/23/2021, 06/27/2020, [...] this topic Medical Devices Implanted Type Area Conveyor Weigher Operator Device Identifier Shelf Expiration Date Model / Serial / Lot [place] 18 - [id number] Implanted:Qty: 1 on 01/09/2023 at [facility] [id number] 03/07/2025- 00-06 0 / / [id number] Kal 18 - [id number] Implanted:Qty: 1 on 01/09/2023 at [facility] [id number] 03/07/2025- 00-06 0 / / [id number] Procedures Procedure Name Priority Date/Time Associated Diagnosis [...] 7 <19 ng/L 01/06/2025 11:46 PM EDT [facility] Blood Venous blood specimen / Unknown Venipuncture / Unknown 01/06/2025 11:21 PM EDT 01/06/2025 11:23 PM EDT us Gertrudis Duarte LAB BLOOD ORDERABLES Final Resul t [facility] [address] [place] [address] * LDH, Lactate dehydrogenase (01/06/2025 11:21 PM EDT) LDH, Plasma 212 116 - 250 U/L 01/07/2025 3:46 AM EDT [facility] Blood Venous blood specimen / Unknown Venipuncture / Unknown 01/06/2025 11:21 PM EDT 01/06/2025 11:23 PM EDT us Newton Deng APRN LAB BLOOD ORDERABLES Fin al Result [facility] [address] [place] [address] * CT Angio Pulmonary Embolism (01/06/2025 11:06 [...] for all analytes 01/07/2025 12:15 AM EDT [facility] Swab Nasopharyngeal structure / Unknown Non-blood Collection / Unknown 01/06/2025 10:01 PM EDT 01/06/2025 10:27 PM EDT Narrative [facility] - 01/07/2025 12:15 AM EDT This [...] Respiratory PCR Panel is performed using the HobbyTalklex instrument. This test is FDA approved for use with Nasopharyngeal swabs only. This test is used for clinical purposes. It should not be regarded as investigational or for research. The [facility] is certified under the Clinical Laboratory Improvement Amendments of 1988 (CLIA-88) as qualified to perform high complexity clinical laboratory testing. us Newton Deng APRN LAB MICROBIOLOGY - [facility] AL ORDERABLES Final Result Performing Organization Address City/[facility]/ZIP Co de Phone Number [facility] [address] [place] [address] * Blood Culture (Aerobic/Anaerobet Set) (01/06/2025 10:01 PM EDT) Only the most recent of2 resultswithin the time period is included. Culture No growth at day 5 01/11/2025 11:01 PM EDT [facility] Blood Venous blood specimen / Unknown Venipuncture / Unknown 01/06/2025 10:01 PM EDT 01/06/2025 10:28 PM EDT Narrative [facility] - 01/11/2025 11:01 PM EDT Low blood volume submitted, results may be compromised Newton Deng APRN LAB MICROBIOLOGY - GENER AL ORDERABLES Final Result Performing Organization Address [facility] Co de Phone Number [facility] [address] [place] [address] * Type and screen (01/06/2025 10:01 PM [...] ORDE RABLES Final Result Performing Organization Address [facility]/ZIP Co de Phone Number BLOOD BANK [address] [place] [address], * ED HIV 1/2 Antibody/Antigen Screen w/Reflex to HIV 1/2 Differentiation (01/06/2025 9:15 PM EDT) HIV 1 & 2 Antibody/Antigen Screen Non Reactive Non Reactive 01/06/2025 10:15 PM EDT [facility] Comment:Screening for HIV 1 & 2 antibodies, and P24 antigen is NONREACTIVE. No confirmatory testing is required. Blood Venous blood specimen / Unknown Venipuncture / Unknown 01/06/2025 9:15 PM EDT 01/06/2025 9:21 PM EDT Alberta Bermudez MD LAB BLOOD ORDERABLES Final Re sult Performing Organization Address City/[facility]/ZIP Co de Phone Number [facility] [address] [place] [address] * Hepatitis C Antibody - ED (01/06/2025 9:15 PM EDT) Hepatitis C Antibody Negative Negative 01/06/2025 10:15 PM EDT [facility] Blood Venous blood specimen / Unknown Venipuncture / Unknown 01/06/2025 9:15 PM EDT 01/06/2025 9:21 PM EDT Alberta Bermudez MD LAB BLOOD ORDERABLES Final Re sult Performing Organization Address [facility] Co de Phone Number [facility] [address] [place] [address] * BNP (01/06/2025 9:15 PM EDT) N-Terminal, PROBNP, Plasma 203 0 - 1,799 pg/mL 01/06/2025 10:24 PM EDT [facility] Blood Venous blood specimen / Unknown Venipuncture / Unknown 01/06/2025 9:15 PM EDT 01/06/2025 9:54 PM EDT Newton Deng APRN LAB BLOOD ORDERABLES Fin al Result Performing Organization Address City/[facility] Co de Phone Number [facility] [address] [place] [address] * APTT (01/06/2025 9:15 PM EDT) aPTT 30 25 - 35 sec 01/06/2025 9:39 PM EDT [facility] Blood Venous blood specimen / Unknown Venipuncture / Unknown 01/06/2025 9:15 PM EDT 01/06/2025 9:37 PM EDT Result [facility] us Alberta Bermudez MD LAB BLOOD ORDERABLES Final Re sult Performing Organization Address [facility] Co de Phone Number [facility] [address] [place] [address] * (ABNORMAL) Protime-INR (01/06/2025 9:15 PM EDT) Prothrombin Time 15.2(H) 12.0 - 14.3 sec 01/06/2025 9:38 PM EDT [facility] INR 1.2(H) 0.9 - 1.1 01/06/2025 9:38 PM EDT [facility] Blood Venous blood specimen / Unknown Venipuncture / Unknown 01/06/2025 9:15 PM EDT 01/06/2025 9:37 PM EDT Narrative [facility] - 01/06/2025 9:38 PM EDT OPTIMAL INR RANGES FOR PATIENT ON ORAL ANTICOAGULANT THERAPY Prevention of venous thromboembolism INR 2.0 to 3.0 In patients with heart disease: Atrial fibrillation INR 2.0 to 3.0 Valvular heart disease INR 2.0 to 3.0 Tissue heart valves INR 2.0 to 3.0 Mechanical prosthetic valves INR 2.5 to 3.5 Prevention of recurrent SC INR 2.5 to 3.5 us Alberta Bermudez MD LAB BLOOD ORDERABLES Final Re sult Performing Organization Address [facility]/ZIP Co de Phone Number [facility] [address] [place] [address] * (ABNORMAL) CBC and Differential (01/06/2025 9:15 PM EDT) WBC Count 16.65(H) 3.70 - 10.30 10*3/uL LAB HEMATOLOGY METHOD 01/06/2025 9:24 PM EDT [facility] RBC Count 4.22(L) 4.60 - 6.10 10*6/uL LAB HEMATOLOGY METHOD 01/06/2025 9:24 PM EDT [facility] HGB 13.3(L) 13.7 - 17.5 g/dL LAB HEMATOLOGY METHOD 01/06/2025 9:24 PM EDT [facility] HCT 38.7(L) 40.0 - 51.0 % LAB HEMATOLOGY METHOD 01/06/2025 9:24 PM EDT [facility] Platelet Count 292 155 - 369 10*3/uL LAB HEMATOLOGY METHOD 01/06/2025 9:24 PM EDT [facility] MCV 92 79 - 98 fL LAB HEMATOLOGY METHOD 01/06/2025 9:24 PM EDT [facility] MCH 31.5 26.0 - 32.0 pg LAB HEMATOLOGY METHOD 01/06/2025 9:24 PM EDT [facility] MCHC 34.4 30.7 - 35.5 g/dL LAB HEMATOLOGY METHOD 01/06/2025 9:24 PM EDT [facility] RDW 12.8 11.5 - 14.5 % LAB HEMATOLOGY METHOD 01/06/2025 9:24 PM EDT [facility] MPV 9.1 8.8 - 12.5 fL LAB HEMATOLOGY METHOD 01/06/2025 9:24 PM EDT [facility] nRBC 0.0 <=0.0 per 100 WBCs LAB HEMATOLOGY METHOD 01/06/2025 9:24 PM EDT [facility] Differential Type Automated LAB HEMATOLOGY METHOD 01/06/2025 9:24 PM EDT [facility] Neutrophils % 80 % LAB HEMATOLOGY METHOD 01/06/2025 9:24 PM EDT [facility] Lymphocytes % 7 % LAB HEMATOLOGY METHOD 01/06/2025 9:24 PM EDT [facility] Monocytes % 8 % LAB HEMATOLOGY METHOD 01/06/2025 9:24 PM EDT [facility] Eosinophils % 2 % LAB HEMATOLOGY METHOD 01/06/2025 9:24 PM EDT [facility] Basophils % 1 % LAB HEMATOLOGY METHOD 01/06/2025 9:24 PM EDT [facility] Immature Granulocytes % 2 % LAB HEMATOLOGY METHOD 01/06/2025 9:24 PM EDT [facility] Neutrophils Absolute 13.32(H) 1.60 - 6.10 10*3/uL LAB HEMATOLOGY METHOD 01/06/2025 9:24 PM EDT [facility] Lymphocytes Absolute 1.23 1.20 - 3.90 10*3/uL LAB HEMATOLOGY METHOD 01/06/2025 9:24 PM EDT [facility] Monocytes Absolute 1.34(H) 0.30 - 0.90 10*3/uL LAB HEMATOLOGY METHOD 01/06/2025 9:24 PM EDT [facility] Eosinophils Absolute 0.31 0.00 - 0.50 10*3/uL LAB HEMATOLOGY METHOD 01/06/2025 9:24 PM EDT [facility] Basophils Absolute 0.09 0.00 - 0.10 10*3/uL LAB HEMATOLOGY METHOD 01/06/2025 9:24 PM EDT [facility] Immature Granulocytes Absolute 0.36(H) 0.00 - 0.06 10*3/uL LAB HEMATOLOGY METHOD 01/06/2025 9:24 PM EDT [facility] Blood Venous blood specimen / Unknown Venipuncture / Unknown 01/06/2025 9:15 PM EDT 01/06/2025 9:24 PM EDT Narrative [facility] - 01/06/2025 9:24 PM EDT Therapeutic decision making should be based on absolute values, rather than percentages. us Alberta Bermudez MD LAB BLOOD ORDERABLES Final Re sult [facility] [address] [place] [address] * (ABNORMAL) Blood gas, venous (01/06/2025 9:15 PM EDT) pH, Venous 7.38 7.32 - 7.43 LAB HEMATOLOGY METHOD 01/06/2025 9:22 PM EDT [facility] pCO2, Venous 44 40 - 55 mmHg LAB HEMATOLOGY METHOD 01/06/2025 9:22 PM EDT [facility] pO2, Venous 20(L) 25 - 40 mmHg LAB HEMATOLOGY METHOD 01/06/2025 9:22 PM EDT [facility] SO2, Measured, Venous 26(L) 65 - 80 % LAB HEMATOLOGY METHOD 01/06/2025 9:22 PM EDT [facility] Base Excess, Venous 0.2 -2.0 - 3.0 mmol/L LAB HEMATOLOGY METHOD 01/06/2025 9:22 PM EDT [facility] Bicarbonate, Calculated, Venous 26 22 - 26 mmol/L LAB HEMATOLOGY METHOD 01/06/2025 9:22 PM EDT [facility] Hematocrit, Whole Blood 42.8 40.0 - 51.0 % LAB HEMATOLOGY METHOD 01/06/2025 9:22 PM EDT [facility] Sodium, Whole Blood 139 136 - 145 mmol/L LAB HEMATOLOGY METHOD 01/06/2025 9:22 PM EDT [facility] Potassium, Whole Blood 4.6 3.6 - 4.9 mmol/L LAB HEMATOLOGY METHOD 01/06/2025 9:22 PM EDT [facility] Chloride, Whole Blood 104 97 - 107 mmol/L LAB HEMATOLOGY METHOD 01/06/2025 9:22 PM EDT [facility] Glucose, Whole Blood 98 74 - 99 mg/dL LAB HEMATOLOGY METHOD 01/06/2025 9:22 PM EDT [facility] Lactate, Venous, Whole Blood 0.9 0.5 - 2.2 mmol/L LAB HEMATOLOGY METHOD 01/06/2025 9:22 PM EDT [facility] Ionized Calcium, Whole Blood 4.8 4.6 - 5.1 mg/dL LAB HEMATOLOGY METHOD 01/06/2025 9:22 PM EDT [facility] Blood Venous blood specimen / Unknown Venipuncture / Unknown 01/06/2025 9:15 PM EDT 01/06/2025 9:21 PM EDT us Alberta Bermudez MD LAB BLOOD ORDERABLES Final Re sult [facility] [address] [place] [address] * (ABNORMAL) CMP (01/06/2025 9:15 PM EDT) Glucose, Plasma 101(H) 74 - 99 mg/dL 01/06/2025 9:54 PM EDT [facility] BUN, Plasma 25(H) 8 - 23 mg/dL 01/06/2025 9:54 PM EDT [facility] Creatinine, Plasma 1.71(H) 0.70 - 1.20 mg/dL 01/06/2025 9:54 PM EDT [facility] BUN/Creatinine Ratio 15 01/06/2025 9:54 PM EDT [facility] Sodium, Plasma 139 136 - 145 mmol/L 01/06/2025 9:54 PM EDT [facility] Potassium, Plasma 4.9 3.6 - 4.9 mmol/L 01/06/2025 9:54 PM EDT [facility] Chloride, Plasma 102 97 - 107 mmol/L 01/06/2025 9:54 PM EDT [facility] CO2, Plasma 22 22 - 29 mmol/L 01/06/2025 9:54 PM EDT [facility] Anion Gap 15 6 - 16 mmol/L 01/06/2025 9:54 PM EDT [facility] Total Calcium, Plasma 9.4 8.9 - 10.2 mg/dL 01/06/2025 9:54 PM EDT [facility] Total Protein 6.9 6.3 - 7.9 g/dL 01/06/2025 9:54 PM EDT [facility] Albumin, Plasma 3.5 3.5 - 5.2 g/dL 01/06/2025 9:54 PM EDT [facility] AST, Plasma 19 10 - 50 U/L 01/06/2025 9:54 PM EDT [facility] ALT, Plasma 23 10 - 50 U/L 01/06/2025 9:54 PM EDT [facility] Alkaline Phosphatase, Plasma 298(H) 40 - 115 U/L 01/06/2025 9:54 PM EDT [facility] Total Bilirubin, Plasma 0.4 0.2 - 1.1 mg/dL 01/06/2025 9:54 PM EDT [facility] eGFRcr 41.0 mL/min/1.7 3m*2 01/06/2025 9:54 PM EDT [facility] Comment:Reported eGFRcr in m L/min/1.73m2 is based the CKD-EPI 2020 equation that does not use a race coefficient. Blood Venous blood specimen / Unknown Venipuncture / Unknown 01/06/2025 9:15 PM EDT 01/06/2025 9:54 PM EDT us Alberta Bermudez MD LAB BLOOD ORDERABLES Final Re sult [facility] [address] [place] [address] * EKG now - STAT (adult) (01/06/2025 9:01 PM EDT) EKG DIAGNOSIS CLASS Normal MUSE ECG Ventricular Rate 79 BPM MUSE ECG Atrial Rate 79 BPM MUSE ECG ME Interval 112 ms MUSE ECG QRSD Interval 70 ms MUSE ECG QT Interval 362 ms MUSE ECG QTC Interval 415 ms MUSE ECG P [place] 61 degrees MUSE ECG R [place] 48 degrees MUSE ECG T Wave [place] 61 degrees MUSE ECG Diagnosis Normal sinus rhythm MUSE ECG Diagnosis Normal ECG MUSE ECG Diagnosis MUSE ECG Diagnosis Confirmed by Lalo Moreno ([id number]) on 01/06/2025 10:18:26 PM MUSE ECG 01/06/2025 9:01 PM EDT 01/06/2025 10:18 PM EDT us Gertrudis Duarte ECG ORDERABLES Final Result Performing Organization Address City/State/[facility] Co de Phone Number MUSE ECG from Last 3 Months Insurance MEDICARE Care Teams Bowl Attendant Relationship Specialty Start Date End Date Jackelyn Kaur PA [address] [place] [address] PCP - General 01/08/23
--- OUTSIDE RECORDS SUMMARY | 2025-01-17 03:56 | XMS_ITS | Encounter Summary ---
Author Organization Healthcare Address [address] [place] [address] Care Team Providers Care [place] Utility Worker Name Role Phone Jackelyn Kaur Primary Care [...] documented as of this encounter Care Teams [place] Utility Worker Relationship Specialty Start Date End Date Jackelyn Kaur PA [address] [place] [id number] PCP - General 01/08/23 documented as of this encounter
--- NOTE | 2025-01-17 04:09 | PC.NURSE ---
Report called to NOAH Duarte
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
--- NOTE | 2025-01-17 04:38 | PC.NURSE ---
Pt arrived to unit @ [id number]
[2025-01-17] MEDS: PANTOPRAZOLE SODIUM 80 MG in 0.9 % SODIUM CHLORIDE 100 ML 10 MG IV (04:54)
--- NOTE | 2025-01-17 05:11 | PC.NURSE ---
Pt. came to the ICU with glasses and cell phone wearing a brown tshirt and a pair of boxer shorts. He is currently wearing his boxers his brown tshirt is in a garment bag in the closet in his room and his cell phone and glasses are in his lap on the bed with him.
[2025-01-17] MEDS: 0.9 % SODIUM CHLORIDE 250 ML 25 ML IV ×2 (05:15→09:24)
[2025-01-17 05:58] LABS: Total Cells Counted 100
[2025-01-17 05:59] LABS: RBC Morphology Normal
[2025-01-17] MEDS: CALCIUM GLUC IN NACL, ISO-OSM 1 GM/50 ML BAG IV (06:24)
[2025-01-17 06:56] LABS: Procalcitonin 0.579 ng/mL (0.0-2.0)
--- NOTE | 2025-01-17 08:03 | XR_ITS ---
FINAL REPORT CLINICAL HISTORY: sepsis workup COMPARISON: 01/13/2025 FINDINGS: A single PA view of the chest was obtained. The cardiac and mediastinal silhouettes are within normal limits. There is a left upper lobe irregular nodule, which is stable when compared to the prior exam. There is a patchy left base opacity, worrisome for pneumonia. There is no effusion or pneumothorax. IMPRESSION: Patchy left base opacity, new since the prior exam, worrisome for pneumonia. Recommend follow-up to resolution. Reviewed, Interpreted and Dictated by Lizbeth Staton MD Transcribed by Swetha Bhatti Authenticated and [facility]
--- NOTE | 2025-01-17 08:40 | PC.NURSE ---
[id number] called and notified md that pt 1st unit of blood was complete, asked md if he wanted a 1hr or 2 hr post h/h. notified md that pt bp is 97/57. per md order a 2nd unit of blood for pt to transfuse. [id number] notified md that scope room was able to take patient for EGD earlier than planned. does md want to see pt prior to going down for scope. md states since pt is egd is scheduled earlier than thought, hold unit of blood at this time.
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
--- NOTE | 2025-01-17 09:00 | HMH.PHAINT1 ---
Pharmacy Intervention Comments: MEDICATION RECONCILIATION COMPLETED ON PATIENT USING EXTERNAL FILL HISTORY FROM PHARMACY AND DISCHARGE SUMMARY FROM PREVIOUS ADMISSION. -NORAH KNAPP, MAYURID
--- NOTE | 2025-01-17 09:11 | P.PCN_ITS ---
[facility] Procedure Note Date: 01/17/25 Time: : Procedure Note:: Upper Endoscopy Procedure Report: Esophagogastroduodenoscopy with 1-10,000 submucosal epinephrine injection, heater probe ablation and Mantis clip closure of duodenal ulcer Endoscopost: Myles Aburto II, MD Referring Physician: RK Diaz Date of Procedure: January 17, 2025 Equipment: Olympus GIF-1100 standard upper endoscope Sedation: MAC sedation Indications: Mr. Tony is a 74-year-old gentleman who was recently hospitalized with GI bleed and had endoscopy on 01/12/2025 showing a duodenal ulcer in the first portion of the duodenum with visible vessel. This was a posterior lateral wall duodenal ulcer with a small visible vessel and an Endo Clip was placed. There was no active heme identified at that time. The patient had been on prednisone and had taken Aleve. He was placed on misoprostol and PPI therapy and did well and went home. The biopsy of his stomach did not show evidence of H. pylori. The patient RE-presented with melena and presented to the ED yesterday evening with hemoglobin hematocrit of 6.4 and 19.7. He had received 1 unit of PRBCs. EGD is performed for therapeutic purposes. Procedure: Prior to the procedure, a history and physical exam was performed, and patient's medications and allergies were reviewed. The risks, benefits and alternatives of the sedation and procedure were discussed with the patient. All questions were answered and informed consent was obtained. The patient was brought to the procedure room. Patient identification and proposed procedure were verified by the physician and the nurse. The patient was placed in a left lateral decubitus position and the scope was passed under direct vision. Throughout the procedure, the patient's blood pressure, pulse, and oxygen saturations were monitored continuously. The upper GI endoscopy was accomplished without difficulty. The patient tolerated the procedure well. Findings: The scope was passed directly into the upper esophagus and advanced to the third portion of the duodenum. Once again, the duodenal ulcer was identified with some active heme in the duodenum and clot. The ulcer was on the posterior lateral wall and because of location was difficult to easily visualize en face without pulling the folds away from the ulcer. A visible vessel was seen on the ulcer and the prior Endo Clip was not present or had slipped off. Initially, 1-10,000 epinephrine was injected in the ulcer base adjacent to the visible vessel. After injection of epinephrine, the heater probe was utilized to compress the vessel and apply ablation for 5 to 6 seconds with excellent ablative effect. Lastly, a larger Mantis clip was utilized this time with closure of the ulcer. The bear claw was not utilized. There was no heme identified and site of therapeutic ulcer clip appeared to be secure. The scope was withdrawn to a normal pylorus and of the stomach. The antrum body and fundus of the stomach were normal. The esophagus was normal. Impression: 1. Posterior lateral duodenal ulcer with visible vessel (in first portion of duodenum) status post epinephrine injection, heater probe ablation and larger Mantis clip closure Plan: I do feel the patient now is stable. I would transfuse to hematocrit greater than 24. I will check iron studies. I will discuss the case with patient and family.
[2025-01-17] MEDS: EPINEPHrine 0.1 MG/ML 10ML SYRINGE (CRASH CART) 0.5 MG IJ (09:24)
--- OUTSIDE RECORDS SUMMARY | 2025-01-17 10:21 | XMS_ITS | Encounter Summary ---
Author Organization Healthcare Address [address] [place] [address] Care Team Providers Care Sample Cutter Name Role Phone Jackelyn Kaur Primary Care [...] documented as of this encounter Care Teams Sample Cutter Relationship Specialty Start Date End Date Jackelyn Kaur PA [address] [place] [id number] PCP - General 01/08/23 documented as of this encounter
--- OUTSIDE RECORDS SUMMARY | 2025-01-17 10:22 | XMS_ITS | Clinical Summary ---
Author Organization Healthcare Address [address] [place] [address] Care Team Providers Care Professor Of Poultry Science Name Role Phone Jackelyn Kaur Primary Care [...] EDT Emergency [facility] A Emergency Department [address] [place] [address] Gertrudis Levine MD Prabhu, Efraín Jama MD [...] or (1 - 1-dose 75+ series) 02/01/2023 [id number] Vaccine (4 - season) 2024 03/23/2021, 06/27/2020, [...] this topic Medical Devices Implanted Type Area Hvac Service Tech Device Identifier Shelf Expiration Date Model / Serial / Lot [place] 18 - [id number] Implanted:Qty: 1 on 01/09/2023 at [facility] [id number] 03/07/2025- 00-06 0 / / [id number] [place] 18 - [id number] Implanted:Qty: 1 on 01/09/2023 at [facility] [id number] 03/07/2025- 00-06 0 / / [id number] Procedures Procedure Name Priority Date/Time Associated Diagnosis [...] 7 <19 ng/L 01/06/2025 11:46 PM EDT [facility] Blood Venous blood specimen / Unknown Venipuncture / Unknown 01/06/2025 11:21 PM EDT 01/06/2025 11:23 PM EDT us Gertrudis Duarte LAB BLOOD ORDERABLES Final Resul t [facility] [address] [place] [address] * LDH, Lactate dehydrogenase (01/06/2025 11:21 PM EDT) LDH, Plasma 212 116 - 250 U/L 01/07/2025 3:46 AM EDT [facility] Blood Venous blood specimen / Unknown Venipuncture / Unknown 01/06/2025 11:21 PM EDT 01/06/2025 11:23 PM EDT us Newton Deng APRN LAB BLOOD ORDERABLES Fin al Result [facility] [address] [place] [address] * CT Angio Pulmonary Embolism (01/06/2025 11:06 [...] for all analytes 01/07/2025 12:15 AM EDT [facility] Swab Nasopharyngeal structure / Unknown Non-blood Collection / Unknown 01/06/2025 10:01 PM EDT 01/06/2025 10:27 PM EDT Narrative [facility] - 01/07/2025 12:15 AM [...] Respiratory PCR Panel is performed using the [email or web address] instrument. This test is FDA approved for use with Nasopharyngeal swabs only. This test is used for clinical purposes. It should not be regarded as investigational or for research. The [facility] Clinical Microbiology Laboratory is certified under the Clinical Laboratory Improvement Amendments of 1988 (CLIA-88) as qualified to perform high complexity clinical laboratory testing. us Newton Deng APRN LAB MICROBIOLOGY - [facility] AL ORDERABLES Final Result Performing Organization Address City/[facility]/ZIP Co de Phone Number [facility] [address] [place] [address] * Blood Culture (Aerobic/Anaerobet Set) (01/06/2025 10:01 PM EDT) Only the most recent of2 resultswithin the time period is included. Culture No growth at day 5 01/11/2025 11:01 PM EDT [facility] Blood Venous blood specimen / Unknown Venipuncture / Unknown 01/06/2025 10:01 PM EDT 01/06/2025 10:28 PM EDT Narrative [facility] - 01/11/2025 11:01 PM EDT Low blood volume submitted, results may be compromised Newton Deng APRN LAB MICROBIOLOGY - GENER AL ORDERABLES Final Result Performing Organization Address [facility] Co de Phone Number [facility] [address] [place] [address] * Type and screen (01/06/2025 10:01 PM [...] ORDE RABLES Final Result Performing Organization Address [facility]/ZIP Co de Phone Number BLOOD BANK [address] [place] [address], * ED HIV 1/2 Antibody/Antigen Screen w/Reflex to HIV 1/2 Differentiation (01/06/2025 9:15 PM EDT) HIV 1 & 2 Antibody/Antigen Screen Non Reactive Non Reactive 01/06/2025 10:15 PM EDT [facility] Comment:Screening for HIV 1 & 2 antibodies, and P24 antigen is NONREACTIVE. No confirmatory testing is required. Blood Venous blood specimen / Unknown Venipuncture / Unknown 01/06/2025 9:15 PM EDT 01/06/2025 9:21 PM EDT Alberta Bermudez MD LAB BLOOD ORDERABLES Final Re sult Performing Organization Address City/[facility]/ZIP Co de Phone Number [facility] [address] [place] [address] * Hepatitis C Antibody - ED (01/06/2025 9:15 PM EDT) Hepatitis C Antibody Negative Negative 01/06/2025 10:15 PM EDT [facility] Blood Venous blood specimen / Unknown Venipuncture / Unknown 01/06/2025 9:15 PM EDT 01/06/2025 9:21 PM EDT Alberta Bermudez MD LAB BLOOD ORDERABLES Final Re sult Performing Organization Address [facility] Co de Phone Number [facility] [address] [place] [address] * BNP (01/06/2025 9:15 PM EDT) N-Terminal, PROBNP, Plasma 203 0 - 1,799 pg/mL 01/06/2025 10:24 PM EDT [facility] Blood Venous blood specimen / Unknown Venipuncture / Unknown 01/06/2025 9:15 PM EDT 01/06/2025 9:54 PM EDT Newton Deng APRN LAB BLOOD ORDERABLES Fin al Result Performing Organization Address City/[facility] Co de Phone Number [facility] [address] [place] [address] * APTT (01/06/2025 9:15 PM EDT) aPTT 30 25 - 35 sec 01/06/2025 9:39 PM EDT [facility] Blood Venous blood specimen / Unknown Venipuncture / Unknown 01/06/2025 9:15 PM EDT 01/06/2025 9:37 PM EDT Result [facility] us Alberta Bermudez MD LAB BLOOD ORDERABLES Final Re sult Performing Organization Address [facility] Co de Phone Number [facility] [address] [place] [address] * (ABNORMAL) Protime-INR (01/06/2025 9:15 PM EDT) Prothrombin Time 15.2(H) 12.0 - 14.3 sec 01/06/2025 9:38 PM EDT [facility] INR 1.2(H) 0.9 - 1.1 01/06/2025 9:38 PM EDT [facility] Blood Venous blood specimen / Unknown Venipuncture / Unknown 01/06/2025 9:15 PM EDT 01/06/2025 9:37 PM EDT Narrative [facility] - 01/06/2025 9:38 PM EDT OPTIMAL INR RANGES FOR PATIENT ON ORAL ANTICOAGULANT THERAPY Prevention of venous thromboembolism INR 2.0 to 3.0 In patients with heart disease: Atrial fibrillation INR 2.0 to 3.0 Valvular heart disease INR 2.0 to 3.0 Tissue heart valves INR 2.0 to 3.0 Mechanical prosthetic valves INR 2.5 to 3.5 Prevention of recurrent PR INR 2.5 to 3.5 us Alberta Bermudez MD LAB BLOOD ORDERABLES Final Re sult Performing Organization Address [facility]/ZIP Co de Phone Number [facility] [address] [place] [address] * (ABNORMAL) CBC and Differential (01/06/2025 9:15 PM EDT) WBC Count 16.65(H) 3.70 - 10.30 10*3/uL LAB HEMATOLOGY METHOD 01/06/2025 9:24 PM EDT [facility] RBC Count 4.22(L) 4.60 - 6.10 10*6/uL LAB HEMATOLOGY METHOD 01/06/2025 9:24 PM EDT [facility] HGB 13.3(L) 13.7 - 17.5 g/dL LAB HEMATOLOGY METHOD 01/06/2025 9:24 PM EDT [facility] HCT 38.7(L) 40.0 - 51.0 % LAB HEMATOLOGY METHOD 01/06/2025 9:24 PM EDT [facility] Platelet Count 292 155 - 369 10*3/uL LAB HEMATOLOGY METHOD 01/06/2025 9:24 PM EDT [facility] MCV 92 79 - 98 fL LAB HEMATOLOGY METHOD 01/06/2025 9:24 PM EDT [facility] MCH 31.5 26.0 - 32.0 pg LAB HEMATOLOGY METHOD 01/06/2025 9:24 PM EDT [facility] MCHC 34.4 30.7 - 35.5 g/dL LAB HEMATOLOGY METHOD 01/06/2025 9:24 PM EDT [facility] RDW 12.8 11.5 - 14.5 % LAB HEMATOLOGY METHOD 01/06/2025 9:24 PM EDT [facility] MPV 9.1 8.8 - 12.5 fL LAB HEMATOLOGY METHOD 01/06/2025 9:24 PM EDT [facility] nRBC 0.0 <=0.0 per 100 WBCs LAB HEMATOLOGY METHOD 01/06/2025 9:24 PM EDT [facility] Differential Type Automated LAB HEMATOLOGY METHOD 01/06/2025 9:24 PM EDT [facility] Neutrophils % 80 % LAB HEMATOLOGY METHOD 01/06/2025 9:24 PM EDT [facility] Lymphocytes % 7 % LAB HEMATOLOGY METHOD 01/06/2025 9:24 PM EDT [facility] Monocytes % 8 % LAB HEMATOLOGY METHOD 01/06/2025 9:24 PM EDT [facility] Eosinophils % 2 % LAB HEMATOLOGY METHOD 01/06/2025 9:24 PM EDT [facility] Basophils % 1 % LAB HEMATOLOGY METHOD 01/06/2025 9:24 PM EDT [facility] Immature Granulocytes % 2 % LAB HEMATOLOGY METHOD 01/06/2025 9:24 PM EDT [facility] Neutrophils Absolute 13.32(H) 1.60 - 6.10 10*3/uL LAB HEMATOLOGY METHOD 01/06/2025 9:24 PM EDT [facility] Lymphocytes Absolute 1.23 1.20 - 3.90 10*3/uL LAB HEMATOLOGY METHOD 01/06/2025 9:24 PM EDT [facility] Monocytes Absolute 1.34(H) 0.30 - 0.90 10*3/uL LAB HEMATOLOGY METHOD 01/06/2025 9:24 PM EDT [facility] Eosinophils Absolute 0.31 0.00 - 0.50 10*3/uL LAB HEMATOLOGY METHOD 01/06/2025 9:24 PM EDT [facility] Basophils Absolute 0.09 0.00 - 0.10 10*3/uL LAB HEMATOLOGY METHOD 01/06/2025 9:24 PM EDT [facility] Immature Granulocytes Absolute 0.36(H) 0.00 - 0.06 10*3/uL LAB HEMATOLOGY METHOD 01/06/2025 9:24 PM EDT [facility] Blood Venous blood specimen / Unknown Venipuncture / Unknown 01/06/2025 9:15 PM EDT 01/06/2025 9:24 PM EDT Narrative [facility] - 01/06/2025 9:24 PM EDT Therapeutic decision making should be based on absolute values, rather than percentages. us Alberta Bermudez MD LAB BLOOD ORDERABLES Final Re sult [facility] [address] [place] [address] * (ABNORMAL) Blood gas, venous (01/06/2025 9:15 PM EDT) pH, Venous 7.38 7.32 - 7.43 LAB HEMATOLOGY METHOD 01/06/2025 9:22 PM EDT [facility] pCO2, Venous 44 40 - 55 mmHg LAB HEMATOLOGY METHOD 01/06/2025 9:22 PM EDT [facility] pO2, Venous 20(L) 25 - 40 mmHg LAB HEMATOLOGY METHOD 01/06/2025 9:22 PM EDT [facility] SO2, Measured, Venous 26(L) 65 - 80 % LAB HEMATOLOGY METHOD 01/06/2025 9:22 PM EDT [facility] Base Excess, Venous 0.2 -2.0 - 3.0 mmol/L LAB HEMATOLOGY METHOD 01/06/2025 9:22 PM EDT [facility] Bicarbonate, Calculated, Venous 26 22 - 26 mmol/L LAB HEMATOLOGY METHOD 01/06/2025 9:22 PM EDT [facility] Hematocrit, Whole Blood 42.8 40.0 - 51.0 % LAB HEMATOLOGY METHOD 01/06/2025 9:22 PM EDT [facility] Sodium, Whole Blood 139 136 - 145 mmol/L LAB HEMATOLOGY METHOD 01/06/2025 9:22 PM EDT [facility] Potassium, Whole Blood 4.6 3.6 - 4.9 mmol/L LAB HEMATOLOGY METHOD 01/06/2025 9:22 PM EDT [facility] Chloride, Whole Blood 104 97 - 107 mmol/L LAB HEMATOLOGY METHOD 01/06/2025 9:22 PM EDT [facility] Glucose, Whole Blood 98 74 - 99 mg/dL LAB HEMATOLOGY METHOD 01/06/2025 9:22 PM EDT [facility] Lactate, Venous, Whole Blood 0.9 0.5 - 2.2 mmol/L LAB HEMATOLOGY METHOD 01/06/2025 9:22 PM EDT [facility] Ionized Calcium, Whole Blood 4.8 4.6 - 5.1 mg/dL LAB HEMATOLOGY METHOD 01/06/2025 9:22 PM EDT [facility] Blood Venous blood specimen / Unknown Venipuncture / Unknown 01/06/2025 9:15 PM EDT 01/06/2025 9:21 PM EDT us Alberta Bermudez MD LAB BLOOD ORDERABLES Final Re sult [facility] [address] [place] [address] * (ABNORMAL) CMP (01/06/2025 9:15 PM EDT) Glucose, Plasma 101(H) 74 - 99 mg/dL 01/06/2025 9:54 PM EDT [facility] BUN, Plasma 25(H) 8 - 23 mg/dL 01/06/2025 9:54 PM EDT [facility] Creatinine, Plasma 1.71(H) 0.70 - 1.20 mg/dL 01/06/2025 9:54 PM EDT [facility] BUN/Creatinine Ratio 15 01/06/2025 9:54 PM EDT [facility] Sodium, Plasma 139 136 - 145 mmol/L 01/06/2025 9:54 PM EDT [facility] Potassium, Plasma 4.9 3.6 - 4.9 mmol/L 01/06/2025 9:54 PM EDT [facility] Chloride, Plasma 102 97 - 107 mmol/L 01/06/2025 9:54 PM EDT [facility] CO2, Plasma 22 22 - 29 mmol/L 01/06/2025 9:54 PM EDT [facility] Anion Gap 15 6 - 16 mmol/L 01/06/2025 9:54 PM EDT [facility] Total Calcium, Plasma 9.4 8.9 - 10.2 mg/dL 01/06/2025 9:54 PM EDT [facility] Total Protein 6.9 6.3 - 7.9 g/dL 01/06/2025 9:54 PM EDT [facility] Albumin, Plasma 3.5 3.5 - 5.2 g/dL 01/06/2025 9:54 PM EDT [facility] AST, Plasma 19 10 - 50 U/L 01/06/2025 9:54 PM EDT [facility] ALT, Plasma 23 10 - 50 U/L 01/06/2025 9:54 PM EDT [facility] Alkaline Phosphatase, Plasma 298(H) 40 - 115 U/L 01/06/2025 9:54 PM EDT [facility] Total Bilirubin, Plasma 0.4 0.2 - 1.1 mg/dL 01/06/2025 9:54 PM EDT [facility] eGFRcr 41.0 mL/min/1.7 3m*2 01/06/2025 9:54 PM EDT [facility] Comment:Reported eGFRcr in m L/min/1.73m2 is based the CKD-EPI 2020 equation that does not use a race coefficient. Blood Venous blood specimen / Unknown Venipuncture / Unknown 01/06/2025 9:15 PM EDT 01/06/2025 9:54 PM EDT us Alberta Bermudez MD LAB BLOOD ORDERABLES Final Re sult [facility] [address] [place] [address] * EKG now - STAT (adult) (01/06/2025 9:01 PM EDT) EKG DIAGNOSIS CLASS Normal MUSE ECG Ventricular Rate 79 BPM MUSE ECG Atrial Rate 79 BPM MUSE ECG ME Interval 112 ms MUSE ECG QRSD Interval 70 ms MUSE ECG QT Interval 362 ms MUSE ECG QTC Interval 415 ms MUSE ECG P [place] 61 degrees MUSE ECG R [place] 48 degrees MUSE ECG T Wave [place] 61 degrees MUSE ECG Diagnosis Normal sinus rhythm MUSE ECG Diagnosis Normal ECG MUSE ECG Diagnosis MUSE ECG Diagnosis Confirmed by Lalo Moreno ([id number]) on 01/06/2025 10:18:26 PM MUSE ECG 01/06/2025 9:01 PM EDT 01/06/2025 10:18 PM EDT us Gertrudis Duarte ECG ORDERABLES Final Result Performing Organization Address City/State/[facility] Co de Phone Number MUSE ECG from Last 3 Months Insurance MEDICARE Care Teams Professor Of Poultry Science Relationship Specialty Start Date End Date Jackelyn Kaur [place] [address] [place] [address] PCP - General 01/08/23
[2025-01-17] MEDS: PIPERCILLIN/TAZO 3.375 GM in 0.9 % SODIUM CHLORIDE 50 ML IV ×2 (10:26→16:12)
[2025-01-17] MEDS: 0.9 % SODIUM CHLORIDE 1000ML 1,000 ML 100 ML IV (10:27)
[2025-01-17 10:49] LABS: Iron 29 ug/dL (49-181)
[2025-01-17 10:58] LABS: Total Iron Binding Capacity 220 ug/dL (261-462)
[2025-01-17 11:27] LABS: Ferritin 351 ng/ml (17.9-464)
[2025-01-17 11:28] LABS: Microscopic, Urine URINE MICROSCOPIC (MICROSCOPIC)
[2025-01-17 12:17] LABS: Hematocrit 23.5 % (42.0-52.0)
[2025-01-17 12:23] LABS: Hemoglobin 7.7 g/dL (14.1-18.0)
--- NOTE | 2025-01-17 12:38 | CA_ITS ---
APPROVED REPORT EXAM: Comprehensive 2D, Doppler, and color-flow Echocardiogram Fixer Supervisor: Michelle Forrest CRT Ht: 5 ft 6 in Wt: 124lbs BSA: 1.63 BP: 101/60 mmHg Indications: Chest Pain, Hypertension/HDD, GI bleed Hgb 6.4 Pt sitting up in bed lying on his back due to shortness of breath M-Mode Dimensions RVDd 3.07 cm (0.9-2.6) LA Diam 2.96 cm (1.9-4.0) LVDd 4.75 cm (3.5-5.7) LVDs 3.14 cm (3.5-5.7) IVSd 1.21 cm (0.6-1.1) PWd 0.57 cm (0.6-1.1) EF (Teich) 62.70% FS 33.90% EDV (Teich) 104.90 mL TAPSE 2.34 (<1.7) ESV (Teich) 39.10 mL LV Diastology E Decel Time 170 (160-240 msec) E/A Ratio 0.80 MED A' 16.10 cm/s LAT A' 14.00 cm/s Aortic Valve AO Peak GR. 4.30 mmHg Mitral Valve MV A Velocity 79.0 (40-130 cm/s) E/A Ratio 0.80 Pulmonary Valve PV Peak Velocity 87.0 (50-150 cm/s) Tricuspid Valve TR P. Velocity 325.00 cm/s RAP Estimate 10.00 mmHg RVSP 52.30 mmHg Left Ventricle The left ventricle is normal size. Left ventricular systolic function is normal. The left ventricular ejection fraction is within the normal range. There is increased left ventricular wall thickness. There is normal LV segmental wall motion. The left ventricular diastolic function is indeterminate. LVEF is 55% Right Ventricle The right ventricle is not well-visualized, but grossly appears to be at least mildly dilated with at least mild reduction in RV function. Atria The left atrium size is normal. The right atrium size is normal. There is no color Doppler evidence of interatrial shunt. Aortic Valve The aortic valve is mildly thickened. There is no hemodynamically significant aortic valvular stenosis. Trace aortic regurgitation is present. Mitral Valve The mitral valve is normal in structure. No evidence of mitral valve stenosis. Trace mitral regurgitation is present. Tricuspid Valve The tricuspid valve leaflets are thin and pliable. Trace tricuspid regurgitation. There is insufficient TR jet to estimate RVSP. Pulmonic Valve The pulmonary valve is grossly normal in structure. Trace pulmonic valve regurgitation is present. Great Vessels The aortic root is normal in size. IVC is normal in size and collapses >50% with inspiration. Pericardium Small sized, anterior pericardial effusion is present. No echo indications of tamponade. Other Information Study Quality: Technically Difficult Conclusion Normal LV systolic function. The right ventricle is not well-visualized, but grossly appears to be at least mildly dilated with at least mild reduction in RV function. No significant valvular stenosis or regurgitation. Small sized, anterior pericardial effusion is present. No echo indications of tamponade. Electronically signed by : Bridgett Guerrero MD 01/21/2025 11:29:27
[2025-01-17 13:00] LABS: Bilirubin,Urine Negative (Negative); Color,Urine YELLOW (Yellow); Glucose,Urine (UA) Negative (Negative); Ketones,Urine Negative (Negative); Leukocyte Esterase,Urine Negative (Negative); PH,Urine 7.0 (5.0-8.5); Protein,Urine Negative (Negative); Specific Gravity, Urine 1.010 (1.005-1.030); Urobilinogen,Urine 0.2 EU/dl (0.2)
[2025-01-17] MEDS: SODIUM CHLORIDE 3% 15ML NEB 3 ML IH (13:36)
[2025-01-17 13:38] LABS: Adenovirus,PCR Not Detected (NotDetected); Chlamydophila Pneumoniae, PCR Not Detected (NotDetected); Coronavirus 19, PCR Not Detected (NotDetected); Coronovirus HKU1,PCR Not Detected (NotDetected); Influenza A, PCR Not Detected (NotDetected); Influenza AH1, 2009 Not Detected (NotDetected); Influenza AH1, PCR Not Detected (NotDetected); Influenza AH3,PCR Not Detected (NotDetected); Influenza B, PCR Not Detected (NotDetected); Mycoplasma Pneumoniae, PCR Not Detected (NotDetected); Parainfluenza 1, PCR Not Detected (NotDetected); Parainfluenza 2, PCR Not Detected (NotDetected); Parainfluenza 3, PCR Not Detected (NotDetected); Parainfluenza 4, PCR Not Detected (NotDetected)
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
--- NOTE | 2025-01-17 14:33 | ECG_ITS ---
APPROVED REPORT Exam: Resting ECG HR:80 bpm ECG Measurements Heart Rate 80 AXES MN 121 P 77 QRSd 81 QRS 64 QT 360 T 70 QTc 396 Conclusion SINUS RHYTHM NORMAL ECG UNCONFIRMED REPORT Electronically signed by : Shawn Araya MD 01/18/2025 08:40:32
[2025-01-17 17:42] LABS: Vitamin B12 224 pg/mL (239-931)
[2025-01-17 18:26] LABS: Hematocrit 26.6 % (42.0-52.0)
[2025-01-17 18:35] LABS: Hemoglobin 8.7 g/dL (14.1-18.0)
[2025-01-17] MEDS: IPRATROPIUM/ALBUTEROL 3 ML NEB IH (18:55)
[2025-01-17] MEDS: VITAMIN B-12 1,000 MCG 1ML VIAL 1000 MCG IM (19:16)
[2025-01-17] MEDS: PANTOPRAZOLE 40MG TABLET 40 MG PO (20:11)
--- NOTE | 2025-01-17 21:00 | CT_ITS ---
PROCEDURE INFORMATION: Exam: CT Abdomen And Pelvis With Contrast Exam date and time: 01/17/2025 9:17 PM Age: 74 years old Clinical indication: Other: Sepsis workup TECHNIQUE: Imaging protocol: Computed tomography of the abdomen and pelvis with contrast. Radiation optimization: All CT scans at this facility use at least one of these dose optimization techniques: automated exposure control; mA and/or kV adjustment per patient size (includes targeted exams where dose is matched to clinical indication); or iterative reconstruction. Contrast material: ISOVUE; Contrast volume: 75 ml; Contrast route: IV; COMPARISON: CR XR PELVIS 1-2V 10/08/2024 2:01 PM FINDINGS: Tubes, catheters and devices: Pigtail clip appears at the descending duodenum. Lungs: Dependent bilateral lung base opacities favor atelectasis. Liver: Multiple hypoattenuating circumscribed structures of the liver compatible with simple hepatic cysts with the largest measuring 0.9 cm in diameter. Gallbladder and biliary ducts: Normal. No calcified stones. No ductal dilation. Pancreas: Normal. No ductal dilation. Spleen: Normal. No splenomegaly. Adrenal glands: Normal. No mass. Kidneys and ureters: Right distal ureteral calcific density compatible with ureterolith is related to mild right hydronephrosis and hydroureter and measures up to 9.0 mm. Stomach and bowel: Diverticula are scattered throughout the colon without inflammatory changes. Appendix: No evidence of appendicitis. Intraperitoneal space: Unremarkable. No free air. No significant fluid collection. Vasculature: Moderate mixed calcific and noncalcified atherosclerotic disease of the infrarenal abdominal aorta resulting in mild stenosis. Lymph nodes: Unremarkable. No enlarged lymph nodes. Urinary bladder: Unremarkable as visualized. Reproductive: Unremarkable as visualized. 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 Soft tissues: Normal. IMPRESSION: Mild right hydronephrosis and hydroureter related to right distal ureterolith as described above.
--- NOTE | 2025-01-17 21:01 | PC.NURSE ---
pt. went to Radiology at 9:02pm.
[2025-01-17] MEDS: SODIUM CHLORIDE 0.9% 10ML SYR (RAD ONLY) 10 ML IV (21:16)
[2025-01-17] MEDS: IOPAMIDOL-370 (76%);100ML BOTTLE 75 ML IV (21:16)
[2025-01-18] VITALS (17 sets, daily range): BP systolic 90–116; BP diastolic 48–84; PULSE 73–97; RESP 14–26; TEMP 36.8–37.1; O2SAT 90–94; BMI 19.9
[2025-01-18] MEDS: PIPERCILLIN/TAZO 3.375 GM in 0.9 % SODIUM CHLORIDE 50 ML IV ×3 (00:17→17:05)
[2025-01-18 00:37] LABS: Hematocrit 22.5 % (42.0-52.0)
[2025-01-18 00:59] LABS: Hemoglobin 7.5 g/dL (14.1-18.0)
[2025-01-18 05:49] LABS: Anion Gap 7.5 mEq/L (5-15); Blood Urea Nitrogen 20 mg/dl (9-20); Calcium 7.8 mg/dl (8.4-10.2); Carbon Dioxide 25 mmol/L (22.0-30.0); Chloride 100 mmol/L (98-107); Creatinine Clearance Estimated 33 mL/min (50-200); Creatinine,Serum 1.50 mg/dl (0.66-1.25); Estimated Glomerular Filt Rate 46 ml/min (>60); GFR (African American) 55 ML/MIN (>60); Glucose 81 mg/dl (74-100); Potassium 4.5 mmoL/L (3.5-5.1); Sodium 128 mmol/L (136-145)
[2025-01-18 06:11] LABS: Hematocrit 24.9 % (42.0-52.0); Hemoglobin 8.2 g/dL (14.1-18.0); Immature Granulocytes % 5.7 %; Mean Corpuscular HGB Conc 32.9 g/dL (31.8-35.4); Mean Corpuscular Hemoglobin 29.1 pg (27.0-31.2); Mean Corpuscular Volume 88.3 fl (80-94); Nucleated Red Blood Cells % 0 %; Platelet Count 295 K/mm3 (142-424); Red Blood Count 2.82 M/mm3 (4.60-6.20); Red Cell Distribution Width-SD 50.8 fL; White Blood Count 14.5 K/mm3 (4.8-10.8)
[2025-01-18 07:09] LABS: RBC Morphology Normal; Total Cells Counted 100
[2025-01-18 07:47] LABS: Folate 14.40 ng/mL
[2025-01-18] MEDS: PANTOPRAZOLE 40MG TABLET 40 MG PO ×2 (08:48→20:42)
[2025-01-18] MEDS: IRON SUCROSE COMPLEX 200 MG in 0.9 % SODIUM CHLORIDE 100 ML 220 MG IV (08:51)
--- NOTE | 2025-01-18 09:51 | PC.NURSE ---
CALLED REPORT TO ROBERTA ZAMORA
--- NOTE | 2025-01-18 10:10 | PC.NURSE ---
patient left the ICU via wheelchair @1010 to room 203 on medr
--- NOTE | 2025-01-18 10:17 | PC.NURSE ---
Pt. on the floor aox4 bed alarm active.
--- NOTE | 2025-01-18 11:22 | P.PN_ITS ---
Subjective *Date: 01/18/25 *Time: 11:24 Interval history: Still requiring supplemental oxygen today, currently on 3 L. Denies any fever. No nausea or vomiting. Had formed dark stool this morning. Tolerating full liquid diet Medical Exam Vital signs and Labs for Last 24 Hours: Vital Signs Temp Pulse Resp BP Pulse Ox O2 Del Method O2 Flow Rate 01/18/25 10:23 Nasal Cannula 3 01/18/25 09:10 Nasal Cannula 3 01/18/25 08:00 89 01/18/25 08:00 98.4 F 89 26 H 103/84 L 91 L Nasal Cannula 3 01/18/25 07:45 92 L Nasal Cannula 3 01/18/25 07:00 91 H 24 115/64 94 L Nasal Cannula 3 01/18/25 07:00 Nasal Cannula 3 01/18/25 06:30 81 22 94 L 01/18/25 06:00 79 22 99/54 L 93 L 01/18/25 05:00 80 21 107/48 L 94 L 01/18/25 05:00 Nasal Cannula 3 01/18/25 04:00 84 01/18/25 03:00 73 22 90/53 L 93 L 01/18/25 03:00 Nasal Cannula 3 01/18/25 02:00 74 20 101/57 L 93 L 01/18/25 01:00 96/50 L 01/18/25 01:00 79 22 94 L 01/18/25 01:00 Nasal Cannula 3 01/18/25 00:00 88 20 106/49 L 91 L 01/18/25 00:00 84 01/17/25 23:00 86 20 93/49 L 94 L 01/17/25 23:00 Nasal Cannula 3 01/17/25 22:06 67 27 H 105/62 L 93 L 01/17/25 21:36 101 H 20 82 L 01/17/25 21:00 87 24 93 L 01/17/25 21:00 80/38 L 01/17/25 21:00 Nasal Cannula 3 01/17/25 20:04 89 29 H 107/51 L 89 L 01/17/25 20:00 90 119/55 L 89 L 01/17/25 20:00 93 L Nasal Cannula 2 01/17/25 20:00 90 01/17/25 19:01 106/66 L 01/17/25 19:00 59 L 83 L 01/17/25 18:58 Nasal Cannula 2 01/17/25 18:55 87 01/17/25 18:55 84 01/17/25 18:50 Nasal Cannula 01/17/25 18:30 92 H 97 01/17/25 18:05 Nasal Cannula 96 01/17/25 18:01 84 97 01/17/25 18:00 104/58 L 01/17/25 17:59 83 96 01/17/25 17:30 85 94 L 01/17/25 17:29 Nasal Cannula 2 01/17/25 17:00 126/67 01/17/25 17:00 80 96 01/17/25 16:30 80 19 99 01/17/25 16:00 79 97 01/17/25 16:00 102/57 L 01/17/25 16:00 88 01/17/25 15:40 98.3 F 80 19 106/55 L 99 Nasal Cannula 2 01/17/25 15:39 106/55 L 01/17/25 15:39 81 98 01/17/25 15:30 83 98 01/17/25 15:09 Nasal Cannula 01/17/25 15:00 114/56 L 01/17/25 15:00 82 98 01/17/25 14:30 82 98 01/17/25 14:00 102/58 L 01/17/25 14:00 25 H 01/17/25 13:37 82 17 01/17/25 13:30 22 01/17/25 13:00 114/58 L 01/17/25 13:00 85 18 96 01/17/25 13:00 Nasal Cannula 01/17/25 12:39 98.1 F 01/17/25 12:30 83 20 95 01/17/25 12:00 82 24 101/49 L 94 L Nasal Cannula 2 01/17/25 12:00 74 01/17/25 11:30 98.2 F 74 20 92/48 L 94 L Intake and Output 01/17/25 01/18/25 01/18/25 23:59 07:59 15:59 Intake Total 440 / 1789.334 50 / 525 475 / 525 Output Total 650 / 1800 1100 / 1300 200 / 1300 Balance -210 / -10.666 -1050 / -775 275 / -775 Intake: Intake, Oral Amount 390 / 390 315 / 315 Intake, Total IV Amount 50 / 899.334 50 / 210 160 / 210 Iron Sucrose Complex 200 mg In 110 / 110 0.9 % Sodium Chloride 100 ml @ 220 mls/hr IV ONCE ONE Rx#: [id number] Pipercillin/Tazo 3.375 gm In 0. 50 / 100 50 / 100 50 / 100 9 % Sodium Chloride 50 ml @ 100 mls/hr IV Q8H [facility] Rx#:[id number] Output: Output, Urine Amount 650 / 1800 1100 / 1300 200 / 1300 Other: Number of Unmeasured Voids 0 0 Number of Bowel Movements 1 Weight 56.302 kg Patient Weight 01/18/25 23:59 Weight 56.302 kg Laboratory Results - last 24 hr 01/17/25 03:21: Crossmatch (AHG) See Detail 01/17/25 05:06: Ferritin 351 D, Vitamin B12 224 L 01/17/25 11:20: Urine Color Yellow, Urine Appearance Clear, Urine pH 7.0, Ur Specific [place] 1.010, Urine Protein Negative, Urine Glucose (UA) Negative, Urine Ketones Negative, Urine Blood Negative, Urine Nitrate Negative, Urine Bilirubin Negative, Urine Urobilinogen 0.2, Ur Leukocyte Esterase Negative, Urine RBC None, Urine WBC None, Ur Squamous Epith Cells None, Urine Bacteria None 01/17/25 12:10: Hgb 7.7 L D, Hct 23.5 L 01/17/25 13:31: Chlamy pneumoniae PCR Not detected, Adenovirus (PCR) Not detected, B. pertussis DNA (PCR) Not detected, Coronavirus OC43 (PCR) Not detected, Coronavirus HKU1 (PCR) Not detected, Coronavirus 229E (PCR) Not detected, SARS-CoV-2 (PCR) Not detected, Coronavirus NL63 (PCR) Not detected, Human Metapneumovir PCR Not detected, Influenza A (H1) PCR Not detected, Influ A (H1N1/09) PCR Not detected, Influenza A (H3) PCR Not detected, Influenza Type A (PCR) Not detected, Influenza Type B (PCR) Not detected, M. pneumoniae (PCR) Not detected, Parainfluenza 1 (PCR) Not detected, Parainfluenza 2 (PCR) Not detected, Parainfluenza 3 (PCR) Not detected, Parainfluenza 4 (PCR) Not detected, RSV (PCR) Not detected, Entero/Rhino (PCR) Not detected 01/17/25 18:11: Hgb 8.7 L D, Hct 26.6 L 01/18/25 00:28: Hgb 7.5 L D, Hct 22.5 L 01/18/25 04:19: WBC 14.5 H D, RBC 2.82 L D, Hgb 8.2 L, Hct 24.9 L, MCV 88.3, MCH 29.1, MCHC 32.9, RDW 16.3, Plt Count 295, MPV 9.7, Neut % (Auto) 74.0, Lymph % (Auto) 9.6 L, [place] % (Auto) 8.8, Eos % (Auto) 1.5, Baso % (Auto) 0.4, Neut # (Auto) 10.7 H, Lymph # (Auto) 1.4, [place] # (Auto) 1.3 H, Eos # (Auto) 0.2, Baso # (Auto) 0.1, Total Counted 100, Neutrophils % (Manual) 73, Band Neutrophils % 1.0, Lymphocytes % (Manual) 16, Monocytes % (Manual) 7, Eosinophils % (Manual) 3, Platelet Estimate Normal, RBC Morphology Normal, Sodium 128 L, Potassium 4.5, Chloride 100, Carbon Dioxide 25, Anion Gap 7.5, BUN 20, Creatinine 1.50 H, Estimated Creat Clear 33, Estimated GFR 46 L, Est GFR ( Amer) 55 L, Glucose 81, Calcium 7.8 L, Folate 14.40 I & O for Labs for Last 24 Hours: Intake & Output 01/15/25 01/16/25 01/17/25 01/18/25 23:59 23:59 23:59 23:59 Intake Total 1789.334 / 1789.334 525 / 525 Output Total 1450 / 1800 1300 / 1300 Balance 339.334 / -10.666 -775 / -775 Weight 56.302 kg 56.302 kg Microbiology Reports for the Last 24 Hours: Microbiology 01/17/25 05:06 Blood Blood Culture - Preliminary NO GROWTH AFTER 24 HOURS 01/17/25 05:06 Blood Blood Culture - Preliminary NO GROWTH AFTER 24 HOURS 01/17/25 21:49 Sputum - Expectorated Sputum Gram Stain - Final Constitutional: Present no acute distress, thin, chronically ill appearing and cooperative Head: Present atraumatic ENT: Present normal exam Respiratory: Present prolonged expiratory phase, rhonchi, crackles (Left lung base) and normal respiratory effort; Absent wheezes Cardiac: Present Reg Rate and Rhythm GI: Present soft and normal bowel sounds; Absent distention or tenderness Extremities: Present normal inspection and full ROM Skin: Present intact; Absent erythema Neuro: Present Grossly Intact, alert, awake, oriented x 3 and moves all extremities Assessment and Plan *Assessment and plan (1) Acute GI bleeding: Status: Acute Category: Medical Code(s): K92.2 - Gastrointestinal hemorrhage, unspecified (2) Duodenal ulcer: Status: Acute Category: Medical Code(s): K26.9 - Duodenal ulcer, unspecified as acute or chronic, without hemorrhage or perforation (3) Leukocytosis: Status: Acute Qualifiers: Leukocytosis type: unspecified Qualified Code(s): D72.829 - Elevated white blood cell count, unspecified Category: Medical Code(s): D72.829 - Elevated white blood cell count, unspecified (4) Hypocalcemia: Status: Acute Category: Medical Code(s): E83.51 - Hypocalcemia (5) CKD stage 3a, GFR 45-59 ml/min: Status: Chronic Category: Medical Code(s): N18.31 - Chronic kidney disease, stage 3a (6) Melanotic stools: Status: Acute Category: Medical Code(s): K92.1 - Melena (7) Hyponatremia: Status: Acute Category: Medical Code(s): E87.1 - Hypo-osmolality and hyponatremia (8) Pneumonia: Status: Acute Category: Medical Code(s): J18.9 - Pneumonia, unspecified organism Plan 74-year-old male who presents with worsening shortness of breath and recurrent black stools. Found to be more anemic. Was just discharged after having EGD performed identifying duodenal ulcer with visible vessel and clipping. Was monitored for 48 hours with stable hemoglobin at that time. Appears the clip has come off. GI evaluated, performed EGD yesterday. More aggressive clip placed this time. Will continue to monitor for at least 48 hours for any signs of active bleeding. Problems addressed as follows: Acute blood loss anemia secondary to upper GI bleed Duodenal ulcer with visible vessel - Hemoglobin stable this morning after transfusion and EGD. Level of 8.2. Receiving 200 mg IV Venofer today - Repeat x-ray on admission showed concern for new left lower lobe consolidation. - BUN 20, creatinine 1.5. - Repeat CBC, CMP, magnesium ordered for the morning. Transfusion threshold hemoglobin less than 7 - Continue pantoprazole 40 mg IV twice daily and misoprostol 200 mg every 6 hours Left lower lobe pneumonia Lung lesions COPD - Given the spiculated nature, concerning for neoplastic process. Currently following with pulmonology. Defer management to pulmonology as an outpatient. Continue supplemental oxygen as needed for goal sats greater 90%. Currently on 2 L -Concern for pneumonia this visit. White count showing improvement. Down to 14.5. -Continue Zosyn 3.375 g every 8 hours. - Former smoker. Risk for lung cancer, gastric cancer, COPD - DuoNebs every 6 hours as needed Blood pressure soft, hold lisinopril and propranolol at this time. Reevaluate tomorrow Hypocalcemia - Obtain PTH - Patient's low calcium started on last admission. Patient's hypocalcemia may be due to multiple transfusions of packed red blood cells. PRBCs has citrate and this product keeps blood products from coagulating. Citrate is known to bind to free calcium thus depleting serum levels of calcium -I suspect the patient may have continuation of hypocalcemia due to multiple transfusions in the future --Repeat calcium level ordered for the morning Hyponatremia - Sodium 128, chloride 100. Urine sodium pending. Repeat CBC, CMP, magnesium ordered for the morning Full code Anticoagulation contraindicated due to bleeding. VTE with SCDs Full liquid diet
--- NOTE | 2025-01-18 15:00 | SW/DCPLANNER ---
Addendum entered by Chantell Henry 01/18/25 15:06: Patient information/order has also been faxed to [facility] at family request for a bedside commode and small O2 (conserving device) tanks at home. Patient is currently established w/ [facility] for home oxygen. Original Note: Patient is currently established w/ [facility]. CM will fax updated patient information once medically stable for discharge. Per MD patient could possibly discharge home tomorrow 01/19. I have provided patient's family w/ [facility] [place] Private Sitter's list as well.
--- NOTE | 2025-01-18 15:15 | CARE MANAGER ---
Patient would benefit with a bedside commode r/t difficulty ambulating distance to bathroom safely.
[2025-01-19] VITALS (13 sets, daily range): BP systolic 104–121; BP diastolic 59–61; PULSE 82–101; RESP 14–18; TEMP 36.8–37.1; O2SAT 88–95; BMI 20.4
[2025-01-19] MEDS: PIPERCILLIN/TAZO 3.375 GM in 0.9 % SODIUM CHLORIDE 50 ML IV ×3 (00:16→16:14)
--- NOTE | 2025-01-19 06:51 | PC.NURSE ---
PT has slept over night. [place]c 3L o2, bed alarms on, scuds are on. No c/o pain or discomfort. CARLO ROMO RN
[2025-01-19 07:19] LABS: Nucleated Red Blood Cells % 0 %
[2025-01-19 07:27] LABS: Hematocrit 25.1 % (42.0-52.0); Hemoglobin 8.0 g/dL (14.1-18.0); Immature Granulocytes % 3.8 %; Mean Corpuscular HGB Conc 31.9 g/dL (31.8-35.4); Mean Corpuscular Hemoglobin 28.6 pg (27.0-31.2); Mean Corpuscular Volume 89.6 fl (80-94); Platelet Count 335 K/mm3 (142-424); Red Blood Count 2.80 M/mm3 (4.60-6.20); Red Cell Distribution Width-SD 49.1 fL; White Blood Count 15.4 K/mm3 (4.8-10.8)
[2025-01-19 07:39] LABS: Alanine Aminotransferase 13 U/L (12-78); Albumin Level 2.7 g/dl (3.5-5.0); Albumin/Globulin Ratio 1.2 (1.1-1.8); Alkaline Phosphatase 129 U/L (38-126); Anion Gap 9.1 mEq/L (5-15); Aspartate Amino Transferase 19 U/L (17-59); Bilirubin,Total 0.7 mg/dl (0.2-1.3); Blood Urea Nitrogen 16 mg/dl (9-20); Calcium 7.7 mg/dl (8.4-10.2); Carbon Dioxide 23 mmol/L (22.0-30.0); Chloride 100 mmol/L (98-107); Creatinine Clearance Estimated 37 mL/min (50-200); Creatinine,Serum 1.40 mg/dl (0.66-1.25); Estimated Glomerular Filt Rate 49 ml/min (>60); GFR (African American) 60 ML/MIN (>60); Globulin 2.3 g/dL (1.3-3.2); Glucose 82 mg/dl (74-100); Magnesium 1.9 mg/dl (1.6-2.3); Potassium 4.1 mmoL/L (3.5-5.1); Sodium 128 mmol/L (136-145); Total Protein,Serum 5.0 g/dl (6.3-8.2)
[2025-01-19 08:44] LABS: RBC Morphology Normal; Total Cells Counted 100
[2025-01-19] MEDS: CALCIUM GLUC IN NACL, ISO-OSM 2 GM/100 ML BAG IV (09:45)
[2025-01-19] MEDS: PANTOPRAZOLE 40MG TABLET 40 MG PO ×2 (09:45→20:24)
[2025-01-19] MEDS: IPRATROPIUM/ALBUTEROL 3 ML NEB IH ×3 (12:26→22:59)
--- NOTE | 2025-01-19 15:06 | P.PN_ITS ---
Subjective *Date: 01/19/25 *Time: 15:11 Interval history: Denies any further melenic stools. Stable on 3 L oxygen. No nausea or vomiting. Tolerating p.o. intake. Kidney function stable. Hemoglobin stable. States he is feeling somewhat better with the antibiotics over the past 48 hour s. Still having rhonchorous cough Medical Exam Vital signs and Labs for Last 24 Hours: Vital Signs Temp Pulse Pulse Resp BP Pulse Ox O2 Del Method 01/19/25 13:00 Nasal Cannula 01/19/25 12:27 87 01/19/25 12:27 90 01/19/25 12:27 90 L Nasal Cannula 01/19/25 12:00 90 01/19/25 11:49 98.2 F 91 H 16 104/61 L 94 L Nasal Cannula 01/19/25 11:00 Nasal Cannula 01/19/25 09:00 Nasal Cannula 01/19/25 08:00 Room Air 01/19/25 08:00 90 01/19/25 07:43 98.4 F 86 18 121/59 L 95 Nasal Cannula 01/19/25 05:00 Nasal Cannula 01/19/25 04:00 98.4 F 93 H 14 119/60 93 L Room Air 01/19/25 04:00 85 01/19/25 03:00 Nasal Cannula 01/19/25 00:00 90 01/18/25 23:50 98.4 F 95 H 16 108/66 L 94 L Nasal Cannula 01/18/25 21:00 Nasal Cannula 01/18/25 20:00 94 L Nasal Cannula 01/18/25 20:00 85 01/18/25 19:37 98.6 F 90 14 112/62 92 L Nasal Cannula 01/18/25 18:03 Nasal Cannula 01/18/25 16:13 Nasal Cannula 01/18/25 16:00 87 01/18/25 16:00 98.3 F 86 14 116/63 94 L Nasal Cannula O2 Flow Rate 01/19/25 13:00 3 01/19/25 12:27 01/19/25 12:27 01/19/25 12:27 3 01/19/25 12:00 01/19/25 11:49 3 01/19/25 11:00 3 01/19/25 09:00 3 01/19/25 08:00 3 01/19/25 08:00 01/19/25 07:43 3 01/19/25 05:00 3 01/19/25 04:00 01/19/25 04:00 01/19/25 03:00 3 01/19/25 00:00 01/18/25 23:50 3 01/18/25 21:00 3 01/18/25 20:00 3 01/18/25 20:00 01/18/25 19:37 3 01/18/25 18:03 3 01/18/25 16:13 3 01/18/25 16:00 01/18/25 16:00 3 Intake and Output 01/18/25 01/19/25 01/19/25 23:59 07:59 15:59 Intake Total 930 / 1715 290 / 1020 730 / 1020 Output Total 450 / 2100 450 / 800 350 / 800 Balance 480 / -385 -160 / 220 380 / 220 Intake: Intake, Oral Amount 880 / 1455 240 / 820 580 / 820 Intake, Total IV Amount 50 / 260 50 / 200 150 / 200 Calcium Gluc in NaCl, Iso-Osm 2 100 / 100 gm In 100 ml @ 50 mls/hr IV ONCE ONE Rx#:[id number] Pipercillin/Tazo 3.375 gm In 0. 50 / 150 50 / 100 50 / 100 9 % Sodium Chloride 50 ml @ 100 mls/hr IV Q8H [facility] Rx#:[id number] Output: Output, Urine Amount 450 / 2100 450 / 800 350 / 800 Other: Number of Unmeasured Voids 0 0 0 Weight 57.606 kg 57.606 kg Patient Weight 01/19/25 23:59 Weight 57.606 kg Laboratory Results - last 24 hr 01/19/25 06:20: WBC 15.4 H, RBC 2.80 L, Hgb 8.0 L, Hct 25.1 L, MCV 89.6, MCH 28.6, MCHC 31.9, RDW 15.6, Plt Count 335, MPV 9.5, Neut % (Auto) 80.2 H, Lymph % (Auto) 6.4 L, [place] % (Auto) 7.8, Eos % (Auto) 1.6, Baso % (Auto) 0.2, Neut # (Auto) 12.4 H, Lymph # (Auto) 1.0, [place] # (Auto) 1.2 H, Eos # (Auto) 0.3, Baso # (Auto) 0.0, Total Counted 100, Neutrophils % (Manual) 81 H, Lymphocytes % (Manual) 9 L, Monocytes % (Manual) 6, Eosinophils % (Manual) 3, Basophils % (Manual) 1.0, Platelet Estimate Normal, RBC Morphology Normal, Sodium 128 L, Potassium 4.1, Chloride 100, Carbon Dioxide 23, Anion Gap 9.1, BUN 16, Creatinine 1.40 H, Estimated Creat Clear 37, Estimated GFR 49 L, Est GFR ( Amer) 60, Glucose 82, Calcium 7.7 L, Magnesium 1.9, Total Bilirubin 0.7, AST 19, ALT 13, Alkaline Phosphatase 129 H, Total Protein 5.0 L, Albumin 2.7 L, Globulin 2.3, Albumin/Globulin Ratio 1.2 I & O for Labs for Last 24 Hours: Intake & Output 01/16/25 01/17/25 01/18/25 01/19/25 23:59 23:59 23:59 23:59 Intake Total 1789.334 / 7156.622 8326 / 1715 1020 / 1020 Output Total 1450 / 1800 2100 / 2100 800 / 800 Balance 339.334 / -10.666 -505 / -385 220 / 220 Weight 56.302 kg 56.302 kg 57.606 kg Microbiology Reports for the Last 24 Hours: Microbiology 01/17/25 21:49 Sputum - Expectorated Sputum Gram Stain - Final 01/17/25 21:49 Sputum - Expectorated Sputum Sputum Culture - Final 01/17/25 05:06 Blood Blood Culture - Preliminary NO GROWTH AFTER 48 HOURS 01/17/25 05:06 Blood Blood Culture - Preliminary NO GROWTH AFTER 48 HOURS Constitutional: Present no acute distress, thin, chronically ill appearing and cooperative Head: Present atraumatic ENT: Present normal exam Respiratory: Present prolonged expiratory phase, rhonchi, crackles (Left lung base) and normal respiratory effort; Absent wheezes Cardiac: Present Reg Rate and Rhythm GI: Present soft and normal bowel sounds; Absent distention or tenderness Extremities: Present normal inspection and full ROM Skin: Present intact; Absent erythema Neuro: Present Grossly Intact, alert, awake, oriented x 3 and moves all extremities Assessment and Plan *Assessment and plan (1) Acute GI bleeding: Status: Acute Category: Medical Code(s): K92.2 - Gastrointestinal hemorrhage, unspecified (2) Duodenal ulcer: Status: Acute Category: Medical Code(s): K26.9 - Duodenal ulcer, unspecified as acute or chronic, without hemorrhage or perforation (3) Leukocytosis: Status: Acute Qualifiers: Leukocytosis type: unspecified Qualified Code(s): D72.829 - Elevated white blood cell count, unspecified Category: Medical Code(s): D72.829 - Elevated white blood cell count, unspecified (4) Hypocalcemia: Status: Acute Category: Medical Code(s): E83.51 - Hypocalcemia (5) CKD stage 3a, GFR 45-59 ml/min: Status: Chronic Category: Medical Code(s): N18.31 - Chronic kidney disease, stage 3a (6) Melanotic stools: Status: Acute Category: Medical Code(s): K92.1 - Melena (7) Hyponatremia: Status: Acute Category: Medical Code(s): E87.1 - Hypo-osmolality and hyponatremia (8) Pneumonia: Status: Acute Category: Medical Code(s): J18.9 - Pneumonia, unspecified organism Plan 74-year-old male who presents with worsening shortness of breath and recurrent black stools. Found to be more anemic. Was just discharged after having EGD performed identifying duodenal ulcer with visible vessel and clipping. Was monitored for 48 hours with stable hemoglobin at that time. Appears the clip has come off. GI evaluated, performed EGD 01/17. More aggressive clip placed this time. Will continue to monitor for at least 48 hours for any signs of active bleeding. Problems addressed as follows: Acute blood loss anemia secondary to upper GI bleed Duodenal ulcer with visible vessel - Hemoglobin stable this morning after transfusion and EGD. Level of 8.0. - Repeat CBC, CMP, magnesium ordered for the morning. -Kidney function stable with BUN 16, creatinine 1.4. Continue pantoprazole 40 mg IV twice daily and misoprostol 200 mg every 6 hours - If hemoglobin remains stable tomorrow, will consider discharge home Left lower lobe pneumonia Lung lesions COPD - Given the spiculated nature, concerning for neoplastic process. Currently following with pulmonology. Defer management to pulmonology as an outpatient. -Concern for pneumonia this visit. White count flat at 15. Stable oxygen requirement of 2 to 3 L, wean as tolerated for goal sats greater 90%. Showing improvement. Down to 14.5. -Continue Zosyn 3.375 g every 8 hours. - Former smoker. Risk for lung cancer, gastric cancer, COPD - DuoNebs every 6 hours as needed Blood pressure soft at 104/61. Heart rate normal at 87. hold lisinopril and propranolol at this time. Reevaluate tomorrow Hypocalcemia - Patient's low calcium started on last admission. Patient's hypocalcemia may be due to multiple transfusions of packed red blood cells. PRBCs has citrate and this product keeps blood products from coagulating. Citrate is known to bind to free calcium thus depleting serum levels of calcium -Calcium 7.7, replaced 1 g calcium gluconate today IV. Hyponatremia - Sodium stable at 128, chloride 100. Potassium 4.1. Monitor for improvement with dietary supplementation Full code Anticoagulation contraindicated due to bleeding. VTE with SCDs Advance to regular diet
--- NOTE | 2025-01-19 18:43 | PC.NURSE ---
pt resting supine at this time. requiring 3LNC to maintain sats >90%. abx given per jun. no complaints of pain. no needs at this time. call light within reach.
--- NOTE | 2025-01-19 19:37 | EXP.EVENT.NO ---
pt with hypoxia on #L O2sat in low 80's pt O2 increased to 4-5L and ordered ALB PRN breathing Tx. low threshold to order ABG/pCXR if Resp status worsens.
--- NOTE | 2025-01-19 23:49 | XR_ITS ---
PROCEDURE INFORMATION: Exam: XR Chest Exam date and time: 01/20/2025 12:43 AM Age: 74 years old Clinical indication: Shortness of breath and other: Hypoxia; PT states he has 2 nodes on his left lung; Additional info: Sob/hypoxia TECHNIQUE: Imaging protocol: Radiologic exam of the chest. Views: 1 view. COMPARISON: CR XR CHEST PORTABLE 01/17/2025 8:02 AM FINDINGS: Lungs: Multiple stable left-sided pulmonary nodules, unchanged from recent chest CT 01/02/2025. No new process identified. Pleural spaces: Unremarkable. No pleural effusion. No pneumothorax. Heart/Mediastinum: Unremarkable. No cardiomegaly. Bones/joints: Unremarkable. IMPRESSION: Multiple stable left-sided pulmonary nodules. No new process identified.
--- NOTE | 2025-01-19 23:50 | PC.NURSE ---
Addendum entered by Karrie May RN 01/20/25 05:31: Respiratory is at bedside obtaining second ABG lab draw. Addendum entered by Karrie May RN 01/20/25 01:33: Callum Fernandez MD is aware of ABG results. Venturi mask 50% oxygen/15 L of oxygen flow was placed onto the patient by Brigid CAMERON at this time; oxygen saturations increased to 98% after placement. Patient verbalized an understanding of the Venturi mask placement, and he remains without any apparent distress at this time. Addendum entered by Karrie May RN 01/20/25 01:14: Respiratory is at bedside obtaining ABG lab draw. Addendum entered by Karrie May RN 01/20/25 00:43: Radiology is at bedside performing chest X-ray. Addendum entered by Karrie May RN 01/20/25 00:40: Patient's oxygen saturations are currently 93% on 6 L of oxygen via nasal cannula. Respiratory was previously notified about ABG lab draw. Original Note: Since 19:40 this shift, the patient has been maintaining oxygen saturations > 90% on 5 L of oxygen via nasal cannula (see provider notification at 19:33 for details prior to increasing oxygen flow). At around 23:38, the patient's oxygen saturations started to decrease again into the mid 80s (between 84% and 87%); oxygen flow was increased to 6 L. Oxygen saturations maintained between 87% and 88%. Patient denies symptoms of respiratory distress (no feelings of shortness of breath, difficulties inhaling/exhaling, no audible/auscultated wheezing, no labored respirations); he was observed to be resting in bed with eyes closed prior to taking his vital sign assessment (due for midnight). Callum Fernandez MD was paged at 23:50 about this. He stated that he will order a chest X-ray and ABG lab draw STAT.
[2025-01-20] VITALS (18 sets, daily range): BP systolic 97–117; BP diastolic 50–62; PULSE 80–100; RESP 14–20; TEMP 36.4–37.3; O2SAT 85–97; BMI 19.9
[2025-01-20] MEDS: PIPERCILLIN/TAZO 3.375 GM in 0.9 % SODIUM CHLORIDE 50 ML IV ×3 (00:07→15:30)
[2025-01-20 01:21] LABS: ABG HCO3 21.6 mmhg (22.0-26.0); ABG PCO2 27.9 mmhg (35.0-45.0); ABG PH 7.51 mmol/L (7.35-7.45); ABG PO2 52.4 mmhg (80-100); ABG TCO2 22.5 mmhg (23-27)
[2025-01-20 01:22] LABS: Source Right Radial
--- NOTE | 2025-01-20 04:00 | PC.NURSE ---
Patient is pleasantly alert and oriented x4. He was observed to be resting in bed with eyes closed, respirations even and unlabored, and no apparent distress throughout the majority of the night. He remains on a Venturi mask (50%/15 L) with oxygen saturations > 90% (98% to 99%). Additional interventions, chest X-ray and ABG lab collections, were performed this shift due to hypoxemia and decreased oxygen saturations. He has not had any complaints of shortness of breath, labored breathing, dizziness, lightheadedness, etc. this shift. Upon assessment, he stated that he feels much better. Lungs sounds were clear upon auscultation, does report a loose cough. On telemetry + continuous pulse ox. SCDs for VTE prophylaxis. Abdomen is soft and nontender upon palpation, active bowel sounds heard. He has tolerated a regular diet well; no complaints of nausea/vomiting or difficulties with chewing/swallowing. No bowel movement this shift. Urinal at bedside for voiding needs. Scheduled medications were administered as appropriately per MAR. Breathing treatments given by RTs. Soft blood pressures noted. At this time, the patient is resting in bed without any further complaints. No new needs thus far. Bed alarm on. Call light within reach.
[2025-01-20] MEDS: IPRATROPIUM/ALBUTEROL 3 ML NEB IH ×4 (05:33→23:50)
--- NOTE | 2025-01-20 05:33 | PC.NURSE ---
Found pt on room air, oxygen was 85%. Pt stated he did not want to wear the venturi mask anymore, applied 6L NC and oxygen recovered to 92%.
[2025-01-20 05:58] LABS: ABG HCO3 20.9 mmhg (22.0-26.0); ABG PCO2 25.6 mmhg (35.0-45.0); ABG PH 7.53 mmol/L (7.35-7.45); ABG PO2 68.3 mmhg (80-100); ABG TCO2 21.6 mmhg (23-27)
[2025-01-20 05:59] LABS: Source Left Radial
[2025-01-20 06:46] LABS: Hematocrit 24.6 % (42.0-52.0); Hemoglobin 8.0 g/dL (14.1-18.0); Immature Granulocytes % 3.4 %; Mean Corpuscular HGB Conc 32.5 g/dL (31.8-35.4); Mean Corpuscular Hemoglobin 29.4 pg (27.0-31.2); Mean Corpuscular Volume 90.4 fl (80-94); Nucleated Red Blood Cells % 0 %; Platelet Count 320 K/mm3 (142-424); Red Blood Count 2.72 M/mm3 (4.60-6.20); Red Cell Distribution Width-SD 50.4 fL; White Blood Count 12.8 K/mm3 (4.8-10.8)
[2025-01-20] MEDS: MAGNESIUM SULFATE IN WATER 2 GM/50 ML PIGGYBACK IV (06:50)
[2025-01-20 07:00] LABS: Alanine Aminotransferase 13 U/L (12-78); Albumin Level 2.6 g/dl (3.5-5.0); Albumin/Globulin Ratio 1.1 (1.1-1.8); Alkaline Phosphatase 121 U/L (38-126); Anion Gap 9.0 mEq/L (5-15); Aspartate Amino Transferase 18 U/L (17-59); Bilirubin,Total 0.6 mg/dl (0.2-1.3); Blood Urea Nitrogen 12 mg/dl (9-20); Calcium 7.8 mg/dl (8.4-10.2); Carbon Dioxide 25 mmol/L (22.0-30.0); Chloride 101 mmol/L (98-107); Creatinine Clearance Estimated 33 mL/min (50-200); Creatinine,Serum 1.50 mg/dl (0.66-1.25); Estimated Glomerular Filt Rate 46 ml/min (>60); GFR (African American) 55 ML/MIN (>60); Globulin 2.4 g/dL (1.3-3.2); Glucose 103 mg/dl (74-100); Potassium 4.0 mmoL/L (3.5-5.1); Sodium 131 mmol/L (136-145); Total Protein,Serum 5.0 g/dl (6.3-8.2)
[2025-01-20 07:11] LABS: Magnesium 1.8 mg/dl (1.6-2.3)
[2025-01-20] MEDS: PANTOPRAZOLE 40MG TABLET 40 MG PO ×2 (08:08→20:37)
--- NOTE | 2025-01-20 08:21 | PC.NURSE ---
pt requiring 6LNC overnight to maintain sats >90%. pt RA sat at rest 87% this morning. pt placed on 3LNC and sats 92-94%. pt ambulated halls 50 ft on 3LNC and sats dropped to 74%. pt O2 turned up to 6LNC while ambulating to maintain sats >90%. pt now on 4LNC at rest to maintain sats 90-92%.
--- NOTE | 2025-01-20 10:10 | CT_ITS ---
PROCEDURE INFORMATION: Exam: CTA Chest With Contrast Exam date and time: 01/20/2025 11:00 AM Age: 74 years old Clinical indication: Other: Worsening SOA, lung nodule, risk for clots TECHNIQUE: Imaging protocol: Computed tomographic angiography of the chest with contrast. Exam focused on the arteries. 3D rendering (Not supervised by radiologist): MIP and/or 3D reconstructed images were created by the technologist. Radiation optimization: All CT scans at this facility use at least one of these dose optimization techniques: automated exposure control; mA and/or kV adjustment per patient size (includes targeted exams where dose is matched to clinical indication); or iterative reconstruction. Contrast material: ISO 370; Contrast volume: 70 ml; Contrast route: INTRAVENOUS (IV); COMPARISON: CT CHEST WO/W CON 01/02/2025 10:06 AM FINDINGS: Pulmonary arteries: No evidence of pulmonary embolus to the segmental level. Aorta: No aneurysm of the aorta. No dissection of the aorta. Lungs: Stable spiculated mass in the left upper lobe . Stable spiculated mass in the superior segment of the left lower lobe. Stable additional spiculated density in the left upper lobe. Findings consistent with malignancy. Patchy bilateral ground-glass opacities may represent multifocal pneumonia.. Pleural spaces: New pleural based opacities in the left lower lobe (series 5, image 60 --72). May represent metastatic disease. . Heart: Unremarkable. No cardiomegaly. No pericardial effusion. Lymph nodes: Unremarkable. No enlarged lymph nodes. Liver: The liver is stable in appearance Kidneys: Inflammatory changes around the right kidney. Patchy attenuation of the right kidney. Findings could indicate infection/pyelonephritis. Bones/joints: Unremarkable. No acute fracture. Soft tissues: Unremarkable. IMPRESSION: 1. No evidence of pulmonary embolus to the segmental level. 2. Stable spiculated mass in the left upper lobe . Stable spiculated mass in the superior segment of the left lower lobe. Stable additional spiculated density in the left upper lobe. Findings consistent with malignancy. 3. New pleural based opacities in the left lower lobe (series 5, image 60 --72). May represent metastatic disease. . 4. Patchy bilateral ground-glass opacities may represent multifocal pneumonia.. 5. Inflammatory changes around the right kidney. Patchy attenuation of the right kidney. Findings could indicate infection/pyelonephritis.
--- NOTE | 2025-01-20 10:27 | P.PN_ITS ---
Subjective *Date: 01/20/25 *Time: 10:27 Medical Exam Vital signs and Labs for Last 24 Hours: Vital Signs Temp Pulse Pulse Resp BP Pulse Ox O2 Del Method 01/20/25 09:00 Nasal Cannula 01/20/25 08:10 87 L Room Air 01/20/25 08:00 100 H 01/20/25 08:00 Nasal Cannula 01/20/25 07:43 99.1 F 85 16 117/62 93 L Nasal Cannula 01/20/25 07:00 Nasal Cannula 01/20/25 05:35 83 01/20/25 05:35 81 01/20/25 05:35 92 L Nasal Cannula 01/20/25 05:00 Venturi Mask 01/20/25 04:00 90 01/20/25 04:00 97.7 F 80 14 104/54 L 97 Venturi Mask 01/20/25 03:00 Venturi Mask 01/20/25 01:00 Nasal Cannula 01/20/25 00:40 93 L Nasal Cannula 01/20/25 00:00 90 01/20/25 00:00 98.4 F 95 H 14 102/50 L 87 L Nasal Cannula 01/19/25 23:53 83 01/19/25 23:53 84 01/19/25 23:00 Nasal Cannula 01/19/25 21:00 Nasal Cannula 01/19/25 20:00 93 L Nasal Cannula 01/19/25 20:00 90 01/19/25 20:00 98.7 F 101 H 16 105/59 L 88 L Nasal Cannula 01/19/25 19:40 90 L Nasal Cannula 01/19/25 19:06 88 01/19/25 19:06 82 01/19/25 19:05 Nasal Cannula 01/19/25 18:33 Nasal Cannula 01/19/25 17:00 Nasal Cannula 01/19/25 16:00 93 H 01/19/25 16:00 95 Nasal Cannula 01/19/25 15:51 98.7 F 95 H 16 118/59 L 90 L Nasal Cannula 01/19/25 15:00 Nasal Cannula 01/19/25 13:00 Nasal Cannula 01/19/25 12:27 87 01/19/25 12:27 90 01/19/25 12:27 90 L Nasal Cannula 01/19/25 12:00 90 01/19/25 11:49 98.2 F 91 H 16 104/61 L 94 L Nasal Cannula 01/19/25 11:00 Nasal Cannula O2 Flow Rate FiO2 01/20/25 09:00 4 01/20/25 08:10 01/20/25 08:00 01/20/25 08:00 4 01/20/25 07:43 6 01/20/25 07:00 6 01/20/25 05:35 01/20/25 05:35 01/20/25 05:35 6 01/20/25 05:00 15 01/20/25 04:00 01/20/25 04:00 15 01/20/25 03:00 15 01/20/25 01:00 6 01/20/25 00:40 6 01/20/25 00:00 01/20/25 00:00 6 01/19/25 23:53 01/19/25 23:53 01/19/25 23:00 5 01/19/25 21:00 5 01/19/25 20:00 5 01/19/25 20:00 01/19/25 20:00 4 01/19/25 19:40 5 01/19/25 19:06 01/19/25 19:06 01/19/25 19:05 3 32 01/19/25 18:33 3 01/19/25 17:00 3 01/19/25 16:00 01/19/25 16:00 3 01/19/25 15:51 4 01/19/25 15:00 3 01/19/25 13:00 3 01/19/25 12:27 01/19/25 12:27 01/19/25 12:27 3 01/19/25 12:00 01/19/25 11:49 3 01/19/25 11:00 3 Intake and Output 01/19/25 01/20/25 01/20/25 23:59 07:59 15:59 Intake Total 560 / 1680 250 / 570 320 / 570 Output Total 350 / 350 Balance 560 / 880 -100 / 220 320 / 220 Intake: Intake, Oral Amount 510 / 1430 200 / 420 220 / 420 Intake, Total IV Amount 50 / 250 50 / 150 100 / 150 Magnesium Sulfate in Water 2 gm 50 / 50 In 50 ml @ 50 mls/hr IV ONCE ONE Rx#:[id number] Pipercillin/Tazo 3.375 gm In 0. 50 / 150 50 / 100 50 / 100 9 % Sodium Chloride 50 ml @ 100 mls/hr IV Q8H [facility] Rx#:[id number] Output: Output, Urine Amount 350 / 350 Other: Number of Unmeasured Voids 0 Weight 56.291 kg Patient Weight 01/20/25 23:59 Weight 56.291 kg Laboratory Results - last 24 hr 01/19/25 23:49: Specimen Source Right radial, O2 % 3, ABG pH 7.51 H, ABG pCO2 27.9 L, ABG pO2 52.4 L, ABG HCO3 21.6 L, ABG Total CO2 22.5 L, ABG O2 Saturation 88 L, ABG Base Excess -1.5, Bernabe Test Y 01/20/25 05:03: Specimen Source Left radial, O2 % 6l, ABG pH 7.53 H, ABG pCO2 25.6 L, ABG pO2 68.3 L, ABG HCO3 20.9 L, ABG Total CO2 21.6 L, ABG O2 Saturation 93, ABG Base Excess -1.8, Bernabe Test Acceptable 01/20/25 06:35: WBC 12.8 H, RBC 2.72 L, Hgb 8.0 L, Hct 24.6 L, MCV 90.4, MCH 29.4, MCHC 32.5, RDW 15.6, Plt Count 320, MPV 9.1, Neut % (Auto) 80.0, Lymph % (Auto) 6.9 L, [place] % (Auto) 8.3, Eos % (Auto) 1.2, Baso % (Auto) 0.2, Neut # (Auto) 10.2 H, Lymph # (Auto) 0.9, [place] # (Auto) 1.1 H, Eos # (Auto) 0.2, Baso # (Auto) 0.0, Sodium 131 L, Potassium 4.0, Chloride 101, Carbon Dioxide 25, Anion Gap 9.0, BUN 12, Creatinine 1.50 H, Estimated Creat Clear 33, Estimated GFR 46 L , Est GFR ( Amer) 55 L, Glucose 103 H, Calcium 7.8 L, Magnesium 1.8, Total Bilirubin 0.6, AST 18, ALT 13, Alkaline Phosphatase 121, Total Protein 5.0 L, Albumin 2.6 L, Globulin 2.4, Albumin/Globulin Ratio 1.1 I & O for Labs for Last 24 Hours: Intake & Output 01/17/25 01/18/25 01/19/25 01/20/25 23:59 23:59 23:59 23:59 Intake Total 1789.334 / 7201.349 9281 / 1715 1580 / 1680 570 / 570 Output Total 1450 / 1800 2100 / 2100 800 / 800 350 / 350 Balance 339.334 / -10.666 -505 / -385 780 / 880 220 / 220 Weight 56.302 kg 56.302 kg 57.606 kg 56.291 kg Microbiology Reports for the Last 24 Hours: Microbiology 01/17/25 21:49 Sputum - Expectorated Sputum Gram Stain - Final 01/17/25 21:49 Sputum - Expectorated Sputum Sputum Culture - Final The patient's infection will respond to the chosen ABx?: Yes Is the patient receiving the right drug, dose, and route?: Yes Could a more targeted ABx be ordered?: No (WBC DECREASED. NORMAL SOLANGE IN SPUTUM CX.)
[2025-01-20] MEDS: SODIUM CHLORIDE 0.9% 10ML SYR (RAD ONLY) 10 ML IV (10:59)
[2025-01-20] MEDS: IOPAMIDOL-370 (76%);100ML BOTTLE 70 ML IV (10:59)
[2025-01-20] MEDS: 0.9 % SODIUM CHLORIDE 50 ML VIAL IV (10:59)
--- NOTE | 2025-01-20 11:04 | PC.NURSE ---
patient left floor at 10:55 for radiology and returned at 11:04
[2025-01-20] MEDS: ACETAMINOPHEN 325MG TAB 650 MG PO (11:51)
[2025-01-20] MEDS: HYDROCODONE/APAP 5/325 MG TABLET 1 TAB PO ×2 (11:51→16:10)
--- NOTE | 2025-01-20 12:45 | P.PN_ITS ---
Subjective *Date: 01/20/25 *Time: 12:45 Interval history: Feeling more short of breath today and complaining of left chest wall pain. Necessitating 4 L oxygen today for sats in the mid 90s. No nausea or vomiting. No active signs of bleeding or black stool. Family bedside on rounds Medical Exam Vital signs and Labs for Last 24 Hours: Vital Signs Temp Pulse Pulse Resp BP Pulse Ox O2 Del Method 01/20/25 12:00 98.6 F 94 H 16 104/56 L 94 L Nasal Cannula 01/20/25 09:00 Nasal Cannula 01/20/25 08:10 87 L Room Air 01/20/25 08:00 100 H 01/20/25 08:00 Nasal Cannula 01/20/25 07:43 99.1 F 85 16 117/62 93 L Nasal Cannula 01/20/25 07:00 Nasal Cannula 01/20/25 05:35 83 01/20/25 05:35 81 01/20/25 05:35 92 L Nasal Cannula 01/20/25 05:00 Venturi Mask 01/20/25 04:00 90 01/20/25 04:00 97.7 F 80 14 104/54 L 97 Venturi Mask 01/20/25 03:00 Venturi Mask 01/20/25 01:00 Nasal Cannula 01/20/25 00:40 93 L Nasal Cannula 01/20/25 00:00 90 01/20/25 00:00 98.4 F 95 H 14 102/50 L 87 L Nasal Cannula 01/19/25 23:53 83 01/19/25 23:53 84 01/19/25 23:00 Nasal Cannula 01/19/25 21:00 Nasal Cannula 01/19/25 20:00 93 L Nasal Cannula 01/19/25 20:00 90 01/19/25 20:00 98.7 F 101 H 16 105/59 L 88 L Nasal Cannula 01/19/25 19:40 90 L Nasal Cannula 01/19/25 19:06 88 01/19/25 19:06 82 01/19/25 19:05 Nasal Cannula 01/19/25 18:33 Nasal Cannula 01/19/25 17:00 Nasal Cannula 01/19/25 16:00 93 H 01/19/25 16:00 95 Nasal Cannula 01/19/25 15:51 98.7 F 95 H 16 118/59 L 90 L Nasal Cannula 01/19/25 15:00 Nasal Cannula 01/19/25 13:00 Nasal Cannula O2 Flow Rate FiO2 01/20/25 12:00 4 01/20/25 09:00 4 01/20/25 08:10 01/20/25 08:00 01/20/25 08:00 4 01/20/25 07:43 6 01/20/25 07:00 6 01/20/25 05:35 01/20/25 05:35 01/20/25 05:35 6 01/20/25 05:00 15 01/20/25 04:00 01/20/25 04:00 15 01/20/25 03:00 15 01/20/25 01:00 6 01/20/25 00:40 6 01/20/25 00:00 01/20/25 00:00 6 01/19/25 23:53 01/19/25 23:53 01/19/25 23:00 5 01/19/25 21:00 5 01/19/25 20:00 5 01/19/25 20:00 01/19/25 20:00 4 01/19/25 19:40 5 01/19/25 19:06 01/19/25 19:06 01/19/25 19:05 3 32 01/19/25 18:33 3 01/19/25 17:00 3 01/19/25 16:00 01/19/25 16:00 3 01/19/25 15:51 4 01/19/25 15:00 3 01/19/25 13:00 3 Intake and Output 01/19/25 01/20/25 01/20/25 23:59 07:59 15:59 Intake Total 560 / 1680 250 / 570 320 / 570 Output Total 350 / 375 25 / 375 Balance 560 / 880 -100 / 195 295 / 195 Intake: Intake, Oral Amount 510 / 1430 200 / 420 220 / 420 Intake, Total IV Amount 50 / 250 50 / 150 100 / 150 Magnesium Sulfate in Water 2 gm 50 / 50 In 50 ml @ 50 mls/hr IV ONCE ONE Rx#:[id number] Pipercillin/Tazo 3.375 gm In 0. 50 / 150 50 / 100 50 / 100 9 % Sodium Chloride 50 ml @ 100 mls/hr IV Q8H FOR[facility]LY [facility], 1928–1983 Rx#:[id number] Output: Output, Urine Amount 350 / 375 25 / 375 Other: Number of Unmeasured Voids 0 1 Weight 56.291 kg Patient Weight 01/20/25 23:59 Weight 56.291 kg Laboratory Results - last 24 hr 01/19/25 23:49: Specimen Source Right radial, O2 % 3, ABG pH 7.51 H, ABG pCO2 27.9 L, ABG pO2 52.4 L, ABG HCO3 21.6 L, ABG Total CO2 22.5 L, ABG O2 Saturation 88 L, ABG Base Excess -1.5, Bernabe Test Y 01/20/25 05:03: Specimen Source Left radial, O2 % 6l, ABG pH 7.53 H, ABG pCO2 25.6 L, ABG pO2 68.3 L, ABG HCO3 20.9 L, ABG Total CO2 21.6 L, ABG O2 Saturation 93, ABG Base Excess -1.8, Bernabe Test Acceptable 01/20/25 06:35: WBC 12.8 H, RBC 2.72 L, Hgb 8.0 L, Hct 24.6 L, MCV 90.4, MCH 29.4, MCHC 32.5, RDW 15.6, Plt Count 320, MPV 9.1, Neut % (Auto) 80.0, Lymph % (Auto) 6.9 L, [place] % (Auto) 8.3, Eos % (Auto) 1.2, Baso % (Auto) 0.2, Neut # (Auto) 10.2 H, Lymph # (Auto) 0.9, [place] # (Auto) 1.1 H, Eos # (Auto) 0.2, Baso # (Auto) 0.0, Sodium 131 L, Potassium 4.0, Chloride 101, Carbon Dioxide 25, Anion Gap 9.0, BUN 12, Creatinine 1.50 H, Estimated Creat Clear 33, Estimated GFR 46 L , Est GFR ( Amer) 55 L, Glucose 103 H, Calcium 7.8 L, Magnesium 1.8, Total Bilirubin 0.6, AST 18, ALT 13, Alkaline Phosphatase 121, Total Protein 5.0 L, Albumin 2.6 L, Globulin 2.4, Albumin/Globulin Ratio 1.1 I & O for Labs for Last 24 Hours: Intake & Output 01/17/25 01/18/25 01/19/25 09/28/25 23:59 23:59 23:59 23:59 Intake Total 1789.334 / 7175.382 8609 / 1715 1580 / 1680 570 / 570 Output Total 1450 / 1800 2099 / 2099 800 / 800 375 / 375 Balance 339.334 / -10.666 -505 / -385 780 / 880 195 / 195 Weight 56.302 kg 56.302 kg 57.606 kg 56.291 kg Constitutional: Present moderate distress, thin, chronically ill appearing and cooperative Head: Present atraumatic ENT: Present normal exam Respiratory: Present prolonged expiratory phase, rhonchi and crackles (Left lung base, interval improvement); Absent wheezes Comment:: Left chest wall/pectoralis tender to palpation Cardiac: Present Reg Rate and Rhythm GI: Present soft and normal bowel sounds; Absent distention or tenderness Extremities: Present normal inspection and full ROM Skin: Present intact; Absent erythema Neuro: Present Grossly Intact, alert, awake, oriented x 3 and moves all extremities Assessment and Plan *Assessment and plan (1) Acute GI bleeding: Status: Acute Category: Medical Code(s): K92.2 - Gastrointestinal hemorrhage, unspecified (2) Duodenal ulcer: Status: Acute Category: Medical Code(s): K26.9 - Duodenal ulcer, unspecified as acute or chronic, without hemorrhage or perforation (3) Leukocytosis: Status: Acute Qualifiers: Leukocytosis type: unspecified Qualified Code(s): D72.829 - Elevated white blood cell count, unspecified Category: Medical Code(s): D72.829 - Elevated white blood cell count, unspecified (4) Hypocalcemia: Status: Acute Category: Medical Code(s): E83.51 - Hypocalcemia (5) CKD stage 3a, GFR 45-59 ml/min: Status: Chronic Category: Medical Code(s): N18.31 - Chronic kidney disease, stage 3a (6) Melanotic stools: Status: Acute Category: Medical Code(s): K92.1 - Melena (7) Hyponatremia: Status: Acute Category: Medical Code(s): E87.1 - Hypo-osmolality and hyponatremia (8) Pneumonia: Status: Acute Qualifiers: Pneumonia type: due to unspecified organism Laterality: left Lung location: lower lobe of lung Qualified Code(s): J18.9 - Pneumonia, unspecified organism Category: Medical Code(s): J18.9 - Pneumonia, unspecified organism Plan 74-year-old male who presents with worsening shortness of breath and recurrent black stools. Found to be more anemic. Was just discharged after having EGD performed identifying duodenal ulcer with visible vessel and clipping. Was monitored for 48 hours with stable hemoglobin at that time. Appears the clip has come off. GI evaluated, performed EGD 01/17. More aggressive clip placed this time. Bleeding appears to have stopped. Hemoglobin stable. Increased oxygen requirement overnight however. More dyspneic today. CTA of the chest ordered. Further management pending findings. Continues to necessitate inpatient care. Problems addressed as follows: Acute blood loss anemia secondary to upper GI bleed Duodenal ulcer with visible vessel - Hemoglobin stable this morning after transfusion and EGD. Level of 8.0. - Repeat CBC, CMP, magnesium ordered for the morning. - Kidney function stable with BUN 12, creatinine 1.5. - Continue pantoprazole 40 mg IV twice daily and misoprostol 200 mg every 6 hours Left lower lobe pneumonia Lung lesions COPD - Given the spiculated nature, concerning for neoplastic process. Currently following with pulmonology. Defer management to pulmonology as an outpatient. -Concern for pneumonia this visit. White count improved to 12.8. Oxygen requirement increased to 4 L overnight. Goal sats greater 90%. - Continue Zosyn 3.375 g every 8 hours. Add atypical coverage with azithromycin 500 mg IV for 3 days. - Former smoker. Risk for lung cancer, gastric cancer, COPD - DuoNebs every 6 hours scheduled - CTA of chest obtained, per my review has at least 3 spiculated lesions in left lung with 3 smaller spots concerning for inflammation/infection/neoplastic process. Does not have any significant PEs or occlusions. - Continue to hold on anticoagulation at this time. Blood pressure soft at 104/61. Heart rate normal at 87. hold lisinopril and propranolol at this time. Reevaluate tomorrow Hypocalcemia - Calcium stable at 7.8, reevaluate replacement tomorrow. Magnesium 1.8. Hyponatremia - Sodium improving at 131, chloride 101. Potassium 4.0. Monitor for improvement with dietary supplementation Full code Anticoagulation contraindicated due to bleeding. VTE with SCDs Advance to regular diet
[2025-01-20] MEDS: AZITHROMYCIN 500 MG in 0.9 % SODIUM CHLORIDE 250 ML 250 MG IV (14:23)
--- NOTE | 2025-01-20 17:22 | PC.NURSE ---
pt has ambulated the halls 2 times this shift and has been up to the chair for several hours. requiring 4LNC to maintain sats >90%. pt refusing to put nasal canula in nose due to pain, despite o2 being humidified. pt has canula in mouth at this time. abx given per jun. pt medicated with pain medications per jun. no needs at this time. call light within reach
--- NOTE | 2025-01-20 19:41 | PC.NURSE ---
Addendum entered by Karrie May RN 01/20/25 22:17: Breathing treatment (PRN) completed at this time. Shortness of breath symptoms improved, patient stated that it helped a lot. Oxygen saturations are 96% post-breathing treatment. Addendum entered by Karrie May RN 01/20/25 21:53: During ambulation to the bathroom (noted at 21:31), the patient's oxygen saturations dropped very quickly to 79% to 80% with oxygen device (6 L) in place. While settling into the bathroom (patient stationary), his oxygen saturations increased some, fluctuating between 88% and 92% (attempting to have a bowel movement). Upon ambulating back from the bathroom (noted at 21:44), oxygen saturations decreased to 82% to 83% (patient was successful with bowel movement). Once the patient settled back into bed to rest, his oxygen saturations gradually increased within a few minutes to 92% to 93% on 6 L (noted at 21:49). Patient exhibited labored breathing with minimal wheezing upon activity. He stated that he felt short of breath and requested to have a breathing treatment. He did not have any difficulties with ambulating (+ walker use), such as swaying, stumbling, shuffling, dizziness upon walking, etc. Respiratory was paged concerning breathing treatment request due to shortness of breath. Addendum entered by Karrie May RN 01/20/25 19:49: Respiratory is at the bedside evaluating the patient. After some time, the patient's oxygen saturations increased to 92% on 6 L of oxygen via nasal cannula. Patient's plan of care is ongoing. Will reevaluate if the patient's oxygen saturations decrease again. Continuous pulse ox remains in place with an accurate pleth. Original Note: At this time, the patient's oxygen saturations are continuing to maintain between 85% and 87% on 6 L of oxygen via nasal cannula. Oxygen flow was previously titrated from 4 L to 5 L, then to 6 L (current flow) during shift change due to oxygen saturations maintaining the mid/upper 80s. Patient is currently resting in bed with eyes closed, respirations are even/unlabored, snoring is heard, and he is in no apparent distress. Respiratory was paged at 19:39.
[2025-01-21] VITALS (13 sets, daily range): BP systolic 100–116; BP diastolic 55–64; PULSE 80–110; RESP 12–18; TEMP 36.6–37.1; O2SAT 91–98; BMI 19.8
[2025-01-21] MEDS: PIPERCILLIN/TAZO 3.375 GM in 0.9 % SODIUM CHLORIDE 50 ML IV ×3 (00:01→17:49)
[2025-01-21] MEDS: HYDROCODONE/APAP 5/325 MG TABLET 1 TAB PO (03:50)
--- NOTE | 2025-01-21 03:55 | PC.NURSE ---
Patient remains alert and oriented x4. He was observed to be resting in bed with eyes closed, respirations even and unlabored, and no apparent distress throughout the majority of the night. Upon assessment during this morning, he stated that he felt like he had slept better compared to the previous night. He remains on 6 L of oxygen via nasal cannula, oxygen saturations > 90%. He had one episode of shortness of breath after ambulating to/from the bathroom this shift; an as needed breathing treatment was given per MAR. Patient has not had any further reports of shortness of breath while at rest. Lung sounds remain clear but diminished upon auscultation, minimal coughing noted this shift. Remains on telemetry + continuous pulse ox. Patient had one bowel movement this shift. Urinal remains at bedside for voiding needs. Scheduled medications were administered as appropriately per MAR. One dose of [place] was administered this morning due to moderate ( level 4 ) lower left side/thorax pain during deep inhalation/exhalation and coughing. Breathing treatments given by RTs. At this time, the patient is resting in bed without any further complaints. No new needs thus far. Bed alarm on. Call light within reach.
[2025-01-21 06:33] LABS: Hematocrit 21.9 % (42.0-52.0); Immature Granulocytes % 2.0 %; Mean Corpuscular HGB Conc 32.4 g/dL (31.8-35.4); Mean Corpuscular Hemoglobin 29.3 pg (27.0-31.2); Mean Corpuscular Volume 90.5 fl (80-94); Nucleated Red Blood Cells % 0 %; Platelet Count 304 K/mm3 (142-424); Red Blood Count 2.42 M/mm3 (4.60-6.20); Red Cell Distribution Width-SD 49.6 fL; White Blood Count 12.5 K/mm3 (4.8-10.8)
[2025-01-21 06:45] LABS: Alanine Aminotransferase 10 U/L (12-78); Albumin Level 2.4 g/dl (3.5-5.0); Albumin/Globulin Ratio 1.0 (1.1-1.8); Alkaline Phosphatase 109 U/L (38-126); Anion Gap 9.1 mEq/L (5-15); Aspartate Amino Transferase 15 U/L (17-59); Bilirubin,Total 0.3 mg/dl (0.2-1.3); Blood Urea Nitrogen 13 mg/dl (9-20); Calcium 7.5 mg/dl (8.4-10.2); Carbon Dioxide 25 mmol/L (22.0-30.0); Chloride 102 mmol/L (98-107); Creatinine Clearance Estimated 38 mL/min (50-200); Creatinine,Serum 1.30 mg/dl (0.66-1.25); Estimated Glomerular Filt Rate 54 ml/min (>60); GFR (African American) 65 ML/MIN (>60); Globulin 2.5 g/dL (1.3-3.2); Glucose 106 mg/dl (74-100); Potassium 4.1 mmoL/L (3.5-5.1); Sodium 132 mmol/L (136-145); Total Protein,Serum 4.9 g/dl (6.3-8.2)
--- NOTE | 2025-01-21 07:53 | P.PN_ITS ---
Subjective *Date: 01/21/25 *Time: 07:53 Interval history: Patient reports no further melanotic stools or hematochezia. No abdominal complaints. Tolerating oral intake. Exam Data for Last 24 hours Vital signs and Labs for Last 24 Hours: Temp Pulse Resp BP Pulse Ox O2 Del Method O2 Flow Rate 97.8 F 83 17 105/58 L 98 Nasal Cannula 5.5 01/21/25 07:48 01/21/25 07:48 01/21/25 07:48 01/21/25 07:48 01/21/25 07:48 01/21/25 07:48 01/21/25 07:48 FiO2 32 01/19/25 19:05 Laboratory Results - last 24 hr 01/21/25 06:07: WBC 12.5 H, RBC 2.42 L, Hct 21.9 L, MCV 90.5, MCH 29.3, MCHC 32.4, RDW 15.4, Plt Count 304, MPV 9.1, Neut % (Auto) 81.8 H, Lymph % (Auto) 6.8 L, [place] % (Auto) 7.2, Eos % (Auto) 2.0, Baso % (Auto) 0.2, Neut # (Auto) 10.2 H, Lymph # (Auto) 0.9, [place] # (Auto) 0.9, Eos # (Auto) 0.3, Baso # (Auto) 0.0, Sodium 132 L, Potassium 4.1, Chloride 102, Carbon Dioxide 25, Anion Gap 9.1, BUN 13, Creatinine 1.30 H, Estimated Creat Clear 38, Estimated GFR 54 L, Est GFR ( Amer) 65, Glucose 106 H, Calcium 7.5 L, Total Bilirubin 0.3, AST 15 L, ALT 10 L, Alkaline Phosphatase 109, Total Protein 4.9 L, Albumin 2.4 L, Globulin 2.5, Albumin/Globulin Ratio 1.0 L I & O for Last 24 hours: Intake & Output 01/18/25 01/19/25 01/20/25 01/21/25 23:59 23:59 23:59 23:59 Intake Total 1595 / 1715 1580 / 1680 2030 / 0 100 / 100 Output Total 2099 / 2100 800 / 800 475 / 475 350 / 350 Balance -505 / -385 780 / 880 1555 / 1605 -250 / -250 Weight 124 lb 2 oz 127 lb 124 lb 1.6 oz 123 lb 8 oz Microbiology Reports for the Last 24 Hours: Microbiology 01/17/25 05:06 Blood Blood Culture - Preliminary NO GROWTH AFTER 4 DAYS 01/17/25 05:06 Blood Blood Culture - Preliminary NO GROWTH AFTER 4 DAYS *Routine Abdominal Exam Abdominal: Present soft Comments: Normoactive bowel sounds, soft, nontender, nondistended, benign abdomen Assessment and Plan *Assessment and plan (1) Acute upper GI bleed: Status: Acute Category: Medical Code(s): K92.2 - Gastrointestinal hemorrhage, unspecified (2) Bleeding duodenal ulcer: Status: Acute Category: Medical Code(s): K26.4 - Chronic or unspecified duodenal ulcer with hemorrhage Plan 1. Duodenal ulcer with visible vessel status post therapeutic EGD with epinephrine injection, heater probe ablation and [facility] End[facility] Clip placement. The patient appears hemodynamically stable. Hematocrit this morning did decline some to 21.9 but no evident signs of melena or hematochezia. Venofer/iron infusion administered.
[2025-01-21 08:15] LABS: Hemoglobin 7.1 g/dL (14.1-18.0)
[2025-01-21] MEDS: PANTOPRAZOLE 40MG TABLET 40 MG PO ×2 (09:04→22:01)
[2025-01-21 09:12] LABS: NT Pro Brain Natriuretic Pep. 323 pg/mL (0-450)
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
--- NOTE | 2025-01-21 11:05 | HMH.PTEV ---
Physical Therapy Evaluation Rehab PT IP Evaluation Start: 01/20/25 10:22 Freq: ONCE Status: Active Protocol: Document 01/21/25 10:31 YORDAN (Rec: 01/21/25 11:04 YORDAN [id number]) Subjective/History History History Per H&P: This is a 74-year-old male who is well-known to our service line and has a past medical history significant for emphysema, duodenal ulcer, hypertension, renal insufficiency, and COPD who presents with a chief complaint of dark stools. Patient was recently admitted to our facility for similar symptomology. He underwent EGD and was found to have a duodenal bleeding ulcer. This ulcer was clipped by GI specialist. Patient received multiple transfusions on prior admission. Prior to being discharged home patient did have a stable hemoglobin at around 9. He presented to the emergency room with a complaint of dark stools and his presenting hemoglobin was 6. As a result, hospital medicine was consulted for further management. Subjective Subjective I have good balance, I just get out of breath Pt reports he lives home alone and is usually IND with mobility using a RW. Pt reports he has a dog but she has been moved to his ex-'s house for now. Pt denies any falls in past 30 days. New diagnosis of No cancer in past 12 months? [facility] How much help from another person do you currently need... Turning from your None back to your side while in a flat bed without using bedrails? Moving from lying on None back to sitting on the side of a flat bed without using bedrails? Moving to and from a None bed to a chair ( including a wheelchair)? Standing up from a None chair using your arms? (e.g., wheelchair, bedside chair) Walking in hospital None room? Climbing 3-5 steps A little with a railing? Mobility Score 23 Mobility Level [facility] Mobility 7 Walk 25 feet or more Mobility Calculator Rehab PT IP Eval Objective Appearance Patient Behavior Appropriate,Cooperative Patient Orientation Person,Place Difficulty following none instructions Speech Pattern Clear Ambulation Patient Able to Yes Ambulate Ambulation Observation IP General Gait No Deviations/Normal Pattern Observation Ambulation Distance 10 (feet) Ambulation Assistive Rolling Walker Device Ambulation Ability Supervision/Stand by Balance Ability to Arise Able, uses arms to help Sitting Balance Steady, safe Standing Balance Steady, wide stance Dynamic Sitting Good Balance Ability Dynamic Standing Good Balance Ability Transfers Bed Transfer Ability Supervision/Stand by Sit to Stand Bed Supervision/Stand by Transfer Ability Rehab PT IP prob,goals,plan Problems Date of Evaluation: 01/21/25 PT IP Problems Gait,Self care,Other Other Pt Problem Endurance Rehab Potential Rehab Potential Good Plan PT Intervention Plan Transfers,Gait,Balance,Safety,Therapeutic Exercise Other Intervention 1-2 times Plan PT Plan Frequency Daily Duration LOS Discharge Goals Bed Transfer Ability Independent Sit to Stand Chair Independent Transfer Ability Ambulation Assistive Rolling Walker Device Ambulation Distance 100 (feet) Discharge Plan PT Discharge Plan Initial physical therapy evaluation performed. Patient presents below baseline at this time in functional mobility, transfers, gait, and strength. Pt would benefit from skilled PT while at [facility] to prevent further functional decline and improve endurance with mobility . Pt most appropriate to d/c home when deemed medically necessary d/t current level of mobility. PT recommending home health PT services to address deficits. PHYSICIAN CERTIFICATION: I certify the specified therapy services for Chad Tony are required, authorized, and reviewed every 30 days.
--- NOTE | 2025-01-21 11:08 | HMH.PTEV ---
Physical Therapy Evaluation Rehab PT IP Evaluation Start: 01/20/25 10:22 Freq: ONCE Status: Active Protocol: Document 01/21/25 10:31 YORDAN (Rec: 01/21/25 11:04 YORDAN [id number]) Subjective/History History History Per H&P: This is a 74-year-old male who is well-known to our service line and has a past medical history significant for emphysema, duodenal ulcer, hypertension, renal insufficiency, and COPD who presents with a chief complaint of dark stools. Patient was recently admitted to our facility for similar symptomology. He underwent EGD and was found to have a duodenal bleeding ulcer. This ulcer was clipped by GI specialist. Patient received multiple transfusions on prior admission. Prior to being discharged home patient did have a stable hemoglobin at around 9. He presented to the emergency room with a complaint of dark stools and his presenting hemoglobin was 6. As a result, hospital medicine was consulted for further management. Subjective Subjective I have good balance, I just get out of breath Pt reports he lives home alone and is usually IND with mobility using a RW. Pt reports he has a dog but she has been moved to his ex-'s house for now. Pt denies any falls in past 30 days. New diagnosis of No cancer in past 12 months? [facility] How much help from another person do you currently need... Turning from your None back to your side while in a flat bed without using bedrails? Moving from lying on None back to sitting on the side of a flat bed without using bedrails? Moving to and from a None bed to a chair ( including a wheelchair)? Standing up from a None chair using your arms? (e.g., wheelchair, bedside chair) Walking in hospital None room? Climbing 3-5 steps A little with a railing? Mobility Score 23 Mobility Level [facility] Mobility 7 Walk 25 feet or more Mobility Calculator Rehab PT IP Eval Objective Appearance Patient Behavior Appropriate,Cooperative Patient Orientation Person,Place Difficulty following none instructions Speech Pattern Clear Ambulation Patient Able to Yes Ambulate Ambulation Observation IP General Gait No Deviations/Normal Pattern Observation Ambulation Distance 10 (feet) Ambulation Assistive Rolling Walker Device Ambulation Ability Supervision/Stand by Balance Ability to Arise Able, uses arms to help Sitting Balance Steady, safe Standing Balance Steady, wide stance Dynamic Sitting Good Balance Ability Dynamic Standing Good Balance Ability Transfers Bed Transfer Ability Supervision/Stand by Sit to Stand Bed Supervision/Stand by Transfer Ability Rehab PT IP prob,goals,plan Problems Date of Evaluation: 01/21/25 PT IP Problems Gait,Self care,Other Other Pt Problem Endurance Rehab Potential Rehab Potential Good Plan PT Intervention Plan Transfers,Gait,Balance,Safety,Therapeutic Exercise Other Intervention 1-2 times Plan PT Plan Frequency Daily Duration LOS Discharge Goals Bed Transfer Ability Independent Sit to Stand Chair Independent Transfer Ability Ambulation Assistive Rolling Walker Device Ambulation Distance 100 (feet) Discharge Plan PT Discharge Plan Initial physical therapy evaluation performed. Patient presents below baseline at this time in functional mobility, transfers, gait, and strength. Pt would benefit from skilled PT while at [facility] to prevent further functional decline and improve endurance with mobility . Pt most appropriate to d/c home when deemed medically necessary d/t current level of mobility. PT recommending home health PT services to address deficits. PHYSICIAN CERTIFICATION: I certify the specified therapy services for Chad Tony are required, authorized, and reviewed every 30 days.
[2025-01-21] MEDS: IPRATROPIUM/ALBUTEROL 3 ML NEB IH ×3 (12:09→23:50)
[2025-01-21] MEDS: AZITHROMYCIN 500 MG in 0.9 % SODIUM CHLORIDE 250 ML 250 MG IV (13:02)
--- NOTE | 2025-01-21 13:43 | PC.NURSE ---
ordered walk test for pt. at 1130 yuko and I walked him down the carlos and had him on 4L NC. the lowest he dropped was 92%. results reported to
[2025-01-21 14:23] LABS: Hematocrit 23.4 % (42.0-52.0); Hemoglobin 7.4 g/dL (14.1-18.0)
[2025-01-21] MEDS: BUDESONIDE 0.5MG/2ML NEB 0.5 MG IH (18:15)
--- NOTE | 2025-01-21 18:17 | PC.NURSE ---
pt is A&Ox4. pts lab results are improving. he is receiving IV antibiotics. pt was wearing 6L NC this morning and we have been weaning him down during the shift. he is currently on 3 1/2 L. he has been up in the chair for a few hours and has walked with therapy and us as well down the carlos today. pt has no other concerns at this time. call light is within reach.
--- NOTE | 2025-01-21 21:17 | P.PN_ITS ---
Subjective *Date: 01/22/25 *Time: 00:05 Interval history: Patient continues to have moderate dyspnea on exertion even with 6 L. Patient seems to be a better mouth breather with a nose breather, started Flonase for nasal congestion. Requiring only 3.5 L with mouth breathing in the afternoon. Discussed with pulmonology, recommended continuing IV antibiotics pending clinical improvement. Exam Data for Last 24 hours Vital signs and Labs for Last 24 Hours: Temp Pulse Resp BP Pulse Ox O2 Del Method O2 Flow Rate 98.7 F 110 H 12 116/58 L 94 L Room Air 3.5 01/21/25 20:00 01/21/25 20:00 01/21/25 20:00 01/21/25 20:00 01/21/25 20:00 01/21/25 20:00 01/21/25 18:48 FiO2 32 01/19/25 19:05 Laboratory Results - last 24 hr 01/21/25 06:07: WBC 12.5 H, RBC 2.42 L, Hgb 7.1 L D, Hct 21.9 L, MCV 90.5, MCH 29.3, MCHC 32.4, RDW 15.4, Plt Count 304, MPV 9.1, Neut % (Auto) 81.8 H, Lymph % (Auto) 6.8 L, [place] % (Auto) 7.2, Eos % (Auto) 2.0, Baso % (Auto) 0.2, Neut # (Auto) 10.2 H, Lymph # (Auto) 0.9, [place] # (Auto) 0.9, Eos # (Auto) 0.3, Baso # (Auto) 0.0, Sodium 132 L, Potassium 4.1, Chloride 102, Carbon Dioxide 25, Anion Gap 9.1, BUN 13, Creatinine 1.30 H, Estimated Creat Clear 38, Estimated GFR 54 L , Est GFR ( Amer) 65, Glucose 106 H, Calcium 7.5 L, Total Bilirubin 0.3, AST 15 L, ALT 10 L, Alkaline Phosphatase 109, NT-Pro-B Natriuret Pep 323, Total Protein 4.9 L, Albumin 2.4 L, Globulin 2.5, Albumin/Globulin Ratio 1.0 L 01/21/25 14:17: Hgb 7.4 L, Hct 23.4 L I & O for Last 24 hours: Intake & Output 01/18/25 01/19/25 01/20/25 01/21/25 23:59 23:59 23:59 23:59 Intake Total 1595 / 1715 1580 / 1680 2029 / 2079 1530 / 1530 Output Total 2099 / 2099 800 / 800 475 / 475 550 / 550 Balance -505 / -385 780 / 880 1555 / 1605 980 / 980 Weight 56.302 kg 57.606 kg 56.291 kg 56.019 kg Microbiology Reports for the Last 24 Hours: Microbiology 01/17/25 05:06 Blood Blood Culture - Preliminary NO GROWTH AFTER 4 DAYS 01/17/25 05:06 Blood Blood Culture - Preliminary NO GROWTH AFTER 4 DAYS Constitutional Constitutional: mild distress and chronically ill appearing *Routine HEENT Exam Head: Present normocephalic Eye: Present EOMI and PERRL ENT: Present mucous membranes moist *Routine Neck Exam Neck: Present supple; Absent lymphadenopathy *Routine Respiratory Exam Respiratory: Present CTA bilaterally *Routine Cardiovascular Exam Cardiovascular: Present RRR *Routine Abdominal Exam Abdominal: Present soft and normoactive bowel sounds; Absent tenderness *Routine Extremities Exam Extremities: Absent cyanosis, clubbing or edema *Routine Skin Exam Skin: Present warm; Absent rash *Routine Neurological Exam Neurological: Present alert and oriented X3 Assessment and Plan *Assessment and plan (1) Acute GI bleeding: Status: Acute Category: Medical Code(s): K92.2 - Gastrointestinal hemorrhage, unspecified (2) Duodenal ulcer: Status: Acute Category: Medical Code(s): K26.9 - Duodenal ulcer, unspecified as acute or chronic, without hemorrhage or perforation (3) Leukocytosis: Status: Acute Qualifiers: Leukocytosis type: unspecified Qualified Code(s): D72.829 - Elevated white blood cell count, unspecified Category: Medical Code(s): D72.829 - Elevated white blood cell count, unspecified (4) Hypocalcemia: Status: Acute Category: Medical Code(s): E83.51 - Hypocalcemia (5) CKD stage 3a, GFR 45-59 ml/min: Status: Chronic Category: Medical Code(s): N18.31 - Chronic kidney disease, stage 3a (6) Melanotic stools: Status: Acute Category: Medical Code(s): K92.1 - Melena (7) Hyponatremia: Status: Acute Category: Medical Code(s): E87.1 - Hypo-osmolality and hyponatremia (8) Pneumonia: Status: Acute Qualifiers: Pneumonia type: due to unspecified organism Laterality: left Lung location: lower lobe of lung Qualified Code(s): J18.9 - Pneumonia, unspecified organism Category: Medical Code(s): J18.9 - Pneumonia, unspecified organism Plan Chad Gramajo is a 4-year-old male who presents with worsening shortness of breath and recurrent black stools. Found to be more anemic. Was just discharged after having EGD performed identifying duodenal ulcer with visible vessel and clipping. Was monitored for 48 hours with stable hemoglobin at that time. Appears the clip has come off. GI evaluated, performed EGD 01/17. More aggressive clip placed this time. #Bibasilar pneumonia Lung lesions, spiculated COPD ? Patient presented with shortness of breath, initial CXR found to have left lower lobe pneumonia. ? CTA chest 01/20/2025 revealed bibasilar opacities/pneumonia. Also shows known left upper lobe spiculated mass which pulmonology is following and planning for outpatient bronchoscopy. - Patient continues to have moderate dyspnea with exertion, even with 6 L. No desaturations however. Later in the afternoon, patient was requiring 3.5 L but nasal cannula was in mouth. Patient alludes to nasal congestion. Started Flonase. ? Discussed with pulmonology today, recommend continuing IV antibiotics pending clinical improvement. BNP normal 323. - Continue Zosyn 3.375 g every 8 hours, IV azithromycin 500 mg day. - Former smoker. Risk for lung cancer, gastric cancer, COPD. - DuoNebs every 6 hours, Pulmicort twice daily scheduled. - CTA of chest obtained, per review has at least 3 spiculated lesions in left lung with 3 smaller spots concerning for inflammation/infection/neoplastic process. Does not have any significant PEs or occlusions. Acute blood loss anemia secondary to upper GI bleed Duodenal ulcer with visible vessel ? GI consulted, s/p triple therapy with local epinephrine, ablation, Mantis clip on 01/17/2025. ? Hemoglobin slightly lower at 7.1 this morning, improved to 7.4 this afternoon. Patient does note a dark bowel movement this morning, likely clearance of previous bleeding. - Repeat CBC, CMP, magnesium ordered for the morning. - Continue pantoprazole 40 mg twice daily and misoprostol 200 mg every 6 hours #Hypertension ? Hold lisinopril and propranolol at this time. Blood pressure 116/58. Reevaluate tomorrow Hypocalcemia - Calcium 7.5, corrected calcium 8.4 with albumin of 2.4. Within acceptable limits. Hyponatremia - Sodium improving at 132, chloride 102. Potassium 4.1. Monitor for improvement with dietary supplementation #Severe protein calorie malnutrition, present on admission ? Nutrition consulted, provided counseling and recommendations. Full code Anticoagulation contraindicated due to bleeding. VTE with SCDs Advance to regular diet
[2025-01-22] VITALS (8 sets, daily range): BP systolic 106–124; BP diastolic 45–61; PULSE 77–120; RESP 12–18; TEMP 36.7–37; O2SAT 84–96; BMI 21.1
[2025-01-22] MEDS: PIPERCILLIN/TAZO 3.375 GM in 0.9 % SODIUM CHLORIDE 50 ML IV ×2 (00:08→08:29)
[2025-01-22] MEDS: IPRATROPIUM/ALBUTEROL 3 ML NEB IH ×2 (06:18→11:14)
[2025-01-22] MEDS: BUDESONIDE 0.5MG/2ML NEB 0.5 MG IH (06:18)
[2025-01-22 06:21] LABS: Hematocrit 22.3 % (42.0-52.0); Hemoglobin 7.3 g/dL (14.1-18.0); Immature Granulocytes % 1.4 %; Mean Corpuscular HGB Conc 32.7 g/dL (31.8-35.4); Mean Corpuscular Hemoglobin 29.4 pg (27.0-31.2); Mean Corpuscular Volume 89.9 fl (80-94); Nucleated Red Blood Cells % 0 %; Platelet Count 342 K/mm3 (142-424); Red Blood Count 2.48 M/mm3 (4.60-6.20); Red Cell Distribution Width-SD 49.0 fL; White Blood Count 10.6 K/mm3 (4.8-10.8)
[2025-01-22 06:32] LABS: Alanine Aminotransferase 12 U/L (12-78); Albumin Level 2.6 g/dl (3.5-5.0); Albumin/Globulin Ratio 1.1 (1.1-1.8); Alkaline Phosphatase 121 U/L (38-126); Anion Gap 10.2 mEq/L (5-15); Aspartate Amino Transferase 17 U/L (17-59); Bilirubin,Total 0.5 mg/dl (0.2-1.3); Blood Urea Nitrogen 11 mg/dl (9-20); Calcium 8.0 mg/dl (8.4-10.2); Carbon Dioxide 24 mmol/L (22.0-30.0); Chloride 100 mmol/L (98-107); Creatinine Clearance Estimated 41 mL/min (50-200); Creatinine,Serum 1.30 mg/dl (0.66-1.25); Estimated Glomerular Filt Rate 54 ml/min (>60); GFR (African American) 65 ML/MIN (>60); Globulin 2.4 g/dL (1.3-3.2); Glucose 95 mg/dl (74-100); Potassium 4.2 mmoL/L (3.5-5.1); Sodium 130 mmol/L (136-145); Total Protein,Serum 5.0 g/dl (6.3-8.2)
--- NOTE | 2025-01-22 07:53 | PC.NURSE ---
Pt is alert and oriented X4, NC o2 started at 3.5 liters over night it has went up to 5 L NC to main a Sat of 90 While sleeping. Pt Complained of a sore mouth, Nastatin has been ordered for his mouth, Tongue and mouth is red along with his lips.
--- NOTE | 2025-01-22 08:18 | EXP.PN ---
Subjective *Date: 01/22/25 *Time: 08:18 Interval history: Patient in bathroom. He has struggled with constipation over the last couple of days. He does state that he had a little black stool yesterday but his stools are brown today. He is hemodynamically stable. Exam Data for Last 24 hours Vital signs and Labs for Last 24 Hours: Temp Pulse Resp BP Pulse Ox O2 Del Method O2 Flow Rate 98.1 F 87 14 116/58 L 93 L Nasal Cannula 5 01/22/25 04:00 01/22/25 06:17 01/22/25 04:00 01/22/25 04:00 01/22/25 06:17 01/22/25 06:17 01/22/25 06:17 FiO2 32 01/19/25 19:05 Laboratory Results - last 24 hr 01/21/25 06:07: NT-Pro-B Natriuret Pep 323 01/21/25 14:17: Hgb 7.4 L, Hct 23.4 L 01/22/25 06:00: WBC 10.6, RBC 2.48 L, Hgb 7.3 L, Hct 22.3 L, MCV 89.9, MCH 29.4, MCHC 32.7, RDW 15.2, Plt Count 342, MPV 9.0, Neut % (Auto) 84.5 H, Lymph % (Auto) 6.0 L, [place] % (Auto) 6.0, Eos % (Auto) 1.7, Baso % (Auto) 0.4, Neut # (Auto) 9.0 H, Lymph # (Auto) 0.6 L, [place] # (Auto) 0.6, Eos # (Auto) 0.2, Baso # (Auto) 0.0, Sodium 130 L, Potassium 4.2, Chloride 100, Carbon Dioxide 24, Anion Gap 10.2, BUN 11, Creatinine 1.30 H, Estimated Creat Clear 41, Estimated GFR 54 L, Est GFR ( Amer) 65, Glucose 95, Calcium 8.0 L, Total Bilirubin 0.5, AST 17, ALT 12, Alkaline Phosphatase 121, Total Protein 5.0 L, Albumin 2.6 L, Globulin 2.4, Albumin/Globulin Ratio 1.1 I & O for Last 24 hours: Intake & Output 01/19/25 01/20/25 01/21/2525 23:59 23:59 23:59 23:59 Intake Total 1580 / 1680 2029 / 2079 1730 / 1970 410 / 410 Output Total 800 / 800 475 / 475 550 / 550 450 / 450 Balance 780 / 880 1555 / 1605 1180 / 1420 -40 / -40 Weight 127 lb 124 lb 1.6 oz 123 lb 8 oz 131 lb 4 oz Microbiology Reports for the Last 24 Hours: Microbiology 01/17/25 05:06 Blood Blood Culture - Final NO GROWTH AFTER 5 DAYS 01/17/25 05:06 Blood Blood Culture - Final NO GROWTH AFTER 5 DAYS Constitutional Constitutional: no acute distress *Routine HEENT Exam Head: Present normocephalic Eye: Present EOMI and PERRL ENT: Present mucous membranes moist *Routine Neck Exam Neck: Present supple; Absent lymphadenopathy *Routine Respiratory Exam Respiratory: Present CTA bilaterally *Routine Cardiovascular Exam Cardiovascular: Present RRR *Routine Abdominal Exam Abdominal: Present soft and normoactive bowel sounds; Absent tenderness *Routine Extremities Exam Extremities: Absent cyanosis, clubbing or edema *Routine Skin Exam Skin: Present warm; Absent rash *Routine Neurological Exam Neurological: Present alert and oriented X3 Assessment and Plan *Assessment and plan (1) Bleeding duodenal ulcer: Status: Acute Category: Medical Code(s): K26.4 - Chronic or unspecified duodenal ulcer with hemorrhage (2) Acute GI bleeding: Status: Acute Category: Medical Code(s): K92.2 - Gastrointestinal hemorrhage, unspecified Plan 1. Duodenal ulcer with visible vessel status post therapeutic endoscopy and patient stable. Hemoglobin/hematocrit still borderline low. I would recommend another Venofer infusion prior to discharge. Blood is a cathartic and is troublesome constipation is indicative that bleeding has stopped. He did have brown stool this morning. I would continue oral PPI therapy. Biopsies showed no H. pylori.
[2025-01-22] MEDS: PANTOPRAZOLE 40MG TABLET 40 MG PO (08:29)
[2025-01-22] MEDS: FLUTICASONE PROP 50MCG NASAL SPRAY 16GM 1 SPRAY NS (08:29)
--- NOTE | 2025-01-22 09:00 | EXP.DC.SUM ---
General Admission date:: 01/17/25 Discharge date: 01/22/25 HPI HPI HPI: This is a 74-year-old male who is well-known to our service line and has a past medical history significant for emphysema, duodenal ulcer, hypertension, renal insufficiency, and COPD who presents with a chief complaint of dark stools. Patient was recently admitted to our facility for similar symptomology. He underwent EGD and was found to have a duodenal bleeding ulcer. This ulcer was clipped by GI specialist. Patient received multiple transfusions on prior admission. Prior to being discharged home patient did have a stable hemoglobin at around 9. He presented to the emergency room with a complaint of dark stools and his presenting hemoglobin was 6. As a result, hospital medicine was consulted for further management. During my evaluation of the patient, patient states he has had a total of 3 dark-colored stools. He mentions he has not taken any aspirin since being discharged. Moreover, patient has been having some nausea and dry heaving. He has been having diffuse abdominal pain. He is currently denying any chest pain, lightheadedness, dizziness, fever, chills, rigors, hematochezia, hematemesis, hematuria, shortness of breath, dyspnea, or diarrhea. Additional pertinent lab values obtained include a white blood cell count of 24.2, red blood cell count of 2.06, hemoglobin 6.4, hematocrit 19.7, neutrophils 82.2%, sodium of 127, chloride of 97, BUN of 26, creatinine 1.40, GFR 49, blood glucose 462, calcium 7.8, total protein of 5, and albumin of 2.6. Hospital Course Hospital Course Hospital Course: Chad Tony is a 74-year-old male who originally presented 3 to 4 days of melenic stool. Found to have duodenal ulcer. Clip was placed, unfortunately returned after initial discharge due to recurrent bleeding and anemia. Clip had come off. Repeat EGD performed with improved hemostasis and more aggressive clip placed. Continue to require oxygen due to suspected pneumonia. Stable during admission. Meeting criteria for discharge home given stable hemoglobin. Will discharge on 4 L oxygen. Plan to follow-up with GI, pulmonology, PCP as an outpatient. Problems addressed as follows: #Bibasilar pneumonia Lung lesions, spiculated COPD ? Patient presented with shortness of breath, initial CXR found to have left lower lobe pneumonia. CTA chest 01/20/2025 revealed bibasilar opacities/pneumonia. Also shows known left upper lobe spiculated mass which pulmonology is following and planning for outpatient bronchoscopy. Patient continues to have moderate dyspnea with exertion, requiring as much is 6 L oxygen. Improved during admission with initiation of Flonase and antibiotic therapy. Stable on day of discharge on 4 L nasal cannula oxygen continuously. Room air saturation of 84% on day of discharge at rest. Pulmonology was consulted during admission. Treated with Zosyn during admission and azithromycin. Will transition to Levaquin to complete 7 days total of antibiotic therapy for pneumonia. Continue breathing treatments at home with DuoNebs. Acute blood loss anemia secondary to upper GI bleed Duodenal ulcer with visible vessel -On readmission, hemoglobin had dropped to 6.4. Responded to transfusion and improved and remained stable between 7.4 and 8 for duration of admission. Black stools resolved. No other signs of bleeding. BUN normal at 11 on day of discharge. GI was consulted at time of readmission and placed Mantis clip on 01/17 along with performing ablation and injecting local epinephrine. Serial hemoglobin monitored throughout duration of admission. Plan to continue pantoprazole 40 mg twice daily and misoprostol 200 mg 4 times a day during admission, decreased to 100 mg 4 times a day at discharge Hypertension: Held lisinopril and propranolol at this time. Okay to resume propranolol due to tachycardia once he returns home. Hold lisinopril until follows up with PCP and reevaluate blood pressure. Hypocalcemia: Calcium 7.5, corrected calcium 8.4 with albumin of 2.4. Within acceptable limits. Required supplementation earlier in admission. Stable for several days prior to discharge Hyponatremia: Sodium remained low at approximately 128-132 during admission. Asymptomatic however. Found to be 130 on day of discharge, chloride 100. Potassium 4.2. Severe protein calorie malnutrition, present on admission: Nutrition consulted during admission. Provided protein supplementation with meals during admission. Total time spent on discharge 32 minutes in counseling, documentation, chart review, and direct care with patient. Exam Data for Last 24 hours Vital signs and Labs for Last 24 Hours: Temp Pulse Resp BP Pulse Ox O2 Del Method O2 Flow Rate 98.3 F 107 H 18 124/61 96 Nasal Cannula 5 01/22/25 08:00 01/22/25 08:00 01/22/25 08:00 01/22/25 08:00 01/22/25 08:00 01/22/25 08:00 01/22/25 08:00 FiO2 32 01/19/25 19:05 Laboratory Results - last 24 hr 01/21/25 06:07: NT-Pro-B Natriuret Pep 323 01/21/25 14:17: Hgb 7.4 L, Hct 23.4 L 01/22/25 06:00: WBC 10.6, RBC 2.48 L, Hgb 7.3 L, Hct 22.3 L, MCV 89.9, MCH 29.4, MCHC 32.7, RDW 15.2, Plt Count 342, MPV 9.0, Neut % (Auto) 84.5 H, Lymph % (Auto) 6.0 L, [place] % (Auto) 6.0, Eos % (Auto) 1.7, Baso % (Auto) 0.4, Neut # (Auto) 9.0 H, Lymph # (Auto) 0.6 L, [place] # (Auto) 0.6, Eos # (Auto) 0.2, Baso # (Auto) 0.0, Sodium 130 L, Potassium 4.2, Chloride 100, Carbon Dioxide 24, Anion Gap 10.2, BUN 11, Creatinine 1.30 H, Estimated Creat Clear 41, Estimated GFR 54 L, Est GFR ( Amer) 65, Glucose 95, Calcium 8.0 L, Total Bilirubin 0.5, AST 17, ALT 12, Alkaline Phosphatase 121, Total Protein 5.0 L, Albumin 2.6 L, Globulin 2.4, Albumin/Globulin Ratio 1.1 I & O for Last 24 hours: Intake & Output 01/19/25 01/20/25 01/21/25 01/22/25 23:59 23:59 23:59 23:59 Intake Total 1580 / 1680 2029 / 2080 1730 / 1970 410 / 410 Output Total 800 / 800 475 / 475 550 / 550 700 / 700 Balance 780 / 880 1555 / 1605 1180 / 1420 -290 / -290 Weight 57.606 kg 56.291 kg 56.019 kg 59.534 kg Microbiology Reports for the Last 24 Hours: Microbiology 01/17/25 05:06 Blood Blood Culture - Final NO GROWTH AFTER 5 DAYS 01/17/25 05:06 Blood Blood Culture - Final NO GROWTH AFTER 5 DAYS Constitutional Constitutional: no acute distress, thin, chronically ill appearing and cooperative *Routine HEENT Exam Head: Present normocephalic Eye: Present EOMI and PERRL ENT: Present mucous membranes moist Comments: 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, POA *Routine Neck Exam Neck: Present supple; Absent lymphadenopathy *Routine Respiratory Exam Respiratory: Present CTA bilaterally and prolonged expiratory phase; Absent rhonchi, wheezes or crackles *Routine Cardiovascular Exam Cardiovascular: Present RRR *Routine Abdominal Exam Abdominal: Present soft and normoactive bowel sounds; Absent tenderness *Routine Rectal Exam Patient deferred: visual exam *Routine Exam Patient deferred: penile exam *Routine Extremities Exam Extremities: Absent cyanosis, clubbing or edema *Routine Skin Exam Skin: Present pallor and warm; Absent rash *Routine Neurological Exam Neurological: Present alert, oriented X3 and moving all extremities; Absent altered mental status Results Data Completed and Pending Labs on day of discharge: Labs from last 24 hours 01/22/25 01/21/25 01/21/25 06:00 14:17 06:07 WBC 10.6 RBC 2.48 L Hgb 7.3 L 7.4 L Hct 22.3 L 23.4 L MCV 89.9 MCH 29.4 MCHC 32.7 RDW 15.2 Plt Count 342 MPV 9.0 Neut % (Auto) 84.5 H Lymph % (Auto) 6.0 L [place] % (Auto) 6.0 Eos % (Auto) 1.7 Baso % (Auto) 0.4 Neut # (Auto) 9.0 H Lymph # (Auto) 0.6 L [place] # (Auto) 0.6 Eos # (Auto) 0.2 Baso # (Auto) 0.0 Sodium 130 L Potassium 4.2 Chloride 100 Carbon Dioxide 24 Anion Gap 10.2 BUN 11 Creatinine 1.30 H Estimated Creat Clear 41 Estimated GFR 54 L Est GFR ( Amer) 65 Glucose 95 Calcium 8.0 L Total Bilirubin 0.5 AST 17 ALT 12 Alkaline Phosphatase 121 NT-Pro-B Natriuret Pep 323 Total Protein 5.0 L Albumin 2.6 L Globulin 2.4 Albumin/Globulin Ratio 1.1 DS: Diagnosis Discharge Diagnosis (1) Bleeding duodenal ulcer: Status: Acute Code(s): K26.4 - Chronic or unspecified duodenal ulcer with hemorrhage (2) Acute GI bleeding: Status: Acute Code(s): K92.2 - Gastrointestinal hemorrhage, unspecified (3) Acute respiratory failure with hypoxia: Status: Acute Code(s): J96.01 - Acute respiratory failure with hypoxia (4) Pneumonia: Status: Acute Code(s): J18.9 - Pneumonia, unspecified organism Qualifiers: Pneumonia type: due to unspecified organism Laterality: left Lung location: lower lobe of lung Qualified Code(s): J18.9 - Pneumonia, unspecified organism (5) Hypocalcemia: Status: Acute Code(s): E83.51 - Hypocalcemia (6) Hyponatremia: Status: Acute Code(s): E87.1 - Hypo-osmolality and hyponatremia (7) ABLA (acute blood loss anemia): Status: Acute Code(s): D62 - Acute posthemorrhagic anemia (8) CKD stage 3a, GFR 45-59 ml/min: Status: Chronic Code(s): N18.31 - Chronic kidney disease, stage 3a (9) COPD (chronic obstructive pulmonary disease): Status: Acute Code(s): J44.9 - Chronic obstructive pulmonary disease, unspecified Qualifiers: COPD type: emphysema Emphysema type: other Qualified Code(s): J43.8 - Other emphysema (10) Multiple lung nodules on CT: Status: Acute Code(s): R91.8 - Other nonspecific abnormal finding of lung field Meds Home Medications and Allergies Home Medications ?Medication ?Instructions ?Recorded ?Confirmed ?Type albuterol sulfate 90 mcg/actuation 1 puff inhalation Q4HP PRN 01/02/25 01/17/25 History aerosol inhaler Shortness Of Breath lisinopril 20 mg tablet 20 mg PO BID 01/12/25 01/17/25 History Held on 01/22/25. Instructions: pending follow-up with PCP and re-evaluation of BP misoprostol 100 mcg tablet 100 mcg PO QID 5 days #20 tabs 01/14/25 01/17/25 Rx (Cytotec) pantoprazole 40 mg tablet,delayed 40 mg PO BID 30 days #60 tabs 01/14/25 01/17/25 Rx release propranolol 20 mg tablet 20 mg PO BID 01/17/25 01/17/25 History fluticasone propionate 50 1 spray intranasal BID 30 days #16 01/22/25 Rx mcg/actuation nasal grams spray,suspension ipratropium 0.5 mg-albuterol 3 mg 3 ml inhalation Q6HP PRN shortness 01/22/25 01/17/25 Rx (2.5 mg base)/3 mL nebulization of breath or wheezing 3 months soln #540 mL levofloxacin 750 mg tablet 750 mg PO DAILY #2 tabs 01/22/25 Rx New Prescriptions to Start Prescriptions: fluticasone propionate Jun Alvarez levofloxacin Jun Alvarez Allergies Allergy/AdvReac Type Severity Reaction Status Date / Time No Known Allergies Allergy Verified 01/09/25 14:32 Discharge Plan Disposition Patient Disposition: Home Health Service Condition: Fair Discharge Order Discharge Orders: Discharge Order (Routine); Ordered 01/22/25 Ordered By: Jun Alvarez Follow up Plan Follow up with: Kym Craig APRN [Nurse Practitioner, Family Practice] - 01/25/25 2:00 pm Myles Aburto II, MD [Staff Physician, Gastroenterology] - 01/31/25 12:00 pm Sammi Mishra MD [Physician, Pulmonology] - 01/31/25 1:00 pm Prescriptions/Medication Reconciliation: New fluticasone propionate 50 mcg/actuation Reading,Suspension 1 spray intranasal BID 30 Days Qty: 16 0RF levofloxacin 750 mg tablet 750 mg PO DAILY Qty: 2 0RF Continued albuterol sulfate 90 mcg/actuation HFA aerosol inhaler 1 puff inhalation Q4HP PRN (Reason: Shortness Of Breath) Patient Comments: INHALE 1 PUFF BY MOUTH EVERY 4 TO 6 HOURS NEEDED FOR SHORTNESS OF BREATH pantoprazole 40 mg tablet,delayed release (DR/EC) 40 mg PO BID 30 Days Qty: 60 0RF misoprostol [Cytotec] 100 mcg tablet 100 mcg PO QID 5 Days Qty: 20 0RF propranolol 20 mg tablet 20 mg PO BID Changed ipratropium-albuterol 0.5 mg-3 mg(2.5 mg base)/3 mL solution for nebulization 3 ml inhalation Q6HP PRN (Reason: shortness of breath or wheezing) 90 Days Qty: 540 3RF Held lisinopril 20 mg tablet 20 mg PO BID Hold Instructions: pending follow-up with PCP and re-evaluation of BP Patient Comments: TAKE ONE TABLET BY MOUTH TWICE DAILY FOR HIGH BLOOD PRESSURE Other Ambulatory Orders: Home Medical Equipment (Routine) Location: None Selected Ordered By: Jun Alvarez Problem Reconciliation Problems Reviewed?: Yes Patient Discharge Instructions ACTIVITY: Continue current activity DIET: continue same diet Patient Instructions: High-Calorie, High-Protein Diet, DI for Pneumonia in Adults, DI for Hypocalcemia, DI for Hyponatremia, DI for Gastrointestinal Bleeding, Stop Light Pneumonia Print Language: Nigerian Providers Primary Care Provider: Provider,Referral Admit Provider: Jose Espinoza Attending Provider: Jose Espinoza
--- NOTE | 2025-01-22 09:30 | EXP.PULM.PN ---
Subjective *Date: 01/23/25 *Time: 17:49 Interval history: No acute respiratory vents overnight. Patient admits continued improvement in respiratory symptoms. Pulmonology Exam Inpatient Vital signs and Labs for Last 24 Hours: Temp Pulse Resp BP Pulse Ox O2 Del Method O2 Flow Rate 98.3 F 107 H 18 124/61 84 L Room Air 5 01/22/25 08:00 01/22/25 08:00 01/22/25 08:00 01/22/25 08:00 01/22/25 09:00 01/22/25 09:00 01/22/25 08:00 FiO2 32 01/19/25 19:05 Laboratory Results - last 24 hr 01/21/25 14:17: Hgb 7.4 L, Hct 23.4 L 01/22/25 06:00: WBC 10.6, RBC 2.48 L, Hgb 7.3 L, Hct 22.3 L, MCV 89.9, MCH 29.4, MCHC 32.7, RDW 15.2, Plt Count 342, MPV 9.0, Neut % (Auto) 84.5 H, Lymph % (Auto) 6.0 L, [place] % (Auto) 6.0, Eos % (Auto) 1.7, Baso % (Auto) 0.4, Neut # (Auto) 9.0 H, Lymph # (Auto) 0.6 L, [place] # (Auto) 0.6, Eos # (Auto) 0.2, Baso # (Auto) 0.0, Sodium 130 L, Potassium 4.2, Chloride 100, Carbon Dioxide 24, Anion Gap 10.2, BUN 11, Creatinine 1.30 H, Estimated Creat Clear 41, Estimated GFR 54 L, Est GFR ( Amer) 65, Glucose 95, Calcium 8.0 L, Total Bilirubin 0.5, AST 17, ALT 12, Alkaline Phosphatase 121, Total Protein 5.0 L, Albumin 2.6 L, Globulin 2.4, Albumin/Globulin Ratio 1.1 Temp Pulse Resp BP Pulse Ox O2 Del Method O2 Flow Rate 97.8 F 87 17 105/58 L 98 Nasal Cannula 5.5 01/21/25 07:48 01/21/25 08:00 01/21/25 07:48 01/21/25 07:48 01/21/25 07:48 01/21/25 07:48 01/21/25 07:48 FiO2 32 01/19/25 19:05 Laboratory Results - last 24 hr 01/21/25 06:07: WBC 12.5 H, RBC 2.42 L, Hgb 7.1 L D, Hct 21.9 L, MCV 90.5, MCH 29.3, MCHC 32.4, RDW 15.4, Plt Count 304, MPV 9.1, Neut % (Auto) 81.8 H, Lymph % (Auto) 6.8 L, [place] % (Auto) 7.2, Eos % (Auto) 2.0, Baso % (Auto) 0.2, Neut # (Auto) 10.2 H, Lymph # (Auto) 0.9, [place] # (Auto) 0.9, Eos # (Auto) 0.3, Baso # (Auto) 0.0, Sodium 132 L, Potassium 4.1, Chloride 102, Carbon Dioxide 25, Anion Gap 9.1, BUN 13, Creatinine 1.30 H, Estimated Creat Clear 38, Estimated GFR 54 L, Est GFR ( Amer) 65, Glucose 106 H, Calcium 7.5 L, Total Bilirubin 0.3, AST 15 L, ALT 10 L, Alkaline Phosphatase 109, NT-Pro-B Natriuret Pep 323, Total Protein 4.9 L, Albumin 2.4 L, Globulin 2.5, Albumin/Globulin Ratio 1.0 L I & O for Labs for Last 24 Hours: Intake & Output 01/19/25 01/20/25 01/21/25 01/22/25 23:59 23:59 23:59 23:59 Intake Total 158 / 1680 20290 / 1970 410 / 410 Output Total 800 / 800 475 / 475 550 / 550 700 / 700 Balance 780 / 880 1555 / 1605 1180 / 1420 -290 / -290 Weight 127 lb 124 lb 1.6 oz 123 lb 8 oz 131 lb 4 oz Intake & Output 01/18/25 01/19/25 01/20/25 01/21/25 23:59 23:59 23:59 23:59 Intake Total 1595 / 1715 1580 / 1680 2029 340 / 340 Output Total 2099 800 / 800 475 / 475 350 / 350 Balance -505 / -385 780 / 880 1555 / 1605 -10 / -10 Weight 124 lb 2 oz 127 lb 124 lb 1.6 oz 123 lb 8 oz Microbiology Reports for the Last 24 Hours: Microbiology 01/17/25 05:06 Blood Blood Culture - Final NO GROWTH AFTER 5 DAYS 01/17/25 05:06 Blood Blood Culture - Final NO GROWTH AFTER 5 DAYS Microbiology 01/17/25 05:06 Blood Blood Culture - Preliminary NO GROWTH AFTER 4 DAYS 01/17/25 05:06 Blood Blood Culture - Preliminary NO GROWTH AFTER 4 DAYS Constitutional: Present moderate distress Head: Present normocephalic and atraumatic ENT: Present normal exam, normal oropharynx and mucous membranes moist Neck: Present normal inspection and full ROM Respiratory: Present rhonchi and able to speak in complete sentences; Absent prolonged expiratory phase or wheezes Cardiac: Present S1/S2, Tachycardia and radial pulses present GI: Present soft and distention; Absent tenderness or guarding Skin: Present intact; Absent cyanosis or jaundice Neuro: Present alert, awake and oriented x 3 Extremities: Present normal inspection; Absent clubbing or cyanosis Psychiatric: Present normal affect and cooperative Assessment and Plan *Assessment and plan (1) Multiple lung nodules: Status: Acute Category: Medical Code(s): R91.8 - Other nonspecific abnormal finding of lung field (2) Pneumonia: Status: Acute Qualifiers: Laterality: left Lung location: lower lobe of lung Pneumonia type: due to unspecified organism Qualified Code(s): J18.9 - Pneumonia, unspecified organism Category: Medical Code(s): J18.9 - Pneumonia, unspecified organism (3) Acute respiratory failure with hypoxia: Status: Acute Category: Medical Code(s): J96.01 - Acute respiratory failure with hypoxia Plan Mr. Arellano is a 74-year-old male greater than [id number] smoking history prior smoker, pulmonary emphysema, recently seen in clinic for abnormal CT scan that showed multiple pulmonary nodules scheduled for bronchoscopy January 25 and outpatient based admitted to the hospital on 01/12/2020 for for concerning GI bleed discharged home presented to the hospital again on 01/17/2025 concerns for GI bleed status post endoscopy duodenal ulcer with visible vessel status post ablation and clip and pulmonary was called for further evaluation management of worsening respiratory distress. Chest x-ray upon admission concerning for left lower lobe airspace disease. CTA PE protocol 01/20/2025 continues show previously noted nodules along with minimal patchy airspace disease with no dense consolidative changes. Lower lobe likely atelectasis also noted. No effusions noted. No pulmonary embolism noted. CT also showed small pericardial effusion and concern for right pyelonephritis Comprehensive respiratory viral PCR panel negative upon admission. Afebrile. Hemodynamically stable. Neutrophilic prominent leukocytosis improving. Sputum culture less than 10 WBC. Blood cultures no growth 4 days. Currently receiving Zosyn and azithromycin. Nebulization therapies every 6 scheduled No significant wheezing noted on auscultation. Continue to be receiving 3 L nasal oxygen supplementation with patient last seen in clinic was improvement saturating 96%. Interval update: No acute respiratory vents overnight. Continued to be needing oxygen supplementation. Renal function improving. Overall net negative volume status. Improving leukocytosis Chest x-ray from this morning, improving, due to dense consolidative/airspace changes. Plan: Antibiotics can be weaned to levofloxacin to complete a total of 7-day course from pulmonary standpoint. Continue oxygen supplementation to maintain O2 saturation goal of 90% and above. Continue to be needing 2 to 4 L to maintain O2 saturation goal of 90% and above Continue DuoNebs every 6 hours along with Pulmicort Q12 scheduled Given his continued need for his hospitalization and ongoing medical core morbidities that needs active management at this point of time, we will cancel the scheduled bronchoscopy for this Tuesday. Will reschedule. # Thank you for involving pulmonary in this patient care. Will continue to follow.
--- NOTE | 2025-01-22 09:32 | XR_ITS ---
FINAL REPORT CLINICAL HISTORY: Hypoxia COMPARISON: 12/20/[address] scan 01/02/2025 FINDINGS: The heart size is normal. The mediastinum is normal. There is chronic scarring in the lung bases. Nodular opacities in the left upper lobe and in the left middle lobe measure up to 1.7 cm and are similar to the prior study. These were better displayed on CT scan from 01/02/2025 there are no pleural effusions. There is no pneumothorax. There is no osseous abnormality. IMPRESSION: Left upper lobe and left middle lobe nodular opacities. Reviewed, Interpreted and Dictated by Darwin Ryan MD Transcribed by Camila Morris Authenticated and [facility]
--- NOTE | 2025-01-22 12:27 | CARE MANAGER ---
Patient discharging today with new orders sent to [facility] r/t 4L of O2 now needed instead of 2L that he is on at baseline.
[2025-01-22] MEDS: AZITHROMYCIN 500 MG in 0.9 % SODIUM CHLORIDE 250 ML 250 MG IV (13:33)
[2025-01-22 13:54] LABS: MRSA DNA PCR Negative (Negative)
--- NOTE | 2025-01-24 10:16 | SW/DCPLANNER ---
Spoke with patient on the phone. Patient stated that he is doing okay. Patient stated that home health has turned him over to hospice. Patient stated that hospice said to not follow up with his appointments and that they are taking care of his medicine. Patient stated that he has no concerns or questions at this time. Cely Turpin
== END 2025-01-22 15:52 | disposition home or self-care (01) | DRG 326 ==
LOC: ER 03:54 → ICU 07:37 → 2ND 01-18 09:29
PROVIDERS: Internal Medicine; Internal Medicine Adolescent Medicine; Internal Medicine Gastroenterology; Nurse Practitioner Family; Admitting Provider Student in an Organized Health Care Education/Training Program; Emergency Provider Emergency Medicine; Visit Provider Student in an Organized Health Care Education/Training Program
PROC: 0DJ08ZZ Inspection of Upper Intestinal Tract, Via Natural or Artificial Opening Endoscopic (ICD-10-PCS; principal; 2025-01-17 15:30)
DX: K26.4 Chronic or unspecified duodenal ulcer with hemorrhage (principal); E43 Unspecified severe protein-calorie malnutrition; J18.9 Pneumonia, unspecified organism; J96.01 Acute respiratory failure with hypoxia; D62 Acute posthemorrhagic anemia; J44.0 Chronic obstructive pulmonary disease with (acute) lower respiratory infection; E87.1 Hypo-osmolality and hyponatremia; E83.51 Hypocalcemia; I12.9 Hypertensive chronic kidney disease with stage 1 through stage 4 chronic kidney disease, or unspecified chronic kidney disease; N18.31 Chronic kidney disease, stage 3a; J43.8 Other emphysema; R91.8 Other nonspecific abnormal finding of lung field; N28.9 Disorder of kidney and ureter, unspecified; Z79.899 Other long term (current) drug therapy; Z68.21 Body mass index [BMI] 21.0-21.9, adult; Z87.891 Personal history of nicotine dependence
CPT/HCPCS: 0223U; 36415; 36430; 36600; 71045; 71275; 74177; 80048; 80053; 81001; 82397; 82607; 82728; 82746; 82803; 83540; 83550; 83735; 83880; 84100; 84145; 85007; 85014; 85018; 85025; 85610; 86850; 87040; 87070; 87205; 87641; 89220; 93005; 93306; 94640; 94761; 97530; 99285; C1760; C2618; J0169; J0456; J0612; J1756; J2003; J2371; J2405; J2470; J2543; J2704; J3420; J3475; J7030; J7050; P9016; Q9967